=== PATIENT | female | born 1940 | race African-American/Black ===

== ENCOUNTER 2019-06-16 19:39 | Emergency (ER) | payer MEDICARE ==
[~2019-06-16] VITALS: Ht 157.5 cm; Wt 54.5 kg
--- NOTE | 2019-06-16 21:21 | PHYS DOC ---
Past Medical History Past Medical History: High Cholesterol, Hypertension Additional Past Medical Histor: poor historian Past Surgical History: Other Additional Past Surgical Histo: poor historian Smoking Status: Never Smoker Alcohol Use: None Adult General Chief Complaint Chief Complaint: NAUSEA/VOMITING/DIARRHA HPI HPI Patient is a 78 year old female who presents with complaint of nausea and vomiting that started this morning. Patient indicates that she has not been able to keep anything down. She denies any diarrhea. She denies any abdominal pain. She also denies any fever, cough or shortness of breath.[] Review of Systems Review of Systems Constitutional: Denies fever or chills [] Respiratory: Denies cough or shortness of breath [] Cardiovascular: No additional information not addressed in HPI [] GI: Denies abdominal pain. Complains of nausea and vomiting without diarrhea [] : Denies dysuria or hematuria [] Neurologic: Denies headache, focal weakness or sensory changes [] All other systems were reviewed and found to be within normal limits, except as documented in this note. Current Medications Current Medications Current Medications Medications (Trade) Dose Ordered Sig/Susan Start Time Stop Time Status Last Admin Dose Admin Ondansetron HCl (Zofran) 4 mg 1X ONCE 06/16/19 21:30 06/16/19 21:31 DC 06/16/19 21:35 4 MG Sodium Chloride 1,000 ml @ 1,000 mls/hr Q1H 06/16/19 21:30 06/16/19 22:29 DC 06/16/19 21:35 1,000 MLS/HR Allergies Allergies Allergies Coded Allergies Type Severity Reaction Last Updated Verified No Known Drug Allergies 06/16/19 No Physical Exam Physical Exam Constitutional: Well developed, well nourished, no acute distress, non-toxic appearance. [] HENT: Normocephalic, atraumatic, bilateral external ears normal, oropharynx moist, no oral exudates, nose normal. [] Eyes: PERRLA, EOMI, conjunctiva normal, no discharge. [] Neck: Normal range of motion, no tenderness, supple, no stridor. [] Cardiovascular:Heart rate regular rhythm, no murmur [] Lungs & Thorax: Bilateral breath sounds clear to auscultation [] Abdomen: Bowel sounds normal, soft, no tenderness. [] Skin: Warm, dry, no erythema, no rash. [] Extremities: No tenderness, no cyanosis, no clubbing, ROM intact, no edema. [] Neurologic: Alert and oriented X 3, no focal deficits noted. [] Current Patient Data Vital Signs Vital Signs Date Time Temp Pulse Resp B/P (MAP) Pulse Ox O2 Delivery O2 Flow Rate FiO2 06/16/19 20:40 97.9 78 18 154/117 (129) 96 Room Air 97.9 Lab Values Laboratory Tests Test 06/16/19 21:17 White Blood Count 6.7 x10^3/uL (4.0-11.0) Red Blood Count 5.08 x10^6/uL (3.50-5.40) Hemoglobin 15.6 g/dL (12.0-15.5) H Hematocrit 46.0 % (36.0-47.0) Mean Corpuscular Volume 91 fL (79-100) Mean Corpuscular Hemoglobin 31 pg (25-35) Mean Corpuscular Hemoglobin Concent 34 g/dL (31-37) Red Cell Distribution Width 12.9 % (11.5-14.5) Platelet Count 227 x10^3/uL (140-400) Neutrophils (%) (Auto) 80 % (31-73) H Lymphocytes (%) (Auto) 15 % (24-48) L Monocytes (%) (Auto) 4 % (0-9) Eosinophils (%) (Auto) 0 % (0-3) Basophils (%) (Auto) 1 % (0-3) Neutrophils # (Auto) 5.4 x10^3/uL (1.8-7.7) Lymphocytes # (Auto) 1.0 x10^3/uL (1.0-4.8) Monocytes # (Auto) 0.3 x10^3/uL (0.0-1.1) Eosinophils # (Auto) 0.0 x10^3/uL (0.0-0.7) Basophils # (Auto) 0.1 x10^3/uL (0.0-0.2) Sodium Level 143 mmol/L (136-145) Potassium Level 4.5 mmol/L (3.5-5.1) Chloride Level 102 mmol/L (98-107) Carbon Dioxide Level 31 mmol/L (21-32) Anion Gap 10 (6-14) Blood Urea Nitrogen 11 mg/dL (7-20) Creatinine 0.9 mg/dL (0.6-1.0) Estimated GFR (Cockcroft-Gault) 73.7 BUN/Creatinine Ratio 12 (6-20) Glucose Level 119 mg/dL (70-99) H Calcium Level 9.7 mg/dL (8.5-10.1) Total Bilirubin 0.5 mg/dL (0.2-1.0) Aspartate Amino Transferase (AST) 18 U/L (15-37) Alanine Aminotransferase (ALT) 15 U/L (14-59) Alkaline Phosphatase 81 U/L (46-116) Total Protein 8.2 g/dL (6.4-8.2) Albumin 3.5 g/dL (3.4-5.0) Albumin/Globulin Ratio 0.7 (1.0-1.7) L Lipase 92 U/L (73-393) Laboratory Tests 06/16/19 21:17 Laboratory Tests 06/16/19 21:17 EKG EKG [] Radiology/Procedures Radiology/Procedures [] Course & Med Decision Making Course & Med Decision Making Pertinent Labs and Imaging studies reviewed. (See chart for details) [] Dragon Disclaimer Dragon Disclaimer This electronic medical record was generated, in whole or in part, using a voice recognition dictation system. Departure Departure Impression: Primary Impression: Nausea & vomiting Disposition: 01 HOME, SELF-CARE Condition: STABLE Referrals: KIRK ROBERT MD (PCP) Patient Instructions: Nausea and Vomiting Scripts Ondansetron (ONDANSETRON ODT) 4 Mg Tab.rapdis 1 TAB PO PRN Q6-8HRS PRN for NAUSEA, #15 TAB Prov: JODY COBURN Jr. DO 06/16/19 Problem Qualifiers Primary Impression: Nausea & vomiting Vomiting type: unspecified Vomiting Intractability: non-intractable Qualified Codes: R11.2 - Nausea with vomiting, unspecified JODY COBURN Jr. DO Jun 16, 2019 21:20
[2019-06-16 21:27] LABS: BASO # 0.1 x10^3/uL (0.0-0.2); BASO % 1 % (0-3); EOS % 0 % (0-3); HEMOGLOBIN 15.6 g/dL (12.0-15.5); LYMPH % 15 % (24-48); MEAN CORPUSCULAR HEMOGLOBIN 31 pg (25-35); MEAN CORPUSCULAR HGB CONC 34 g/dL (31-37); MEAN CORPUSCULAR VOLUME 91 fL (79-100); MONO # 0.3 x10^3/uL (0.0-1.1); MONO % 4 % (0-9); NEUT # 5.4 x10^3/uL (1.8-7.7); NEUT % 80 % (31-73); PLATELET COUNT 227 x10^3/uL (140-400); RED BLOOD COUNT 5.08 x10^6/uL (3.50-5.40); RED CELL DISTRIBUTION WIDTH 12.9 % (11.5-14.5); WHITE BLOOD COUNT 6.7 x10^3/uL (4.0-11.0)
[2019-06-16] MEDS ORDERED: ONDANSETRON PF 4 MG/2 ML VIAL. IVP ONE (21:30)
[2019-06-16] MEDS ORDERED: IV NORMAL SALINE 1000ML BAG 1,000 ML IV SCH (21:30)
[2019-06-16 21:33] LABS: CALCIUM 9.7 mg/dL (8.5-10.1); CREATININE 0.9 mg/dL (0.6-1.0); GFR 73.7; POTASSIUM 4.5 mmol/L (3.5-5.1)
[2019-06-16 21:40] LABS: ALBUMIN 3.5 g/dL (3.4-5.0); ALBUMIN/GLOBULIN RATIO 0.7 (1.0-1.7); TOTAL BILIRUBIN 0.5 mg/dL (0.2-1.0); TOTAL PROTEIN 8.2 g/dL (6.4-8.2)
[2019-06-16] MEDS ORDERED: ONDA4TAB12 PO (22:37)
[2019-06-16 22:46] VITALS: BP 177/85
== END 2019-06-16 23:20 | disposition home or self-care (01) ==
LOC: ER 19:39
DX: R11.2 Nausea with vomiting, unspecified (principal); E78.00 Pure hypercholesterolemia, unspecified; I10 Essential (primary) hypertension
CPT/HCPCS: 36415; 80053; 83690; 85025; 96361; 96374; 99284; J2405; J7030

== ENCOUNTER 2019-06-17 11:46 | Emergency (ER) | payer MEDICARE ==
[~2019-06-17] VITALS: Ht 157.5 cm; Wt 54.5 kg
[~2019-06-17 11:46] MED LIST: ONDA4TAB12 PO
[2019-06-17 12:11] VITALS: BP 168/79
--- NOTE | 2019-06-17 12:24 | PHYS DOC ---
Past Medical History Past Medical History: High Cholesterol, Hypertension Additional Past Medical Histor: poor historian Past Surgical History: Other Additional Past Surgical Histo: poor historian Smoking Status: Never Smoker Alcohol Use: None Adult General Chief Complaint Chief Complaint: NAUSEA/VOMITING/DIARRHA HPI HPI 78-year-old female presented emerged from today after being discharged last night. She overnight was seen for nausea with a few episodes of vomiting. She was given Zofran at home but did not fill her prescription. She has not had a temperature. She otherwise denies any abdominal pain or any other complaints. She just is trying to figure how she can fill her Zofran prescription. She denies any blood in her stools. Review of systems negative for abdominal pain blood in stools fevers chest pain shortness of breath. All other ROS is negative unless otherwise noted. ED course: 78-year-old female presenting after not being able to fill her for Zofran prescription. Patient has not had any vomiting throughout the night. H er vital signs are unremarkable. Blood work was unremarkable last night. Abdomen is soft and nontender. We were able to refill the patient's medication by getting it paid for so that she can use it at home. She is to return for worsening vomiting after using the medication. Follow-up with PCP in 1 to 2 days Review of Systems Review of Systems All other review of systems is negative unless otherwise noted in history of present illness. Allergies Allergies Allergies Coded Allergies Type Severity Reaction Last Updated Verified No Known Drug Allergies 06/16/19 No Physical Exam Physical Exam SEE ABOVE. Constitutional: Well developed, well nourished, no acute distress, non-toxic appearance. [] HENT: Normocephalic, atraumatic, bilateral external ears normal, oropharynx moist, no oral exudates, nose normal. [] Eyes: PERRLA, EOMI, conjunctiva normal, no discharge. [] Neck: Normal range of motion, no tenderness, supple, no stridor. [] Cardiovascular:Heart rate regular rhythm, no murmur [] Lungs & Thorax: Bilateral breath sounds clear to auscultation [] Abdomen: Bowel sounds normal, soft, no tenderness, no masses, no pulsatile masses. Nondistended. Skin: Warm, dry, no erythema, no rash. [] Back: No tenderness, no CVA tenderness. [] Extremities: No tenderness, no cyanosis, no clubbing, ROM intact, no edema. [] Neurologic: Alert and oriented X 3, normal motor function, normal sensory function, no focal deficits noted. [] Psychologic: Affect normal, judgement normal, mood normal. [] Current Patient Data Vital Signs Vital Signs Date Time Temp Pulse Resp B/P (MAP) Pulse Ox O2 Delivery O2 Flow Rate FiO2 06/17/19 12:11 72 168/79 (108) Room Air 06/17/19 12:05 98.2 17 98 98.2 EKG EKG [] Radiology/Procedures Radiology/Procedures [] Course & Med Decision Making Course & Med Decision Making Pertinent Labs and Imaging studies reviewed. (See chart for details) [] Dragon Disclaimer Dragon Disclaimer This electronic medical record was generated, in whole or in part, using a voice recognition dictation system. Departure Departure Impression: Primary Impression: Nausea & vomiting Disposition: 01 HOME, SELF-CARE Condition: STABLE Referrals: KIRK ROBERT MD (PCP) Patient Instructions: Nausea and Vomiting DINESH GUZMAN MD Jun 17, 2019 12:24
== END 2019-06-17 12:45 | disposition home or self-care (01) ==
LOC: ER 11:46
DX: R11.2 Nausea with vomiting, unspecified (principal); E78.00 Pure hypercholesterolemia, unspecified; I10 Essential (primary) hypertension
CPT/HCPCS: 99281

== ENCOUNTER 2020-03-25 18:12 | Inpatient (IN) | payer MEDICARE, OTHER ==
[~2020-03-25] VITALS: Ht 157.5 cm; Wt 47.8 kg
[2020-03-25] MEDS ORDERED: IV NORMAL SALINE 1000ML BAG 1,000 ML IV ONE ×2 (18:15→20:30)
[2020-03-25 18:30] LABS: BASO # 0.1 x10^3/uL (0.0-0.2); BASO % 1 % (0-3); EOS % 0 % (0-3); HEMATOCRIT 44.3 % (36.0-47.0); HEMOGLOBIN 14.6 g/dL (12.0-15.5); LYMPH # 2.5 x10^3/uL (1.0-4.8); LYMPH % 22 % (24-48); MEAN CORPUSCULAR HEMOGLOBIN 30 pg (25-35); MEAN CORPUSCULAR HGB CONC 33 g/dL (31-37); MEAN CORPUSCULAR VOLUME 91 fL (79-100); MONO # 0.7 x10^3/uL (0.0-1.1); MONO % 6 % (0-9); NEUT # 8.4 x10^3/uL (1.8-7.7); NEUT % 72 % (31-73); PLATELET COUNT 177 x10^3/uL (140-400); RED BLOOD COUNT 4.87 x10^6/uL (3.50-5.40); RED CELL DISTRIBUTION WIDTH 13.3 % (11.5-14.5); WHITE BLOOD COUNT 11.7 x10^3/uL (4.0-11.0)
[2020-03-25 18:48] LABS: CALCIUM 9.3 mg/dL (8.5-10.1); CREATININE 1.3 mg/dL (0.6-1.0); GFR 48.1; POTASSIUM 3.6 mmol/L (3.5-5.1)
[2020-03-25 18:51] LABS: PROTHROMBIN TIME PATIENT 13.9 SEC (11.7-14.0)
[2020-03-25 18:54] LABS: ALBUMIN 3.1 g/dL (3.4-5.0); ALBUMIN/GLOBULIN RATIO 0.8 (1.0-1.7); MAGNESIUM 2.5 mg/dL (1.8-2.4); TOTAL BILIRUBIN 0.5 mg/dL (0.2-1.0)
[2020-03-25 19:02] LABS: CREATINE KINASE 36 U/L (26-192)
--- NOTE | 2020-03-25 19:14 | RAD ---
Exam: CT head INDICATION: Altered mental status TECHNIQUE: Sequential axial images through the head were obtained without the administration of IV co ntrast. Comparisons: MRI brain 02/17/2013 FINDINGS: No focal parenchymal lesion or hemorrhage is identified. There is no midline shift or sulcal effaceme nt. Patchy evidence in the periventricular white matter. Chronic infarct at the left cerebellum No acute vascular territory infarction is identified. Suarez-white distinction is preserved. The ventricular system is within normal limits without compression hydrocephalus. The basal cisterns are well maintained. The visualized portions of the paranasal sinuses and mastoid air cells are well-pneumatized. No acute fractures. IMPRESSION: Moderate small vessel ischemic change, technically age indeterminate without recent prior imaging. If there are persistent concerns for acute ischemia MRI would better evaluate. Exposure: One or more of the following in the visualized dose reduction techniques were utilized for this examination: 1. Automated exposure control 2. Adjustment of the MA and/or KV according to patient size Use of iterative of reconstructive technique FOR INTERNAL CODING PURPOSES Critical result: Findings discussed with Torito Jones at 03/25/2020 7:08 PM. RESULT CODE: (C) Electronically signed by: Aaron Gaviria MD (03/25/2020 7:12 PM) [facility]
--- NOTE | 2020-03-25 19:15 | RAD ---
Exam: Chest one view INDICATION: Altered mental status TECHNIQUE: Frontal view of the chest Comparisons: None FINDINGS: The cardiomediastinal silhouette and pulmonary vessels are within normal limits. The lung and pleural spaces are clear. IMPRESSION: No acute cardiopulmonary process. Electronically signed by: Aaron Gaviria MD (03/25/2020 7:13 PM) [facility]
--- NOTE | 2020-03-25 19:18 | PHYS DOC ---
Past Medical History Past Medical History: CVA, High Cholesterol, Hypertension Additional Past Medical Histor: blind Past Medical History Limited secondary to altered mental status Past Surgical History: Other Past Surgical History Limited secondary to altered mental status Smoking Status: Never Smoker Alcohol Use: None Drug Use: None Social History Limited secondary to altered mental status General Adult EDM: Chief Complaint: ALTERED MENTAL STATUS HPI: HPI: Patient is a 79 year old female presents via EMS with report of syncopal episode while she was eating dinner with her family. EMS reports patient became suddenly unresponsive. EMS reports patient's GCS initially 5 then improved to 10 during transport. Patient did vomit x1. Upon arrival patient with interval improvement. Denies fever or chills. 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 History of present illness limited secondary to altered mental status Review of Systems: Review of Systems: Review of systems limited secondary to altered mental status Current Medications: Current Medications Medications (Trade) Dose Ordered Sig/Susan Start Time Stop Time Status Last Admin Dose Admin Sodium Chloride 1,000 ml @ 1,000 mls/hr 1X ONCE 03/25/20 18:15 03/25/20 19:14 DC Allergies: Allergies: Allergies Coded Allergies Type Severity Reaction Last Updated Verified No Known Drug Allergies 06/16/19 No Physical Exam: PE: Constitutional: Well developed, well nourished, no acute distress, non-toxic appearance HENT: Normocephalic, atraumatic, mucous membranes dry Eyes: Conjunctiva normal, no discharge, chronic blindness Neck: Normal range of motion, no tenderness, supple Lungs & Thorax: No respiratory distress, equal chest rise and fall Abdomen: Soft, no tenderness Skin: Warm, dry, no erythema, no rash Extremities: No tenderness, ROM intact, no edema Neurologic: Alert and oriented X 3, normal sensory function, left lower extremity with limited range of motion Psychologic: Affect normal, judgment normal Current Patient Data: Labs: Laboratory Tests Test 03/25/20 18:15 White Blood Count 11.7 x10^3/uL (4.0-11.0) H Red Blood Count 4.87 x10^6/uL (3.50-5.40) Hemoglobin 14.6 g/dL (12.0-15.5) Hematocrit 44.3 % (36.0-47.0) Mean Corpuscular Volume 91 fL (79-100) Mean Corpuscular Hemoglobin 30 pg (25-35) Mean Corpuscular Hemoglobin Concent 33 g/dL (31-37) Red Cell Distribution Width 13.3 % (11.5-14.5) Platelet Count 177 x10^3/uL (140-400) Neutrophils (%) (Auto) 72 % (31-73) Lymphocytes (%) (Auto) 22 % (24-48) L Monocytes (%) (Auto) 6 % (0-9) Eosinophils (%) (Auto) 0 % (0-3) Basophils (%) (Auto) 1 % (0-3) Neutrophils # (Auto) 8.4 x10^3/uL (1.8-7.7) H Lymphocytes # (Auto) 2.5 x10^3/uL (1.0-4.8) Monocytes # (Auto) 0.7 x10^3/uL (0.0-1.1) Eosinophils # (Auto) 0.0 x10^3/uL (0.0-0.7) Basophils # (Auto) 0.1 x10^3/uL (0.0-0.2) Prothrombin Time 13.9 SEC (11.7-14.0) Prothrombin Time INR 1.1 (0.8-1.1) Activated Partial Thromboplast Time 22 SEC (24-38) L Sodium Level 141 mmol/L (136-145) Potassium Level 3.6 mmol/L (3.5-5.1) Chloride Level 105 mmol/L (98-107) Carbon Dioxide Level 26 mmol/L (21-32) Anion Gap 10 (6-14) Blood Urea Nitrogen 28 mg/dL (7-20) H Creatinine 1.3 mg/dL (0.6-1.0) H Estimated GFR (Cockcroft-Gault) 48.1 BUN/Creatinine Ratio 22 (6-20) H Glucose Level 165 mg/dL (70-99) H Lactic Acid Level 2.8 mmol/L (0.4-2.0) H Calcium Level 9.3 mg/dL (8.5-10.1) Magnesium Level 2.5 mg/dL (1.8-2.4) H Total Bilirubin 0.5 mg/dL (0.2-1.0) Aspartate Amino Transferase (AST) 15 U/L (15-37) Alanine Aminotransferase (ALT) 16 U/L (14-59) Alkaline Phosphatase 62 U/L (46-116) Ammonia 12 mcmol/L (11-34) Creatine Kinase 36 U/L (26-192) Creatine Kinase MB (Mass) 0.6 ng/mL (0.0-3.6) Creatine Kinase MB Relative Index % (0-4) Troponin I Quantitative < 0.017 ng/mL (0.000-0.055) LD-Xvf-N-Type Natriuretic Peptide 392 pg/mL (0-449) Total Protein 7.0 g/dL (6.4-8.2) Albumin 3.1 g/dL (3.4-5.0) L Albumin/Globulin Ratio 0.8 (1.0-1.7) L Laboratory Tests 03/25/20 18:15 Laboratory Tests 03/25/20 18:15 Vital Signs: Vital Signs Date Time Temp Pulse Resp B/P (MAP) Pulse Ox O2 Delivery O2 Flow Rate FiO2 03/25/20 18:12 97.7 83 14 120/59 (79) 97 Room Air 97.7 EKG: EKG: @1843 Aflutter vs baseline artifact at 76bpm, J point elevated to V3, nonspecific t wave inversion V1-V2, QRS 122ms, QT/QTc 424/482ms Radiology/Procedures: Radiology/Procedures: PROCEDURE: CT CODE STROKE HEAD WO Exam: CT head INDICATION: Altered mental status TECHNIQUE: Sequential axial images through the head were obtained without the administration of IV contrast. Comparisons: MRI brain 02/17/2013 FINDINGS: No focal parenchymal lesion or hemorrhage is identified. There is no midline shift or sulcal effacement. Patchy evidence in the periventricular white matter. Chronic infarct at the left cerebellum No acute vascular territory infarction is identified. Suarez-white distinction is preserved. The ventricular system is within normal limits without compression hydrocephalus. The basal cisterns are well maintained. The visualized portions of the paranasal sinuses and mastoid air cells are well-pneumatized. No acute fractures. IMPRESSION: Moderate small vessel ischemic change, technically age indeterminate without recent prior imaging. If there are persistent concerns for acute ischemia MRI would better evaluate. Exposure: One or more of the following in the visualized dose reduction technPerception Software ues were utilized for this examination: 1. Automated exposure control 2. Adjustment of the MA and/or KV according to patient size Use of iterative of reconstructive technique FOR INTERNAL CODING PURPOSES Critical result: Findings discussed with Torito Pang at 03/25/2020 7:08 PM. RESULT CODE: (C) Electronically signed by: Aaron Gaviria MD (03/25/2020 7:12 PM) [facility] PROCEDURE: PORTABLE CHEST 1V Exam: Chest one view INDICATION: Altered mental status TECHNIQUE: Frontal view of the chest Comparisons: None FINDINGS: The cardiomediastinal silhouette and pulmonary vessels are within normal limits. The lung and pleural spaces are clear. IMPRESSION: No acute cardiopulmonary process. Electronically signed by: Aaron Gaviria MD (03/25/2020 7:13 PM) [facility] Course & Med Decision Making: Course & Med Decision Making Pertinent Labs and Imaging studies reviewed. (See chart for details) Patient presents as code stroke from EMS after reported syncopal episode while with family members. Last known well at 1725. CT head without acute process. Findings of known prior chronic infarct. EKG stable. Labs obtained and posted to chart. Lactic acid elevated. Chest x-ray without acute finding. Given rapid improvement in patient's mentation, elected to hold TPA at this time. Cannot fully exclude seizure with postictal state. Patient requiring admission for further evaluation and treatment. Discussed with Dr. Desouza (hospitalist) who is in agreement with admission. Neurology consult placed. Discussed findings and plan with patient, who acknowledges understanding and agreement. Fletcher Disclaimer: Fletcher Disclaimer: This electronic medical record was generated, in whole or in part, using a voice recognition dictation system. Departure Departure Impression: Primary Impression: Altered mental status Qualified Codes: R41.82 - Altered mental status, unspecified Additional Impressions: Syncope Qualified Codes: R55 - Syncope and collapse Lactic acidosis Disposition: 09 ADMITTED INPT THIS HOSP Admitting Physician: KENDALL (Deo) Condition: IMPROVED Referrals: KIRK ROBERT MD (PCP) NIHSS Stroke Scale NIH Stroke Scale: NIH Stroke Scale Response (Comments) Value Level of Consciousness: 0 Alert/Responsive 0 LOC Questions: 0 Answers both correctly 0 LOC Commands: 0 Performs both tasks 0 Facial Palsy: 0 Normal, symmetrical 0 Motor - Left Arm 1 Drifts, but can hold 1 Motor - Right Arm 1 Drifts but can hold 1 Motor - Left Leg 2 Some effort 2 Motor: Right Leg 0 No drift 0 Sensory: 0 No loss 0 Best Language: 0 Normal 0 Dysathria: 0 Normal 0 Extinction and Inattention: 0 Normal 0 Total 4 PANG,TORITO Pandey DO Mar 25, 2020 19:18
[2020-03-25] MEDS ORDERED: ASPIRIN RECTAL 300 MG SUPP. PR ONE (19:30)
[2020-03-25 20:11] LABS: BILIRUBIN,URINE SMALL (NEG); CLARITY,URINE CLEAR; COLOR,URINE AMBER; NITRITE,URINE NEGATIVE (NEG); PH,URINE 5.5 (<5.0-8.0); PROTEIN,URINE 30 mg/dL (NEG-TRACE)
[2020-03-25 20:16] LABS: BACTERIA,URINE 0 /HPF (0-FEW); RBC,URINE 0 /HPF (0-2); WBC,URINE OCC /HPF (0-4)
[2020-03-25 20:17] LABS: HYALINE CASTS, URINE FEW /HPF
[2020-03-25] MEDS ORDERED: ONDANSETRON PF 4 MG/2 ML VIAL. IV PRN (20:30)
[2020-03-25] MEDS: IV NORMAL SALINE 1000ML BAG 1,000 ML IV SCH (21:00)
[2020-03-25] MEDS ORDERED: DEXTROSE 50% 25 GM / 50ML DISP.SYRIN. IV PRN (21:00)
[2020-03-25] MEDS ORDERED: ONDANSETRON PF 4 MG/2 ML VIAL. IVP PRN (21:00)
[2020-03-25] MEDS: ATORVASTATIN CALCIUM 40 MG TABLET. PO SCH (21:00)
[2020-03-25] MEDS ORDERED: DOCUSATE SODIUM 100 MG CAPSULE. PO PRN (21:00)
[2020-03-26 06:13] LABS: BASO # 0.1 x10^3/uL (0.0-0.2); BASO % 1 % (0-3); EOS # 0.1 x10^3/uL (0.0-0.7); EOS % 1 % (0-3); HEMATOCRIT 41.9 % (36.0-47.0); HEMOGLOBIN 14.1 g/dL (12.0-15.5); LYMPH # 1.6 x10^3/uL (1.0-4.8); LYMPH % 22 % (24-48); MEAN CORPUSCULAR HEMOGLOBIN 30 pg (25-35); MEAN CORPUSCULAR HGB CONC 34 g/dL (31-37); MEAN CORPUSCULAR VOLUME 91 fL (79-100); MONO # 0.5 x10^3/uL (0.0-1.1); MONO % 8 % (0-9); NEUT # 5.1 x10^3/uL (1.8-7.7); NEUT % 69 % (31-73); PLATELET COUNT 141 x10^3/uL (140-400); RED BLOOD COUNT 4.63 x10^6/uL (3.50-5.40); RED CELL DISTRIBUTION WIDTH 13.2 % (11.5-14.5); WHITE BLOOD COUNT 7.4 x10^3/uL (4.0-11.0)
[2020-03-26 06:31] LABS: CALCIUM 8.4 mg/dL (8.5-10.1); CREATININE 0.7 mg/dL (0.6-1.0); GFR 98.2; MAGNESIUM 2.1 mg/dL (1.8-2.4); PHOSPHORUS 2.3 mg/dL (2.6-4.7); POTASSIUM 3.9 mmol/L (3.5-5.1)
--- NOTE | 2020-03-26 07:34 | PDOC1 ---
History and Physical Date of Service: DOS: DATE: 03/26/20 TIME: 07:32 Chief Complaint: Chief Complain: syncope History of Present Illness: HPI: History obtained from chart review and discussion with the patient. Patient is alert awake oriented x3. 79 year old female presents via EMS with report of syncopal episode while she was eating dinner with her family. EMS reports patient became suddenly u nresponsive. EMS reports patient's GCS initially 5 then improved to 10 during transport. Patient did vomit x1. Upon arrival patient with interval improvement. Denies fever or chills. 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 History of present illness limited secondary to altered mental status Past Medical/Surgical History: PMH/PSH: Past Medical History: CVA, High Cholesterol, Hypertension,legally blind Limited secondary to altered mental status Past Surgical History Limited secondary to altered mental status Allergies: Allergies: Coded Allergies: No Known Drug Allergies (Unverified , 06/16/19) Family History: Family History: Limited to altered mental status Social History: Social History: Smoking Status: Never Smoker Alcohol Use: None Drug Use: None Social History Limited secondary to altered mental status Current Medications: Current Medications Current Medications Sodium Chloride 1,000 ml @ 1,000 mls/hr 1X ONCE IV Last administered on 03/25/20at 19:48; Start 03/25/20 at 18:15; Stop 03/25/20 at 19:14; Status DC Aspirin (Aspirin Rectal Supp) 300 mg 1X ONCE TX Last administered on 03/25/20at 19:48; Start 03/25/20 at 19:30; Stop 03/25/20 at 19:33; Status DC Ondansetron HCl (Zofran) 4 mg PRN Q8HRS PRN IV NAUSEA/VOMITING; Start 03/25/20 at 20:30; Stop 03/26/20 at 20:29 Sodium Chloride 1,000 ml @ 75 mls/hr 1X ONCE IV Last administered on 03/25/20at 20:30; Start 03/25/20 at 20:30; Stop 03/26/20 at 00:18; Status DC Atorvastatin Calcium (Lipitor) 40 mg QHS PO ; Start 03/25/20 at 21:00 Sennosides (Senna) 17.2 mg PRN BID PRN PO CONSTIPATION 1ST CHOICE; Start 03/25/20 at 21:00 Docusate Sodium (Colace) 100 mg PRN DAILY PRN PO HARD STOOLS; Start 03/25/20 at 21:00 Ondansetron HCl (Zofran) 4 mg PRN Q6HRS PRN IVP NAUSEA/VOMITING 1ST CHOICE; Start 03/25/20 at 21:00 Aspirin (Ecotrin) 81 mg DAILYWBKFT PO ; Start 03/26/20 at 08:00 Dextrose (Dextrose 50%-Water Syringe) 12.5 gm PRN Q15MIN PRN IV SEE COMMENTS; Start 03/25/20 at 21:00 Sodium Chloride 1,000 ml @ 100 mls/hr Q10H IV ; Start 03/25/20 at 21:00 Active Scripts Active Ondansetron Odt (Ondansetron) 4 Mg Tab.rapdis 1 Tab PO PRN Q6-8HRS PRN ROS: Review of Systems Review of System REVIEW OF SYSTEMS: GENERAL: Denies weakness SKIN: No bruising, hair changes or rashes. EYES: No blurred, double or loss of vision. NOSE AND THROAT: No history of nosebleeds, hoarseness or sore throat. HEART: No history of palpitations, chest pain or shortness of breath on exertion. LUNGS: Denies cough, hemoptysis, wheezing or shortness of breath. GASTROINTESTINAL: Denies changes in appetite, nausea, vomiting, diarrhea or constipation. GENITOURINARY: No history of frequency, urgency, hesitancy or nocturia. NEUROLOGIC: Denies history of numbness, tingling, or tremor. PSYCHIATRIC: No history of panic, anxiety or depression. ENDOCRINE: No history of heat or cold intolerance, polyuria or polydipsia. EXTREMITIES: Denies joint pain, pain on walking or stiffness. Physical Exam: Vital Signs: Vital Signs Date Time Temp Pulse Resp B/P (MAP) Pulse Ox O2 Delivery O2 Flow Rate FiO2 03/26/20 05:56 78 18 197/99 (131) 96 Room Air 03/25/20 18:12 97.7 97.7 Physcial Exam: GEN: No apparent distress. Alert and oriented HEENT: Normal cephalic, atraumatic, external auditory canals are patent EYES: Extraocular muscles are intact, pupil are equally round and reactive to light and accommodation MUSCULOSKELETAL: Well developed , well nourished, good range of motion ENDOCRINE: No thyromegaly was palpated LYMPHATICS: No cervical chain or axillary nodes were noted HEMATOPOIETIC: No bruising NECK: Supple, no JVD, no thyromegaly was noted LUNGS: Clear to auscultation in all lung jo without rhonchi or wheezing HEART: RRR, S!, S2 present. Peripheral pulses intact, no obvious murmurs noted ABDOMEN: Soft, nontender. Positive bowel sounds, no organomegaly, normal bowel sounds EXTREMITIES: Without clubbing, cyanosis, or edema. Pedal pulses intact. Negative Homans sign NEUROLOGIC: Normal speech and tone. A&O x 3, moves all extremities, no obvious focal deficits PSYCHIATRIC: Normal affect, normal mood. Stable SKIN: No ulcerations or rashes, good skin turgor, no jaundice VASCULAR: Good capillary refill, neurovascular bundle appears to be intact Labs: Labs: Laboratory Tests Test 03/25/20 18:15 03/25/20 19:55 03/25/20 21:50 03/26/20 00:30 White Blood Count 11.7 x10^3/uL (4.0-11.0) Red Blood Count 4.87 x10^6/uL (3.50-5.40) Hemoglobin 14.6 g/dL (12.0-15.5) Hematocrit 44.3 % (36.0-47.0) Mean Corpuscular Volume 91 fL (79-100) Mean Corpuscular Hemoglobin 30 pg (25-35) Mean Corpuscular Hemoglobin Concent 33 g/dL (31-37) Red Cell Distribution Width 13.3 % (11.5-14.5) Platelet Count 177 x10^3/uL (140-400) Neutrophils (%) (Auto) 72 % (31-73) Lymphocytes (%) (Auto) 22 % (24-48) Monocytes (%) (Auto) 6 % (0-9) Eosinophils (%) (Auto) 0 % (0-3) Basophils (%) (Auto) 1 % (0-3) Neutrophils # (Auto) 8.4 x10^3/uL (1.8-7.7) Lymphocytes # (Auto) 2.5 x10^3/uL (1.0-4.8) Monocytes # (Auto) 0.7 x10^3/uL (0.0-1.1) Eosinophils # (Auto) 0.0 x10^3/uL (0.0-0.7) Basophils # (Auto) 0.1 x10^3/uL (0.0-0.2) Prothrombin Time 13.9 SEC (11.7-14.0) Prothromb Time International Ratio 1.1 (0.8-1.1) Activated Partial Thromboplast Time 22 SEC (24-38) Sodium Level 141 mmol/L (136-145) Potassium Level 3.6 mmol/L (3.5-5.1) Chloride Level 105 mmol/L (98-107) Carbon Dioxide Level 26 mmol/L (21-32) Anion Gap 10 (6-14) Blood Urea Nitrogen 28 mg/dL (7-20) Creatinine 1.3 mg/dL (0.6-1.0) Estimated GFR (Cockcroft-Gault) 48.1 BUN/Creatinine Ratio 22 (6-20) Glucose Level 165 mg/dL (70-99) Lactic Acid Level 2.8 mmol/L (0.4-2.0) 0.9 mmol/L (0.4-2.0) Calcium Level 9.3 mg/dL (8.5-10.1) Magnesium Level 2.5 mg/dL (1.8-2.4) Total Bilirubin 0.5 mg/dL (0.2-1.0) Aspartate Amino Transf (AST/SGOT) 15 U/L (15-37) Alanine Aminotransferase (ALT/SGPT) 16 U/L (14-59) Alkaline Phosphatase 62 U/L (46-116) Ammonia 12 mcmol/L (11-34) Creatine Kinase 36 U/L (26-192) Creatine Kinase MB (Mass) 0.6 ng/mL (0.0-3.6) Creatine Kinase MB Relative Index % (0-4) Troponin I Quantitative < 0.017 ng/mL (0.000-0.055) 0.019 ng/mL (0.000-0.055) TM-Xtm-M-Type Natriuretic Peptide 392 pg/mL (0-449) Total Protein 7.0 g/dL (6.4-8.2) Albumin 3.1 g/dL (3.4-5.0) Albumin/Globulin Ratio 0.8 (1.0-1.7) Urine Collection Type Unknown Urine Color Emeli Urine Clarity Clear Urine pH 5.5 (<5.0-8.0) Urine Specific [place] 1.025 (1.000-1.030) Urine Protein 30 mg/dL (NEG-TRACE) Urine Glucose (UA) Negative mg/dL (NEG) Urine Ketones (Stick) Negative mg/dL (NEG) Urine Blood Negative (NEG) Urine Nitrite Negative (NEG) Urine Bilirubin Small (NEG) Urine Urobilinogen Dipstick 1.0 mg/dL (0.2 mg/dL) Urine Leukocyte Esterase Negative (NEG) Urine RBC 0 /HPF (0-2) Urine WBC Occ /HPF (0-4) Urine Bacteria 0 /HPF (0-FEW) Urine Hyaline Casts Few /HPF Urine Mucus Mod /LPF Test 03/26/20 06:00 White Blood Count 7.4 x10^3/uL (4.0-11.0) Red Blood Count 4.63 x10^6/uL (3.50-5.40) Hemoglobin 14.1 g/dL (12.0-15.5) Hematocrit 41.9 % (36.0-47.0) Mean Corpuscular Volume 91 fL (79-100) Mean Corpuscular Hemoglobin 30 pg (25-35) Mean Corpuscular Hemoglobin Concent 34 g/dL (31-37) Red Cell Distribution Width 13.2 % (11.5-14.5) Platelet Count 141 x10^3/uL (140-400) Neutrophils (%) (Auto) 69 % (31-73) Lymphocytes (%) (Auto) 22 % (24-48) Monocytes (%) (Auto) 8 % (0-9) Eosinophils (%) (Auto) 1 % (0-3) Basophils (%) (Auto) 1 % (0-3) Neutrophils # (Auto) 5.1 x10^3/uL (1.8-7.7) Lymphocytes # (Auto) 1.6 x10^3/uL (1.0-4.8) Monocytes # (Auto) 0.5 x10^3/uL (0.0-1.1) Eosinophils # (Auto) 0.1 x10^3/uL (0.0-0.7) Basophils # (Auto) 0.1 x10^3/uL (0.0-0.2) Sodium Level 144 mmol/L (136-145) Potassium Level 3.9 mmol/L (3.5-5.1) Chloride Level 110 mmol/L (98-107) Carbon Dioxide Level 24 mmol/L (21-32) Anion Gap 10 (6-14) Blood Urea Nitrogen 18 mg/dL (7-20) Creatinine 0.7 mg/dL (0.6-1.0) Estimated GFR (Cockcroft-Gault) 98.2 Glucose Level 94 mg/dL (70-99) Calcium Level 8.4 mg/dL (8.5-10.1) Phosphorus Level 2.3 mg/dL (2.6-4.7) Magnesium Level 2.1 mg/dL (1.8-2.4) Troponin I Quantitative < 0.017 ng/mL (0.000-0.055) Laboratory Tests Test 03/25/20 18:15 03/25/20 19:55 03/25/20 21:50 03/26/20 00:30 White Blood Count 11.7 x10^3/uL (4.0-11.0) Red Blood Count 4.87 x10^6/uL (3.50-5.40) Hemoglobin 14.6 g/dL (12.0-15.5) Hematocrit 44.3 % (36.0-47.0) Mean Corpuscular Volume 91 fL (79-100) Mean Corpuscular Hemoglobin 30 pg (25-35) Mean Corpuscular Hemoglobin Concent 33 g/dL (31-37) Red Cell Distribution Width 13.3 % (11.5-14.5) Platelet Count 177 x10^3/uL (140-400) Neutrophils (%) (Auto) 72 % (31-73) Lymphocytes (%) (Auto) 22 % (24-48) Monocytes (%) (Auto) 6 % (0-9) Eosinophils (%) (Auto) 0 % (0-3) Basophils (%) (Auto) 1 % (0-3) Neutrophils # (Auto) 8.4 x10^3/uL (1.8-7.7) Lymphocytes # (Auto) 2.5 x10^3/uL (1.0-4.8) Monocytes # (Auto) 0.7 x10^3/uL (0.0-1.1) Eosinophils # (Auto) 0.0 x10^3/uL (0.0-0.7) Basophils # (Auto) 0.1 x10^3/uL (0.0-0.2) Prothrombin Time 13.9 SEC (11.7-14.0) Prothromb Time International Ratio 1.1 (0.8-1.1) Activated Partial Thromboplast Time 22 SEC (24-38) Sodium Level 141 mmol/L (136-145) Potassium Level 3.6 mmol/L (3.5-5.1) Chloride Level 105 mmol/L (98-107) Carbon Dioxide Level 26 mmol/L (21-32) Anion Gap 10 (6-14) Blood Urea Nitrogen 28 mg/dL (7-20) Creatinine 1.3 mg/dL (0.6-1.0) Estimated GFR (Cockcroft-Gault) 48.1 BUN/Creatinine Ratio 22 (6-20) Glucose Level 165 mg/dL (70-99) Lactic Acid Level 2.8 mmol/L (0.4-2.0) 0.9 mmol/L (0.4-2.0) Calcium Level 9.3 mg/dL (8.5-10.1) Magnesium Level 2.5 mg/dL (1.8-2.4) Total Bilirubin 0.5 mg/dL (0.2-1.0) Aspartate Amino Transf (AST/SGOT) 15 U/L (15-37) Alanine Aminotransferase (ALT/SGPT) 16 U/L (14-59) Alkaline Phosphatase 62 U/L (46-116) Ammonia 12 mcmol/L (11-34) Creatine Kinase 36 U/L (26-192) Creatine Kinase MB (Mass) 0.6 ng/mL (0.0-3.6) Creatine Kinase MB Relative Index % (0-4) Troponin I Quantitative < 0.017 ng/mL (0.000-0.055) 0.019 ng/mL (0.000-0.055) [place]-L-Type Natriuretic Peptide 392 pg/mL (0-449) Total Protein 7.0 g/dL (6.4-8.2) Albumin 3.1 g/dL (3.4-5.0) Albumin/Globulin Ratio 0.8 (1.0-1.7) Urine Collection Type Unknown Urine Color Emeli Urine Clarity Clear Urine pH 5.5 (<5.0-8.0) Urine Specific [place] 1.025 (1.000-1.030) Urine Protein 30 mg/dL (NEG-TRACE) Urine Glucose (UA) Negative mg/dL (NEG) Urine Ketones (Stick) Negative mg/dL (NEG) Urine Blood Negative (NEG) Urine Nitrite Negative (NEG) Urine Bilirubin Small (NEG) Urine Urobilinogen Dipstick 1.0 mg/dL (0.2 mg/dL) Urine Leukocyte Esterase Negative (NEG) Urine RBC 0 /HPF (0-2) Urine WBC Occ /HPF (0-4) Urine Bacteria 0 /HPF (0-FEW) Urine Hyaline Casts Few /HPF Urine Mucus Mod /LPF Test 03/26/20 06:00 White Blood Count 7.4 x10^3/uL (4.0-11.0) Red Blood Count 4.63 x10^6/uL (3.50-5.40) Hemoglobin 14.1 g/dL (12.0-15.5) Hematocrit 41.9 % (36.0-47.0) Mean Corpuscular Volume 91 fL (79-100) Mean Corpuscular Hemoglobin 30 pg (25-35) Mean Corpuscular Hemoglobin Concent 34 g/dL (31-37) Red Cell Distribution Width 13.2 % (11.5-14.5) Platelet Count 141 x10^3/uL (140-400) Neutrophils (%) (Auto) 69 % (31-73) Lymphocytes (%) (Auto) 22 % (24-48) Monocytes (%) (Auto) 8 % (0-9) Eosinophils (%) (Auto) 1 % (0-3) Basophils (%) (Auto) 1 % (0-3) Neutrophils # (Auto) 5.1 x10^3/uL (1.8-7.7) Lymphocytes # (Auto) 1.6 x10^3/uL (1.0-4.8) Monocytes # (Auto) 0.5 x10^3/uL (0.0-1.1) Eosinophils # (Auto) 0.1 x10^3/uL (0.0-0.7) Basophils # (Auto) 0.1 x10^3/uL (0.0-0.2) Sodium Level 144 mmol/L (136-145) Potassium Level 3.9 mmol/L (3.5-5.1) Chloride Level 110 mmol/L (98-107) Carbon Dioxide Level 24 mmol/L (21-32) Anion Gap 10 (6-14) Blood Urea Nitrogen 18 mg/dL (7-20) Creatinine 0.7 mg/dL (0.6-1.0) Estimated GFR (Cockcroft-Gault) 98.2 Glucose Level 94 mg/dL (70-99) Calcium Level 8.4 mg/dL (8.5-10.1) Phosphorus Level 2.3 mg/dL (2.6-4.7) Magnesium Level 2.1 mg/dL (1.8-2.4) Troponin I Quantitative < 0.017 ng/mL (0.000-0.055) Images: Images HEAD CT IMPRESSION: Moderate small vessel ischemic change, technically age indeterminate without recent prior imaging. If there are persistent concerns for acute ischemia MRI would better evaluate. Assessment/Plan Assessment/Plan Syncope likely due to vasovagal etiology versus orthostatic hypotension Concern for TIA Acute electrolyte derangement hypocalcemia, hypophosphatemia Admit to medicine for further work-up Neurology consult Continue his aspirin and atorvastatin Bedside swallow study Continue telemetry monitoring Fall precautions Orthostatic vital signs Hold all centrally acting medications Pending medication reconciliation SCD and Lovenox within 24 hours of presentation for DVT prophylaxis PT OT and speech modalities Pepcid GI prophylaxis ADA diet Full code Discussed with RN and SW Disposition pending neuro evaluation Surrogate decision maker is Alejandro Brunner Justifications for Admission Syncope Indications Altered Mental Status?: Yes Justification for admission: Patient's severe/persistent Altered Mental Status as indicated by lethargy/confusional state that has persisted after initial hours of intervention is concerning, needs inpatient level of care for further evaluation and management. Is patient dehydrated?: Yes Justification for admission: There is concern that patient may be severely dehydrated accounting for the syncope. Patient needs inpatient level of care for further evaluation and management. Other Justification MANSI GUTIERREZ MD Mar 26, 2020 07:34
[2020-03-26] MEDS: ASPIRIN ENTERIC COATED 81 MG TABLET.DR. PO SCH (09:01)
[2020-03-26] MEDS: IV NORMAL SALINE 1000ML BAG 1,000 ML IV SCH ×2 (09:02→18:01)
[2020-03-26] MEDS: LABETALOL 20 MG/4 ML DISP.SYRIN. IVP PRN (09:11)
[2020-03-26] MEDS ORDERED: ATOR10TA60 PO (10:21)
[2020-03-26] MEDS ORDERED: VALS80TA28 PO (10:21)
[2020-03-26 11:00] VITALS: BP 156/79
[2020-03-26] MEDS ORDERED: PRED20TA PO (13:55)
[2020-03-26] MEDS ORDERED: FOLI0.8C PO (13:55)
[2020-03-26] MEDS ORDERED: HYDR-3164 PO (13:55)
[2020-03-26] MEDS ORDERED: CELE200C PO (13:55)
[2020-03-26] MEDS ORDERED: METH2.5T PO (13:55)
[2020-03-26] MEDS ORDERED: FAMO20TA5 PO (13:55)
[2020-03-26] MEDS ORDERED: OXYB5TAB10 PO (13:56)
--- NOTE | 2020-03-26 14:30 | PDOC2 ---
NEUROLOGY CONSULT Date of Service DOS: DATE: 03/26/20 TIME: 14:22 Reason for Consult Reason for Consult: Syncope Referring Physician Referring Physician: Dr. Desouza Source Source: Caregiver (Daughter and grandson), Chart review, Patient History of Present Illness History of Present Illness The patient is a 79-year-old right-handed female who was sitting at home, got up and fainted, fell over, eyes rolled back, there was no convulsive activity. She did not wake up until ambulance arrived. 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 She has never had a seizure, head injury, or syncope. Past Medical History Cardiovascular: HTN, Hyperlipidemia CENTRAL NERVOUS SYSTEM: CVA GI: Hemorrhoids, Peptic Ulcer disease Musculoskeletal: Osteoarthritis Rheumatologic: Other (Lupus) ENT: Other (Blind, glaucoma) Past Surgical History Past Surgical History: Other (Left eye) Family History Family History: Cancer Social History Social History , grandson stays with her, rare alcohol, ex-smoker Current Medications Current Medications Current Medications Sodium Chloride 1,000 ml @ 1,000 mls/hr 1X ONCE IV Last administered on 03/25/20at 19:48; Start 03/25/20 at 18:15; Stop 03/25/20 at 19:14; Status DC Aspirin (Aspirin Rectal Supp) 300 mg 1X ONCE GA Last administered on 03/25/20at 19:48; Start 03/25/20 at 19:30; Stop 03/25/20 at 19:33; Status DC Ondansetron HCl (Zofran) 4 mg PRN Q8HRS PRN IV NAUSEA/VOMITING; Start 03/25/20 at 20:30; Stop 03/26/20 at 20:29 Sodium Chloride 1,000 ml @ 75 mls/hr 1X ONCE IV Last administered on 03/25/20at 20:30; Start 03/25/20 at 20:30; Stop 03/26/20 at 00:18; Status DC Atorvastatin Calcium (Lipitor) 40 mg QHS PO ; Start 03/25/20 at 21:00 Sennosides (Senna) 17.2 mg PRN BID PRN PO CONSTIPATION 1ST CHOICE; Start 03/25/20 at 21:00 Docusate Sodium (Colace) 100 mg PRN DAILY PRN PO HARD STOOLS; Start 03/25/20 at 21:00 Ondansetron HCl (Zofran) 4 mg PRN Q6HRS PRN IVP NAUSEA/VOMITING 1ST CHOICE; Start 03/25/20 at 21:00 Aspirin (Ecotrin) 81 mg DAILYWBKFT PO Last administered on 03/26/20at 09:01; Start 03/26/20 at 08:00 Dextrose (Dextrose 50%-Water Syringe) 12.5 gm PRN Q15MIN PRN IV SEE COMMENTS; Start 03/25/20 at 21:00 Sodium Chloride 1,000 ml @ 100 mls/hr Q10H IV Last administered on 03/26/20at 09:02; Start 03/25/20 at 21:00 Labetalol HCl (Normodyne Iv Push) 10 mg PRN Q2HRS PRN IVP HYPERTENSION Last administered on 03/26/20at 09:11; Start 03/26/20 at 09:00 Famotidine (Pepcid) 20 mg DAILY PO ; Start 03/26/20 at 15:00 Acetaminophen/ Hydrocodone Bitart (Lortab 5/325) 1 tab BID PO ; Start 03/26/20 at 15:00 Methotrexate (Rheumatrex) 17.5 mg WEEKLY PO ; Start 03/26/20 at 15:00 Oxybutynin Chloride (Ditropan) 5 mg BID PO ; Start 03/26/20 at 15:00 Prednisone (Prednisone) 10 mg DAILY PO ; Start 03/26/20 at 15:00 Celecoxib (CeleBREX) 200 mg DAILY PO ; Start 03/26/20 at 15:00 Folic Acid (Folic Acid) 1 mg DAILY PO ; Start 03/26/20 at 15:00 Losartan Potassium (Cozaar) 50 mg DAILY PO ; Start 03/26/20 at 15:00 Active Scripts Active Reported Oxybutynin Chloride 5 Mg Tablet 1 Tab PO BID Methotrexate (Methotrexate Sodium) 2.5 Mg Tablet 7 Tab PO WEEKLY [place] 5-325 Tablet (Acetaminophen/Hydrocodone Bitart) 1 Each Tablet 1 Tab PO BID Folic Acid 0.8 Mg Capsule 1 Mg PO DAILY Famotidine 20 Mg Tablet 20 Mg PO BID Prednisone 20 Mg Tablet 10 Mg PO DAILY Celebrex (Celecoxib) 200 Mg Capsule 1 Cap PO DAILY Atorvastatin Calcium 10 Mg Tablet 10 Mg PO HS Valsartan 80 Mg Tablet 80 Mg PO DAILY Allergies Allergies: Coded Allergies: No Known Drug Allergies (Unverified , 06/16/19) ROS Review of System Negative for fever, chills, weight loss, shortness of breath, chest pain, indigestion, hematochezia, melena, and dysuria. Full 14-point review of systems is negative. Physical Exam Physical Examination General: Well-developed, well-nourished black female in no acute distress HEENT: Normocephalic andatraumatic. Temporal arteriespulsatile and nontender. Neck: Supple without bruit, no meningismus Musculoskeletal: Stability:see neurologic. Gait exam:see neurologic. Tone:see neurologic .Strength:see neurologic. Neurological: Mental Status:orientation, memory, attention span/concentration, language, fund of knowledge normal, knows date and location. Cranial Nerves:Blind in both eyes. Facial sensation is normal. There is no facial asymmetry. Vestibulo-ocular reflex is intact. Palate elevates and tongue protrudes in midline. All other cranial related problems are negative except as mentioned before.Reflexes:2+ and symmetric with flexor plantar responses. Motor:5/5 strength with normal tone and bulk. Coordination:Poorly performed due to blindness. Gait:Not tested. Sensory:Normal pinprick, vibration, light touch, proprioception. Vitals VITALS Vital Signs Date Time Temp Pulse Resp B/P (MAP) Pulse Ox O2 Delivery O2 Flow Rate FiO2 03/26/20 11:00 98.5 80 18 156/79 (104) 94 Room Air 98.5 Labs Labs Laboratory Tests Test 03/25/20 18:15 03/25/20 19:55 03/25/20 21:50 03/26/20 00:30 White Blood Count 11.7 x10^3/uL (4.0-11.0) Red Blood Count 4.87 x10^6/uL (3.50-5.40) Hemoglobin 14.6 g/dL (12.0-15.5) Hematocrit 44.3 % (36.0-47.0) Mean Corpuscular Volume 91 fL (79-100) Mean Corpuscular Hemoglobin 30 pg (25-35) Mean Corpuscular Hemoglobin Concent 33 g/dL (31-37) Red Cell Distribution Width 13.3 % (11.5-14.5) Platelet Count 177 x10^3/uL (140-400) Neutrophils (%) (Auto) 72 % (31-73) Lymphocytes (%) (Auto) 22 % (24-48) Monocytes (%) (Auto) 6 % (0-9) Eosinophils (%) (Auto) 0 % (0-3) Basophils (%) (Auto) 1 % (0-3) Neutrophils # (Auto) 8.4 x10^3/uL (1.8-7.7) Lymphocytes # (Auto) 2.5 x10^3/uL (1.0-4.8) Monocytes # (Auto) 0.7 x10^3/uL (0.0-1.1) Eosinophils # (Auto) 0.0 x10^3/uL (0.0-0.7) Basophils # (Auto) 0.1 x10^3/uL (0.0-0.2) Prothrombin Time 13.9 SEC (11.7-14.0) Prothromb Time International Ratio 1.1 (0.8-1.1) Activated Partial Thromboplast Time 22 SEC (24-38) Sodium Level 141 mmol/L (136-145) Potassium Level 3.6 mmol/L (3.5-5.1) Chloride Level 105 mmol/L (98-107) Carbon Dioxide Level 26 mmol/L (21-32) Anion Gap 10 (6-14) Blood Urea Nitrogen 28 mg/dL (7-20) Creatinine 1.3 mg/dL (0.6-1.0) Estimated GFR (Cockcroft-Gault) 48.1 BUN/Creatinine Ratio 22 (6-20) Glucose Level 165 mg/dL (70-99) Lactic Acid Level 2.8 mmol/L (0.4-2.0) 0.9 mmol/L (0.4-2.0) Calcium Level 9.3 mg/dL (8.5-10.1) Magnesium Level 2.5 mg/dL (1.8-2.4) Total Bilirubin 0.5 mg/dL (0.2-1.0) Aspartate Amino Transf (AST/SGOT) 15 U/L (15-37) Alanine Aminotransferase (ALT/SGPT) 16 U/L (14-59) Alkaline Phosphatase 62 U/L (46-116) Ammonia 12 mcmol/L (11-34) Creatine Kinase 36 U/L (26-192) Creatine Kinase MB (Mass) 0.6 ng/mL (0.0-3.6) Creatine Kinase MB Relative Index % (0-4) Troponin I Quantitative < 0.017 ng/mL (0.000-0.055) 0.019 ng/mL (0.000-0.055) IG-Ftb-W-Type Natriuretic Peptide 392 pg/mL (0-449) Total Protein 7.0 g/dL (6.4-8.2) Albumin 3.1 g/dL (3.4-5.0) Albumin/Globulin Ratio 0.8 (1.0-1.7) Urine Collection Type Unknown Urine Color Emeli Urine Clarity Clear Urine pH 5.5 (<5.0-8.0) Urine Specific [place] 1.025 (1.000-1.030) Urine Protein 30 mg/dL (NEG-TRACE) Urine Glucose (UA) Negative mg/dL (NEG) Urine Ketones (Stick) Negative mg/dL (NEG) Urine Blood Negative (NEG) Urine Nitrite Negative (NEG) Urine Bilirubin Small (NEG) Urine Urobilinogen Dipstick 1.0 mg/dL (0.2 mg/dL) Urine Leukocyte Esterase Negative (NEG) Urine RBC 0 /HPF (0-2) Urine WBC Occ /HPF (0-4) Urine Bacteria 0 /HPF (0-FEW) Urine Hyaline Casts Few /HPF Urine Mucus Mod /LPF Test 03/26/20 06:00 White Blood Count 7.4 x10^3/uL (4.0-11.0) Red Blood Count 4.63 x10^6/uL (3.50-5.40) Hemoglobin 14.1 g/dL (12.0-15.5) Hematocrit 41.9 % (36.0-47.0) Mean Corpuscular Volume 91 fL (79-100) Mean Corpuscular Hemoglobin 30 pg (25-35) Mean Corpuscular Hemoglobin Concent 34 g/dL (31-37) Red Cell Distribution Width 13.2 % (11.5-14.5) Platelet Count 141 x10^3/uL (140-400) Neutrophils (%) (Auto) 69 % (31-73) Lymphocytes (%) (Auto) 22 % (24-48) Monocytes (%) (Auto) 8 % (0-9) Eosinophils (%) (Auto) 1 % (0-3) Basophils (%) (Auto) 1 % (0-3) Neutrophils # (Auto) 5.1 x10^3/uL (1.8-7.7) Lymphocytes # (Auto) 1.6 x10^3/uL (1.0-4.8) Monocytes # (Auto) 0.5 x10^3/uL (0.0-1.1) Eosinophils # (Auto) 0.1 x10^3/uL (0.0-0.7) Basophils # (Auto) 0.1 x10^3/uL (0.0-0.2) Sodium Level 144 mmol/L (136-145) Potassium Level 3.9 mmol/L (3.5-5.1) Chloride Level 110 mmol/L (98-107) Carbon Dioxide Level 24 mmol/L (21-32) Anion Gap 10 (6-14) Blood Urea Nitrogen 18 mg/dL (7-20) Creatinine 0.7 mg/dL (0.6-1.0) Estimated GFR (Cockcroft-Gault) 98.2 Glucose Level 94 mg/dL (70-99) Calcium Level 8.4 mg/dL (8.5-10.1) Phosphorus Level 2.3 mg/dL (2.6-4.7) Magnesium Level 2.1 mg/dL (1.8-2.4) Troponin I Quantitative < 0.017 ng/mL (0.000-0.055) Laboratory Tests Test 03/25/20 18:15 03/25/20 19:55 03/25/20 21:50 03/26/20 00:30 White Blood Count 11.7 x10^3/uL (4.0-11.0) Red Blood Count 4.87 x10^6/uL (3.50-5.40) Hemoglobin 14.6 g/dL (12.0-15.5) Hematocrit 44.3 % (36.0-47.0) Mean Corpuscular Volume 91 fL (79-100) Mean Corpuscular Hemoglobin 30 pg (25-35) Mean Corpuscular Hemoglobin Concent 33 g/dL (31-37) Red Cell Distribution Width 13.3 % (11.5-14.5) Platelet Count 177 x10^3/uL (140-400) Neutrophils (%) (Auto) 72 % (31-73) Lymphocytes (%) (Auto) 22 % (24-48) Monocytes (%) (Auto) 6 % (0-9) Eosinophils (%) (Auto) 0 % (0-3) Basophils (%) (Auto) 1 % (0-3) Neutrophils # (Auto) 8.4 x10^3/uL (1.8-7.7) Lymphocytes # (Auto) 2.5 x10^3/uL (1.0-4.8) Monocytes # (Auto) 0.7 x10^3/uL (0.0-1.1) Eosinophils # (Auto) 0.0 x10^3/uL (0.0-0.7) Basophils # (Auto) 0.1 x10^3/uL (0.0-0.2) Prothrombin Time 13.9 SEC (11.7-14.0) Prothromb Time International Ratio 1.1 (0.8-1.1) Activated Partial Thromboplast Time 22 SEC (24-38) Sodium Level 141 mmol/L (136-145) Potassium Level 3.6 mmol/L (3.5-5.1) Chloride Level 105 mmol/L (98-107) Carbon Dioxide Level 26 mmol/L (21-32) Anion Gap 10 (6-14) Blood Urea Nitrogen 28 mg/dL (7-20) Creatinine 1.3 mg/dL (0.6-1.0) Estimated GFR (Cockcroft-Gault) 48.1 BUN/Creatinine Ratio 22 (6-20) Glucose Level 165 mg/dL (70-99) Lactic Acid Level 2.8 mmol/L (0.4-2.0) 0.9 mmol/L (0.4-2.0) Calcium Level 9.3 mg/dL (8.5-10.1) Magnesium Level 2.5 mg/dL (1.8-2.4) Total Bilirubin 0.5 mg/dL (0.2-1.0) Aspartate Amino Transf (AST/SGOT) 15 U/L (15-37) Alanine Aminotransferase (ALT/SGPT) 16 U/L (14-59) Alkaline Phosphatase 62 U/L (46-116) Ammonia 12 mcmol/L (11-34) Creatine Kinase 36 U/L (26-192) Creatine Kinase MB (Mass) 0.6 ng/mL (0.0-3.6) Creatine Kinase MB Relative Index % (0-4) Troponin I Quantitative < 0.017 ng/mL (0.000-0.055) 0.019 ng/mL (0.000-0.055) OG-Lss-O-Type Natriuretic Peptide 392 pg/mL (0-449) Total Protein 7.0 g/dL (6.4-8.2) Albumin 3.1 g/dL (3.4-5.0) Albumin/Globulin Ratio 0.8 (1.0-1.7) Urine Collection Type Unknown Urine Color Emeli Urine Clarity Clear Urine pH 5.5 (<5.0-8.0) Urine Specific [place] 1.025 (1.000-1.030) Urine Protein 30 mg/dL (NEG-TRACE) Urine Glucose (UA) Negative mg/dL (NEG) Urine Ketones (Stick) Negative mg/dL (NEG) Urine Blood Negative (NEG) Urine Nitrite Negative (NEG) Urine Bilirubin Small (NEG) Urine Urobilinogen Dipstick 1.0 mg/dL (0.2 mg/dL) Urine Leukocyte Esterase Negative (NEG) Urine RBC 0 /HPF (0-2) Urine WBC Occ /HPF (0-4) Urine Bacteria 0 /HPF (0-FEW) Urine Hyaline Casts Few /HPF Urine Mucus Mod /LPF Test 03/26/20 06:00 White Blood Count 7.4 x10^3/uL (4.0-11.0) Red Blood Count 4.63 x10^6/uL (3.50-5.40) Hemoglobin 14.1 g/dL (12.0-15.5) Hematocrit 41.9 % (36.0-47.0) Mean Corpuscular Volume 91 fL (79-100) Mean Corpuscular Hemoglobin 30 pg (25-35) Mean Corpuscular Hemoglobin Concent 34 g/dL (31-37) Red Cell Distribution Width 13.2 % (11.5-14.5) Platelet Count 141 x10^3/uL (140-400) Neutrophils (%) (Auto) 69 % (31-73) Lymphocytes (%) (Auto) 22 % (24-48) Monocytes (%) (Auto) 8 % (0-9) Eosinophils (%) (Auto) 1 % (0-3) Basophils (%) (Auto) 1 % (0-3) Neutrophils # (Auto) 5.1 x10^3/uL (1.8-7.7) Lymphocytes # (Auto) 1.6 x10^3/uL (1.0-4.8) Monocytes # (Auto) 0.5 x10^3/uL (0.0-1.1) Eosinophils # (Auto) 0.1 x10^3/uL (0.0-0.7) Basophils # (Auto) 0.1 x10^3/uL (0.0-0.2) Sodium Level 144 mmol/L (136-145) Potassium Level 3.9 mmol/L (3.5-5.1) Chloride Level 110 mmol/L (98-107) Carbon Dioxide Level 24 mmol/L (21-32) Anion Gap 10 (6-14) Blood Urea Nitrogen 18 mg/dL (7-20) Creatinine 0.7 mg/dL (0.6-1.0) Estimated GFR (Cockcroft-Gault) 98.2 Glucose Level 94 mg/dL (70-99) Calcium Level 8.4 mg/dL (8.5-10.1) Phosphorus Level 2.3 mg/dL (2.6-4.7) Magnesium Level 2.1 mg/dL (1.8-2.4) Troponin I Quantitative < 0.017 ng/mL (0.000-0.055) Images Images CT head INDICATION: Altered mental status TECHNIQUE: Sequential axial images through the head were obtained without the administration of IV contrast. Comparisons: MRI brain 02/17/2013 FINDINGS: No focal parenchymal lesion or hemorrhage is identified. There is no midline shift or sulcal effacement. Patchy evidence in the periventricular white matter. Chronic infarct at the left cerebellum No acute vascular territory infarction is identified. Suarez-white distinction is preserved. The ventricular system is within normal limits without compression hydrocephalus. The basal cisterns are well maintained. The visualized portions of the paranasal sinuses and mastoid air cells are well- pneumatized. No acute fractures. IMPRESSION: Moderate small vessel ischemic change, technically age indeterminate without recent prior imaging. If there are persistent concerns for acute ischemia MRI would better evaluate. Assessment/Plan Assessment/Plan Impression: Syncope, likely vasovagal, I find no evidence of new stroke, seizure, central nervous system infection, or encephalopathy. 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 Note here in the hospital she has had hypertension, hypocalcemia, hypophosphatemia, hypochlorhydria Recommendations: Monitor overnight No need for additional neurological studies such as MRI or EEG Discussed with family. Thank you for letting me help with the patient's care. CORNELIUS MARSH MD Mar 26, 2020 14:30
[2020-03-26 15:00] VITALS: BP 115/53
[2020-03-26] MEDS ORDERED: HYDROcodone/APAP 5/325MG 1 TAB TABLET PO SCH (15:00)
[2020-03-26] MEDS: CELECOXIB 100 MG CAPSULE. PO SCH (15:00)
[2020-03-26] MEDS: FAMOTIDINE 20 MG TABLET. PO SCH (15:12)
[2020-03-26] MEDS: OXYBUTYNIN CHLORIDE 5 MG TABLET PO SCH ×2 (15:12→20:29)
[2020-03-26] MEDS: FOLIC ACID 1 MG TABLET. PO SCH (15:12)
[2020-03-26] MEDS: predniSONE 20 MG TABLET PO SCH (15:12)
[2020-03-26] MEDS: LOSARTAN POTASSIUM 50 MG TABLET. PO SCH (15:13)
[2020-03-26] MEDS ORDERED: HYDROcodone/APAP 5/325MG 1 TAB TABLET PO PRN (15:15)
[2020-03-26] MEDS: METHOTREXATE SODIUM 2.5 MG TABLET PO SCH (15:19)
[2020-03-26 19:20] VITALS: BP 128/57
[2020-03-26] MEDS: ATORVASTATIN CALCIUM 40 MG TABLET. PO SCH (20:29)
[2020-03-26 23:36] VITALS: BP 141/72
[2020-03-27] VITALS (32 sets, daily range): BP systolic 144–226; BP diastolic 64–142
[2020-03-27] MEDS: IV NORMAL SALINE 1000ML BAG 1,000 ML IV SCH ×2 (03:44→15:33)
[2020-03-27] MEDS: predniSONE 20 MG TABLET PO SCH (09:56)
[2020-03-27] MEDS: FOLIC ACID 1 MG TABLET. PO SCH (09:56)
[2020-03-27] MEDS: ASPIRIN ENTERIC COATED 81 MG TABLET.DR. PO SCH (09:56)
[2020-03-27] MEDS: CELECOXIB 100 MG CAPSULE. PO SCH (09:56)
[2020-03-27] MEDS: FAMOTIDINE 20 MG TABLET. PO SCH (09:57)
[2020-03-27] MEDS: OXYBUTYNIN CHLORIDE 5 MG TABLET PO SCH ×2 (09:57→21:00)
[2020-03-27] MEDS: LOSARTAN POTASSIUM 50 MG TABLET. PO SCH (09:57)
--- NOTE | 2020-03-27 12:05 | PDOC ---
PROGRESS NOTES Date of Service: DATE: 03/27/20 TIME: 12:05 Chief Complaint Chief Complaint Images: Images HEAD CT IMPRESSION: Moderate small vessel ischemic change, technically age indeterminate without recent prior imaging. If there are persistent concerns for acute ischemia MRI wo uld better evaluate. 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 plan code stroke called Admit to medicine cvc bed Neurology consult Continue aspirin and atorvastatin Bedside swallow study cvc bed Fall precautions Orthostatic vital signs Hold all centrally acting medications SCD and Lovenox PT OT and speech modalities Pepcid GI prophylaxis ADA diet Full code Discussed with RN and SW preceding with alteplase 03-27 neurology here Surrogate decision maker is Alejandro SHETTY STROKE CALLED THIS AM, TRANSFER TO ICU 37 MIN CC TIME Justifications for Admission Justifications for Admission Syncope Indications Altered Mental Status?: Yes Justification for admission: Patient's severe/persistent Altered Mental Status as indicated by lethargy/confusional state that has persisted after initial hours of intervention is concerning, needs inpatient level of care for further evaluation and management. Is patient dehydrated?: Yes Justification for admission: There is concern that patient may be severely dehydrated accounting for the syncope. Patient needs inpatient level of care for further evaluation and management. Other Justification History of Present Illness History of Present Illness Chief Complaint: Chief Complain: syncope History of Present Illness: HPI: History obtained from chart review and discussion with the patient. Patient is alert awake oriented x3. 79 year old female presents via EMS with report of syncopal episode while she was eating dinner with her family. EMS reports patient became suddenly unresp onsive. EMS reports patient's GCS initially 5 then improved to 10 during transport. Patient did vomit x1. Upon arrival patient with interval improvement. Denies fever or chills. 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 History of present illness limited secondary to altered mental status Past Medical/Surgical History: PMH/PSH: Past Medical History: CVA, High Cholesterol, Hypertension,legally blind Limited secondary to altered mental status Past Surgical History Limited secondary to altered mental status Allergies: Allergies: Coded Allergies: No Known Drug Allergies (Unverified , 06/16/19) Family History: Family History: Limited to altered mental status Social History: Social History: Smoking Status: Never Smoker Alcohol Use: None Drug Use: None Social History Limited secondary to altered mental status Vitals Vitals Vital Signs Date Time Temp Pulse Resp B/P (MAP) Pulse Ox O2 Delivery O2 Flow Rate FiO2 03/27/20 09:57 93 179/90 03/27/20 05:54 97.6 18 100 Room Air 97.6 Physical Exam Physical Exam Physcial Exam: LEFT WEAKNESS NEW 03-27 HEENT: Normal cephalic, atraumatic, external auditory canals are patent EYES: Extraocular muscles are intact, pupil are equally round and reactive to light and accommodation MUSCULOSKELETAL: Well developed , ENDOCRINE: No thyromegaly was palpated LYMPHATICS: No cervical chain or axillary nodes were noted HEMATOPOIETIC: No bruising NECK: Supple, no JVD, no thyromegaly was noted LUNGS: Clear to auscultation in all lung jo without rhonchi or wheezing HEART: RRR, S!, S2 present. Peripheral pulses intact, no obvious murmurs noted ABDOMEN: Soft, nontender. Positive bowel sounds, no organomegaly, normal bowel sounds EXTREMITIES: Without clubbing, cyanosis, or edema. Pedal pulses intact. Negative Homans sign PSYCHIATRIC: Normal affect, normal mood. Stable SKIN: No ulcerations or rashes, good skin turgor, no jaundice VASCULAR: Good capillary refill, neurovascular bundle appears to be intact CN: left central facial weakness. NEW 03-27 Muscle tone: normal. Muscle strength: 3/5 left hemiparesis, Slurred speech General: Cooperative Labs LABS EXAM: Head CT without contrast. HISTORY: Code stroke. TECHNIQUE: Computed tomographic images of the head were obtained without contrast. *One or more of the following individualized dose reduction techniques were utilized for this examination: 1. Automated exposure control. 2. Adjustment of the mA and/or kV according to patient size. 3. Use of iterative reconstruction technique. COMPARISON: 03/25/2020. FINDINGS: There is no acute or subacute extra-axial or intraparenchymal hemorrhage. There is no mass effect or midline shift. There is no hydrocephalus. There are extensive scattered areas of hypodensity within the cerebral white matter, most commonly due to chronic small vessel disease. There are chronic appearing infarcts within the bilateral basal ganglia and bilateral thalami. There is encephalomalacia due to chronic infarction involving the left cerebellum. There is cerebral volume loss. There is evidence of left lens surgery. The paranasal sinuses and mastoid air cells are clear. There is no suspicious calvarial lesion. IMPRESSION: 1. No acute intracranial finding. Note is made that MRI is more sensitive for acute infarction. 2. Extensive bilateral cerebral white matter changes, most commonly due to chronic small vessel disease in patients of this age. 3. Chronic appearing infarct within the bilateral basal ganglia and thalami and encephalization due to chronic infarction within the left cerebellum. Findings were discussed with Debi, the nurse caring for the patient, at 1530 hours on 2020. FOR INTERNAL CODING PURPOSES RESULT CODE: (C) Electronically signed by: Ava Carrillo MD (03/27/2020 3:39 PM) [facility] Assessment and Plan Assessmemt and Plan Problems Medical Problems: (1) Altered mental status Status: Acute (2) Lactic acidosis Status: Acute (3) Syncope Status: Acute Comment Review of Relevant I have reviewed the following items alicia (where applicable) has been applied. Labs Laboratory Tests Test 03/25/20 18:15 03/25/20 19:55 03/25/20 21:50 03/26/20 00:30 White Blood Count 11.7 x10^3/uL (4.0-11.0) Red Blood Count 4.87 x10^6/uL (3.50-5.40) Hemoglobin 14.6 g/dL (12.0-15.5) Hematocrit 44.3 % (36.0-47.0) Mean Corpuscular Volume 91 fL (79-100) Mean Corpuscular Hemoglobin 30 pg (25-35) Mean Corpuscular Hemoglobin Concent 33 g/dL (31-37) Red Cell Distribution Width 13.3 % (11.5-14.5) Platelet Count 177 x10^3/uL (140-400) Neutrophils (%) (Auto) 72 % (31-73) Lymphocytes (%) (Auto) 22 % (24-48) Monocytes (%) (Auto) 6 % (0-9) Eosinophils (%) (Auto) 0 % (0-3) Basophils (%) (Auto) 1 % (0-3) Neutrophils # (Auto) 8.4 x10^3/uL (1.8-7.7) Lymphocytes # (Auto) 2.5 x10^3/uL (1.0-4.8) Monocytes # (Auto) 0.7 x10^3/uL (0.0-1.1) Eosinophils # (Auto) 0.0 x10^3/uL (0.0-0.7) Basophils # (Auto) 0.1 x10^3/uL (0.0-0.2) Prothrombin Time 13.9 SEC (11.7-14.0) Prothromb Time International Ratio 1.1 (0.8-1.1) Activated Partial Thromboplast Time 22 SEC (24-38) Sodium Level 141 mmol/L (136-145) Potassium Level 3.6 mmol/L (3.5-5.1) Chloride Level 105 mmol/L (98-107) Carbon Dioxide Level 26 mmol/L (21-32) Anion Gap 10 (6-14) Blood Urea Nitrogen 28 mg/dL (7-20) Creatinine 1.3 mg/dL (0.6-1.0) Estimated GFR (Cockcroft-Gault) 48.1 BUN/Creatinine Ratio 22 (6-20) Glucose Level 165 mg/dL (70-99) Lactic Acid Level 2.8 mmol/L (0.4-2.0) 0.9 mmol/L (0.4-2.0) Calcium Level 9.3 mg/dL (8.5-10.1) Magnesium Level 2.5 mg/dL (1.8-2.4) Total Bilirubin 0.5 mg/dL (0.2-1.0) Aspartate Amino Transf (AST/SGOT) 15 U/L (15-37) Alanine Aminotransferase (ALT/SGPT) 16 U/L (14-59) Alkaline Phosphatase 62 U/L (46-116) Ammonia 12 mcmol/L (11-34) Creatine Kinase 36 U/L (26-192) Creatine Kinase MB (Mass) 0.6 ng/mL (0.0-3.6) Creatine Kinase MB Relative Index % (0-4) Troponin I Quantitative < 0.017 ng/mL (0.000-0.055) 0.019 ng/mL (0.000-0.055) SE-Oof-M-Type Natriuretic Peptide 392 pg/mL (0-449) Total Protein 7.0 g/dL (6.4-8.2) Albumin 3.1 g/dL (3.4-5.0) Albumin/Globulin Ratio 0.8 (1.0-1.7) Urine Collection Type Unknown Urine Color Emeli Urine Clarity Clear Urine pH 5.5 (<5.0-8.0) Urine Specific [employer] [place] 1.025 (1.000-1.030) Urine Protein 30 mg/dL (NEG-TRACE) Urine Glucose (UA) Negative mg/dL (NEG) Urine Ketones (Stick) Negative mg/dL (NEG) Urine Blood Negative (NEG) Urine Nitrite Negative (NEG) Urine Bilirubin Small (NEG) Urine Urobilinogen Dipstick 1.0 mg/dL (0.2 mg/dL) Urine Leukocyte Esterase Negative (NEG) Urine RBC 0 /HPF (0-2) Urine WBC Occ /HPF (0-4) Urine Bacteria 0 /HPF (0-FEW) Urine Hyaline Casts Few /HPF Urine Mucus Mod /LPF Test 03/26/20 06:00 White Blood Count 7.4 x10^3/uL (4.0-11.0) Red Blood Count 4.63 x10^6/uL (3.50-5.40) Hemoglobin 14.1 g/dL (12.0-15.5) Hematocrit 41.9 % (36.0-47.0) Mean Corpuscular Volume 91 fL (79-100) Mean Corpuscular Hemoglobin 30 pg (25-35) Mean Corpuscular Hemoglobin Concent 34 g/dL (31-37) Red Cell Distribution Width 13.2 % (11.5-14.5) Platelet Count 141 x10^3/uL (140-400) Neutrophils (%) (Auto) 69 % (31-73) Lymphocytes (%) (Auto) 22 % (24-48) Monocytes (%) (Auto) 8 % (0-9) Eosinophils (%) (Auto) 1 % (0-3) Basophils (%) (Auto) 1 % (0-3) Neutrophils # (Auto) 5.1 x10^3/uL (1.8-7.7) Lymphocytes # (Auto) 1.6 x10^3/uL (1.0-4.8) Monocytes # (Auto) 0.5 x10^3/uL (0.0-1.1) Eosinophils # (Auto) 0.1 x10^3/uL (0.0-0.7) Basophils # (Auto) 0.1 x10^3/uL (0.0-0.2) Sodium Level 144 mmol/L (136-145) Potassium Level 3.9 mmol/L (3.5-5.1) Chloride Level 110 mmol/L (98-107) Carbon Dioxide Level 24 mmol/L (21-32) Anion Gap 10 (6-14) Blood Urea Nitrogen 18 mg/dL (7-20) Creatinine 0.7 mg/dL (0.6-1.0) Estimated GFR (Cockcroft-Gault) 98.2 Glucose Level 94 mg/dL (70-99) Calcium Level 8.4 mg/dL (8.5-10.1) Phosphorus Level 2.3 mg/dL (2.6-4.7) Magnesium Level 2.1 mg/dL (1.8-2.4) Troponin I Quantitative < 0.017 ng/mL (0.000-0.055) Microbiology 03/25/20 Blood Culture - Preliminary, Resulted NO GROWTH AFTER 1 DAY Medications Current Medications Sodium Chloride 1,000 ml @ 1,000 mls/hr 1X ONCE IV Last administered on 03/25/20at 19:48; Start 03/25/20 at 18:15; Stop 03/25/20 at 19:14; Status DC Aspirin (Aspirin Rectal Supp) 300 mg 1X ONCE [place] Last administered on 03/25/20at 19:48; Start 03/25/20 at 19:30; Stop 03/25/20 at 19:33; Status DC Ondansetron HCl (Zofran) 4 mg PRN Q8HRS PRN IV NAUSEA/VOMITING; Start 03/25/20 at 20:30; Stop 03/26/20 at 20:29; Status DC Sodium Chloride 1,000 ml @ 75 mls/hr 1X ONCE IV Last administered on 03/25/20at 20:30; Start 03/25/20 at 20:30; Stop 03/26/20 at 00:18; Status DC Atorvastatin Calcium (Lipitor) 40 mg QHS PO Last administered on 03/26/20at 20:29; Start 03/25/20 at 21:00 Sennosides (Senna) 17.2 mg PRN BID PRN PO CONSTIPATION 1ST CHOICE; Start 03/25/20 at 21:00 Docusate Sodium (Colace) 100 mg PRN DAILY PRN PO HARD STOOLS; Start 03/25/20 at 21:00 Ondansetron HCl (Zofran) 4 mg PRN Q6HRS PRN IVP NAUSEA/VOMITING 1ST CHOICE; Start 03/25/20 at 21:00 Aspirin (Ecotrin) 81 mg DAILYWBKFT PO Last administered on 03/27/20at 09:56; Start 03/26/20 at 08:00 Dextrose (Dextrose 50%-Water Syringe) 12.5 gm PRN Q15MIN PRN IV SEE COMMENTS; Start 03/25/20 at 21:00 Sodium Chloride 1,000 ml @ 100 mls/hr Q10H IV Last administered on 03/27/20at 03:44; Start 03/25/20 at 21:00 Labetalol HCl (Normodyne Iv Push) 10 mg PRN Q2HRS PRN IVP HYPERTENSION Last administered on 03/26/20at 09:11; Start 03/26/20 at 09:00 Famotidine (Pepcid) 20 mg DAILY PO Last administered on 03/27/20at 09:57; Start 03/26/20 at 15:00 Acetaminophen/ Hydrocodone Bitart (Lortab 5/325) 1 tab BID PO ; Start 03/26/20 at 15:00; Stop 03/26/20 at 15:04; Status DC Methotrexate (Rheumatrex) 17.5 mg WEEKLY PO Last administered on 03/26/20at 15:19; Start 03/26/20 at 15:00 Oxybutynin Chloride (Ditropan) 5 mg BID PO Last administered on 03/27/20at 09:57; Start 03/26/20 at 15:00 Prednisone (Prednisone) 10 mg DAILY PO Last administered on 03/27/20 09:56; Start 03/26/20 at 15:00 Celecoxib (CeleBREX) 200 mg DAILY PO Last administered on 1/3/21at 09:56; Start 03/26/20 at 15:00 Folic Acid (Folic Acid) 1 mg DAILY PO Last administered on 03/27/20at 09:56; Start 03/26/20 at 15:00 Losartan Potassium (Cozaar) 50 mg DAILY PO Last administered on 03/27/20at 09:57; Start 03/26/20 at 15:00 Acetaminophen/ Hydrocodone Bitart (Lortab 5/325) 1 tab PRN BID PRN PO PAIN; Start 03/26/20 at 15:15 Active Scripts Active Reported Oxybutynin Chloride 5 Mg Tablet 1 Tab PO BID Methotrexate (Methotrexate Sodium) 2.5 Mg Tablet 7 Tab PO WEEKLY [place] 5-325 Tablet (Acetaminophen/Hydrocodone Bitart) 1 Each Tablet 1 Tab PO BID Folic Acid 0.8 Mg Capsule 1 Mg PO DAILY Famotidine 20 Mg Tablet 20 Mg PO BID Prednisone 20 Mg Tablet 10 Mg PO DAILY Celebrex (Celecoxib) 200 Mg Capsule 1 Cap PO DAILY Atorvastatin Calcium 10 Mg Tablet 10 Mg PO HS Valsartan 80 Mg Tablet 80 Mg PO DAILY Vitals/I & O Vital Sign - Last 24 Hours 03/26/20 03/26/20 03/26/20 03/26/20 15:00 15:13 19:20 20:00 Temp 98.8 98.3 98.8 98.3 Pulse 88 82 77 Resp 18 16 B/P (MAP) 115/53 (73) 115/53 128/57 (80) Pulse Ox 98 99 O2 Delivery Room Air Room Air Room Air 03/26/20 03/27/20 03/27/20 03/27/20 23:36 03:12 05:54 09:57 Temp 98.4 97.3 97.6 98.4 97.3 97.6 Pulse 71 61 68 93 Resp 16 16 18 B/P (MAP) 141/72 (95) 159/71 (100) 179/90 (119) 179/90 Pulse Ox 99 100 100 O2 Delivery Room Air Room Air Room Air Intake and Output 03/26/20 03/26/20 03/27/20 15:00 23:00 07:00 Intake Total 180 ml 180 ml 50 ml Balance 180 ml 180 ml 50 ml Justicifation of Admission Dx: Justifications for Admission: Justification of Admission Dx: Yes Stroke - Ischemic: Stroke-Ischemic PAWAN BALLESTEROS MD Mar 27, 2020 12:05
--- NOTE | 2020-03-27 14:09 | PDOC ---
PROGRESS NOTES Date of Service DATE: 03/27/20 TIME: 14:06 Assessment Problems Medical Problems: (1) Altered mental status Status: Acute (2) Lactic acidosis Status: Acute (3) Syncope Status: Acute Syncope, likely vasovagal, I find no evidence of new stroke, seizure, central nervous system infection, or encephalopathy. 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 Oriented to time, place and person. Blind in both eyes CN: no focal findings. Muscle tone: normal. Muscle strength: 5/5 DTR: 2+ Plantar reflex: Flexor Gait: not examined in bed. Sensory exam: no abnormal findings. No cerebellar signs elicited, hard to test with blindness. Review of Relevant I have reviewed the following items alicia (where applicable) has been applied. Labs Laboratory Tests Test 03/25/20 18:15 03/25/20 19:55 03/25/20 21:50 03/26/20 00:30 White Blood Count 11.7 x10^3/uL (4.0-11.0) Red Blood Count 4.87 x10^6/uL (3.50-5.40) Hemoglobin 14.6 g/dL (12.0-15.5) Hematocrit 44.3 % (36.0-47.0) Mean Corpuscular Volume 91 fL (79-100) Mean Corpuscular Hemoglobin 30 pg (25-35) Mean Corpuscular Hemoglobin Concent 33 g/dL (31-37) Red Cell Distribution Width 13.3 % (11.5-14.5) Platelet Count 177 x10^3/uL (140-400) Neutrophils (%) (Auto) 72 % (31-73) Lymphocytes (%) (Auto) 22 % (24-48) Monocytes (%) (Auto) 6 % (0-9) Eosinophils (%) (Auto) 0 % (0-3) Basophils (%) (Auto) 1 % (0-3) Neutrophils # (Auto) 8.4 x10^3/uL (1.8-7.7) Lymphocytes # (Auto) 2.5 x10^3/uL (1.0-4.8) Monocytes # (Auto) 0.7 x10^3/uL (0.0-1.1) Eosinophils # (Auto) 0.0 x10^3/uL (0.0-0.7) Basophils # (Auto) 0.1 x10^3/uL (0.0-0.2) Prothrombin Time 13.9 SEC (11.7-14.0) Prothromb Time International Ratio 1.1 (0.8-1.1) Activated Partial Thromboplast Time 22 SEC (24-38) Sodium Level 141 mmol/L (136-145) Potassium Level 3.6 mmol/L (3.5-5.1) Chloride Level 105 mmol/L (98-107) Carbon Dioxide Level 26 mmol/L (21-32) Anion Gap 10 (6-14) Blood Urea Nitrogen 28 mg/dL (7-20) Creatinine 1.3 mg/dL (0.6-1.0) Estimated GFR (Cockcroft-Gault) 48.1 BUN/Creatinine Ratio 22 (6-20) Glucose Level 165 mg/dL (70-99) Lactic Acid Level 2.8 mmol/L (0.4-2.0) 0.9 mmol/L (0.4-2.0) Calcium Level 9.3 mg/dL (8.5-10.1) Magnesium Level 2.5 mg/dL (1.8-2.4) Total Bilirubin 0.5 mg/dL (0.2-1.0) Aspartate Amino Transf (AST/SGOT) 15 U/L (15-37) Alanine Aminotransferase (ALT/SGPT) 16 U/L (14-59) Alkaline Phosphatase 62 U/L (46-116) Ammonia 12 mcmol/L (11-34) Creatine Kinase 36 U/L (26-192) Creatine Kinase MB (Mass) 0.6 ng/mL (0.0-3.6) Creatine Kinase MB Relative Index % (0-4) Troponin I Quantitative < 0.017 ng/mL (0.000-0.055) 0.019 ng/mL (0.000-0.055) NE-Bpa-M-Type Natriuretic Peptide 392 pg/mL (0-449) Total Protein 7.0 g/dL (6.4-8.2) Albumin 3.1 g/dL (3.4-5.0) Albumin/Globulin Ratio 0.8 (1.0-1.7) Urine Collection Type Unknown Urine Color Emeli Urine Clarity Clear Urine pH 5.5 (<5.0-8.0) Urine Specific [place] 1.025 (1.000-1.030) Urine Protein 30 mg/dL (NEG-TRACE) Urine Glucose (UA) Negative mg/dL (NEG) Urine Ketones (Stick) Negative mg/dL (NEG) Urine Blood Negative (NEG) Urine Nitrite Negative (NEG) Urine Bilirubin Small (NEG) Urine Urobilinogen Dipstick 1.0 mg/dL (0.2 mg/dL) Urine Leukocyte Esterase Negative (NEG) Urine RBC 0 /HPF (0-2) Urine WBC Occ /HPF (0-4) Urine Bacteria 0 /HPF (0-FEW) Urine Hyaline Casts Few /HPF Urine Mucus Mod /LPF Test 03/26/20 06:00 White Blood Count 7.4 x10^3/uL (4.0-11.0) Red Blood Count 4.63 x10^6/uL (3.50-5.40) Hemoglobin 14.1 g/dL (12.0-15.5) Hematocrit 41.9 % (36.0-47.0) Mean Corpuscular Volume 91 fL (79-100) Mean Corpuscular Hemoglobin 30 pg (25-35) Mean Corpuscular Hemoglobin Concent 34 g/dL (31-37) Red Cell Distribution Width 13.2 % (11.5-14.5) Platelet Count 141 x10^3/uL (140-400) Neutrophils (%) (Auto) 69 % (31-73) Lymphocytes (%) (Auto) 22 % (24-48) Monocytes (%) (Auto) 8 % (0-9) Eosinophils (%) (Auto) 1 % (0-3) Basophils (%) (Auto) 1 % (0-3) Neutrophils # (Auto) 5.1 x10^3/uL (1.8-7.7) Lymphocytes # (Auto) 1.6 x10^3/uL (1.0-4.8) Monocytes # (Auto) 0.5 x10^3/uL (0.0-1.1) Eosinophils # (Auto) 0.1 x10^3/uL (0.0-0.7) Basophils # (Auto) 0.1 x10^3/uL (0.0-0.2) Sodium Level 144 mmol/L (136-145) Potassium Level 3.9 mmol/L (3.5-5.1) Chloride Level 110 mmol/L (98-107) Carbon Dioxide Level 24 mmol/L (21-32) Anion Gap 10 (6-14) Blood Urea Nitrogen 18 mg/dL (7-20) Creatinine 0.7 mg/dL (0.6-1.0) Estimated GFR (Cockcroft-Gault) 98.2 Glucose Level 94 mg/dL (70-99) Calcium Level 8.4 mg/dL (8.5-10.1) Phosphorus Level 2.3 mg/dL (2.6-4.7) Magnesium Level 2.1 mg/dL (1.8-2.4) Troponin I Quantitative < 0.017 ng/mL (0.000-0.055) Microbiology 03/25/20 Blood Culture - Preliminary, Resulted NO GROWTH AFTER 1 DAY Medications Current Medications Sodium Chloride 1,000 ml @ 1,000 mls/hr 1X ONCE IV Last administered on 03/25/20at 19:48; Start 03/25/20 at 18:15; Stop 03/25/20 at 19:14; Status DC Aspirin (Aspirin Rectal Supp) 300 mg 1X ONCE [place] Last administered on 03/25/20at 19:48; Start 03/25/20 at 19:30; Stop 03/25/20 at 19:33; Status DC Ondansetron HCl (Zofran) 4 mg PRN Q8HRS PRN IV NAUSEA/VOMITING; Start 03/25/20 at 20:30; Stop 03/26/20 at 20:29; Status DC Sodium Chloride 1,000 ml @ 75 mls/hr 1X ONCE IV Last administered on 03/25/20at 20:30; Start 03/25/20 at 20:30; Stop 03/26/20 at 00:18; Status DC Atorvastatin Calcium (Lipitor) 40 mg QHS PO Last administered on 03/26/20at 20:29; Start 03/25/20 at 21:00 Sennosides (Senna) 17.2 mg PRN BID PRN PO CONSTIPATION 1ST CHOICE; Start 03/25/20 at 21:00 Docusate Sodium (Colace) 100 mg PRN DAILY PRN PO HARD STOOLS; Start 03/25/20 at 21:00 Ondansetron HCl (Zofran) 4 mg PRN Q6HRS PRN IVP NAUSEA/VOMITING 1ST CHOICE; Start 03/25/20 at 21:00 Aspirin (Ecotrin) 81 mg DAILYWBKFT PO Last administered on 03/27/20at 09:56; Start 03/26/20 at 08:00 Dextrose (Dextrose 50%-Water Syringe) 12.5 gm PRN Q15MIN PRN IV SEE COMMENTS; Start 03/25/20 at 21:00 Sodium Chloride 1,000 ml @ 100 mls/hr Q10H IV Last administered on 03/27/20at 03:44; Start 03/25/20 at 21:00 Labetalol HCl (Normodyne Iv Push) 10 mg PRN Q2HRS PRN IVP HYPERTENSION Last administered on 03/26/20at 09:11; Start 03/26/20 at 09:00 Famotidine (Pepcid) 20 mg DAILY PO Last administered on 03/27/20at 09:57; Start 03/26/20 at 15:00 Acetaminophen/ Hydrocodone Bitart (Lortab 5/325) 1 tab BID PO ; Start 03/26/20 at 15:00; Stop 03/26/20 at 15:04; Status DC Methotrexate (Rheumatrex) 17.5 mg WEEKLY PO Last administered on 03/26/20at 15:19; Start 03/26/20 at 15:00 Oxybutynin Chloride (Ditropan) 5 mg BID PO Last administered on 03/27/20at 09:57; Start 03/26/20 at 15:00 Prednisone (Prednisone) 10 mg DAILY PO Last administered on 03/27/20at 09:56; Start 03/26/20 at 15:00 Celecoxib (CeleBREX) 200 mg DAILY PO Last administered on 03/27/20at 09:56; Start 03/26/20 at 15:00 Folic Acid (Folic Acid) 1 mg DAILY PO Last administered on 03/27/20at 09:56; Start 03/26/20 at 15:00 Losartan Potassium (Cozaar) 50 mg DAILY PO Last administered on 03/27/20at 09:57; Start 03/26/20 at 15:00 Acetaminophen/ Hydrocodone Bitart (Lortab 5/325) 1 tab PRN BID PRN PO PAIN; Start 03/26/20 at 15:15 Active Scripts Active Reported Oxybutynin Chloride 5 Mg Tablet 1 Tab PO BID Methotrexate (Methotrexate Sodium) 2.5 Mg Tablet 7 Tab PO WEEKLY [place] 5-325 Tablet (Acetaminophen/Hydrocodone Bitart) 1 Each Tablet 1 Tab PO BID Folic Acid 0.8 Mg Capsule 1 Mg PO DAILY Famotidine 20 Mg Tablet 20 Mg PO BID Prednisone 20 Mg Tablet 10 Mg PO DAILY Celebrex (Celecoxib) 200 Mg Capsule 1 Cap PO DAILY Atorvastatin Calcium 10 Mg Tablet 10 Mg PO HS Valsartan 80 Mg Tablet 80 Mg PO DAILY Vitals/I & O Vital Sign - Last 24 Hours 03/26/20 03/26/20 03/26/20 03/26/20 15:00 15:13 19:20 20:00 Temp 98.8 98.3 98.8 98.3 Pulse 88 82 77 Resp 18 16 B/P (MAP) 115/53 (73) 115/53 128/57 (80) Pulse Ox 98 99 O2 Delivery Room Air Room Air Room Air 03/26/20 03/27/20 03/27/20 03/27/20 23:36 03:12 05:54 09:57 Temp 98.4 97.3 97.6 98.4 97.3 97.6 Pulse 71 61 68 93 Resp 16 16 18 B/P (MAP) 141/72 (95) 159/71 (100) 179/90 (119) 179/90 Pulse Ox 99 100 100 O2 Delivery Room Air Room Air Room Air Intake and Output 03/26/20 03/26/20 03/27/20 15:00 23:00 07:00 Intake Total 180 ml 180 ml 50 ml Balance 180 ml 180 ml 50 ml Justicifation of Admission Dx: Justifications for Admission: Justification of Admission Dx: N/A CORNELIUS MARSH MD Mar 27, 2020 14:09
--- NOTE | 2020-03-27 14:45 | NUR ---
Note by Gwen Bundy, RN was written under incorrect patient so this is copied from there for this patient: "Approximately 1415 patient was yelling nurses name from inside of room. This RN entered room and found patient sitting on the side of the bed still yelling out nurses name. I asked what I could assist with and patient requested to go to the bathroom. Supplied walker to patient and when she stood from bed, patients left side seemed weak to this rN. Assisted patient to the bathroom and noticed left foot was dragging behind her. 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 After assisting patient back to bed, spoke with RN assigned to her care for the day to advise of findings. RN stated that those are new symptoms."
[2020-03-27] MEDS: LABETALOL 20 MG/4 ML DISP.SYRIN. IVP PRN ×3 (15:32→17:49)
--- NOTE | 2020-03-27 15:42 | RAD ---
ADDENDUM #1 Addendum: There is a typographical error within the impression section of the report. The third impre ssion should state that there are "chronic appearing infarcts within the bilateral basal ganglia and thalami and there is ENCEPHALOMALACIA due to chronic infarction within the left cerebellum". Electronically signed by: Ava Carrillo MD (03/28/2020 12:54 PM) [id number] ORIGINAL REPORT EXAM: Head CT without contrast. HISTORY: Code stroke. TECHNIQUE: Computed tomographic images of the head were obtained without contrast. *One or more of the following individualized dose reduction techniques were utilized for this examina tion: 1. Automated exposure control. 2. Adjustment of the mA and/or kV according to patient size. 3. Use of iterative reconstruction technique. COMPARISON: 03/25/2020. FINDINGS: There is no acute or subacute extra-axial or intraparenchymal hemorrhage. There is no mass effect or midline shift. There is no hydrocephalus. There are extensive scattered areas of hypodensity within the cerebral white matter, most commonly du e to chronic small vessel disease. There are chronic appearing infarcts within the bilateral basal ga nglia and bilateral thalami. There is encephalomalacia due to chronic infarction involving the left c erebellum. There is cerebral volume loss. There is evidence of left lens surgery. The paranasal sinuses and mastoid air cells are clear. There is no suspicious calvarial lesion. IMPRESSION: 1. No acute intracranial finding. Note is made that MRI is more sensitive for acute infarction. 2. Extensive bilateral cerebral white matter changes, most commonly due to chronic small vessel disea se in patients of this age. 3. Chronic appearing infarct within the bilateral basal ganglia and thalami and encephalization due t o chronic infarction within the left cerebellum. Findings were discussed with Debi, the nurse caring for the patient, at 1530 hours on 2020. FOR INTERNAL CODING PURPOSES RESULT CODE: (C) Electronically signed by: Ava Carrillo MD (03/27/2020 3:39 PM) [id number]
[2020-03-27] MEDS ORDERED: DOPamine 400MG/250ML PREMIX 400 MG/250 ML BAG IV ONE (17:00)
[2020-03-27] MEDS ORDERED: ALTEPLASE IV SCH (17:15)
[2020-03-27] MEDS ORDERED: ALTEPLASE IV ONE (17:15)
[2020-03-27] MEDS ORDERED: IV NORMAL SALINE 50ML 50 ML IV ONE ×2 (17:15)
[2020-03-27] MEDS ORDERED: LABETALOL 20 MG/4 ML DISP.SYRIN. IVP PRN ×2 (17:15→17:30)
[2020-03-27] MEDS ORDERED: ALTEPLASE 0 MG IV SCH (17:15)
[2020-03-27] MEDS ORDERED: ALTEPLASE 0 MG IV ONE (17:15)
--- NOTE | 2020-03-27 17:19 | PDOC ---
Provider Note Date of Service: DATE: 03/27/20 TIME: 17:16 Provider Note Called back to see patient, developed left paresis at about 2:30 PM while getting up to bathroom Blood pressure markedly elevated, responded to labetolol, neurologic deficits persists Alert. Oriented to time, place and person. Blind in both eyes CN: left central facial weakness. Muscle tone: normal. Muscle strength: 3/5 left hemiparesis DTR: 2+ Plantar reflex: Flexor Gait: not examined in bed. Sensory exam: no abnormal findings. No cerebellar signs elicited, hard to test with blindness. CT CODE STROKE HEAD WO EXAM: Head CT without contrast. HISTORY: Code stroke. TECHNIQUE: Computed tomographic images of the head were obtained without contrast. *One or more of the following individualized dose reduction techniques were utilized for this examination: 1. Automated exposure control. 2. Adjustment of the mA and/or kV according to patient size. 3. Use of iterative reconstruction technique. COMPARISON: 03/25/2020. FINDINGS: There is no acute or subacute extra-axial or intraparenchymal hemorrhage. There is no mass effect or midline shift. There is no hydrocephalus. There are extensive scattered areas of hypodensity within the cerebral white matter, most commonly due to chronic small vessel disease. There are chronic appearing infarcts within the bilateral basal ganglia and bilateral thalami. There is encephalomalacia due to chronic infarction involving the left cerebellum. There is cerebral volume loss. There is evidence of left lens surgery. The paranasal sinuses and mastoid air cells are clear. There is no suspicious calvarial lesion. IMPRESSION: 1. No acute intracranial finding. Note is made that MRI is more sensitive for acute infarction. 2. Extensive bilateral cerebral white matter changes, most commonly due to chronic small vessel disease in patients of this age. 3. Chronic appearing infarct within the bilateral basal ganglia and thalami and encephalization due to chronic infarction within the left cerebellum. Discussed risks/benefits/alternatives/side effects including with , patient is having a stroke, preceding with alteplase See stroke orders 1 hour of critical care time Justifications for Admission Syncope Indications Altered Mental Status?: Yes Justification for admission: Patient's severe/persistent Altered Mental Status as indicated by lethargy/confusional state that has persisted after initial hours of intervention is concerning, needs inpatient level of care for further evaluation and management. Is patient dehydrated?: Yes Justification for admission: There is concern that patient may be severely dehydrated accounting for the syncope. Patient needs inpatient level of care for further evaluation and management. Other Justification CORNELIUS MARSH MD Mar 27, 2020 17:19
[2020-03-27] MEDS ORDERED: ACETAMINOPHEN 650 MG SUPP.RECT. PR PRN (17:30)
[2020-03-27] MEDS ORDERED: ONDANSETRON PF 4 MG/2 ML VIAL. IVP PRN (17:30)
[2020-03-27] MEDS ORDERED: ACETAMINOPHEN 325 MG TABLET. PO PRN (17:30)
--- NOTE | 2020-03-27 18:00 | NUR ---
SONJA Hidalgo helped patient to restroom around 1445. Came & told this RN that patient was having left sided weakness & dragging her left leg when she walked, also noted left sided facial drooping & slurred speech. This RN went into patient's room & observed the left sided facial drooping, slurred speech, & left sided weakness. Patient had a change since around 1400. Dr. Finnegan had just saw patient then & said she could go home & therapy had seen patient shortly before that stating she did well with her walker. Code stroke was then called & Dr. Finnegan paged by SONJA Carrera. Patient's NIH score of 4. BP elevated. Patient A&O this whole time. Spoke with Dr. Finnegan at 1510 & CT head ordered & taken. CT called & stated it was negative at 1539, however patient is showing signs of stroke. Spoke with Dr. Finnegan multiple times & patient's family. Dr. Finnegan came back in to see patient & ordered TPA. ICU bed not available. TPA administered by SONJA Carrera & SONJA Hobbs accompanied by Dr. Finnegan in room. Dr. Finnegan ok with patient getting TPA on the floor with him in room. Nursing clothing supervisor Malorie & Maryam Mcduffie aware of all of this situation & helping. Patient finally able to transfer to ICU at 1820.
--- NOTE | 2020-03-27 18:47 | NUR ---
Dr. Solano into see pt; awaiting ICU bed, orders for TPA and TPA infusion started by Debi RN @ [address] Solano remaining at bedside. BP 181/90 with RH 70 prior to TPA initiation. [facility] 9. I was notified to come stay with pt unable able to transfer to ICU. BP at 1745 was 220/121 with HR 70. Labetalol 10 mg IVP given at 1749 1800 BP 172/80, HR 66. 1814 BP 181-94, HR 70. 1820-pt transferred to ICU 115. [facility] 9. Addendum: 03/27/20 at 1854 by JESUS FARMER RN Amended: Links added.
--- NOTE | 2020-03-27 20:30 | NUR ---
1829 79 y/o female received to ICU 115 with completion of alteplase on entrance to rom. See ordered VS on flow sheet. Incontinent large amount urine. External catheter placed. Pt forgetful w periods restlessness..Reported to be blind. Cardene started then held to comply ordered parameters. Continue w POC
[2020-03-27] MEDS: ATORVASTATIN CALCIUM 40 MG TABLET. PO SCH (21:00)
[2020-03-28] VITALS (36 sets, daily range): BP systolic 137–246; BP diastolic 33–117
[2020-03-28 05:17] LABS: BASO # 0.1 x10^3/uL (0.0-0.2); BASO % 1 % (0-3); EOS # 0.1 x10^3/uL (0.0-0.7); EOS % 1 % (0-3); HEMOGLOBIN 12.5 g/dL (12.0-15.5); LYMPH % 25 % (24-48); MEAN CORPUSCULAR HEMOGLOBIN 30 pg (25-35); MEAN CORPUSCULAR HGB CONC 34 g/dL (31-37); MEAN CORPUSCULAR VOLUME 90 fL (79-100); MONO # 0.5 x10^3/uL (0.0-1.1); MONO % 7 % (0-9); NEUT # 5.2 x10^3/uL (1.8-7.7); NEUT % 66 % (31-73); PLATELET COUNT 141 x10^3/uL (140-400); RED CELL DISTRIBUTION WIDTH 13.3 % (11.5-14.5); WHITE BLOOD COUNT 7.8 x10^3/uL (4.0-11.0)
[2020-03-28 05:40] LABS: CREATININE 0.7 mg/dL (0.6-1.0); GFR 98.2; POTASSIUM 3.5 mmol/L (3.5-5.1)
[2020-03-28 06:00] LABS: CHOLESTEROL/HDL RATIO 2.8
[2020-03-28] MEDS ORDERED: IOHEXOL 300 MG/ML 100ML VIAL. IV ONE (07:00)
[2020-03-28] MEDS ORDERED: CONTRAST GIVEN. MC PRN (07:15)
--- NOTE | 2020-03-28 07:52 | NUR ---
On 03/28/20 at approximately 0300, this RN noticed the patient's blood pressure to be very high (195/87) despite cardene drip. This RN along with Meenakshi CASILLAS went to go check on the patient. At this time, I completed a basic neuro check on the patient while Meenakshi CASILLAS adjusted her blood pressure cuff. The patient's level of consciousness had decreased since my last neuro check at 0230. She was no longer alert to time or place and thought that she was at home, however, she was still oriented to her self. The patient also complained of feeling hot and nauseous. At 0330, blood pressure was taken again- 221/103. At this time, Meenakshi CASILLAS noticed that the cardene gtt was unhooked from the patient. I immediately paged Dr. Correa. When he returned my call, he said that these symptoms could be related to sundowners and to monitor closely and continue the cardene gtt. At 0330, patients blood pressure was 171/68 with 15 mg/hr cardene gtt. No further concerns at this time.
[2020-03-28] MEDS: ASPIRIN ENTERIC COATED 81 MG TABLET.DR. PO SCH (08:00)
[2020-03-28] MEDS: OXYBUTYNIN CHLORIDE 5 MG TABLET PO SCH ×2 (09:00→21:00)
[2020-03-28] MEDS: IV NORMAL SALINE 1000ML BAG 1,000 ML IV SCH ×3 (09:00→21:19)
[2020-03-28] MEDS: FAMOTIDINE 20 MG TABLET. PO SCH (09:00)
[2020-03-28] MEDS: predniSONE 20 MG TABLET PO SCH (09:00)
[2020-03-28] MEDS: FOLIC ACID 1 MG TABLET. PO SCH (09:00)
[2020-03-28] MEDS: LOSARTAN POTASSIUM 50 MG TABLET. PO SCH (09:00)
[2020-03-28] MEDS: CELECOXIB 100 MG CAPSULE. PO SCH (09:00)
--- NOTE | 2020-03-28 09:37 | CONS ---
DATE OF CONSULTATION: 03/28/2020 REQUESTING PHYSICIAN: Dr. Desouza. REASON FOR CONSULTATION: Fungemia. HISTORY OF PRESENT ILLNESS: This is a 79-year-old -[place] female who was actually eating dinner with the family and she passed out, the patient had syncopal episode. The patient became unresponsive until the EMS arrived, she woke up. The patient did vomit once and the patient was brought in. The patient may have had some questionable seizure type activity, a little jerky movement, but never had seizure in the past. The patient had a temperature elevation up to 99.3. Blood culture was done, which is showing yeast in the blood, hence the consultation. Initial WBC was 11.7, which has improved. Her BUN and creatinine has been okay. Her lactic acid on admission was 2.8, which improved. The patient is arousable. The patient in fact had what appears to have had a stroke and she has gotten TPA. The patient is arousable, mumbles few words, unable to understand much, not in any distress. No nausea, vomiting, diarrhea noted by RN. 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 SOCIAL HISTORY: Positive for smoking. No alcohol use or drug use. ALLERGIES: No known drug allergies. CURRENT MEDICATIONS: Reviewed. The patient is not on any antibiotics. The patient is on methotrexate. REVIEW OF SYSTEMS: As per HPI, all other systems reviewed are negative. PHYSICAL EXAMINATION: GENERAL: Awake female, not in distress. VITAL SIGNS: Stable with T-max 99.3, pulse 75, respirations 24, blood pressure 150/67. HEENT: Both pupils are round and reacting. No conjunctival lesion, no lesion in the mouth. NECK: Supple, no JVP, no lymphadenopathy. LUNGS: Clear. HEART: S1, S2 regular. ABDOMEN: Soft, nontender, no organomegaly. EXTREMITIES: No edema, cyanosis. SKIN: Unremarkable. NEUROLOGIC: The patient is awake, mumbles few words, unable to understand right now. Does move all the extremities. LABORATORY DATA: White count is 7.8, hemoglobin 12.5, platelets are normal. BUN and creatinine is 6 and 0.7. Urinalysis unremarkable. Blood cultures showed 1/[address] of the head was chronic appearing infarcts seen and encephalomalacia seen. Chest x-ray was unremarkable. IMPRESSION: 1. 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 It could be contaminant, but it cannot be treated as contaminant, there is no other risk factor for fungemia. 2. Cerebrovascular accident/code stroke. 3. Syncopal episode. 4. History of cerebrovascular accident. 5. Hypertension. 6. Tobaccoism. 7. Glaucoma. RECOMMENDATIONS: We will repeat blood culture. Start micafungin. Supportive care. We will wait for the species identification of the fungus and we will have further testing done as needed. Thank you very much, Dr. Desouza, for giving me the opportunity to participate in this patient's care. IRON HARLEY MD DR: DUANE/nts JOB#: [id number] / [id number]
[2020-03-28] MEDS: MICAFUNGIN 100 MG in IV DEXTROSE 5% 100ML 100 ML IV SCH (09:45)
--- NOTE | 2020-03-28 10:02 | PDOC ---
PROGRESS NOTES Date of Service DATE: 03/28/20 TIME: 09:59 Assessment Problems Medical Problems: (1) Altered mental status Status: Acute (2) Lactic acidosis Status: Acute (3) Syncope Status: Acute Stroke symptoms the afternoon of 03/27, status-post alteplase, with near resolution of symptoms. Patient was markedly hypertensive, I had to wait till that was controlled before giving the alteplase, I also wanted to see how much would resolve with treatment of hypertension. Syncope, likely vasovagal, I find no evidence of new stroke, seizure, central nervous system infection, or encephalopathy. 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 Note here in the hospital she has had hypertension, hypocalcemia, hypophosphatemia, hypochloremia Plan MRI of the brain CT angiogram Echocardiogram Resume aspirin and statin once speech clears Also see stroke orders If MRI brain negative for bleed, transfer back to telemetry I discussed with the patient's boyfriend/ yesterday Subjective Denies pain Objective Vital Signs Date Time Temp Pulse Resp B/P (MAP) Pulse Ox O2 Delivery O2 Flow Rate FiO2 03/28/20 09:00 76 23 152/67 (95) 99 Room Air 03/28/20 08:00 98.8 98.8 Intake and Output 03/28/20 07:00 Intake Total 1066.9 ml Output Total 2125 ml Balance -1058.1 ml IV Total 1066.9 ml Output Urine Total 2125 ml # Voids 3 PHYSICAL EXAM Alert. Oriented to person. Blind in both eyes CN: no focal findings, minimal left facial weakness. Muscle tone: normal. Muscle strength: 4/5 DTR: 2+ Plantar reflex: Flexor Gait: not examined in bed. Sensory exam: no abnormal findings. No cerebellar signs elicited, hard to test with blindness. Review of Relevant I have reviewed the following items alicia (where applicable) has been applied. Labs Laboratory Tests Test 03/27/20 15:04 03/28/20 02:00 Glucose (Fingerstick) 125 mg/dL (70-99) White Blood Count 7.8 x10^3/uL (4.0-11.0) Red Blood Count 4.10 x10^6/uL (3.50-5.40) Hemoglobin 12.5 g/dL (12.0-15.5) Hematocrit 37.0 % (36.0-47.0) Mean Corpuscular Volume 90 fL (79-100) Mean Corpuscular Hemoglobin 30 pg (25-35) Mean Corpuscular Hemoglobin Concent 34 g/dL (31-37) Red Cell Distribution Width 13.3 % (11.5-14.5) Platelet Count 141 x10^3/uL (140-400) Neutrophils (%) (Auto) 66 % (31-73) Lymphocytes (%) (Auto) 25 % (24-48) Monocytes (%) (Auto) 7 % (0-9) Eosinophils (%) (Auto) 1 % (0-3) Basophils (%) (Auto) 1 % (0-3) Neutrophils # (Auto) 5.2 x10^3/uL (1.8-7.7) Lymphocytes # (Auto) 2.0 x10^3/uL (1.0-4.8) Monocytes # (Auto) 0.5 x10^3/uL (0.0-1.1) Eosinophils # (Auto) 0.1 x10^3/uL (0.0-0.7) Basophils # (Auto) 0.1 x10^3/uL (0.0-0.2) Sodium Level 144 mmol/L (136-145) Potassium Level 3.5 mmol/L (3.5-5.1) Chloride Level 109 mmol/L (98-107) Carbon Dioxide Level 24 mmol/L (21-32) Anion Gap 11 (6-14) Blood Urea Nitrogen 6 mg/dL (7-20) Creatinine 0.7 mg/dL (0.6-1.0) Estimated GFR (Cockcroft-Gault) 98.2 Glucose Level 92 mg/dL (70-99) Calcium Level 8.0 mg/dL (8.5-10.1) Triglycerides Level 66 mg/dL (0-150) Cholesterol Level 166 mg/dL (0-200) LDL Cholesterol, Calculated 94 mg/dL (0-100) VLDL Cholesterol, Calculated 13 mg/dL (0-40) Non-HDL Cholesterol Calculated 107 mg/dL (0-129) HDL Cholesterol 59 mg/dL (40-60) Cholesterol/HDL Ratio 2.8 Laboratory Tests Test 03/27/20 15:04 03/28/20 02:00 Glucose (Fingerstick) 125 mg/dL (70-99) White Blood Count 7.8 x10^3/uL (4.0-11.0) Red Blood Count 4.10 x10^6/uL (3.50-5.40) Hemoglobin 12.5 g/dL (12.0-15.5) Hematocrit 37.0 % (36.0-47.0) Mean Corpuscular Volume 90 fL (79-100) Mean Corpuscular Hemoglobin 30 pg (25-35) Mean Corpuscular Hemoglobin Concent 34 g/dL (31-37) Red Cell Distribution Width 13.3 % (11.5-14.5) Platelet Count 141 x10^3/uL (140-400) Neutrophils (%) (Auto) 66 % (31-73) Lymphocytes (%) (Auto) 25 % (24-48) Monocytes (%) (Auto) 7 % (0-9) Eosinophils (%) (Auto) 1 % (0-3) Basophils (%) (Auto) 1 % (0-3) Neutrophils # (Auto) 5.2 x10^3/uL (1.8-7.7) Lymphocytes # (Auto) 2.0 x10^3/uL (1.0-4.8) Monocytes # (Auto) 0.5 x10^3/uL (0.0-1.1) Eosinophils # (Auto) 0.1 x10^3/uL (0.0-0.7) Basophils # (Auto) 0.1 x10^3/uL (0.0-0.2) Sodium Level 144 mmol/L (136-145) Potassium Level 3.5 mmol/L (3.5-5.1) Chloride Level 109 mmol/L (98-107) Carbon Dioxide Level 24 mmol/L (21-32) Anion Gap 11 (6-14) Blood Urea Nitrogen 6 mg/dL (7-20) Creatinine 0.7 mg/dL (0.6-1.0) Estimated GFR (Cockcroft-Gault) 98.2 Glucose Level 92 mg/dL (70-99) Calcium Level 8.0 mg/dL (8.5-10.1) Triglycerides Level 66 mg/dL (0-150) Cholesterol Level 166 mg/dL (0-200) LDL Cholesterol, Calculated 94 mg/dL (0-100) VLDL Cholesterol, Calculated 13 mg/dL (0-40) Non-HDL Cholesterol Calculated 107 mg/dL (0-129) HDL Cholesterol 59 mg/dL (40-60) Cholesterol/HDL Ratio 2.8 Microbiology 03/25/20 Blood Culture - Preliminary, Resulted NO GROWTH AFTER 1 DAY Medications Current Medications Sodium Chloride 1,000 ml @ 1,000 mls/hr 1X ONCE IV Last administered on 03/25/20at 19:48; Start 03/25/20 at 18:15; Stop 03/25/20 at 19:14; Status DC Aspirin (Aspirin Rectal Supp) 300 mg 1X ONCE [facility] Last administered on 03/25/20at 19:48; Start 03/25/20 at 19:30; Stop 03/25/20 at 19:33; Status DC Ondansetron HCl (Zofran) 4 mg PRN Q8HRS PRN IV NAUSEA/VOMITING; Start 03/25/20 at 20:30; Stop 03/26/20 at 20:29; Status DC Sodium Chloride 1,000 ml @ 75 mls/hr 1X ONCE IV Last administered on 03/25/20at 20:30; Start 03/25/20 at 20:30; Stop 03/26/20 at 00:18; Status DC Atorvastatin Calcium (Lipitor) 40 mg QHS PO Last administered on 03/26/20at 20:29; Start 03/25/20 at 21:00 Sennosides (Senna) 17.2 mg PRN BID PRN PO CONSTIPATION 1ST CHOICE; Start 03/25/20 at 21:00 Docusate Sodium (Colace) 100 mg PRN DAILY PRN PO HARD STOOLS; Start 03/25/20 at 21:00 Ondansetron HCl (Zofran) 4 mg PRN Q6HRS PRN IVP NAUSEA/VOMITING 1ST CHOICE Last administered on 03/28/20at 03:35; Start 03/25/20 at 21:00 Aspirin (Ecotrin) 81 mg DAILYWBKFT PO Last administered on 03/27/20at 09:56; Start 03/26/20 at 08:00 Dextrose (Dextrose 50%-Water Syringe) 12.5 gm PRN Q15MIN PRN IV SEE COMMENTS; Start 03/25/20 at 21:00 Sodium Chloride 1,000 ml @ 100 mls/hr Q10H IV Last administered on 03/27/20at 15:33; Start 03/25/20 at 21:00 Labetalol HCl (Normodyne Iv Push) 10 mg PRN Q2HRS PRN IVP HYPERTENSION Last administered on 03/27/20at 17:49; Start 03/26/20 at 09:00 Famotidine (Pepcid) 20 mg DAILY PO Last administered on 03/27/20at 09:57; Start 03/26/20 at 15:00 Acetaminophen/ Hydrocodone Bitart (Lortab 5/325) 1 tab BID PO ; Start 03/26/20 at 15:00; Stop 03/26/20 at 15:04; Status DC Methotrexate (Rheumatrex) 17.5 mg WEEKLY PO Last administered on 03/26/20at 15:19; Start 03/26/20 at 15:00 Oxybutynin Chloride (Ditropan) 5 mg BID PO Last administered on 03/27/20at 09:57; Start 03/26/20 at 15:00 Prednisone (Prednisone) 10 mg DAILY PO Last administered on 03/27/20at 09:56; Start 03/26/20 at 15:00 Celecoxib (CeleBREX) 200 mg DAILY PO Last administered on 03/27/20at 09:56; Start 03/26/20 at 15:00 Folic Acid (Folic Acid) 1 mg DAILY PO Last administered on 03/27/20at 09:56; Start 03/26/20 at 15:00 Losartan Potassium (Cozaar) 50 mg DAILY PO Last administered on 03/27/20at 09:57; Start 03/26/20 at 15:00 Acetaminophen/ Hydrocodone Bitart (Lortab 5/325) 1 tab PRN BID PRN PO PAIN; Start 03/26/20 at 15:15 Dopamine HCl/ Dextrose 0 ml @ As Directed STK-MED ONCE IV ; Start 03/27/20 at 16:26; Stop 03/27/20 at 16:26; Status DC Alteplase, Recombinant 4.3 ml @ 258 mls/hr 1X ONCE IV Last administered on 03/27/20at 17:36; Start 03/27/20 at 17:15; Stop 03/27/20 at 17:17; Status DC Alteplase, Recombinant 38.6 ml @ 38.6 mls/hr Q1H IV Last administered on 03/27/20at 17:34; Start 03/27/20 at 17:15; Stop 03/27/20 at 18:14; Status DC Sodium Chloride 50 ml @ 200 mls/hr 1X ONCE IV Last administered on 03/27/20at 18:05; Start 03/27/20 at 17:15; Stop 03/27/20 at 17:29; Status DC Alteplase, Recombinant 0 ml @ 0 mls/hr Q1M ONCE IV ; Start 03/27/20 at 17:15; Stop 03/27/20 at 17:16; Status UNV Alteplase, Recombinant 0 ml @ 0 mls/hr Q1H IV ; Start 03/27/20 at 17:15; Status UNV Sodium Chloride 50 ml @ 50 mls/hr Q1H ONCE IV ; Start 03/27/20 at 17:15; Stop 03/27/20 at 18:14; Status UNV Labetalol HCl (Normodyne Iv Push) 10 mg PRN Q10MIN PRN IVP HYPERTENSION; Start 03/27/20 at 17:15 Nicardipine HCl 50 mg/Sodium Chloride 250 ml @ 25 mls/hr CONT PRN PRN IV HYPERTENSION; Start 03/27/20 at 17:15 Labetalol HCl (Normodyne Iv Push) 10 mg PRN Q10MIN PRN IVP HYPERTENSION; Start 03/27/20 at 17:30; Stop 03/27/20 at 17:34; Status DC Nicardipine HCl 50 mg/Sodium Chloride 250 ml @ 25 mls/hr CONT PRN PRN IV HYPERTENSION; Start 03/27/20 at 17:30; Status UNV Acetaminophen (Tylenol) 650 mg PRN Q6HRS PRN PO MILD PAIN / TEMP > 100.3'F; Start 03/27/20 at 17:30 Acetaminophen (Tylenol Supp) 650 mg PRN Q6HRS PRN [place] MILD PAIN / TEMP > 100.3'F; Start 03/27/20 at 17:30 Ondansetron HCl (Zofran) 4 mg PRN Q6HRS PRN IVP NAUSEA/VOMITING; Start 03/27/20 at 17:30 Iohexol (Omnipaque 300 Mg/ml) 75 ml 1X ONCE IV ; Start 03/28/20 at 07:00; Stop 03/28/20 at 07:05; Status DC Info (CONTRAST GIVEN -- Rx MONITORING) 1 each PRN DAILY PRN MC SEE COMMENTS; Start 03/28/20 at 07:15; Stop 03/30/20 at 07:14 Dopamine HCl/ Dextrose (DOPamine 400MG/ 250ML PREMIX) 400 mg STK-MED ONCE IV ; Start 03/27/20 at 17:00; Stop 03/28/20 at 08:41; Status DC Micafungin Sodium 100 mg/Dextrose 100 ml @ 100 mls/hr DAILY IV Last admi nistered on 03/28/20at 09:45; Start 03/28/20 at 09:15 Active Scripts Active Reported Oxybutynin Chloride 5 Mg Tablet 1 Tab PO BID Methotrexate (Methotrexate Sodium) 2.5 Mg Tablet 7 Tab PO WEEKLY Doyle 5-325 Tablet (Acetaminophen/Hydrocodone Bitart) 1 Each Tablet 1 Tab PO BID Folic Acid 0.8 Mg Capsule 1 Mg PO DAILY Famotidine 20 Mg Tablet 20 Mg PO BID Prednisone 20 Mg Tablet 10 Mg PO DAILY Celebrex (Celecoxib) 200 Mg Capsule 1 Cap PO DAILY Atorvastatin Calcium 10 Mg Tablet 10 Mg PO HS Valsartan 80 Mg Tablet 80 Mg PO DAILY Vitals/I & O Vital Sign - Last 24 Hours 03/27/20 03/27/20 03/27/20 03/27/20 11:00 14:50 15:00 15:00 Temp 99.1 98.3 98.0 99.1 98.3 98.0 Pulse 77 80 80 Resp 24 22 22 B/P (MAP) 149/75 (99) 169/102 (124) 169/102 (124) Pulse Ox 98 100 O2 Delivery Room Air Room Air Room Air 03/27/20 03/27/20 03/27/20 03/27/20 15:23 15:32 15:41 15:53 Pulse 82 77 78 78 B/P (MAP) 226/122 (156) 226/122 193/96 (128) 208/138 (161) Pulse Ox 98 98 98 O2 Delivery Room Air Room Air 03/27/20 03/27/20 03/27/20 03/27/20 15:55 16:08 16:21 16:23 Pulse 74 72 77 76 B/P (MAP) 197/142 (160) 183/93 (123) 183/91 179/92 (121) Pulse Ox 100 99 98 O2 Delivery Room Air Room Air Room Air 03/27/20 03/27/20 03/27/20 03/27/20 16:53 17:30 17:45 17:49 Pulse 72 70 70 80 Resp 18 B/P (MAP) 173/81 (111) 181/90 (120) 220/121 (154) 220/121 Pulse Ox 99 98 98 O2 Delivery Room Air 03/27/20 03/27/20 03/27/20 03/27/20 18:00 18:15 18:30 18:45 Pulse 66 70 70 66 B/P (MAP) 172/80 (110) 181/94 (123) 177/91 (119) 181/107 (131) Pulse Ox 98 98 98 97 03/27/20 03/27/20 03/27/20 03/27/20 19:00 19:15 19:30 19:45 Temp 98.0 98.0 Pulse 76 76 84 80 Resp 27 27 23 28 B/P (MAP) 177/74 (108) 152/70 (97) 154/66 (95) 158/80 (106) Pulse Ox 97 97 96 97 O2 Delivery Room Air Room Air Room Air Room Air 03/27/20 03/27/20 03/27/20 03/27/20 20:00 20:00 20:15 20:30 Pulse 82 74 74 Resp 24 23 23 B/P (MAP) 173/80 (111) 177/90 (119) 183/83 (116) Pulse Ox 97 99 98 O2 Delivery Room Air Room Air Room Air Room Air 03/27/20 03/27/20 03/27/20 03/27/20 20:45 21:00 21:30 22:00 Temp 98.0 98.0 Pulse 70 68 74 60 Resp 25 26 20 16 B/P (MAP) 151/69 (96) 159/80 (106) 149/79 (102) 165/78 (107) Pulse Ox 97 97 98 98 O2 Delivery Room Air Room Air Room Air Room Air 03/27/20 03/27/20 03/27/20 03/28/20 22:30 23:00 23:30 00:00 Pulse 66 54 58 Resp 29 15 32 B/P (MAP) 173/77 (109) 144/74 (97) 154/64 (94) Pulse Ox 97 100 100 O2 Delivery Room Air Room Air Room Air Room Air 03/28/20 03/28/20 03/28/20 03/28/20 00:00 00:30 01:00 01:30 Temp 98.9 98.9 Pulse 54 54 72 54 Resp 16 15 14 14 B/P (MAP) 165/77 (106) 161/81 (107) 172/95 (120) 183/83 (116) Pulse Ox 100 100 100 100 O2 Delivery Room Air Room Air Room Air Room Air 03/28/20 03/28/20 03/28/20 03/28/20 02:00 02:30 03:00 03:15 Pulse 80 54 65 70 Resp 29 14 20 22 B/P (MAP) 169/96 (120) 174/82 (112) 195/87 (123) 221/103 (142) Pulse Ox 100 100 100 100 O2 Delivery Room Air Room Air Room Air Room Air 03/28/20 03/28/20 03/28/20 03/28/20 03:30 03:45 04:00 04:00 Temp 99.3 99.3 Pulse 80 70 72 Resp 25 21 27 B/P (MAP) 171/68 (102) 140/61 (87) 139/57 (84) Pulse Ox 100 99 100 O2 Delivery Room Air Room Air Room Air Room Air 03/28/20 03/28/20 03/28/20 03/28/20 04:30 05:00 05:30 06:00 Pulse 70 70 70 66 Resp 18 36 30 22 B/P (MAP) 137/57 (83) 143/63 (89) 160/66 (97) 154/33 (73) Pulse Ox 100 96 94 95 O2 Delivery Room Air Room Air Room Air Room Air 03/28/20 03/28/20 03/28/20 03/28/20 06:30 07:00 08:00 08:00 Temp 98.8 98.8 Pulse 66 66 75 Resp 22 17 24 B/P (MAP) 150/65 (93) 154/69 (97) 150/67 (94) Pulse Ox 95 96 99 O2 Delivery Room Air Room Air Room Air Room Air 03/28/20 03/28/20 09:00 09:00 Pulse 70 76 Resp 23 B/P (MAP) 141/76 152/67 (95) Pulse Ox 99 O2 Delivery Room Air Intake and Output 03/27/20 03/27/20 03/28/20 15:00 23:00 07:00 Intake Total 1042.9 ml 24 ml Output Total 725 ml 1400 ml Balance 317.9 ml -1376 ml Justicifation of Admission Dx: Justifications for Admission: Justification of Admission Dx: Yes Stroke - Ischemic: Stroke-Ischemic CORNELIUS MARSH MD Mar 28, 2020 10:02
--- NOTE | 2020-03-28 12:52 | PDOC ---
[facility] PROGRESS NOTE Date of Service DOS: DATE: 03/28/20 TIME: 12:50 Chief Complaint Chief Complaint Images: Images HEAD CT IMPRESSION: Moderate small vessel ischemic change, technically age indeterminate without recent prior imaging. If there are persistent concerns for acute ischemia MRI would better evaluate. 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 Moderate malnutrition plan code stroke called Admit to medicine cvc bed Neurology consult Continue aspirin and atorvastatin Bedside swallow study cvc bed Fall precautions Orthostatic vital signs Hold all centrally acting medications SCD and Lovenox PT OT and speech modalities Pepcid GI prophylaxis ADA diet Full code Discussed with RN and SW preceding with alteplase 03-27 neurology here Surrogate decision maker is Alejandro SHETTY STROKE CALLED THIS AM, TRANSFER TO ICU 37 MIN CC TIME Justifications for Admission Justifications for Admission Syncope Indications Altered Mental Status?: Yes Justification for admission: Patient's severe/persistent Altered Mental Status as indicated by lethargy/confusional state that has persisted after initial hours of intervention is concerning, needs inpatient level of care for further evaluation and management. Is patient dehydrated?: Yes Justification for admission: There is concern that patient may be severely dehydrated accounting for the syncope. Patient needs inpatient level of care for further evaluation and management. Other Justification History of Present Illness History of Present Illness History obtained from chart review and discussion with the patient. Patient is alert awake oriented x3. 79 year old female presents via EMS with report of syncopal episode while she was eating dinner with her family. EMS reports patient became suddenly unresponsive. EMS reports patient's GCS initially 5 then improved to 10 during transport. Patient did vomit x1. Upon arrival patient with interval improvement. Denies fever or chills. 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 History of present illness limited secondary to altered mental status 03/28: Patient seen in ICU, s/p TPA. She has no complaints or concerns, pleasantly demented. Afebrile. MRI pending. PT recommending SNU. Discussed with RN and social media specialist. Vitals/I&O Vitals/I&O: Vital Signs Date Time Temp Pulse Resp B/P (MAP) Pulse Ox O2 Delivery O2 Flow Rate FiO2 03/28/20 12:00 98.6 73 17 159/67 (97) 99 Room Air 98.6 I & O 03/27/20 03/27/20 03/28/20 15:00 23:00 07:00 Intake Total 1042.9 ml 24 ml Output Total 725 ml 1400 ml Balance 317.9 ml -1376 ml Physical Exam Physical Exam: Physcial Exam: LEFT WEAKNESS NEW 03-27 HEENT: Normal cephalic, atraumatic, external auditory canals are patent EYES: Extraocular muscles are intact, pupil are equally round and reactive to light and accommodation MUSCULOSKELETAL: Well developed , ENDOCRINE: No thyromegaly was palpated LYMPHATICS: No cervical chain or axillary nodes were noted HEMATOPOIETIC: No bruising NECK: Supple, no JVD, no thyromegaly was noted LUNGS: Clear to auscultation in all lung jo without rhonchi or wheezing HEART: RRR, S!, S2 present. Peripheral pulses intact, no obvious murmurs noted ABDOMEN: Soft, nontender. Positive bowel sounds, no organomegaly, normal bowel sounds EXTREMITIES: Without clubbing, cyanosis, or edema. Pedal pulses intact. Negative Homans sign PSYCHIATRIC: Normal affect, normal mood. Stable SKIN: No ulcerations or rashes, good skin turgor, no jaundice VASCULAR: Good capillary refill, neurovascular bundle appears to be intact CN: left central facial weakness. NEW 03-27 Muscle tone: normal. Muscle strength: 3/5 left hemiparesis, Slurred speech General: Cooperative Labs Labs: Laboratory Tests Test 03/27/20 15:04 03/28/20 02:00 Glucose (Fingerstick) 125 mg/dL (70-99) White Blood Count 7.8 x10^3/uL (4.0-11.0) Red Blood Count 4.10 x10^6/uL (3.50-5.40) Hemoglobin 12.5 g/dL (12.0-15.5) Hematocrit 37.0 % (36.0-47.0) Mean Corpuscular Volume 90 fL (79-100) Mean Corpuscular Hemoglobin 30 pg (25-35) Mean Corpuscular Hemoglobin Concent 34 g/dL (31-37) Red Cell Distribution Width 13.3 % (11.5-14.5) Platelet Count 141 x10^3/uL (140-400) Neutrophils (%) (Auto) 66 % (31-73) Lymphocytes (%) (Auto) 25 % (24-48) Monocytes (%) (Auto) 7 % (0-9) Eosinophils (%) (Auto) 1 % (0-3) Basophils (%) (Auto) 1 % (0-3) Neutrophils # (Auto) 5.2 x10^3/uL (1.8-7.7) Lymphocytes # (Auto) 2.0 x10^3/uL (1.0-4.8) Monocytes # (Auto) 0.5 x10^3/uL (0.0-1.1) Eosinophils # (Auto) 0.1 x10^3/uL (0.0-0.7) Basophils # (Auto) 0.1 x10^3/uL (0.0-0.2) Sodium Level 144 mmol/L (136-145) Potassium Level 3.5 mmol/L (3.5-5.1) Chloride Level 109 mmol/L (98-107) Carbon Dioxide Level 24 mmol/L (21-32) Anion Gap 11 (6-14) Blood Urea Nitrogen 6 mg/dL (7-20) Creatinine 0.7 mg/dL (0.6-1.0) Estimated GFR (Cockcroft-Gault) 98.2 Glucose Level 92 mg/dL (70-99) Calcium Level 8.0 mg/dL (8.5-10.1) Triglycerides Level 66 mg/dL (0-150) Cholesterol Level 166 mg/dL (0-200) LDL Cholesterol, Calculated 94 mg/dL (0-100) VLDL Cholesterol, Calculated 13 mg/dL (0-40) Non-HDL Cholesterol Calculated 107 mg/dL (0-129) HDL Cholesterol 59 mg/dL (40-60) Cholesterol/HDL Ratio 2.8 Assessment and Plan Assessmemt and Plan Problems Medical Problems: (1) Altered mental status Status: Acute (2) Lactic acidosis Status: Acute (3) Syncope Status: Acute Comment Review of Relevant I have reviewed the following items alicia (where applicable) has been applied. Medications: Current Medications Medications (Trade) Dose Ordered Sig/Susan Route PRN Reason Start Time Stop Time Status Last Admin Dose Admin Alteplase, Recombinant 4.3 ml @ 258 mls/hr 1X ONCE IV 03/27/20 17:15 03/27/20 17:17 DC 03/27/20 17:36 Alteplase, Recombinant 38.6 ml @ 38.6 mls/hr Q1H IV 03/27/20 17:15 03/27/20 18:14 DC 03/27/20 17:34 Sodium Chloride 50 ml @ 200 mls/hr 1X ONCE IV 03/27/20 17:15 03/27/20 17:29 DC 03/27/20 18:05 Iohexol (Omnipaque 300 Mg/ml) 75 ml 1X ONCE IV 03/28/20 07:00 03/28/20 07:05 DC 03/28/20 07:00 Micafungin Sodium 100 mg/Dextrose 100 ml @ 100 mls/hr DAILY IV 03/28/20 09:15 03/28/20 09:45 Justifications for Admission Syncope Indications Altered Mental Status?: Yes Justification for admission: Patient's severe/persistent Altered Mental Status as indicated by lethargy/confusional state that has persisted after initial hours of intervention is concerning, needs inpatient level of care for further evaluation and management. Is patient dehydrated?: Yes Justification for admission: There is concern that patient may be severely dehydrated accounting for the syncope. Patient needs inpatient level of care for further evaluation and management. Other Justification DIONNE SAM MD Mar 28, 2020 12:52
--- NOTE | 2020-03-28 12:55 | RAD ---
EXAM: CT angiogram of the head and neck with intravenous contrast. HISTORY: Cerebral infarction. TECHNIQUE: Computed tomographic images of the head and neck were obtained following the administratio n of intravenous contrast. Three-dimensional maximum intensity projection images were obtained. *One or more of the following individualized dose reduction techniques were utilized for this examina tion: 1. Automated exposure control. 2. Adjustment of the mA and/or kV according to patient size. 3. Use of iterative reconstruction technique. COMPARISON: CT dated 03/27/2020. FINDINGS: There is a standard aortic arch branching pattern. No aneurysm is seen within the visualize d portions of the aortic arch. There is partially calcified atherosclerotic plaque at the origins of the arch great vessels. This results in less than 25 percent stenosis primarily at the origin of the left subclavian artery. There is calcified atherosclerotic plaque at the origin of the left vertebral artery, with near complete occlusion. There is reconstitution of flow within the remainder of the le ft vertebral artery. There is mild partially calcified atherosclerotic plaque within the left vertebr al artery at the skull base with less than 50 percent stenosis. The right vertebral artery is widely patent and mildly dominant. There is mild partially calcified atherosclerotic plaque involving the carotid bulbs and proximal int ernal carotid arteries. Evaluation for stenosis is limited due to significant motion during image acq uisition. However, this appears to result in less than 50 percent stenosis bilaterally. There is curry tional calcified atherosclerotic plaque involving the petrous and cavernous internal carotid arteries . This results in near complete occlusion of the distal cavernous left internal carotid artery and gr eater than 70 percent stenosis involving the cavernous right internal carotid artery. There is lumina l irregularly within the right cavernous segment likely due to areas of ulcerated plaque rather than tiny aneurysms. There is reconstitution of flow within the supraclinoid internal carotid arteries. Th ere is no convincing stenosis involving the intracranial arteries. There is no mass effect or midline shift. There is no hydrocephalus. There are bilateral cerebral whi te matter changes, likely due to chronic small vessel disease. There is cerebral volume loss. There i s encephalomalacia likely due to chronic infarction involving the left cerebellum. There is evidence of left lens surgery. There are degenerative changes throughout the spine. There are bilateral thyroi d nodules. There is pulmonary emphysema with biapical pleural parenchymal scarring. IMPRESSION: 1. Significantly limited evaluation for arterial stenosis at the level of the carotid bifurcations du e to motion artifact. There is atherosclerotic plaque involving the bifurcations with suspected less than 50 percent stenosis involving the proximal internal carotid arteries. 2. Severe partially calcified atherosclerotic plaque involving the petrous and cavernous internal car otid arteries, resulting in near complete occlusion of the distal left cavernous ICA and greater than 70 percent stenosis involving the cavernous right ICA. There is reconstitution of both vessels withi n their supraclinoid segments. There is luminal irregularly involving the cavernous right ICA likely due to tiny areas of ulcerated plaque rather than tiny aneurysm formation, spasm or fibromuscular dys plasia. 3. No evidence of hemodynamically significant intracranial artery stenosis. 4. Chronic infarct within the left cerebellum and suspected chronic lacunar infarcts involving the bi lateral basal ganglia and thalami. 5. Bilateral cerebral white matter changes likely due to chronic small vessel disease. Note is made t hat MRI is more sensitive for acute infarction. 6. Pulmonary emphysema. 7. Bilateral thyroid nodules. This can be better assessed with a thyroid sonogram. PQRS Compliance Statement - Stenosis calculations for CT, MR and conventional angiography are based u jonel measurement of the distal ICA diameter in accordance with the NASCET methodology. Stenosis calcu lations for carotid ultrasound studies are derived from validated velocity criteria which are known t o correlate with the NASCET methodology. Electronically signed by: Ava Carrillo MD (03/28/2020 12:53 PM) [id number]
--- NOTE | 2020-03-28 16:19 | NUR ---
SS following for discharge planning. SS reviewed pt chart and discussed with pt RN. Pt is from home with family and is currently on room air. NPO. Pt failed swallow study. MRI at 1600. Pt on IV Micafungin. PT/OT recommended correction unit. Pt declining correction unit at this time. SS will continue to follow for discharge planning.
--- NOTE | 2020-03-28 17:33 | RAD ---
EXAM: Brain MRI without contrast. HISTORY: Stroke. TECHNIQUE: Multiplanar, multisequence magnetic resonance imaging of the brain was performed without c ontrast. COMPARISON: CT obtained on the same date. FINDINGS: There is restricted diffusion within the superior lateral right frontal lobe cortex and adj acent subcortical white matter, consistent with acute infarction. There is also acute infarction with in the right centrum semiovale. There is less intense increased signal on diffusion-weighted imaging within the left centrum semiovale likely due to a late subacute infarct. There is susceptibility effe ct within the region of right frontal lobe infarction likely due to microhemorrhage. There are additional extensive scattered focal areas of susceptibility effect within the cerebral hem ispheres and cerebellar hemispheres likely due to chronic microhemorrhage or amyloid angiopathy. Ther e is a peripherally hypointense lesion on susceptibility weighted images within the left cerebellum w ith surrounding T2/FLAIR hyperintensity which may be due to gliosis. There is no T1 hyperintensity in this location to suggest acute hemorrhage with surrounding parenchymal edema. There are chronic lacunar infarcts within the bilateral thalami and right basal ganglia. There are ex tensive scattered areas of signal change throughout the cerebral white matter and ariadna, likely due to chronic small vessel disease. There is cerebral volume loss. There is evidence of left lens surgery. The visualized paranasal sinuses mastoid air cells are clear. There are normal flow voids within the cerebral vessels. There is no calvarial lesion. IMPRESSION: 1. Acute infarct within the right superolateral frontal lobe cortex and adjacent white matter and rig ht centrum semiovale. There is susceptibility effect within the region of infarction suggesting super imposed microhemorrhage. There is no correlate for this finding on the recent CT. However, short-term follow-up with a noncontrast head CT is recommended to exclude evolving hemorrhagic transformation. 2. Suspected late subacute infarct within the left centrum semiovale. 3. Chronic infarcts within the left cerebellum and involving the bilateral thalami and right basal ga nglia. 4. Extensive scattered areas of susceptibility effect within the cerebral and cerebellar hemispheres, the majority of which is likely due to chronic microhemorrhage or amyloid angiopathy. The largest le mitchell is seen within the left cerebellum with surrounding signal change likely due to gliosis. There i s no T1 signal abnormality to suggest acute hemorrhage with surrounding edema. There is no evidence o f a cavernoma within this location on the comparison MRI. Attention the time of CT follow-up is recom mended. 5. Cerebral volume loss. Findings discussed with Iman, the nurse caring for the patient, at 1730 hours on 03/28/2020. FOR INTERNAL CODING PURPOSES RESULT CODE: (C) Electronically signed by: Ava Carrillo MD (03/28/2020 5:31 PM) [id number]
[2020-03-28] MEDS: ATORVASTATIN CALCIUM 40 MG TABLET. PO SCH (21:00)
[2020-03-29] VITALS (14 sets, daily range): BP systolic 128–183; BP diastolic 64–98
[2020-03-29 01:17] LABS: HEMOGLOBIN A1C 5.5 % (4.8-5.6)
--- NOTE | 2020-03-29 06:58 | PDOC ---
[facility] PROGRESS NOTE Date of Service DOS: DATE: 03/29/20 TIME: 06:56 Chief Complaint Chief Complaint Images: Images HEAD CT IMPRESSION: Moderate small vessel ischemic change, technically age indeterminate without recent prior imaging. If there are persistent concerns for acute ischemia MRI would better evaluate. 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 Moderate malnutrition plan code stroke called Admit to medicine cvc bed Neurology consult Continue aspirin and atorvastatin Bedside swallow study cvc bed Fall precautions Orthostatic vital signs Hold all centrally acting medications SCD and Lovenox PT OT and speech modalities Pepcid GI prophylaxis ADA diet Full code Discussed with RN and SW preceding with alteplase 03-27 neurology here Surrogate decision maker is Alejandro SHETTY STROKE CALLED THIS AM, TRANSFER TO ICU 37 MIN CC TIME Justifications for Admission Justifications for Admission Syncope Indications Altered Mental Status?: Yes Justification for admission: Patient's severe/persistent Altered Mental Status as indicated by lethargy/confusional state that has persisted after initial hours of intervention is concerning, needs inpatient level of care for further evaluation and management. Is patient dehydrated?: Yes Justification for admission: There is concern that patient may be severely dehydrated accounting for the syncope. Patient needs inpatient level of care for further evaluation and management. Other Justification History of Present Illness History of Present Illness History obtained from chart review and discussion with the patient. Patient is alert awake oriented x3. 79 year old female presents via EMS with report of syncopal episode while she was eating dinner with her family. EMS reports patient became suddenly unresponsive. EMS reports patient's GCS initially 5 then improved to 10 during transport. Patient did vomit x1. Upon arrival patient with interval improvement. Denies fever or chills. 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 History of present illness limited secondary to altered mental status 03/29: Patient seen in ICU. No acute events overnight. Patient with no complaints. She had MRI yesterday that showed acute infarct within the right superolateral frontal lobe cortex, concern for superimposed microhemorrhage. Short-term follow-up with a noncontrast head CT is recommended to exclude evolving hemorrhagic transformation. Discussed with RN. 03/28: Patient seen in ICU, s/p TPA. She has no complaints or concerns, pleasantly demented. Afebrile. MRI pending. PT recommending SNU. Discussed with RN and clinical social work therapist. Vitals/I&O Vitals/I&O: Vital Signs Date Time Temp Pulse Resp B/P (MAP) Pulse Ox O2 Delivery O2 Flow Rate FiO2 03/29/20 06:00 88 26 154/64 (94) 100 Room Air 03/29/20 04:00 99.3 99.3 I & O 03/28/20 03/28/20 03/29/20 15:00 23:00 07:00 Intake Total 100 ml 1648 ml 1325 ml Output Total 1425 ml 925 ml 950 ml Balance -1325 ml 723 ml 375 ml Physical Exam Physical Exam: Physcial Exam: LEFT WEAKNESS NEW 03-27 HEENT: Normal cephalic, atraumatic, external auditory canals are patent EYES: Extraocular muscles are intact, pupil are equally round and reactive to light and accommodation MUSCULOSKELETAL: Well developed , ENDOCRINE: No thyromegaly was palpated LYMPHATICS: No cervical chain or axillary nodes were noted HEMATOPOIETIC: No bruising NECK: Supple, no JVD, no thyromegaly was noted LUNGS: Clear to auscultation in all lung jo without rhonchi or wheezing HEART: RRR, S!, S2 present. Peripheral pulses intact, no obvious murmurs noted ABDOMEN: Soft, nontender. Positive bowel sounds, no organomegaly, normal bowel sounds EXTREMITIES: Without clubbing, cyanosis, or edema. Pedal pulses intact. Negative Homans sign PSYCHIATRIC: Normal affect, normal mood. Stable SKIN: No ulcerations or rashes, good skin turgor, no jaundice VASCULAR: Good capillary refill, neurovascular bundle appears to be intact CN: left central facial weakness. NEW 03-27 Muscle tone: normal. Muscle strength: 3/5 left hemiparesis, Slurred speech General: Cooperative Assessment and Plan Assessmemt and Plan Problems Medical Problems: (1) Altered mental status Status: Acute (2) Lactic acidosis Status: Acute (3) Syncope Status: Acute Comment Review of Relevant I have reviewed the following items alicia (where applicable) has been applied. Medications: Current Medications Medications (Trade) Dose Ordered Sig/Susan Route PRN Reason Start Time Stop Time Status Last Admin Dose Admin Iohexol (Omnipaque 300 Mg/ml) 75 ml 1X ONCE IV 03/28/20 07:00 03/28/20 07:05 DC 03/28/20 07:00 Micafungin Sodium 100 mg/Dextrose 100 ml @ 100 mls/hr DAILY IV 03/28/20 09:15 03/28/20 09:45 Justifications for Admission Syncope Indications Altered Mental Status?: Yes Justification for admission: Patient's severe/persistent Altered Mental Status as indicated by lethargy/confusional state that has persisted after initial hours of intervention is concerning, needs inpatient level of care for further evaluation and management. Is patient dehydrated?: Yes Justification for admission: There is concern that patient may be severely dehydrated accounting for the syncope. Patient needs inpatient level of care for further evaluation and management. Other Justification DIONNE SAM MD Mar 29, 2020 06:58
--- NOTE | 2020-03-29 08:17 | PDOC ---
Infectious Disease Note Subjective Subjective Patient is awake mumbles few words difficult to understand ROS ROS No nausea vomiting diarrhea or fever Vital Sign Vital Signs Vital Signs Date Time Temp Pulse Resp B/P (MAP) Pulse Ox O2 Delivery O2 Flow Rate FiO2 03/29/20 07:57 Room Air 03/29/20 06:00 88 26 154/64 (94) 100 03/29/20 04:00 99.3 99.3 Physical Exam PHYSICAL EXAM GENERAL: Awake female, not in distress. VITAL SIGNS: Stable HEENT: Both pupils are round and reacting. No conjunctival lesion, no lesion in the mouth. NECK: Supple, no JVP, no lymphadenopathy. LUNGS: Clear. HEART: S1, S2 regular. ABDOMEN: Soft, nontender, no organomegaly. EXTREMITIES: No edema, cyanosis. SKIN: Unremarkable. NEUROLOGIC: The patient is awake, mumbles few words, unable to understand right now. Does move all the extremities. Labs Micro BLOOD CULTURE Final YEAST IN 1 OF 4 BOTTLES, TWO SETS DRAWN. CALLED TO JORGE LUIS KIDD RN IN ICU AT 8:25 ON 03/28/20 DW MT SENT TO [facility] FOR FURTHER WORKUP. Objective Assessment IMPRESSION: 1. 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 It could be contaminant, but it cannot be treated as contaminant, there is no other risk factor for fungemia. 2. Cerebrovascular accident/code stroke. 3. Syncopal episode. 4. History of cerebrovascular accident. 5. Hypertension. 6. Tobaccoism. 7. Glaucoma. Plan Plan of Care Continue micafungin ID of the fungus is pending Supportive care IRON HARLEY MD Mar 29, 2020 08:17
[2020-03-29] MEDS: MICAFUNGIN 100 MG in IV DEXTROSE 5% 100ML 100 ML IV SCH (08:30)
[2020-03-29] MEDS: IV NORMAL SALINE 1000ML BAG 1,000 ML IV SCH ×2 (08:30→17:58)
--- NOTE | 2020-03-29 09:43 | PDOC2 ---
NICKI PITTS SHAMPOO ASSISTANT 03/29/20 0943: CARDIAC CONSULT DATE OF CONSULT Date of Consult DATE: 03/29/20 TIME: 09:42 REASON FOR CONSULT Reason for Consult: Multiple strokes, embolic workup REFERRING PHYSICIAN Referring Physician: Kain SOURCE Source: Chart review, Patient HISTORY OF PRESENT ILLNESS HISTORY OF PRESENT ILLNESS This is a 79 yo female admitted for syncope while eating dinner with family. Pt was noted to have become unresponsive per EMS. She is blind. She was then noted with left facial droop and significant left sided weakness. She did have multiple strokes in the past. She was then treated with tPA and MRI has confirmed her acute CVA. She is not having any chest pain and no SOA. So does have intermittent cough but so far no known hx of AFIB or atrial flutter. She is a poor historian. PAST MEDICAL HISTORY Cardiovascular: HTN, Hyperlipidemia CENTRAL NERVOUS SYSTEM: CVA GI: Hemorrhoids Musculoskeletal: Osteoarthritis Rheumatologic: Rheumatoid arthritis ENT: Other (blind OU; glaucoma) Renal/: Urinary Incontinence Endocrine: Osteoporosis PAST SURGICAL HISTORY Past Surgical History: No pertinent history FAMILY HISTORY Family History: Family History Unknown SOCIAL HISTORY Smoke: <1 pack per day ALCOHOL: none Drugs: None Lives: with Family ALLERGIES ALLERGIES: Coded Allergies: No Known Drug Allergies (Unverified , 06/16/19) ROS Review of System 14 point ROS evaluated with pertinent positives noted per HPI PHYSICAL EXAM General: Alert, Oriented X3, Cooperative, No acute distress HEENT: Atraumatic, Mucous membr. moist/pink, Other (blind OU) Lungs: Other (basilar crackles) Heart: Regular rate (SR no ectopies), Other (2/6 systolic murmur to LLS border) Abdomen: Soft, No tenderness Extremities: No cyanosis, No edema Skin: No breakdown, No significant lesion Neuro: Normal speech, Sensation intact Psych/Mental Status: Mental status NL, Mood NL MUSCULOSKELETAL: Osteoarthritic changes both hands VITALS/I&O VITALS/I&O: Vital Signs Date Time Temp Pulse Resp B/P (MAP) Pulse Ox O2 Delivery O2 Flow Rate FiO2 03/29/20 08:00 98.9 97 19 174/75 (108) 100 Room Air 98.9 I & O 03/28/20 03/28/20 03/29/20 15:00 23:00 07:00 Intake Total 100 ml 1648 ml 1325 ml Output Total 1425 ml 925 ml 950 ml Balance -1325 ml 723 ml 375 ml ASSESSMENT/PLAN ASSESSMENT/PLAN 1. Acute CVA with prior hx: no hx of AFIB/flutter. Post tPA 2 days ago 2. Blind 3. Asymptomatic SB when asleep lowest in the 40s. 4. HTN urgency 5. Tobaccoism 6. RA: on methotrexate 7. Syncope 8. Suspect aspiration pneumonia/fever 9. Reactive sinus tachycardia Recommendations 1. Await TTE, will consider for ILR 2. DC cardene once able to take PO and restart home BP meds namely norvasc, losartan. No BB for now. Antiplatelet per neurology 3. Monitor rhythm while inpt. Start on statin 4. Follow up in office. 5. Smoking cessation KYLE DSOUZA MD 03/30/20 1324: CARDIAC CONSULT ASSESSMENT/PLAN ASSESSMENT/PLAN Late entry for 03/29/2019 pt. seen and examined. Agree with above INVESTMENT SPECIALIST note. plan for loop recorder and supportive care for now. Thanks NICKI PITTS SHAMPOO ASSISTANT Mar 29, 2020 09:43 KYLE DSOUZA MD Mar 30, 2020 13:24
--- NOTE | 2020-03-29 09:51 | PDOC ---
PROGRESS NOTES Date of Service DATE: 03/29/20 TIME: 09:44 Assessment Problems Medical Problems: (1) Altered mental status Status: Acute (2) Lactic acidosis Status: Acute (3) Syncope Status: Acute Acute infarct within the right superolateral frontal lobe cortex and adjacent white matter and right centrum semiovale. Status-post alteplase on 03/27 Superimposed microhemorrhage. Suspected late subacute infarct within the left centrum semiovale. 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 Extensive scattered microhemorrhages, consider amyloid angiopathy. Possible old left cerebellar microhemorrhage Extensive intracranial vascular disease on CT [id number] Admitted with syncope, likely vasovagal, I find no evidence of new stroke, seizure, central nervous system infection, or encephalopathy. 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 Hypertension, hypocalcemia, hypophosphatemia, hypochloremia, lactic acidosis Failed swallow evaluation Fungemia, possible artifact Plan CT head followup tomorrow Cardiology consult for embolic work-up Echocardiogram pending (was in MRI yesterday when they came) Resume aspirin and statin once speech clears Transfer back to telemetry N.p.o., also with microhemorrhage, will hold off on resuming aspirin, also holding on resuming statin of course I discussed with the patient's grandson Subjective Denies pain Objective Vital Signs Date Time Temp Pulse Resp B/P (MAP) Pulse Ox O2 Delivery O2 Flow Rate FiO2 03/29/20 08:00 98.9 97 19 174/75 (108) 100 Room Air 98.9 Intake and Output 03/29/20 07:00 Intake Total 3073 ml Output Total 3300 ml Balance -227 ml IV Total 3073 ml Output Urine Total 3300 ml PHYSICAL EXAM Alert. Oriented to person. Blind in both eyes CN: no focal findings, minimal left facial weakness. Muscle tone: normal. Muscle strength: 4/5 DTR: 2+ Plantar reflex: Flexor Gait: not examined in bed. Sensory exam: no abnormal findings. No cerebellar signs elicited, hard to test with blindness. Review of Relevant I have reviewed the following items alicia (where applicable) has been applied. Labs Laboratory Tests Test 03/27/20 15:04 03/28/20 02:00 Glucose (Fingerstick) 125 mg/dL (70-99) White Blood Count 7.8 x10^3/uL (4.0-11.0) Red Blood Count 4.10 x10^6/uL (3.50-5.40) Hemoglobin 12.5 g/dL (12.0-15.5) Hematocrit 37.0 % (36.0-47.0) Mean Corpuscular Volume 90 fL (79-100) Mean Corpuscular Hemoglobin 30 pg (25-35) Mean Corpuscular Hemoglobin Concent 34 g/dL (31-37) Red Cell Distribution Width 13.3 % (11.5-14.5) Platelet Count 141 x10^3/uL (140-400) Neutrophils (%) (Auto) 66 % (31-73) Lymphocytes (%) (Auto) 25 % (24-48) Monocytes (%) (Auto) 7 % (0-9) Eosinophils (%) (Auto) 1 % (0-3) Basophils (%) (Auto) 1 % (0-3) Neutrophils # (Auto) 5.2 x10^3/uL (1.8-7.7) Lymphocytes # (Auto) 2.0 x10^3/uL (1.0-4.8) Monocytes # (Auto) 0.5 x10^3/uL (0.0-1.1) Eosinophils # (Auto) 0.1 x10^3/uL (0.0-0.7) Basophils # (Auto) 0.1 x10^3/uL (0.0-0.2) Sodium Level 144 mmol/L (136-145) Potassium Level 3.5 mmol/L (3.5-5.1) Chloride Level 109 mmol/L (98-107) Carbon Dioxide Level 24 mmol/L (21-32) Anion Gap 11 (6-14) Blood Urea Nitrogen 6 mg/dL (7-20) Creatinine 0.7 mg/dL (0.6-1.0) Estimated GFR (Cockcroft-Gault) 98.2 Glucose Level 92 mg/dL (70-99) Hemoglobin A1c 5.5 % (4.8-5.6) Calcium Level 8.0 mg/dL (8.5-10.1) Triglycerides Level 66 mg/dL (0-150) Cholesterol Level 166 mg/dL (0-200) LDL Cholesterol, Calculated 94 mg/dL (0-100) VLDL Cholesterol, Calculated 13 mg/dL (0-40) Non-HDL Cholesterol Calculated 107 mg/dL (0-129) HDL Cholesterol 59 mg/dL (40-60) Cholesterol/HDL Ratio 2.8 Microbiology 03/25/20 Blood Culture - Preliminary, Resulted NO GROWTH AFTER 2 DAYS Medications Current Medications Sodium Chloride 1,000 ml @ 1,000 mls/hr 1X ONCE IV Last administered on 03/25/20at 19:48; Start 03/25/20 at 18:15; Stop 03/25/20 at 19:14; Status DC Aspirin (Aspirin Rectal Supp) 300 mg 1X ONCE MO Last administered on 03/25/20at 19:48; Start 03/25/20 at 19:30; Stop 03/25/20 at 19:33; Status DC Ondansetron HCl (Zofran) 4 mg PRN Q8HRS PRN IV NAUSEA/VOMITING; Start 03/25/20 at 20:30; Stop 03/26/20 at 20:29; Status DC Sodium Chloride 1,000 ml @ 75 mls/hr 1X ONCE IV Last administered on 03/25/20at 20:30; Start 03/25/20 at 20:30; Stop 03/26/20 at 00:18; Status DC Atorvastatin Calcium (Lipitor) 40 mg QHS PO Last administered on 03/26/20at 20:29; Start 03/25/20 at 21:00 Sennosides (Senna) 17.2 mg PRN BID PRN PO CONSTIPATION 1ST CHOICE; Start 03/25/20 at 21:00 Docusate Sodium (Colace) 100 mg PRN DAILY PRN PO HARD STOOLS; Start 03/25/20 at 21:00 Ondansetron HCl (Zofran) 4 mg PRN Q6HRS PRN IVP NAUSEA/VOMITING 1ST CHOICE Last administered on 03/28/20at 03:35; Start 03/25/20 at 21:00 Aspirin (Ecotrin) 81 mg DAILYWBKFT PO Last administered on 03/27/20at 09:56; Start 03/26/20 at 08:00 Dextrose (Dextrose 50%-Water Syringe) 12.5 gm PRN Q15MIN PRN IV SEE COMMENTS; Start 03/25/20 at 21:00 Sodium Chloride 1,000 ml @ 100 mls/hr Q10H IV Last administered on 03/29/20at 08:30; Start 03/25/20 at 21:00 Labetalol HCl (Normodyne Iv Push) 10 mg PRN Q2HRS PRN IVP HYPERTENSION Last administered on 03/27/20at 17:49; Start 03/26/20 at 09:00 Famotidine (Pepcid) 20 mg DAILY PO Last administered on 03/27/20at 09:57; Start 03/26/20 at 15:00 Acetaminophen/ Hydrocodone Bitart (Lortab 5/325) 1 tab BID PO ; Start 03/26/20 at 15:00; Stop 03/26/20 at 15:04; Status DC Methotrexate (Rheumatrex) 17.5 mg WEEKLY PO Last administered on 03/26/20at 15:19; Start 03/26/20 at 15:00 Oxybutynin Chloride (Ditropan) 5 mg BID PO Last administered on 03/27/20at 09:57; Start 03/26/20 at 15:00 Prednisone (Prednisone) 10 mg DAILY PO Last administered on 03/27/20at 09:56; Start 03/26/20 at 15:00 Celecoxib (CeleBREX) 200 mg DAILY PO Last administered on 03/27/20at 09:56; Start 03/26/20 at 15:00 Folic Acid (Folic Acid) 1 mg DAILY PO Last administered on 03/27/20at 09:56; Start 03/26/20 at 15:00 Losartan Potassium (Cozaar) 50 mg DAILY PO Last administered on 03/27/20at 09:57; Start 03/26/20 at 15:00 Acetaminophen/ Hydrocodone Bitart (Lortab 5/325) 1 tab PRN BID PRN PO PAIN; Start 03/26/20 at 15:15 Dopamine HCl/ Dextrose 0 ml @ As Directed STK-MED ONCE IV ; Start 03/27/20 at 16:26; Stop 03/27/20 at 16:26; Status DC Alteplase, Recombinant 4.3 ml @ 258 mls/hr 1X ONCE IV Last administered on 03/27/20at 17:36; Start 03/27/20 at 17:15; Stop 03/27/20 at 17:17; Status DC Alteplase, Recombinant 38.6 ml @ 38.6 mls/hr Q1H IV Last administered on 1at 17:34; Start 03/27/20 at 17:15; Stop 03/27/20 at 18:14; Status DC Sodium Chloride 50 ml @ 200 mls/hr 1X ONCE IV Last administered on 03/27/20at 18:05; Start 03/27/20 at 17:15; Stop 03/27/20 at 17:29; Status DC Alteplase, Recombinant 0 ml @ 0 mls/hr Q1M ONCE IV ; Start 03/27/20 at 17:15; Stop 03/27/20 at 17:16; Status UNV Alteplase, Recombinant 0 ml @ 0 mls/hr Q1H IV ; Start 03/27/20 at 17:15; Status UNV Sodium Chloride 50 ml @ 50 mls/hr Q1H ONCE IV ; Start 03/27/20 at 17:15; Stop 03/27/20 at 18:14; Status UNV Labetalol HCl (Normodyne Iv Push) 10 mg PRN Q10MIN PRN IVP HYPERTENSION; Start 03/27/20 at 17:15 Nicardipine HCl 50 mg/Sodium Chloride 250 ml @ 25 mls/hr CONT PRN PRN IV HYPERTENSION Last administered on 03/28/20at 14:49; Start 03/27/20 at 17:15 Labetalol HCl (Normodyne Iv Push) 10 mg PRN Q10MIN PRN IVP HYPERTENSION; Start 03/27/20 at 17:30; Stop 03/27/20 at 17:34; Status DC Nicardipine HCl 50 mg/Sodium Chloride 250 ml @ 25 mls/hr CONT PRN PRN IV HYPERTENSION; Start 03/27/20 at 17:30; Status UNV Acetaminophen (Tylenol) 650 mg PRN Q6HRS PRN PO MILD PAIN / TEMP > 100.3'F; Start 03/27/20 at 17:30 Acetaminophen (Tylenol Supp) 650 mg PRN Q6HRS PRN MO MILD PAIN / TEMP > 100.3'F; Start 03/27/20 at 17:30 Ondansetron HCl (Zofran) 4 mg PRN Q6HRS PRN IVP NAUSEA/VOMITING; Start 03/27/20 at 17:30 Iohexol (Omnipaque 300 Mg/ml) 75 ml 1X ONCE IV Last administered on 03/28/20at 07:00; Start 03/28/20 at 07:00; Stop 03/28/20 at 07:05; Status DC Info (CONTRAST GIVEN -- Rx MONITORING) 1 each PRN DAILY PRN MC SEE COMMENTS; S tart 03/28/20 at 07:15; Stop 03/30/20 at 07:14 Dopamine HCl/ Dextrose (DOPamine 400MG/ 250ML PREMIX) 400 mg STK-MED ONCE IV ; Start 03/27/20 at 17:00; Stop 03/28/20 at 08:41; Status DC Micafungin Sodium 100 mg/Dextrose 100 ml @ 100 mls/hr DAILY IV Last admin istered on 03/29/20at 08:30; Start 03/28/20 at 09:15 Active Scripts Active Reported Oxybutynin Chloride 5 Mg Tablet 1 Tab PO BID Methotrexate (Methotrexate Sodium) 2.5 Mg Tablet 7 Tab PO WEEKLY [place] 5-325 Tablet (Acetaminophen/Hydrocodone Bitart) 1 Each Tablet 1 Tab PO BID Folic Acid 0.8 Mg Capsule 1 Mg PO DAILY Famotidine 20 Mg Tablet 20 Mg PO BID Prednisone 20 Mg Tablet 10 Mg PO DAILY Celebrex (Celecoxib) 200 Mg Capsule 1 Cap PO DAILY Atorvastatin Calcium 10 Mg Tablet 10 Mg PO HS Valsartan 80 Mg Tablet 80 Mg PO DAILY Vitals/I & O Vital Sign - Last 24 Hours 03/28/20 03/28/20 03/28/20 03/28/20 10:00 11:00 12:00 12:00 Temp 98.6 98.6 Pulse 72 81 73 Resp 18 18 17 B/P (MAP) 153/69 (97) 167/73 (104) 159/67 (97) Pulse Ox 100 99 99 O2 Delivery Room Air Room Air Room Air Room Air 03/28/20 03/28/20 03/28/20 03/28/20 13:00 14:00 15:00 16:00 Temp 99.0 99.0 Pulse 81 74 78 94 Resp 19 26 19 20 B/P (MAP) 147/68 (94) 185/101 (129) 158/70 (99) 145/71 (95) Pulse Ox 99 98 100 100 O2 Delivery Room Air Room Air Room Air Room Air 03/28/20 03/28/20 03/28/204/21 16:00 17:00 18:00 19:00 Pulse 89 94 84 Resp 20 25 19 B/P (MAP) 163/73 (103) 172/72 (105) 151/68 (95) Pulse Ox 100 100 100 O2 Delivery Room Air Room Air Room Air Room Air 03/28/20 03/28/20 03/28/20 03/28/20 19:30 19:45 20:00 20:00 Temp 99.4 99.4 Pulse 82 82 99 Resp 18 18 19 B/P (MAP) 142/73 (96) 157/72 (100) 166/92 (116) Pulse Ox 100 100 100 O2 Delivery Room Air Room Air Room Air Room Air 03/28/20 03/28/20 03/28/20 03/28/20 21:00 22:00 22:30 23:00 Pulse 92 100 98 100 Resp 19 21 22 20 B/P (MAP) 167/72 (103) 146/82 (103) 169/77 (107) 168/78 (108) Pulse Ox 100 100 100 100 O2 Delivery Room Air Room Air Room Air Room Air 03/29/20 03/29/20 03/29/20 03/29/20 00:00 00:00 01:00 01:30 Temp 99.5 99.5 Pulse 100 90 90 Resp 17 18 16 B/P (MAP) 170/90 (116) 182/86 (118) 155/79 (104) Pulse Ox 100 100 100 O2 Delivery Room Air Room Air Room Air Room Air 03/29/20 03/29/20 03/29/20 03/29/20 02:00 02:45 03:00 04:00 Pulse 87 102 87 Resp 22 38 17 B/P (MAP) 167/82 (110) 183/86 (118) 165/76 (105) Pulse Ox 100 100 100 O2 Delivery Room Air Room Air Room Air Room Air 03/29/20 03/29/20 03/29/20 03/29/20 04:00 05:00 06:00 07:57 Temp 99.3 99.3 Pulse 86 86 88 Resp 17 18 26 B/P (MAP) 158/71 (100) 177/70 (105) 154/64 (94) Pulse Ox 100 100 100 O2 Delivery Room Air Room Air Room Air Room Air 03/29/20 08:00 Temp 98.9 98.9 Pulse 97 Resp 19 B/P (MAP) 174/75 (108) Pulse Ox 100 O2 Delivery Room Air Intake and Output 03/28/20 03/28/20 03/29/20 15:00 23:00 07:00 Intake Total 100 ml 1648 ml 1325 ml Output Total 1425 ml 925 ml 950 ml Balance -1325 ml 723 ml 375 ml Images Brain MRI without contrast. HISTORY: Stroke. TECHNIQUE: Multiplanar, multisequence magnetic resonance imaging of the brain was performed without contrast. COMPARISON: CT obtained on the same date. FINDINGS: There is restricted diffusion within the superior lateral right frontal lobe cortex and adjacent subcortical white matter, consistent with acute infarction. There is also acute infarction within the right centrum semiovale. There is less intense increased signal on diffusion-weighted imaging within the left centrum semiovale likely due to a late subacute infarct. There is susceptibility effect within the region of right frontal lobe infarction likely due to microhemorrhage. There are additional extensive scattered focal areas of susceptibility effect within the cerebral hemispheres and cerebellar hemispheres likely due to chronic microhemorrhage or amyloid angiopathy. There is a peripherally hypointense lesion on susceptibility weighted images within the left cerebellum with surrounding T2/FLAIR hyperintensity which may be due to gliosis. There is no T1 hyperintensity in this location to suggest acute hemorrhage with surrounding parenchymal edema. There are chronic lacunar infarcts within the bilateral thalami and right basal ganglia. There are extensive scattered areas of signal change throughout the cerebral white matter and ariadna, likely due to chronic small vessel disease. There is cerebral volume loss. There is evidence of left lens surgery. The visualized paranasal sinuses mastoid air cells are clear. There are normal flow voids within the cerebral vessels. There is no calvarial lesion. IMPRESSION: 1. Acute infarct within the right superolateral frontal lobe cortex and adjacent white matter and right centrum semiovale. There is susceptibility effect within the region of infarction suggesting superimposed microhemorrhage. There is no co rrelate for this finding on the recent CT. However, short-term follow-up with a noncontrast head CT is recommended to exclude evolving hemorrhagic transformation. 2. Suspected late subacute infarct within the left centrum semiovale. 3. 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 4. Extensive scattered areas of susceptibility effect within the cerebral and cerebellar hemispheres, the majority of which is likely due to chronic microhemorrhage or amyloid angiopathy. The largest lesion is seen within the left cerebellum with surrounding signal change likely due to gliosis. There is no T1 signal abnormality to suggest acute hemorrhage with surrounding edema. There is no evidence of a cavernoma within this location on the comparison MRI. Attention the time of CT follow-up is recommended. 5. Cerebral volume loss. CT angiogram of the head and neck with intravenous contrast. HISTORY: Cerebral infarction. TECHNIQUE: Computed tomographic images of the head and neck were obtained following the administration of intravenous contrast. Three-dimensional maximum intensity projection images were obtained. *One or more of the following individualized dose reduction techniques were utilized for this examination: 1. Automated exposure control. 2. Adjustment of the mA and/or kV according to patient size. 3. Use of iterative reconstruction technique. COMPARISON: CT dated 03/27/2020. FINDINGS: There is a standard aortic arch branching pattern. No aneurysm is seen within the visualized portions of the aortic arch. There is partially calcified atherosclerotic plaque at the origins of the arch great vessels. This results in less than 25 percent stenosis primarily at the origin of the left subclavian artery. There is calcified atherosclerotic plaque at the origin of the left vertebral artery, with near complete occlusion. There is reconstitution of flow within the remainder of the left vertebral artery. There is mild partially calcified atherosclerotic plaque within the left vertebral artery at the skull base with less than 50 percent stenosis. The right vertebral artery is widely patent and mildly dominant. There is mild partially calcified atherosclerotic plaque involving the carotid bulbs and proximal internal carotid arteries. Evaluation for stenosis is limited due to significant motion during image acquisition. However, this appears to result in less than 50 percent stenosis bilaterally. There is additional calcified atherosclerotic plaque involving the petrous and cavernous internal carotid arteries. This results in near complete occlusion of the distal cavernous left internal carotid artery and greater than 70 percent stenosis involving the cavernous right internal carotid artery. There is luminal irregularly within the right cavernous segment likely due to areas of ulcerated plaque rather than tiny aneurysms. There is reconstitution of flow within the supraclinoid internal carotid arteries. There is no convincing stenosis involving the intracranial arteries. There is no mass effect or midline shift. There is no hydrocephalus. There are bilateral cerebral white matter changes, likely due to chronic small vessel disease. There is cerebral volume loss. There is encephalomalacia likely due to chronic infarction involving the left cerebellum. There is evidence of left lens surgery. There are degenerative changes throughout the spine. There are b ilateral thyroid nodules. There is pulmonary emphysema with biapical pleural parenchymal scarring. IMPRESSION: 1. Significantly limited evaluation for arterial stenosis at the level of the carotid bifurcations due to motion artifact. There is atherosclerotic plaque involving the bifurcations with suspected less than 50 percent stenosis involving the proximal internal carotid arteries. 2. Severe partially calcified atherosclerotic plaque involving the petrous and cavernous internal carotid arteries, resulting in near complete occlusion of the distal left cavernous ICA and greater than 70 percent stenosis involving the cavernous right ICA. There is reconstitution of both vessels within their supraclinoid segments. There is luminal irregularly involving the cavernous right ICA likely due to tiny areas of ulcerated plaque rather than tiny aneurysm formation, spasm or fibromuscular dysplasia. 3. No evidence of hemodynamically significant intracranial artery stenosis. 4. Chronic infarct within the left cerebellum and suspected chronic lacunar infarcts involving the bilateral basal ganglia and thalami. 5. Bilateral cerebral white matter changes likely due to chronic small vessel disease. Note is made that MRI is more sensitive for acute infarction. 6. Pulmonary emphysema. 7. Bilateral thyroid nodules. This can be better assessed with a thyroid sonogram. Justicifation of Admission Dx: Justifications for Admission: Justification of Admission Dx: Yes Stroke - Ischemic: Stroke-Ischemic CORNELIUS MARSH MD Mar 29, 2020 09:51
[2020-03-29] MEDS: hydrALAZINE 20 MG/ML VIAL. IVP SCH ×3 (11:07→23:22)
[2020-03-29] MEDS: OXYBUTYNIN CHLORIDE 5 MG TABLET PO SCH ×2 (12:18→23:18)
[2020-03-29] MEDS: predniSONE 20 MG TABLET PO SCH (12:18)
[2020-03-29] MEDS: FOLIC ACID 1 MG TABLET. PO SCH (12:18)
[2020-03-29] MEDS: CELECOXIB 100 MG CAPSULE. PO SCH (12:19)
[2020-03-29] MEDS: LOSARTAN POTASSIUM 50 MG TABLET. PO SCH (12:19)
[2020-03-29] MEDS: ASPIRIN ENTERIC COATED 81 MG TABLET.DR. PO SCH (12:19)
[2020-03-29] MEDS: FAMOTIDINE 20 MG TABLET. PO SCH (12:19)
--- NOTE | 2020-03-29 14:50 | NUR ---
Pt transferred to RM 210 via bed. All belongings with pt. Pt on tele and call light within reach. Zaynab CASILLAS given report.
--- NOTE | 2020-03-29 16:42 | NUR ---
SS following up with discharge planning. SS reviewed pt chart and discussed with pt RN. Pt is currently on room air. PT/OT recommending [facility]ci unit. Pt reporting that she wants to return to home. Pt on IV Micafungin. Pt transferred to room 210. SS will continue to follow for discharge planning.
[2020-03-29] MEDS ORDERED: ATORVASTATIN CALCIUM 20 MG TABLET PO SCH (21:00)
[2020-03-29] MEDS: ATORVASTATIN CALCIUM 40 MG TABLET. PO SCH (23:18)
[2020-03-30] VITALS (9 sets, daily range): BP systolic 98–178; BP diastolic 48–81
[2020-03-30] MEDS: IV NORMAL SALINE 1000ML BAG 1,000 ML IV SCH ×3 (04:49→21:00)
[2020-03-30] MEDS: hydrALAZINE 20 MG/ML VIAL. IVP SCH (06:23)
[2020-03-30] MEDS: FAMOTIDINE 20 MG TABLET. PO SCH (08:19)
[2020-03-30] MEDS: ASPIRIN ENTERIC COATED 81 MG TABLET.DR. PO SCH (08:19)
[2020-03-30] MEDS: FOLIC ACID 1 MG TABLET. PO SCH (08:19)
[2020-03-30] MEDS: CELECOXIB 100 MG CAPSULE. PO SCH (08:19)
[2020-03-30] MEDS: LOSARTAN POTASSIUM 50 MG TABLET. PO SCH (08:20)
[2020-03-30] MEDS: predniSONE 20 MG TABLET PO SCH (08:20)
[2020-03-30] MEDS: OXYBUTYNIN CHLORIDE 5 MG TABLET PO SCH ×2 (08:20→21:10)
--- NOTE | 2020-03-30 09:32 | RAD ---
EXAM: Head CT without contrast. HISTORY: Hemorrhage follow-up. TECHNIQUE: Computed tomographic images of the head were obtained without contrast. *One or more of the following individualized dose reduction techniques were utilized for this examina tion: 1. Automated exposure control. 2. Adjustment of the mA and/or kV according to patient size. 3. Use of iterative reconstruction technique. COMPARISON: MRI dated 03/28/2020. FINDINGS: There is a 1.3 cm acute intraparenchymal hemorrhage within the medial left cerebellar hemis phere. There is a 1.5 cm acute intracranial hemorrhage within the posterior lateral right frontal lob e, corresponding with the the central aspect of the region of recently demonstrated acute to subacute infarction. There is no mass effect or midline shift. There is no hydrocephalus. There are scattered areas of hyp odensity throughout the cerebral white matter, likely due to chronic small vessel disease. There are chronic infarcts within the left cerebellum, bilateral basal ganglia and bilateral thalami. There is evidence of left lens surgery. The visualized paranasal sinuses mastoid air cells are clear. There is no calvarial lesion. IMPRESSION: 1. Acute intraparenchymal hemorrhage measuring approximately 1.5 cm within the central aspect of the region of acute or subacute infarction within the posterior lateral right frontal lobe. 2. Acute intraparenchymal hemorrhage measuring approximately 1.3 cm within the medial left cerebellum . 3. Chronic infarcts within the left cerebellum, bilateral basal ganglia and bilateral thalami. 4. Extensive white matter changes likely due to chronic small vessel disease in a patient of this age . 5. Note is made that there is no correlate for additional extensive scattered foci of susceptibility effect likely due to chronic microhemorrhage or amyloid angiopathy within the bilateral cerebral mary spheres. Findings were discussed with Chapin, the nurse caring for the patient, at 0930 hours on 03/30/2020. FOR INTERNAL CODING PURPOSES RESULT CODE: (C) Electronically signed by: Ava Carrillo MD (03/30/2020 9:30 AM) [id number]
--- NOTE | 2020-03-30 09:51 | PDOC ---
Infectious Disease Note Subjective Subjective Patient is awake feeling better ROS ROS no n/v/d/sob Vital Sign Vital Signs Vital Signs Date Time Temp Pulse Resp B/P (MAP) Pulse Ox O2 Delivery O2 Flow Rate FiO2 03/30/20 08:21 117 148/70 03/30/20 07:44 100.7 20 100 Room Air 100.7 Physical Exam PHYSICAL EXAM GENERAL: Awake female, not in distress. VITAL SIGNS: Stable HEENT: Both pupils are round and reacting. No conjunctival lesion, no lesion in the mouth. NECK: Supple, no JVP, no lymphadenopathy. LUNGS: Clear. HEART: S1, S2 regular. ABDOMEN: Soft, nontender, no organomegaly. EXTREMITIES: No edema, cyanosis. SKIN: Unremarkable. NEUROLOGIC: The patient is awake, mumbles few words, unable to understand right now. Does move all the extremities. Labs Micro BLOOD CULTURE Final YEAST IN 1 OF 4 BOTTLES, TWO SETS DRAWN. CALLED TO JORGE LUIS KIDD RN IN ICU AT 8:25 ON 03/28/20 DW MT SENT TO [facility] FOR FURTHER WORKUP. Objective Assessment IMPRESSION: 1. 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 It could be contaminant, but it cannot be treated as contaminant, there is no other risk factor for fungemia. 2. Cerebrovascular accident/code stroke. 3. Syncopal episode. 4. History of cerebrovascular accident. 5. Hypertension. 6. Tobaccoism. 7. Glaucoma. Plan Plan of Care Continue micafungin ID of the fungus is pending Supportive care IRON HARLEY MD Mar 30, 2020 09:51
--- NOTE | 2020-03-30 10:25 | CARD ---
MR#: [id number] Date of Study: 03/29/2020 Ordering Physician: CORNELIUS MARSH, Referring Physician: CORNELIUS MARSH, Tech: Abril Hernandez [facility] APPROVED REPORT EXAM: Two-dimensional and M-mode echocardiogram with Doppler and color Doppler. Other Information Quality : Good INDICATION CVA/TIA Echo Enhancing Agent Agent/Amount Used: Agitated Saline 8mL 2D DIMENSIONS Left Atrium(2D)2.0 (1.6-4.0cm)IVSd0.6 (0.7-1.1cm) Aortic Root(2D)2.4 (2.0-3.7cm)LVDd3.4 (3.9-5.9cm) LVOT Diameter1.9 (1.8-2.4cm)PWd0.5 (0.7-1.1cm) LVDs1.7 (2.5-4.0cm)FS (%) 34.0 % SV38.7 ml Aortic Valve AoV Peak Cezar.185.9cm/sAoV VTI19.1cm AO Peak GR.13.8mmHgLVOT VTI 17.75cm AO Mean GR.9mmHgAVA (VTI)2.60cm2 Mitral Valve MV E Pfrzzfjd13.2cm/sMV DECEL VGUT98co MV A Yqdtnaut648.8cm/sE/A Ratio0.4 TDI Lateral E' P. V6.95cm/sMedial E' P. V5.60cm/s E/Lateral E'5.9E/Medial E'7.4 Tricuspid Valve TR P. Gcgvgxmr192qj/sRAP LSOZDJKT68nrZv TR Peak Gr.72afUuZDUN59feSs LEFT VENTRICLE The left ventricle is normal size. There is mild concentric left ventricular hypertrophy. The left ve ntricle is hyperdynamic. The Ejection Fraction is 65-70%. There is normal LV segmental wall motion. T ransmitral Doppler flow pattern is Grade I-abnormal relaxation pattern. RIGHT VENTRICLE The right ventricle is normal size. The right ventricular systolic function is normal. ATRIA The left atrium size is normal. The right atrium size is normal. The interatrial septum is intact wit h no evidence for an atrial septal defect or patent foramen ovale as noted on 2-D or Doppler imaging. Injection of bubbles documented no interatrial shunt. AORTIC VALVE The aortic valve is not well visualized but appears to be functioning normally by Doppler interrogati on. Doppler and Color Flow revealed no significant aortic regurgitation. There is no significant aort ic valvular stenosis. MITRAL VALVE The mitral valve is calcified but opens well. There is no evidence of mitral valve prolapse. There is no mitral valve stenosis. Doppler and Color Flow revealed trace mitral valve regurgitation. TRICUSPID VALVE The tricuspid valve is normal in structure and function. Doppler and Color Flow revealed trace to mil d tricuspid regurgitation. The PA pressure was estimated at 46 mmHg. There is no tricuspid valve sten osis. PULMONIC VALVE The pulmonic valve is not well visualized. Doppler and Color Flow revealed no pulmonic valvular regur gitation. There is no pulmonic valvular stenosis. GREAT VESSELS The aortic root is normal in size. The ascending aorta is not well seen. The IVC is dilated and colla pses <50% with inspiration. PERICARDIAL EFFUSION There is no evidence of significant pericardial effusion. Critical Notification Critical Value: No <Conclusion> The left ventricle is normal size. The left ventricle is hyperdynamic. The Ejection Fraction is 65-70%. There is mild concentric left ventricular hypertrophy. The interatrial septum is intact with no evidence for an atrial septal defect or patent foramen ovale as noted on 2-D or Doppler imaging. Injection of bubbles documented no interatrial shunt. Doppler and Color Flow revealed no significant aortic regurgitation. There is no significant aortic valvular stenosis. Doppler and Color Flow revealed trace mitral valve regurgitation. Doppler and Color Flow revealed trace to mild tricuspid regurgitation. The PA pressure was estimated at 46 mmHg. Signed by : Barrett Walsh MD Electronically Approved : 03/30/2020 10:25:27
--- NOTE | 2020-03-30 10:31 | PDOC ---
PROGRESS NOTES Date of Service DATE: 03/30/20 TIME: 10:25 Assessment Problems Medical Problems: (1) Altered mental status Status: Acute (2) Lactic acidosis Status: Acute (3) Syncope Status: Acute Acute intraparenchymal hemorrhages posterior lateral right frontal lobe and medial left cerebellum. Acute infarct within the right superolateral frontal lobe cortex and adjacent white matter and right centrum semiovale. Status-post alteplase on 03/27 Superimposed microhemorrhage. Suspected late subacute infarct within the left centrum semiovale. 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 Extensive scattered microhemorrhages, consider amyloid angiopathy. 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 Hypertension, hypocalcemia, hypophosphatemia, hypochloremia, lactic acidosis Passed repeat swallow evaluation Fungemia, possible artifact Plan Tighten up blood pressure control CT head followup 04/01 Cardiology consulted for embolic work-up, report of echocardiogram pending Hold aspirin Continue statin Telemetry I discussed with the patient's grandson Subjective No complaints, denies headache Objective Vital Signs Date Time Temp Pulse Resp B/P (MAP) Pulse Ox O2 Delivery O2 Flow Rate FiO2 03/30/20 08:21 117 148/70 03/30/20 07:44 100.7 20 100 Room Air 100.7 Intake and Output 03/30/20 07:00 Intake Total 1935 ml Output Total 670 ml Balance 1265 ml Intake Oral 40 ml IV Total 1895 ml Output Urine Total 670 ml PHYSICAL EXAM Alert. Oriented to person. Blind in both eyes CN: no focal findings, minimal left facial weakness. Muscle tone: normal. Muscle strength: 4/5 DTR: 2+ Plantar reflex: Flexor Gait: not examined in bed. Sensory exam: no abnormal findings. No cerebellar signs elicited, hard to test with blindness. Review of Relevant I have reviewed the following items alicia (where applicable) has been applied. Labs Microbiology 03/28/20 Blood Culture - Preliminary, Resulted NO GROWTH AFTER 1 DAY Medications Current Medications Sodium Chloride 1,000 ml @ 1,000 mls/hr 1X ONCE IV Last administered on 03/25/20at 19:48; Start 03/25/20 at 18:15; Stop 03/25/20 at 19:14; Status DC Aspirin (Aspirin Rectal Supp) 300 mg 1X ONCE [place] Last administered on 03/25/20at 19:48; Start 03/25/20 at 19:30; Stop 03/25/20 at 19:33; Status DC Ondansetron HCl (Zofran) 4 mg PRN Q8HRS PRN IV NAUSEA/VOMITING; Start 03/25/20 at 20:30; Stop 03/26/20 at 20:29; Status DC Sodium Chloride 1,000 ml @ 75 mls/hr 1X ONCE IV Last administered on 03/25/20at 20:30; Start 03/25/20 at 20:30; Stop 03/26/20 at 00:18; Status DC Atorvastatin Calcium (Lipitor) 40 mg QHS PO Last administered on 03/29/20at 23:18; Start 03/25/20 at 21:00 Sennosides (Senna) 17.2 mg PRN BID PRN PO CONSTIPATION 1ST CHOICE; Start 03/25/20 at 21:00 Docusate Sodium (Colace) 100 mg PRN DAILY PRN PO HARD STOOLS; Start 03/25/20 at 21:00 Ondansetron HCl (Zofran) 4 mg PRN Q6HRS PRN IVP NAUSEA/VOMITING 1ST CHOICE Last administered on 03/28/20at 03:35; Start 03/25/20 at 21:00 Aspirin (Ecotrin) 81 mg DAILYWBKFT PO Last administered on 03/30/20at 08:19; Start 03/26/20 at 08:00 Dextrose (Dextrose 50%-Water Syringe) 12.5 gm PRN Q15MIN PRN IV SEE COMMENTS; Start 03/25/20 at 21:00 Sodium Chloride 1,000 ml @ 100 mls/hr Q10H IV Last administered on 03/30/20at 04:49; Start 03/25/20 at 21:00 Labetalol HCl (Normodyne Iv Push) 10 mg PRN Q2HRS PRN IVP HYPERTENSION Last administered on 03/27/20at 17:49; Start 03/26/20 at 09:00 Famotidine (Pepcid) 20 mg DAILY PO Last administered on 03/30/20at 08:19; Start 03/26/20 at 15:00 Acetaminophen/ Hydrocodone Bitart (Lortab 5/325) 1 tab BID PO ; Start 03/26/20 at 15:00; Stop 03/26/20 at 15:04; Status DC Methotrexate (Rheumatrex) 17.5 mg WEEKLY PO Last administered on 03/26/20at 15:19; Start 03/26/20 at 15:00 Oxybutynin Chloride (Ditropan) 5 mg BID PO Last administered on 03/30/20at 08:20; Start 03/26/20 at 15:00 Prednisone (Prednisone) 10 mg DAILY PO Last administered on 03/30/20at 08:20; Start 03/26/20 at 15:00 Celecoxib (CeleBREX) 200 mg DAILY PO Last administered on 03/30/20at 08:19; Start 03/26/20 at 15:00 Folic Acid (Folic Acid) 1 mg DAILY PO Last administered on 03/30/20at 08:19; Start 03/26/20 at 15:00 Losartan Potassium (Cozaar) 50 mg DAILY PO Last administered on 03/30/20at 08:20; Start 03/26/20 at 15:00 Acetaminophen/ Hydrocodone Bitart (Lortab 5/325) 1 tab PRN BID PRN PO PAIN; Start 03/26/20 at 15:15 Dopamine HCl/ Dextrose 0 ml @ As Directed STK-MED ONCE IV ; Start 03/27/20 at 16:26; Stop 03/27/20 at 16:26; Status DC Alteplase, Recombinant 4.3 ml @ 258 mls/hr 1X ONCE IV Last administered on 03/27/20at 17:36; Start 03/27/20 at 17:15; Stop 03/27/20 at 17:17; Status DC Alteplase, Recombinant 38.6 ml @ 38.6 mls/hr Q1H IV Last administered on 03/27/20at 17:34; Start 03/27/20 at 17:15; Stop 03/27/20 at 18:14; Status DC Sodium Chloride 50 ml @ 200 mls/hr 1X ONCE IV Last administered on 03/27/20at 18:05; Start 03/27/20 at 17:15; Stop 03/27/20 at 17:29; Status DC Alteplase, Recombinant 0 ml @ 0 mls/hr Q1M ONCE IV ; Start 03/27/20 at 17:15; Stop 03/27/20 at 17:16; Status UNV Alteplase, Recombinant 0 ml @ 0 mls/hr Q1H IV ; Start 03/27/20 at 17:15; Status UNV Sodium Chloride 50 ml @ 50 mls/hr Q1H ONCE IV ; Start 03/27/20 at 17:15; Stop 03/27/20 at 18:14; Status UNV Labetalol HCl (Normodyne Iv Push) 10 mg PRN Q10MIN PRN IVP HYPERTENSION; Start 03/27/20 at 17:15 Nicardipine HCl 50 mg/Sodium Chloride 250 ml @ 25 mls/hr CONT PRN PRN IV HYPERTENSION Last administered on 03/28/20at 14:49; Start 03/27/20 at 17:15 Labetalol HCl (Normodyne Iv Push) 10 mg PRN Q10MIN PRN IVP HYPERTENSION; Start 03/27/20 at 17:30; Stop 03/27/20 at 17:34; Status DC Nicardipine HCl 50 mg/Sodium Chloride 250 ml @ 25 mls/hr CONT PRN PRN IV HYPERTENSION; Start 03/27/20 at 17:30; Status UNV Acetaminophen (Tylenol) 650 mg PRN Q6HRS PRN PO MILD PAIN / TEMP > 100.3'F; Start 03/27/20 at 17:30 Acetaminophen (Tylenol Supp) 650 mg PRN Q6HRS PRN [place] MILD PAIN / TEMP > 100.3'F; Start 03/27/20 at 17:30 Ondansetron HCl (Zofran) 4 mg PRN Q6HRS PRN IVP NAUSEA/VOMITING; Start 03/27/20 at 17:30; Stop 03/29/20 at 10:36; Status DC Iohexol (Omnipaque 300 Mg/ml) 75 ml 1X ONCE IV Last administered on 03/28/20at 07:00; Start 03/28/20 at 07:00; Stop 03/28/20 at 07:05; Status DC Info (CONTRAST GIVEN -- Rx MONITORING) 1 each PRN DAILY PRN MC SEE COMMENTS; Start 03/28/20 at 07:15; Stop 03/30/20 at 07:14; Status DC Dopamine HCl/ Dextrose (DOPamine 400MG/ 250ML PREMIX) 400 mg STK-MED ONCE IV ; Start 03/27/20 at 17:00; Stop 03/28/20 at 08:41; Status DC Micafungin Sodium 100 mg/Dextrose 100 ml @ 100 mls/hr DAILY IV Last administered on 03/29/20at 08:30; Start 03/28/20 at 09:15 Hydralazine HCl (Apresoline Inj) 10 mg Q6HRS IVP Last administered on 03/30/20at 06:23; Start 03/29/20 at 11:00 Amlodipine Besylate (Norvasc) 5 mg DAILY PO Last administered on 03/30/20at 08:21; Start 03/30/20 at 09:00 Atorvastatin Calcium (Lipitor) 20 mg QHS PO ; Start 03/29/20 at 21:00; Stop 03/29/20 at 16:25; Status DC Active Scripts Active Reported Oxybutynin Chloride 5 Mg Tablet 1 Tab PO BID Methotrexate (Methotrexate Sodium) 2.5 Mg Tablet 7 Tab PO WEEKLY [place] 5-325 Tablet (Acetaminophen/Hydrocodone Bitart) 1 Each Tablet 1 Tab PO BID Folic Acid 0.8 Mg Capsule 1 Mg PO DAILY Famotidine 20 Mg Tablet 20 Mg PO BID Prednisone 20 Mg Tablet 10 Mg PO DAILY Celebrex (Celecoxib) 200 Mg Capsule 1 Cap PO DAILY Atorvastatin Calcium 10 Mg Tablet 10 Mg PO HS Valsartan 80 Mg Tablet 80 Mg PO DAILY Vitals/I & O Vital Sign - Last 24 Hours 03/29/20 03/29/20 03/29/20 03/29/20 11:07 12:00 12:19 15:18 Temp 100.3 99.0 100.3 99.0 Pulse 98 107 100 92 Resp B/P (MAP) 154/72 147/82 (103) 147/68 137/83 (101) Pulse Ox 100 94 O2 Delivery Room Air Room Air 03/29/20 03/29/20 03/29/20 03/29/20 17:57 19:26 20:00 22:48 Temp 98.9 99.6 98.9 99.6 Pulse 92 84 Resp B/P (MAP) 137/83 128/98 (108) 145/88 (107) Pulse Ox 96 96 O2 Delivery Room Air Room Air Room Air 03/29/20 03/30/20 03/30/20 03/30/20 23:22 02:42 06:23 07:44 Temp 99.2 100.7 99.2 100.7 Pulse 84 75 75 117 Resp 16 20 B/P (MAP) 145/88 152/77 (102) 152/77 148/70 (96) Pulse Ox 98 100 O2 Delivery Room Air Room Air 03/30/20 03/30/20 08:20 08:21 Pulse 117 117 B/P (MAP) 148/70 148/70 Intake and Output 03/29/20 03/29/20 03/30/20 15:00 23:00 07:00 Intake Total 965 ml 0 ml 970 ml Output Total 320 ml 350 ml Balance 645 ml 0 ml 620 ml Images EXAM: Head CT without contrast. HISTORY: Hemorrhage follow-up. TECHNIQUE: Computed tomographic images of the head were obtained without contrast. *One or more of the following individualized dose reduction techniques were utilized for this examination: 1. Automated exposure control. 2. Adjustment of the mA and/or kV according to patient size. 3. Use of iterative reconstruction technique. COMPARISON: MRI dated 03/28/2020. FINDINGS: There is a 1.3 cm acute intraparenchymal hemorrhage within the medial left cerebellar hemisphere. There is a 1.5 cm acute intracranial hemorrhage within the posterior lateral right frontal lobe, corresponding with the the central aspect of the region of recently demonstrated acute to subacute infarcti on. There is no mass effect or midline shift. There is no hydrocephalus. There are scattered areas of hypodensity throughout the cerebral white matter, likely due to chronic small vessel disease. There are chronic infarcts within the left cerebellum, bilateral basal ganglia and bilateral thalami. There is evidence of left lens surgery. The visualized paranasal sinuses mastoid air cells are clear. There is no calvarial lesion. IMPRESSION: 1. Acute intraparenchymal hemorrhage measuring approximately 1.5 cm within the central aspect of the region of acute or subacute infarction within the posterior lateral right frontal lobe. 2. Acute intraparenchymal hemorrhage measuring approximately 1.3 cm within the medial left cerebellum. 3. Chronic infarcts within the left cerebellum, bilateral basal ganglia and bilateral thalami. 4. Extensive white matter changes likely due to chronic small vessel disease in a patient of this age. 5. Note is made that there is no correlate for additional extensive scattered foci of susceptibility effect likely due to chronic microhemorrhage or amyloid angiopathy within the bilateral cerebral hemispheres. Justicifation of Admission Dx: Justifications for Admission: Justification of Admission Dx: Yes Stroke - Ischemic: Stroke-Ischemic CORNELIUS MARSH MD Mar 30, 2020 10:31
[2020-03-30] MEDS: MICAFUNGIN 100 MG in IV DEXTROSE 5% 100ML 100 ML IV SCH (11:00)
--- NOTE | 2020-03-30 11:05 | PDOC ---
NICKI PITTS PLASTICS FABRICATOR OR WELDER 03/30/20 1105: CARDIO Progress Notes Date and Time Date of Service 03/30/2020 Time of Evaluation 1100 Subjective Subjective: No Chest Pain, No shortness of breath, No Palpitations, Other (denies TIAN) Vitals Vitals Vital Signs Date Time Temp Pulse Resp B/P (MAP) Pulse Ox O2 Delivery O2 Flow Rate FiO2 03/30/20 08:21 117 148/70 03/30/20 07:44 100.7 20 100 Room Air 100.7 Weight Weight [ ] Input and Output Intake and Output Intake and Output 03/30/20 07:00 Intake Total 1935 ml Output Total 670 ml Balance 1265 ml Intake Oral 40 ml IV Total 1895 ml Output Urine Total 670 ml Microbiology Micro Microbiology 03/28/20 Blood Culture - Preliminary, Resulted NO GROWTH AFTER 1 DAY Physical Exam HEENT: Neck Supple W Full Motion Chest: Symmetric LUNGS: Other (coarse) Heart: RRR (sinus tach 90-110) Abdomen: Soft N/T Extremities: No Calf Tenderness Neurology: alert, oriented, follow commands Assessment Assessment 1. Acute CVA with prior hx: no hx of AFIB/flutter. Post tPA 2 days ago. EF and WM nml no PFO 2. Acute intraparenchymal hemorrhage measuring approximately 1.5 cm within the central aspect of the region of acute or subacute infarction within the posterior lateral right frontal lobe. Post tPA Acute intraparenchymal hemorrhage measuring approximately 1.3 cm within the medial left cerebellum. 3. Blind 4. Asymptomatic SB when asleep lowest in the 40s. possibly vagal episodes. None further overnight 5. HTN urgency: better 6. Tobaccoism 7. RA: on methotrexate 8. Syncope: due to stroke , no arrhythmia so far 9. Suspect aspiration pneumonia/fever 10. Reactive sinus tachycardia: remains with intermittent fever Recommendations 1. Will consider for ILR 2. NPO per staff otherwise may have crushed meds per speech therapy. Continue PO BP regimen per BP trend but will DC hydralazine. Antiplatelet to start when clear with neurology 3. Monitor rhythm while inpt. Statin, Consider stopping celebrex with head CT changes. 4. Follow up in office. 5. Smoking cessation Justicifation of Admission Dx: Justifications for Admission: Justification of Admission Dx: Yes Stroke - Ischemic: Stroke-Ischemic KYLE DSOUZA MD 03/31/20 1113: CARDIO Progress Notes Plan Plan Late entry for 03/30/2020 patient seen and examined. Agree with above nurse practitioner note. Patient has severe intracranial vascular disease and at this time no further indication for implantable loop recorder. She has not had any evidence of atrial fibrillation at this time. Due to her intracranial hemorrhages she is a poor candidate for anticoagulation. Could consider outpatient event recorder. NICKI PITTS APRN Mar 30, 2020 11:05 KYLE DSOUZA MD Mar 31, 2020 11:13
--- NOTE | 2020-03-30 12:04 | NUR ---
SS following up with discharge planning. SS reviewed pt chart and discussed with pt RN. Pt is currently on room air. COVID19 negative. Pt on IV Micafungin. Pt was placed on diet but has now been placed back on NPO. Per RN, pt having another head CT on due to new hemorrhage of right cerebellum and new left frontal lobe infarct. PT/OT recommending alf unit. SS met with pt and pt requesting that SS speak with family. SS contacted pt's family and family is agreeable to alf unit with no preference of facility. SS phoned and faxed referral to [facility], ; fax [phone], to check benefits. Pt's family stated that if pt's insurance does not have skilled benefits they would be agreeable to [facility], ; fax [phone]. SS will continue to follow for discharge planning.
--- NOTE | 2020-03-30 12:18 | NUR ---
pt had repeat head CT which showed a new right cerebellum hemorrhage and left frontal lobe infarct. speech re-evaluated pt and stated they sounded moist after fluid being swallowed compared to yesterday. pt was then placed on NPO status. Lung sounds are coarse and will be getting chest x-ray for potential aspiration.
--- NOTE | 2020-03-30 13:24 | PDOC ---
[facility] PROGRESS NOTE Date of Service DOS: DATE: 03/30/20 TIME: 13:13 Chief Complaint Chief Complaint Images: Images HEAD CT IMPRESSION: Moderate small vessel ischemic change, technically age indeterminate without recent prior imaging. If there are persistent concerns for acute ischemia MRI would better evaluate. 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 Moderate malnutrition plan code stroke called Admit to medicine cvc bed Neurology consult Continue aspirin and atorvastatin Bedside swallow study cvc bed Fall precautions Orthostatic vital signs Hold all centrally acting medications SCD and Lovenox PT OT and speech modalities Pepcid GI prophylaxis ADA diet Full code Discussed with RN and SW preceding with alteplase 03-27 neurology here Surrogate decision maker is Alejandro SHETTY STROKE CALLED THIS AM, TRANSFER TO ICU 37 MIN CC TIME Justifications for Admission Justifications for Admission Syncope Indications Altered Mental Status?: Yes Justification for admission: Patient's severe/persistent Altered Mental Status as indicated by lethargy/confusional state that has persisted after initial hours of intervention is concerning, needs inpatient level of care for further evaluation and management. Is patient dehydrated?: Yes Justification for admission: There is concern that patient may be severely dehydrated accounting for the syncope. Patient needs inpatient level of care for further evaluation and management. Other Justification History of Present Illness History of Present Illness History obtained from chart review and discussion with the patient. Patient is alert awake oriented x3. 79 year old female presents via EMS with report of syncopal episode while she was eating dinner with her family. EMS reports patient became suddenly unresponsive. EMS reports patient's GCS initially 5 then improved to 10 during transport. Patient did vomit x1. Upon arrival patient with interval improvement. Denies fever or chills. 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 History of present illness limited secondary to altered mental status 03/30: Patient seen and evaluated. She is febrile today. Some concern for aspiration. Make patient n.p.o., and obtain chest x-ray. Repeat CT head showed acute intraparenchymal hemorrhage measuring approximately 1.5 cm within the central aspect of the region of acute or subacute infarction within the posterior lateral right frontal lobe, and acute intraparenchymal hemorrhage measuring approximately 1.3 cm within the medial left cerebellum. Will place patient on nicardipine drip to keep systolic blood pressure <140 mmHg. Discussed with RN. 03/29: Patient seen in ICU. No acute events overnight. Patient with no complaints. She had MRI yesterday that showed acute infarct within the right superolateral frontal lobe cortex, concern for superimposed microhemorrhage. Short-term follow-up with a noncontrast head CT is recommended to exclude evolving hemorrhagic transformation. Discussed with RN. 03/28: Patient seen in ICU, s/p TPA. She has no complaints or concerns, pleasantly demented. Afebrile. MRI pending. PT recommending SNU. Discussed with RN and social media specialist. Vitals/I&O Vitals/I&O: Vital Signs Date Time Temp Pulse Resp B/P (MAP) Pulse Ox O2 Delivery O2 Flow Rate FiO2 03/30/20 11:03 98.8 107 18 99/48 (65) 96 Room Air 98.8 I & O 03/29/20 03/29/20 03/30/20 15:00 23:00 07:00 Intake Total 965 ml 0 ml 970 ml Output Total 320 ml 350 ml Balance 645 ml 0 ml 620 ml Physical Exam Physical Exam: GENERAL: Awake female, not in distress. VITAL SIGNS: Stable HEENT: Both pupils are round and reacting. No conjunctival lesion, no lesion in the mouth. NECK: Supple, no JVP, no lymphadenopathy. LUNGS: Clear. HEART: S1, S2 regular. ABDOMEN: Soft, nontender, no organomegaly. EXTREMITIES: No edema, cyanosis. SKIN: Unremarkable. NEUROLOGIC: The patient is awake, mumbles few words, unable to understand right now. Does move all the extremities. General: Alert, Oriented X3, Cooperative, No acute distress Heart: Regular rate (SR no ectopies), Other (2/6 systolic murmur to LLS border) Abdomen: Soft, No tenderness Extremities: No cyanosis, No edema Skin: No breakdown, No significant lesion Assessment and Plan Assessmemt and Plan Problems Medical Problems: (1) Altered mental status Status: Acute (2) Lactic acidosis Status: Acute (3) Syncope Status: Acute Comment Review of Relevant I have reviewed the following items alicia (where applicable) has been applied. Medications: Current Medications Medications (Trade) Dose Ordered Sig/Susan Route PRN Reason Start Time Stop Time Status Last Admin Dose Admin Amlodipine Besylate (Norvasc) 5 mg DAILY PO 03/30/20 09:00 03/30/20 08:21 Justifications for Admission Syncope Indications Altered Mental Status?: Yes Justification for admission: Patient's severe/persistent Altered Mental Status as indicated by lethargy/confusional state that has persisted after initial hours of intervention is concerning, needs inpatient level of care for further evaluation and management. Is patient dehydrated?: Yes Justification for admission: There is concern that patient may be severely dehydrated accounting for the syncope. Patient needs inpatient level of care for further evaluation and management. Other Justification DIONNE SAM MD Mar 30, 2020 13:24
--- NOTE | 2020-03-30 13:53 | RAD ---
EXAM: Chest, single view. HISTORY: Aspiration. COMPARISON: 03/25/2020 FINDINGS: A frontal view of the chest is obtained. There is no infiltrate, protrusion or pneumothorax . There is stable enlargement of the cardiac silhouette. There is mild biapical emphysema. IMPRESSION: No acute pulmonary finding. Electronically signed by: Ava Carrillo MD (03/30/2020 1:50 PM) [id number]
[2020-03-30] MEDS: ATORVASTATIN CALCIUM 40 MG TABLET. PO SCH (21:09)
[2020-03-30] MEDS: LABETALOL 20 MG/4 ML DISP.SYRIN. IVP PRN (21:14)
[2020-03-31] VITALS (32 sets, daily range): BP systolic 114–193; BP diastolic 51–102
[2020-03-31] MEDS: AMINO AC 3%/ELECTROLYTE/GLYCER 1,000 ML IV SCH (04:35)
[2020-03-31] MEDS: LABETALOL 20 MG/4 ML DISP.SYRIN. IVP PRN ×2 (04:53→06:30)
[2020-03-31] MEDS: LOSARTAN POTASSIUM 50 MG TABLET. PO SCH (08:03)
--- NOTE | 2020-03-31 08:05 | PDOC ---
Infectious Disease Note Subjective Subjective Patient is awake says feeling ok ROS ROS no n/v/d/sob Vital Sign Vital Signs Vital Signs Date Time Temp Pulse Resp B/P (MAP) Pulse Ox O2 Delivery O2 Flow Rate FiO2 03/31/20 08:03 67 155/90 03/31/20 03:50 97.9 18 97 Room Air 97.9 Physical Exam PHYSICAL EXAM GENERAL: Awake female, not in distress. VITAL SIGNS: Stable HEENT: Both pupils are round and reacting. No conjunctival lesion, no lesion in the mouth. NECK: Supple, no JVP, no lymphadenopathy. LUNGS: Clear. HEART: S1, S2 regular. ABDOMEN: Soft, nontender, no organomegaly. EXTREMITIES: No edema, cyanosis. SKIN: Unremarkable. NEUROLOGIC: The patient is awake, speaks some Labs Micro ----- BLOOD CULTURE LC Final Final YEAST FINAL ID= [MELISSA GLABRATA] MELISSA GLABRATA Unless otherwise specified, Testing Performed by: [address] [address] For Inquires, the Physician may contact the Microbiology department at [phone] Objective Assessment IMPRESSION: 1. 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 Cerebrovascular accident/code stroke. 3. Syncopal episode. 4. History of cerebrovascular accident. Intracranial hemorrhage 5. Hypertension. 6. Tobaccoism. 7. Glaucoma. Plan Plan of Care Continue micafungin repeat neg from 03/28 Supportive care IRON HARLEY MD Mar 31, 2020 08:05
[2020-03-31] MEDS ORDERED: BARIUM SULFATE 40% (APPLE) 148 GM PWD. PO ONE (10:15)
[2020-03-31] MEDS: predniSONE 20 MG TABLET PO SCH (11:22)
[2020-03-31] MEDS: FOLIC ACID 1 MG TABLET. PO SCH (11:22)
[2020-03-31] MEDS: MICAFUNGIN 100 MG in IV DEXTROSE 5% 100ML 100 ML IV SCH (11:23)
[2020-03-31] MEDS: FAMOTIDINE 20 MG TABLET. PO SCH (11:23)
[2020-03-31] MEDS: OXYBUTYNIN CHLORIDE 5 MG TABLET PO SCH ×2 (11:23→20:49)
--- NOTE | 2020-03-31 11:48 | PDOC ---
PROGRESS NOTES Date of Service DATE: 03/31/20 TIME: 11:46 Assessment Problems Medical Problems: (1) Altered mental status Status: Acute (2) Lactic acidosis Status: Acute (3) Syncope Status: Acute Acute intraparenchymal hemorrhages posterior lateral right frontal lobe and medial left cerebellum. Acute infarct within the right superolateral frontal lobe cortex and adjacent white matter and right centrum semiovale. Status-post alteplase on 03/27 Superimposed microhemorrhage. Consider amyloid angiopathy Suspected late subacute infarct within the left centrum semiovale. 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 Extensive scattered microhemorrhages, consider amyloid angiopathy. 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 Hypertension, hypocalcemia, hypophosphatemia, hypochloremia, lactic acidosis Passed repeat swallow evaluation Fungemia, possible artifact Plan Blood pressure parameters lowered yesterday CT head followup 04/01 Cardiology consulted for embolic work-up, report of echocardiogram noted Hold aspirin Continue statin Telemetry Objective Vital Signs Date Time Temp Pulse Resp B/P (MAP) Pulse Ox O2 Delivery O2 Flow Rate FiO2 03/31/20 11:00 97.8 59 19 145/70 (95) 94 Room Air 97.8 Intake and Output 03/31/20 07:00 Intake Total 1120 ml Output Total 1000 ml Balance 120 ml Intake Oral 120 ml IV Total 1000 ml Output Urine Total 1000 ml PHYSICAL EXAM Alert. Oriented to person. Blind in both eyes CN: no focal findings, minimal left facial weakness. Muscle tone: normal. Muscle strength: 4/5 DTR: 2+ Plantar reflex: Flexor Gait: not examined in bed. Sensory exam: no abnormal findings. No cerebellar signs elicited, hard to test with blindness. Review of Relevant I have reviewed the following items alicia (where applicable) has been applied. Labs Microbiology 03/28/20 Blood Culture - Preliminary, Resulted NO GROWTH AFTER 2 DAYS Medications Current Medications Sodium Chloride 1,000 ml @ 1,000 mls/hr 1X ONCE IV Last administered on 03/25/20at 19:48; Start 03/25/20 at 18:15; Stop 03/25/20 at 19:14; Status DC Aspirin (Aspirin Rectal Supp) 300 mg 1X ONCE PA Last administered on 03/25/20at 19:48; Start 03/25/20 at 19:30; Stop 03/25/20 at 19:33; Status DC Ondansetron HCl (Zofran) 4 mg PRN Q8HRS PRN IV NAUSEA/VOMITING; Start 03/25/20 at 20:30; Stop 03/26/20 at 20:29; Status DC Sodium Chloride 1,000 ml @ 75 mls/hr 1X ONCE IV Last administered on 03/25/20at 20:30; Start 03/25/20 at 20:30; Stop 03/26/20 at 00:18; Status DC Atorvastatin Calcium (Lipitor) 40 mg QHS PO Last administered on 03/30/20at 21:09; Start 03/25/20 at 21:00 Sennosides (Senna) 17.2 mg PRN BID PRN PO CONSTIPATION 1ST CHOICE; Start 03/25/20 at 21:00 Docusate Sodium (Colace) 100 mg PRN DAILY PRN PO HARD STOOLS; Start 03/25/20 at 21:00 Ondansetron HCl (Zofran) 4 mg PRN Q6HRS PRN IVP NAUSEA/VOMITING 1ST CHOICE Last administered on 03/28/20at 03:35; Start 03/25/20 at 21:00 Aspirin (Ecotrin) 81 mg DAILYWBKFT PO Last administered on 03/30/20at 08:19; Start 03/26/20 at 08:00; Stop 03/30/20 at 10:30; Status DC Dextrose (Dextrose 50%-Water Syringe) 12.5 gm PRN Q15MIN PRN IV SEE COMMENTS; Start 03/25/20 at 21:00 Sodium Chloride 1,000 ml @ 100 mls/hr Q10H IV Last administered on 03/30/20at 17:03; Start 03/25/20 at 21:00; Stop 03/31/20 at 07:45; Status DC Labetalol HCl (Normodyne Iv Push) 10 mg PRN Q2HRS PRN IVP HYPERTENSION Last administered on 03/31/20at 06:30; Start 03/26/20 at 09:00 Famotidine (Pepcid) 20 mg DAILY PO Last administered on 03/31/20at 11:23; Start 03/26/20 at 15:00 Acetaminophen/ Hydrocodone Bitart (Lortab 5/325) 1 tab BID PO ; Start 03/26/20 at 15:00; Stop 03/26/20 at 15:04; Status DC Methotrexate (Rheumatrex) 17.5 mg WEEKLY PO Last administered on 03/26/20at 15:19; Start 03/26/20 at 15:00 Oxybutynin Chloride (Ditropan) 5 mg BID PO Last administered on 03/31/20at 11:23; Start 03/26/20 at 15:00 Prednisone (Prednisone) 10 mg DAILY PO Last administered on 03/31/20at 11:22; Start 03/26/20 at 15:00 Celecoxib (CeleBREX) 200 mg DAILY PO Last administered on 03/30/20at 08:19; Start 03/26/20 at 15:00; Stop 03/30/20 at 14:46; Status DC Folic Acid (Folic Acid) 1 mg DAILY PO Last administered on 03/31/20at 11:22; Start 03/26/20 at 15:00 Losartan Potassium (Cozaar) 50 mg DAILY PO Last administered on 03/31/20at 08:03; Start 03/26/20 at 15:00 Acetaminophen/ Hydrocodone Bitart (Lortab 5/325) 1 tab PRN BID PRN PO PAIN; Start 03/26/20 at 15:15 Dopamine HCl/ Dextrose 0 ml @ As Directed STK-MED ONCE IV ; Start 03/27/20 at 16:26; Stop 03/27/20 at 16:26; Status DC Alteplase, Recombinant 4.3 ml @ 258 mls/hr 1X ONCE IV Last administered on 03/27/20at 17:36; Start 03/27/20 at 17:15; Stop 03/27/20 at 17:17; Status DC Alteplase, Recombinant 38.6 ml @ 38.6 mls/hr Q1H IV Last administered on 03/27/20at 17:34; Start 03/27/20 at 17:15; Stop 03/27/20 at 18:14; Status DC Sodium Chloride 50 ml @ 200 mls/hr 1X ONCE IV Last administered on 03/27/20at 18:05; Start 03/27/20 at 17:15; Stop 03/27/20 at 17:29; Status DC Alteplase, Recombinant 0 ml @ 0 mls/hr Q1M ONCE IV ; Start 03/27/20 at 17:15; Stop 03/27/20 at 17:16; Status UNV Alteplase, Recombinant 0 ml @ 0 mls/hr Q1H IV ; Start 03/27/20 at 17:15; Status UNV Sodium Chloride 50 ml @ 50 mls/hr Q1H ONCE IV ; Start 03/27/20 at 17:15; Stop 03/27/20 at 18:14; Status UNV Labetalol HCl (Normodyne Iv Push) 10 mg PRN Q10MIN PRN IVP HYPERTENSION; Start 03/27/20 at 17:15 Nicardipine HCl 50 mg/Sodium Chloride 250 ml @ 25 mls/hr CONT PRN PRN IV HYPERTENSION Last administered on 03/31/20at 08:20; Start 03/27/20 at 17:15 Labetalol HCl (Normodyne Iv Push) 10 mg PRN Q10MIN PRN IVP HYPERTENSION; Start 03/27/20 at 17:30; Stop 03/27/20 at 17:34; Status DC Nicardipine HCl 50 mg/Sodium Chloride 250 ml @ 25 mls/hr CONT PRN PRN IV HYPERTENSION; Start 03/27/20 at 17:30; Status UNV Acetaminophen (Tylenol) 650 mg PRN Q6HRS PRN PO MILD PAIN / TEMP > 100.3'F; Start 03/27/20 at 17:30 Acetaminophen (Tylenol Supp) 650 mg PRN Q6HRS PRN PA MILD PAIN / TEMP > 100.3'F; Start 03/27/20 at 17:30 Ondansetron HCl (Zofran) 4 mg PRN Q6HRS PRN IVP NAUSEA/VOMITING; Start 03/27/20 at 17:30; Stop 03/29/20 at 10:36; Status DC Iohexol (Omnipaque 300 Mg/ml) 75 ml 1X ONCE IV Last administered on 03/28/20at 07:00; Start 03/28/20 at 07:00; Stop 03/28/20 at 07:05; Status DC Info (CONTRAST GIVEN -- Rx MONITORING) 1 each PRN DAILY PRN MC SEE COMMENTS; Start 03/28/20 at 07:15; Stop 03/30/20 at 07:14; Status DC Dopamine HCl/ Dextrose (DOPamine 400MG/ 250ML PREMIX) 400 mg STK-MED ONCE IV ; Start 03/27/20 at 17:00; Stop 03/28/20 at 08:41; Status DC Micafungin Sodium 100 mg/Dextrose 100 ml @ 100 mls/hr DAILY IV Last administered on 03/31/20at 11:23; Start 03/28/20 at 09:15 Hydralazine HCl (Apresoline Inj) 10 mg Q6HRS IVP Last administered on 03/30/20at 06:23; Start 03/29/20 at 11:00; Stop 03/30/20 at 11:05; Status DC Amlodipine Besylate (Norvasc) 5 mg DAILY PO Last administered on 03/31/20at 08:03; Start 03/30/20 at 09:00 Atorvastatin Calcium (Lipitor) 20 mg QHS PO ; Start 03/29/20 at 21:00; Stop 03/29/20 at 16:25; Status DC Amino Acids/ Glycerin/ Electrolytes 1,000 ml @ 80 mls/hr [id number] IV Last administered on 03/31/20at 04:35; Start 03/31/20 at 04:15 Barium Sulfate (Varibar Thin Liquid Apple) 148 gm 1X ONCE PO Last administered on 03/31/20at 10:15; Start 03/31/20 at 10:15; Stop 03/31/20 at 10:17; Status DC Active Scripts Active Reported Oxybutynin Chloride 5 Mg Tablet 1 Tab PO BID Methotrexate (Methotrexate Sodium) 2.5 Mg Tablet 7 Tab PO WEEKLY Bishop 5-325 Tablet (Acetaminophen/Hydrocodone Bitart) 1 Each Tablet 1 Tab PO BID Folic Acid 0.8 Mg Capsule 1 Mg PO DAILY Famotidine 20 Mg Tablet 20 Mg PO BID Prednisone 20 Mg Tablet 10 Mg PO DAILY Celebrex (Celecoxib) 200 Mg Capsule 1 Cap PO DAILY Atorvastatin Calcium 10 Mg Tablet 10 Mg PO HS Valsartan 80 Mg Tablet 80 Mg PO DAILY Vitals/I & O Vital Sign - Last 24 Hours 03/30/20 03/30/20 03/30/20 03/30/20 15:00 19:20 20:00 21:14 Temp 99.4 97.8 99.4 97.8 Pulse 97 82 82 Resp 18 20 B/P (MAP) 98/61 (73) 178/77 (110) 178/77 Pulse Ox 95 96 O2 Delivery Room Air Room Air Room Air 03/30/20 03/30/20 03/30/20 03/30/20 21:39 22:30 23:25 23:35 Temp 97.8 97.8 Pulse 72 80 70 67 Resp 18 B/P (MAP) 149/72 (97) 167/81 (109) 144/78 (100) 129/65 (86) Pulse Ox 98 O2 Delivery Room Air 03/31/20 03/31/20 03/31/20 03/31/20 03:50 04:53 04:55 05:27 Temp 97.9 97.9 Pulse 79 67 70 67 Resp 18 B/P (MAP) 181/86 (117) 188/100 151/83 (105) 149/72 (97) Pulse Ox 97 O2 Delivery Room Air 03/31/20 03/31/20 03/31/20 03/31/20 06:30 07:00 08:03 08:03 Temp 97.9 97.9 Pulse 67 81 67 67 Resp 20 B/P (MAP) 155/90 193/102 (132) 155/90 155/90 Pulse Ox 95 O2 Delivery Room Air 03/31/20 03/31/20 03/31/20 03/31/20 09:00 09:05 09:10 09:15 Pulse 77 75 75 73 B/P (MAP) 131/58 (82) 127/63 (84) 125/56 (79) 122/51 (74) 03/31/20 03/31/20 03/31/20 03/31/20 09:20 09:25 09:30 09:35 Pulse 75 73 74 70 B/P (MAP) 121/55 (77) 120/53 (75) 124/55 (78) 125/55 (78) 03/31/20 03/31/20 03/31/20 03/31/20 09:40 09:45 09:50 09:55 Pulse 78 69 75 77 B/P (MAP) 134/55 (81) 116/53 (74) 125/58 (80) 129/59 (82) 03/31/20 03/31/20 10:00 11:00 Temp 97.8 97.8 Pulse 76 59 Resp 19 B/P (MAP) 135/58 (83) 145/70 (95) Pulse Ox 94 O2 Delivery Room Air Intake and Output 03/30/20 03/30/20 03/31/20 15:00 23:00 07:00 Intake Total 120 ml 1000 ml Output Total 200 ml 800 ml Balance 120 ml -200 ml 200 ml Images Echocardiogram: LEFT VENTRICLE The left ventricle is normal size. There is mild concentric left ventricular hypertrophy. The left ventricle is hyperdynamic. The Ejection Fraction is 65- 70%. There is normal LV segmental wall motion. Transmitral Doppler flow pattern is Grade I-abnormal relaxation pattern. RIGHT VENTRICLE The right ventricle is normal size. The right ventricular systolic function is normal. ATRIA The left atrium size is normal. The right atrium size is normal. The interatrial septum is intact with no evidence for an atrial septal defect or patent foramen ovale as noted on 2-D or Doppler imaging. Injection of bubbles documented no interatrial shunt. AORTIC VALVE The aortic valve is not well visualized but appears to be functioning normally by Doppler interrogation. Doppler and Color Flow revealed no significant aortic regurgitation. There is no significant aortic valvular stenosis. MITRAL VALVE The mitral valve is calcified but opens well. There is no evidence of mitral brian ve prolapse. There is no mitral valve stenosis. Doppler and Color Flow revealed trace mitral valve regurgitation. TRICUSPID VALVE The tricuspid valve is normal in structure and function. Doppler and Color Flow revealed trace to mild tricuspid regurgitation. The PA pressure was estimated at 46 mmHg. There is no tricuspid valve stenosis. PULMONIC VALVE The pulmonic valve is not well visualized. Doppler and Color Flow revealed no pulmonic valvular regurgitation. There is no pulmonic valvular stenosis. GREAT VESSELS The aortic root is normal in size. The ascending aorta is not well seen. The IVC is dilated and collapses <50% with inspiration. PERICARDIAL EFFUSION There is no evidence of significant pericardial effusion. Critical Notification Critical Value: No <Conclusion> The left ventricle is normal size. The left ventricle is hyperdynamic. The Ejection Fraction is 65-70%. There is mild concentric left ventricular hypertrophy. The interatrial septum is intact with no evidence for an atrial septal defect or patent foramen ovale as noted on 2-D or Doppler imaging. Injection of bubbles documented no interatrial shunt. Doppler and Color Flow revealed no significant aortic regurgitation. There is no significant aortic valvular stenosis. Doppler and Color Flow revealed trace mitral valve regurgitation. Doppler and Color Flow revealed trace to mild tricuspid regurgitation. The PA pressure was estimated at 46 mmHg. Justicifation of Admission Dx: Justifications for Admission: Justification of Admission Dx: Yes Stroke - Ischemic: Stroke-Ischemic CORNELIUS MARSH MD Mar 31, 2020 11:48
--- NOTE | 2020-03-31 13:26 | NUR ---
SS following up with discharge planning. SS reviewed pt chart and discussed with pt RN. Pt is currently on room air. COVID19 negative. Pt on IV Micafungin and PPN. Pt on Cardene drip and having medications adjusted. Pt having CT of head tomorrow, 04/01/2020. PT/OT recommended fdc unit. Pt accepted at [facility], ; fax [phone]. SS notified that pt does have skilled benefits for snu. SS will continue to follow for discharge planning.
--- NOTE | 2020-03-31 14:28 | PDOC ---
NICKI PITTS FRONT OFFICE DEVELOPER 03/31/20 1428: CARDIO Progress Notes Date and Time Date of Service 03/31/2020 Time of Evaluation 1200 Subjective Subjective: No Chest Pain, No shortness of breath, No Palpitations Vitals Vitals Vital Signs Date Time Temp Pulse Resp B/P (MAP) Pulse Ox O2 Delivery O2 Flow Rate FiO2 03/31/20 11:00 97.8 59 19 145/70 (95) 94 Room Air 97.8 Weight Weight [ ] Input and Output Intake and Output Intake and Output 03/31/20 07:00 Intake Total 1120 ml Output Total 1000 ml Balance 120 ml Intake Oral 120 ml IV Total 1000 ml Output Urine Total 1000 ml Microbiology Micro Microbiology 03/28/20 Blood Culture - Preliminary, Resulted NO GROWTH AFTER 3 DAYS Physical Exam HEENT: Neck Supple W Full Motion, Other (blind OU) Chest: Symmetric LUNGS: Other (coarse) Heart: RRR (SR) Abdomen: Soft N/T Extremities: No Calf Tenderness Neurology: alert, oriented, follow commands Assessment Assessment 1. Acute CVA with prior hx: no hx of AFIB/flutter. Post tPA. EF and WM nml no PFO 2. Acute intraparenchymal hemorrhage measuring approximately 1.5 cm within the central aspect of the region of acute or subacute infarction within the poste rior lateral right frontal lobe. Post tPA Acute intraparenchymal hemorrhage measuring approximately 1.3 cm within the medial left cerebellum. 3. Blind 4. Asymptomatic SB when asleep lowest in the 40s. possibly vagal episodes. None further 5. HTN urgency: labile, SBP in the 200s despite PO meds 6. Tobaccoism 7. RA: on methotrexate 8. Syncope: due to stroke 9. Fever: none further CXR is clear. 10. PSVT: appears to be PAFIB Recommendations 1. ASA when clear with neurology then could transition to NOAC at a later time but high risk for bleed and injury. Could consider [facility] as an outpt. No need for ILR. 2. Cardene is restarted. Videoswallow pending and if pt can safely swallow then will optimized PO BP meds and will place on additional coreg. 3. Discussed with granddaughter. Pt lives with daughter and at this point daughter is unable to take care of pt and needing assistance for nsg home placement. Consult SS. 4. Follow up in office. 5. Smoking cessation Justicifation of Admission Dx: Justifications for Admission: Justification of Admission Dx: Yes Stroke - Ischemic: Stroke-Ischemic KYLE DSOUZA MD 04/01/20 0652: CARDIO Progress Notes Plan Plan Late entry for 03/31/20 Pt. seen and examined. Agree with above MICROWAVE ENGINEER note. supportive care. Thanks NICKI PITTS APRN Mar 31, 2020 14:28 KYLE DSOUZA MD Apr 01, 2020 06:52
--- NOTE | 2020-03-31 15:14 | NUR ---
pt and pt family do not want the nephew "Ton West" to visit. Nursing renovation plant supervisor and security have been notified.
--- NOTE | 2020-03-31 15:53 | PDOC ---
[employer] PROGRESS NOTE Date of Service DOS: DATE: 03/31/20 TIME: 15:45 Chief Complaint Chief Complaint Images: Images HEAD CT IMPRESSION: Moderate small vessel ischemic change, technically age indeterminate without recent prior imaging. If there are persistent concerns for acute ischemia MRI would better evaluate. 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 Moderate malnutrition plan code stroke called Admit to medicine cvc bed Neurology consult Continue aspirin and atorvastatin Bedside swallow study cvc bed Fall precautions Orthostatic vital signs Hold all centrally acting medications SCD and Lovenox PT OT and speech modalities Pepcid GI prophylaxis ADA diet Full code Discussed with RN and SW preceding with alteplase 03-27 neurology here Surrogate decision maker is Alejandro SHETTY STROKE CALLED THIS AM, TRANSFER TO ICU 37 MIN CC TIME Justifications for Admission Justifications for Admission Syncope Indications Altered Mental Status?: Yes Justification for admission: Patient's severe/persistent Altered Mental Status as indicated by lethargy/confusional state that has persisted after initial hours of intervention is concerning, needs inpatient level of care for further evaluation and management. Is patient dehydrated?: Yes Justification for admission: There is concern that patient may be severely dehydrated accounting for the syncope. Patient needs inpatient level of care for further evaluation and management. Other Justification History of Present Illness History of Present Illness History obtained from chart review and discussion with the patient. Patient is alert awake oriented x3. 79 year old female presents via EMS with report of syncopal episode while she was eating dinner with her family. EMS reports patient became suddenly unresponsive. EMS reports patient's GCS initially 5 then improved to 10 during transport. Patient did vomit x1. Upon arrival patient with interval improvement. Denies fever or chills. 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 History of present illness limited secondary to altered mental status 03/31: Patient seen and evaluated with granddaughter at bedside. Chest x-ray yesterday showed no acute pulmonary finding. She remains on nicardipine drip to control blood pressure. She is to have repeat CT head tomorrow. Discussed with granddaughter, who was primary care provider for patient, who agrees she would benefit from full-time nursing care. She may also be agreeable to hospice facilities given patient's poor prognosis. Repeat CT head tomorrow may provide further information for patient's family and making this decision. 03/30: Patient seen and evaluated. She is febrile today. Some concern for aspiration. Make patient n.p.o., and obtain chest x-ray. Repeat CT head showed acute intraparenchymal hemorrhage measuring approximately 1.5 cm within the central aspect of the region of acute or subacute infarction within the posterior lateral right frontal lobe, and acute intraparenchymal hemorrhage measuring approximately 1.3 cm within the medial left cerebellum. Will place patient on nicardipine drip to keep systolic blood pressure <140 mmHg. Discussed with RN. 03/29: Patient seen in ICU. No acute events overnight. Patient with no complaints. She had MRI yesterday that showed acute infarct within the right superolateral frontal lobe cortex, concern for superimposed microhemorrhage. Short-term follow-up with a noncontrast head CT is recommended to exclude evolving hemorrhagic transformation. Discussed with RN. 03/28: Patient seen in ICU, s/p TPA. She has no complaints or concerns, pleasantly demented. Afebrile. MRI pending. PT recommending SNU. Discussed with RN and social services. Vitals/I&O Vitals/I&O: Vital Signs Date Time Temp Pulse Resp B/P (MAP) Pulse Ox O2 Delivery O2 Flow Rate FiO2 03/31/20 15:00 97.5 70 18 117/55 (75) 95 Room Air 97.5 I & O 03/30/20 03/30/20 03/31/20 15:00 23:00 07:00 Intake Total 120 ml 1000 ml Output Total 200 ml 800 ml Balance 120 ml -200 ml 200 ml Physical Exam Physical Exam: GENERAL: Awake female, not in distress. VITAL SIGNS: Stable HEENT: Both pupils are round and reacting. No conjunctival lesion, no lesion in the mouth. NECK: Supple, no JVP, no lymphadenopathy. LUNGS: Clear. HEART: S1, S2 regular. ABDOMEN: Soft, nontender, no organomegaly. EXTREMITIES: No edema, cyanosis. SKIN: Unremarkable. NEUROLOGIC: The patient is awake, speaks some General: Alert, Oriented X3, Cooperative, No acute distress Heart: Regular rate (SR no ectopies), Other (2/6 systolic murmur to LLS border) Abdomen: Soft, No tenderness Extremities: No cyanosis, No edema Skin: No breakdown, No significant lesion Assessment and Plan Assessmemt and Plan Problems Medical Problems: (1) Altered mental status Status: Acute (2) Lactic acidosis Status: Acute (3) Syncope Status: Acute Comment Review of Relevant I have reviewed the following items alicia (where applicable) has been applied. Medications: Current Medications Medications (Trade) Dose Ordered Sig/Susan Route PRN Reason Start Time Stop Time Status Last Admin Dose Admin Amino Acids/ Glycerin/ Electrolytes 1,000 ml @ 80 mls/hr [id number] IV 03/31/20 04:15 03/31/20 04:35 Barium Sulfate (Varibar Thin Liquid Apple) 148 gm 1X ONCE PO 03/31/20 10:15 03/31/20 10:17 DC 03/31/20 10:15 Justifications for Admission Syncope Indications Altered Mental Status?: Yes Justification for admission: Patient's severe/persistent Altered Mental Status as indicated by lethargy/confusional state that has persisted after initial hours of intervention is concerning, needs inpatient level of care for further evaluation and management. Is patient dehydrated?: Yes Justification for admission: There is concern that patient may be severely dehydrated accounting for the syncope. Patient needs inpatient level of care for further evaluation and management. Other Justification DIONNE SAM MD Mar 31, 2020 15:53
--- NOTE | 2020-03-31 19:30 | NUR ---
Assessment completed vss poc explained pt reoriented to surroundings call light placed in reach will resume care and continue to monitor pt.
[2020-03-31] MEDS: ATORVASTATIN CALCIUM 40 MG TABLET. PO SCH (20:49)
[2020-04-01] VITALS (19 sets, daily range): BP systolic 110–158; BP diastolic 60–96
[2020-04-01] MEDS: AMINO AC 3%/ELECTROLYTE/GLYCER 1,000 ML IV SCH (05:09)
[2020-04-01] MEDS: FAMOTIDINE 20 MG TABLET. PO SCH (08:33)
[2020-04-01] MEDS: LOSARTAN POTASSIUM 50 MG TABLET. PO SCH (08:33)
[2020-04-01] MEDS: OXYBUTYNIN CHLORIDE 5 MG TABLET PO SCH ×2 (08:33→21:13)
[2020-04-01] MEDS: predniSONE 20 MG TABLET PO SCH (08:33)
[2020-04-01] MEDS: FOLIC ACID 1 MG TABLET. PO SCH (08:33)
--- NOTE | 2020-04-01 08:47 | PDOC ---
Infectious Disease Note Subjective Subjective Patient is awake says feeling ok ROS ROS No nausea vomiting diarrhea chest pain shortness of breath Vital Sign Vital Signs Vital Signs Date Time Temp Pulse Resp B/P (MAP) Pulse Ox O2 Delivery O2 Flow Rate FiO2 04/01/20 08:34 76 137/67 04/01/20 07:00 98.8 18 94 Room Air 98.8 Physical Exam PHYSICAL EXAM GENERAL: Awake female, not in distress. VITAL SIGNS: Stable HEENT: Both pupils are round and reacting. No conjunctival lesion, no lesion in the mouth. NECK: Supple, no JVP, no lymphadenopathy. LUNGS: Clear. HEART: S1, S2 regular. ABDOMEN: Soft, nontender, no organomegaly. EXTREMITIES: No edema, cyanosis. SKIN: Unremarkable. NEUROLOGIC: The patient is awake, speaks some Labs Micro BLOOD CULTURE LC Final Final YEAST FINAL ID= [MELISSA GLABRATA] MELISSA GLABRATA Unless otherwise specified, Testing Performed by: [address] [address] For Inquires, the Physician may contact the Microbiology department at [phone] Objective Assessment IMPRESSION: 1. 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 Cerebrovascular accident/code stroke. 3. Syncopal episode. 4. History of cerebrovascular accident. Intracranial hemorrhage 5. Hypertension. 6. Tobaccoism. 7. Glaucoma. Plan Plan of Care Continue micafungin repeat neg from 03/28 Supportive care Ophthalmology consultation IRON HARLEY MD Apr 01, 2020 08:47
--- NOTE | 2020-04-01 09:00 | PDOC ---
PROGRESS NOTES Date of Service DATE: 04/01/20 TIME: 08:58 Assessment Problems Medical Problems: (1) Altered mental status Status: Acute (2) Lactic acidosis Status: Acute (3) Syncope Status: Acute Acute intraparenchymal hemorrhages posterior lateral right frontal lobe and medial left cerebellum. Acute infarct within the right superolateral frontal lobe cortex and adjacent white matter and right centrum semiovale. Status-post alteplase on 03/27 Superimposed microhemorrhage. Consider amyloid angiopathy Suspected late subacute infarct within the left centrum semiovale. 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 Extensive scattered microhemorrhages, consider amyloid angiopathy. 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 Hypertension, hypocalcemia, hypophosphatemia, hypochloremia, lactic acidosis Passed repeat swallow evaluation Fungemia, possible artifact Plan Blood pressure less than 160/90 CT head followup today Cardiology consulted for embolic work-up, report of echocardiogram noted Hold aspirin Continue statin Telemetry Aim for discharge to rehab/SNU early next week Subjective No complaints, denies headache or other pain Objective Vital Signs Date Time Temp Pulse Resp B/P (MAP) Pulse Ox O2 Delivery O2 Flow Rate FiO2 04/01/20 08:34 76 137/67 04/01/20 07:00 98.8 18 94 Room Air 98.8 Intake and Output 04/01/20 07:00 Intake Total 357 ml Output Total 1900 ml Balance -1543 ml Intake Oral 357 ml Output Urine Total 1900 ml PHYSICAL EXAM Alert. Oriented to person. Blind in both eyes CN: no focal findings, minimal left facial weakness. Muscle tone: normal. Muscle strength: 4/5 DTR: 2+ Plantar reflex: Flexor Gait: not examined in bed. Sensory exam: no abnormal findings. No cerebellar signs elicited, hard to test with blindness. Review of Relevant I have reviewed the following items alicia (where applicable) has been applied. Labs Laboratory Tests Test 03/30/20 14:05 Coronavirus (PCR) Not detected (Not Detected) Microbiology 03/28/20 Blood Culture - Preliminary, Resulted NO GROWTH AFTER 3 DAYS Medications Current Medications Sodium Chloride 1,000 ml @ 1,000 mls/hr 1X ONCE IV Last administered on 03/25/20at 19:48; Start 03/25/20 at 18:15; Stop 03/25/20 at 19:14; Status DC Aspirin (Aspirin Rectal Supp) 300 mg 1X ONCE [place] Last administered on 03/25/20at 19:48; Start 03/25/20 at 19:30; Stop 03/25/20 at 19:33; Status DC Ondansetron HCl (Zofran) 4 mg PRN Q8HRS PRN IV NAUSEA/VOMITING; Start 03/25/20 at 20:30; Stop 03/26/20 at 20:29; Status DC Sodium Chloride 1,000 ml @ 75 mls/hr 1X ONCE IV Last administered on 03/25/20at 20:30; Start 03/25/20 at 20:30; Stop 03/26/20 at 00:18; Status DC Atorvastatin Calcium (Lipitor) 40 mg QHS PO Last administered on 03/31/20at 20:49; Start 03/25/20 at 21:00 Sennosides (Senna) 17.2 mg PRN BID PRN PO CONSTIPATION 1ST CHOICE; Start 03/25/20 at 21:00 Docusate Sodium (Colace) 100 mg PRN DAILY PRN PO HARD STOOLS; Start 03/25/20 at 21:00 Ondansetron HCl (Zofran) 4 mg PRN Q6HRS PRN IVP NAUSEA/VOMITING 1ST CHOICE Last administered on 03/28/20at 03:35; Start 03/25/20 at 21:00 Aspirin (Ecotrin) 81 mg DAILYWBKFT PO Last administered on 03/30/20at 08:19; Start 03/26/20 at 08:00; Stop 03/30/20 at 10:30; Status DC Dextrose (Dextrose 50%-Water Syringe) 12.5 gm PRN Q15MIN PRN IV SEE COMMENTS; Start 03/25/20 at 21:00 Sodium Chloride 1,000 ml @ 100 mls/hr Q10H IV Last administered on 03/30/20at 17:03; Start 03/25/20 at 21:00; Stop 03/31/20 at 07:45; Status DC Labetalol HCl (Normodyne Iv Push) 10 mg PRN Q2HRS PRN IVP HYPERTENSION Last administered on 03/31/20at 06:30; Start 03/26/20 at 09:00 Famotidine (Pepcid) 20 mg DAILY PO Last administered on 04/01/20at 08:33; Start 03/26/20 at 15:00 Acetaminophen/ Hydrocodone Bitart (Lortab 5/325) 1 tab BID PO ; Start 03/26/20 at 15:00; Stop 03/26/20 at 15:04; Status DC Methotrexate (Rheumatrex) 17.5 mg WEEKLY PO Last administered on 03/26/20at 15:19; Start 03/26/20 at 15:00 Oxybutynin Chloride (Ditropan) 5 mg BID PO Last administered on 04/01/20at 08:33; Start 03/26/20 at 15:00 Prednisone (Prednisone) 10 mg DAILY PO Last administered on 04/01/20at 08:33; Start 03/26/20 at 15:00 Celecoxib (CeleBREX) 200 mg DAILY PO Last administered on 03/30/20at 08:19; Start 03/26/20 at 15:00; Stop 03/30/20 at 14:46; Status DC Folic Acid (Folic Acid) 1 mg DAILY PO Last administered on 04/01/20at 08:33; Start 03/26/20 at 15:00 Losartan Potassium (Cozaar) 50 mg DAILY PO Last administered on 04/01/20at 08:33; Start 03/26/20 at 15:00 Acetaminophen/ Hydrocodone Bitart (Lortab 5/325) 1 tab PRN BID PRN PO PAIN; Start 03/26/20 at 15:15 Dopamine HCl/ Dextrose 0 ml @ As Directed STK-MED ONCE IV ; Start 03/27/20 at 16:26; Stop 03/27/20 at 16:26; Status DC Alteplase, Recombinant 4.3 ml @ 258 mls/hr 1X ONCE IV Last administered on 03/27/20at 17:36; Start 03/27/20 at 17:15; Stop 03/27/20 at 17:17; Status DC Alteplase, Recombinant 38.6 ml @ 38.6 mls/hr Q1H IV Last administered on 03/27/20at 17:34; Start 03/27/20 at 17:15; Stop 03/27/20 at 18:14; Status DC Sodium Chloride 50 ml @ 200 mls/hr 1X ONCE IV Last administered on 03/27/20at 18:05; Start 03/27/20 at 17:15; Stop 03/27/20 at 17:29; Status DC Alteplase, Recombinant 0 ml @ 0 mls/hr Q1M ONCE IV ; Start 03/27/20 at 17:15; Stop 03/27/20 at 17:16; Status UNV Alteplase, Recombinant 0 ml @ 0 mls/hr Q1H IV ; Start 03/27/20 at 17:15; Status UNV Sodium Chloride 50 ml @ 50 mls/hr Q1H ONCE IV ; Start 03/27/20 at 17:15; Stop 03/27/20 at 18:14; Status UNV Labetalol HCl (Normodyne Iv Push) 10 mg PRN Q10MIN PRN IVP HYPERTENSION; Start 03/27/20 at 17:15 Nicardipine HCl 50 mg/Sodium Chloride 250 ml @ 25 mls/hr CONT PRN PRN IV HYPERTENSION Last administered on 04/01/20at 05:09; Start 03/27/20 at 17:15 Labetalol HCl (Normodyne Iv Push) 10 mg PRN Q10MIN PRN IVP HYPERTENSION; Start 03/27/20 at 17:30; Stop 03/27/20 at 17:34; Status DC Nicardipine HCl 50 mg/Sodium Chloride 250 ml @ 25 mls/hr CONT PRN PRN IV HYPERTENSION; Start 03/27/20 at 17:30; Status UNV Acetaminophen (Tylenol) 650 mg PRN Q6HRS PRN PO MILD PAIN / TEMP > 100.3'F; Start 03/27/20 at 17:30 Acetaminophen (Tylenol Supp) 650 mg PRN Q6HRS PRN [place] MILD PAIN / TEMP > 100.3'F; Start 03/27/20 at 17:30 Ondansetron HCl (Zofran) 4 mg PRN Q6HRS PRN IVP NAUSEA/VOMITING; Start 03/27/20 at 17:30; Stop 03/29/20 at 10:36; Status DC Iohexol (Omnipaque 300 Mg/ml) 75 ml 1X ONCE IV Last administered on 03/28/20at 07:00; Start 03/28/20 at 07:00; Stop 03/28/20 at 07:05; Status DC Info (CONTRAST GIVEN -- Rx MONITORING) 1 each PRN DAILY PRN MC SEE COMMENTS; Start 03/28/20 at 07:15; Stop 03/30/20 at 07:14; Status DC Dopamine HCl/ Dextrose (DOPamine 400MG/ 250ML PREMIX) 400 mg STK-MED ONCE IV ; Start 03/27/20 at 17:00; Stop 03/28/20 at 08:41; Status DC Micafungin Sodium 100 mg/Dextrose 100 ml @ 100 mls/hr DAILY IV Last administered on 03/31/20at 11:23; Start 03/28/20 at 09:15 Hydralazine HCl (Apresoline Inj) 10 mg Q6HRS IVP Last administered on 03/30/20at 06:23; Start 03/29/20 at 11:00; Stop 03/30/20 at 11:05; Status DC Amlodipine Besylate (Norvasc) 5 mg DAILY PO Last administered on 04/01/20at 08:34; Start 03/30/20 at 09:00 Atorvastatin Calcium (Lipitor) 20 mg QHS PO ; Start 03/29/20 at 21:00; Stop 03/29/20 at 16:25; Status DC Amino Acids/ Glycerin/ Electrolytes 1,000 ml @ 80 mls/hr [id number] IV Last adm inistered on 04/01/20at 05:09; Start 03/31/20 at 04:15 Barium Sulfate (Varibar Thin Liquid Apple) 148 gm 1X ONCE PO Last administered on 03/31/20at 10:15; Start 03/31/20 at 10:15; Stop 03/31/20 at 10:17; Status DC Active Scripts Active Reported Oxybutynin Chloride 5 Mg Tablet 1 Tab PO BID Methotrexate (Methotrexate Sodium) 2.5 Mg Tablet 7 Tab PO WEEKLY [place] 5-325 Tablet (Acetaminophen/Hydrocodone Bitart) 1 Each Tablet 1 Tab PO BID Folic Acid 0.8 Mg Capsule 1 Mg PO DAILY Famotidine 20 Mg Tablet 20 Mg PO BID Prednisone 20 Mg Tablet 10 Mg PO DAILY Celebrex (Celecoxib) 200 Mg Capsule 1 Cap PO DAILY Atorvastatin Calcium 10 Mg Tablet 10 Mg PO HS Valsartan 80 Mg Tablet 80 Mg PO DAILY Vitals/I & O Vital Sign - Last 24 Hours 03/31/20 03/31/20 03/31/20 03/31/20 09:00 09:05 09:10 09:15 Pulse 77 75 75 73 B/P (MAP) 131/58 (82) 127/63 (84) 125/56 (79) 122/51 (74) 03/31/20 03/31/20 03/31/20 03/31/20 09:20 09:25 09:30 09:35 Pulse 75 73 74 70 B/P (MAP) 121/55 (77) 120/53 (75) 124/55 (78) 125/55 (78) 03/31/20 03/31/20 03/31/20 03/31/20 09:40 09:45 09:50 09:55 Pulse 78 69 75 77 B/P (MAP) 134/55 (81) 116/53 (74) 125/58 (80) 129/59 (82) 03/31/20 03/31/20 03/31/20 03/31/20 10:00 11:00 11:15 11:30 Temp 97.8 97.8 Pulse 76 59 78 70 Resp 19 B/P (MAP) 135/58 (83) 145/70 (95) 145/70 (95) 138/64 (88) Pulse Ox 94 O2 Delivery Room Air 03/31/20 03/31/20 03/31/20 03/31/20 11:45 12:15 12:45 13:15 Pulse 71 74 80 72 B/P (MAP) 137/68 (91) 131/66 (87) 145/75 (98) 120/61 (80) 03/31/20 03/31/20 03/31/20 03/31/20 13:45 15:00 19:27 19:30 Temp 97.5 99.3 97.5 99.3 Pulse 81 70 71 Resp 18 17 B/P (MAP) 142/59 (86) 117/55 (75) 114/53 (73) Pulse Ox 95 96 O2 Delivery Room Air Room Air Room Air 03/31/20 03/31/20 03/31/20 03/31/20 19:44 20:55 21:44 22:34 Temp 98.3 98.3 Pulse 75 77 69 63 Resp 18 B/P (MAP) 119/77 (91) 126/68 (87) 119/60 (79) 134/68 (90) Pulse Ox 97 O2 Delivery Room Air 03/31/20 04/01/20 04/01/20 04/01/20 23:44 00:44 01:44 02:41 Temp 98.1 98.1 Pulse 68 77 68 73 Resp 18 B/P (MAP) 133/62 (85) 119/66 (83) 131/63 (85) 134/68 (90) Pulse Ox 96 O2 Delivery Room Air 04/01/20 04/01/20 04/01/20 04/01/20 03:44 04:44 07:00 08:33 Temp 98.8 98.8 Pulse 67 64 76 76 Resp 18 B/P (MAP) 129/64 (85) 127/64 (85) 137/67 (90) 137/67 Pulse Ox 94 O2 Delivery Room Air 04/01/20 08:34 Pulse 76 B/P (MAP) 137/67 Intake and Output 03/31/20 03/31/20 04/01/20 15:00 23:00 07:00 Intake Total 60 ml 297 ml 0 ml Output Total 1250 ml 650 ml Balance 60 ml -953 ml -650 ml Justicifation of Admission Dx: Justifications for Admission: Justification of Admission Dx: Yes Stroke - Ischemic: Stroke-Ischemic CORNELIUS MARSH MD Apr 01, 2020 09:00
--- NOTE | 2020-04-01 09:10 | RAD ---
EXAM: Video swallow evaluation. HISTORY: Silent aspiration. TECHNIQUE: Fluoroscopic imaging was performed with a speech pathologist during the oral administratio n of barium contrast of varying consistencies. A single fluoroscopic spot image was obtained. The tot al fluoroscopy time was 3.5 minutes. COMPARISON: None. FINDINGS: There is no evidence of aspiration or penetration. There is delayed and poor oral bolus for mation. IMPRESSION: No evidence of aspiration or penetration. Please refer the separate report by the speech pathologist for clinical recommendations. Electronically signed by: Ava Carrillo MD (04/01/2020 9:02 AM) [id number]
--- NOTE | 2020-04-01 09:45 | RAD ---
EXAM: Head CT without contrast. HISTORY: Hemorrhage follow-up. TECHNIQUE: Computed tomographic images of the head were obtained without contrast. *One or more of the following individualized dose reduction techniques were utilized for this examina tion: 1. Automated exposure control. 2. Adjustment of the mA and/or kV according to patient size. 3. Use of iterative reconstruction technique. COMPARISON: 03/30/2020. FINDINGS: There has been no change in the size or attenuation of an acute intraparenchymal hemorrhage within the medial left cerebellum with slight surrounding edema. There is also been no signal change in an approximately 1.8 cm acute intraparenchymal hemorrhage within the lateral right frontal lobe w ith surrounding hypodensity due to recently demonstrated acute to subacute infarction. There is no ma ss effect or midline shift. There is no hydrocephalus. There is encephalomalacia due to chronic infarction within the left cerebellum. There are chronic inf arcts within the bilateral basal ganglia and thalami. There are extensive white matter changes due to chronic small vessel disease. There is evidence of left lens surgery. The paranasal sinuses and mast oid air cells are unremarkable. There is no suspicious calvarial lesion. IMPRESSION: 1. No significant change in acute intraparenchymal hemorrhage within the medial left cerebellar hemis phere and within the lateral right frontal lobe, the latter of which corresponds with hemorrhagic tra nsformation of an acute to subacute infarct in the middle cerebral artery distribution. No new hemorr jayde is seen. 2. Chronic infarcts within the left cerebellum, bilateral basal ganglia and thalami and extensive caleb ateral white matter changes likely due to chronic small vessel disease. Electronically signed by: Ava Carrillo MD (04/01/2020 9:39 AM) [id number]
--- NOTE | 2020-04-01 10:28 | PDOC ---
NICKI PITTS [employer] OPERATOR 04/01/20 1028: CARDIO Progress Notes Date and Time Date of Service 04/01/2020 Time of Evaluation 1000 Subjective Subjective: No Chest Pain, No shortness of breath, No Palpitations Vitals Vitals Vital Signs Date Time Temp Pulse Resp B/P (MAP) Pulse Ox O2 Delivery O2 Flow Rate FiO2 04/01/20 08:34 76 137/67 04/01/20 08:00 Room Air 04/01/20 07:00 98.8 18 94 98.8 Weight Weight [ ] Input and Output Intake and Output Intake and Output 04/01/20 07:00 Intake Total 357 ml Output Total 1900 ml Balance -1543 ml Intake Oral 357 ml Output Urine Total 1900 ml Microbiology Micro Microbiology 03/28/20 Blood Culture - Preliminary, Resulted NO GROWTH AFTER 3 DAYS Physical Exam HEENT: Neck Supple W Full Motion, Other (blind OU) Chest: Symmetric LUNGS: Other (coarse) Heart: RRR (SR) Abdomen: Soft N/T Extremities: No Calf Tenderness Neurology: alert, oriented, follow commands Assessment Assessment 1. Acute CVA with prior hx: no hx of AFIB/flutter. Post tPA. EF and WM nml no PFO 2. Acute intraparenchymal hemorrhage measuring approximately 1.5 cm within the central aspect of the region of acute or subacute infarction within the posterior lateral right frontal lobe. Post tPA Acute intraparenchymal hemorrhage measuring approximately 1.3 cm within the medial left cerebellum. 3. Blind 4. Asymptomatic SB when asleep lowest in the 40s. possibly vagal episodes. None further 5. HTN urgency: BP better with cardene 6. Tobaccoism 7. RA: on methotrexate 8. Syncope: due to stroke 9. Fever: none further CXR is clear. 10. PSVT: appears to be PAFIB with abberancy. none further overnight. Recommendations 1. ASA when clear with neurology then could transition to NOAC at a later time but high risk for bleed and injury. Could consider [facility] as an outpt. No need for ILR. 2. Able to take PO meds. Wean off cardene. Increase norvasc, start coreg and may increase losartan as well pending BP trend. 3. Discussed with granddaughter. Pt lives with daughter and at this point daughter is unable to take care of pt and needing assistance for nsg home placement. Consult SS. 4. Follow up in office. 5. Smoking cessation Justicifation of Admission Dx: Justifications for Admission: Justification of Admission Dx: Yes Stroke - Ischemic: Stroke-Ischemic KYLE DSOUZA MD 04/01/20 1745: CARDIO Progress Notes Plan Plan Patient seen and examined. Agree with above nurse practitioner note. Supportive care. NICKI PITTS APRN Apr 01, 2020 10:28 KYLE DSOUZA MD Apr 01, 2020 17:45
[2020-04-01] MEDS: CARVEDILOL 3.125 MG TABLET. PO SCH ×2 (12:34→17:37)
[2020-04-01] MEDS: MICAFUNGIN 100 MG in IV DEXTROSE 5% 100ML 100 ML IV SCH (12:36)
[2020-04-01] MEDS ORDERED: LOSARTAN POTASSIUM 50 MG TABLET. PO ONE (14:00)
--- NOTE | 2020-04-01 14:08 | PDOC ---
[facility] PROGRESS NOTE Date of Service DOS: DATE: 04/01/20 TIME: 14:05 Chief Complaint Chief Complaint Images: Images HEAD CT IMPRESSION: Moderate small vessel ischemic change, technically age indeterminate without recent prior imaging. If there are persistent concerns for acute ischemia MRI would better evaluate. 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 Moderate malnutrition plan code stroke called Admit to medicine cvc bed Neurology consult Continue aspirin and atorvastatin Bedside swallow study cvc bed Fall precautions Orthostatic vital signs Hold all centrally acting medications SCD and Lovenox PT OT and speech modalities Pepcid GI prophylaxis ADA diet Full code Discussed with RN and SW preceding with alteplase 03-27 neurology here Surrogate decision maker is Alejandro SHETTY STROKE CALLED THIS AM, TRANSFER TO ICU 37 MIN CC TIME Justifications for Admission Justifications for Admission Syncope Indications Altered Mental Status?: Yes Justification for admission: Patient's severe/persistent Altered Mental Status as indicated by lethargy/confusional state that has persisted after initial hours of intervention is concerning, needs inpatient level of care for further evaluation and management. Is patient dehydrated?: Yes Justification for admission: There is concern that patient may be severely dehydrated accounting for the syncope. Patient needs inpatient level of care for further evaluation and management. Other Justification History of Present Illness History of Present Illness History obtained from chart review and discussion with the patient. Patient is alert awake oriented x3. 79 year old female presents via EMS with report of syncopal episode while she was eating dinner with her family. EMS reports patient became suddenly unresponsive. EMS reports patient's GCS initially 5 then improved to 10 during transport. Patient did vomit x1. Upon arrival patient with interval improvement. Denies fever or chills. 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 History of present illness limited secondary to altered mental status 04/01: Patient seen and evaluated with family at bedside. Repeat CT head shows no significant change in acute intraparenchymal hemorrhage. She is off nicardipine drip, and on oral blood pressure medications. Afebrile, without complaints today. Family is wanting acute rehab instead of hospice. 03/31: Patient seen and evaluated with granddaughter at bedside. Chest x-ray yesterday showed no acute pulmonary finding. She remains on nicardipine drip to control blood pressure. She is to have repeat CT head tomorrow. Discussed with granddaughter, who was primary care provider for patient, who agrees she would benefit from full-time nursing care. She may also be agreeable to hospice facilities given patient's poor prognosis. Repeat CT head tomorrow may provide further information for patient's family and making this decision. 03/30: Patient seen and evaluated. She is febrile today. Some concern for aspiration. Make patient n.p.o., and obtain chest x-ray. Repeat CT head showed acute intraparenchymal hemorrhage measuring approximately 1.5 cm within the central aspect of the region of acute or subacute infarction within the posteri or lateral right frontal lobe, and acute intraparenchymal hemorrhage measuring approximately 1.3 cm within the medial left cerebellum. Will place patient on nicardipine drip to keep systolic blood pressure <140 mmHg. Discussed with RN. 03/29: Patient seen in ICU. No acute events overnight. Patient with no complaints. She had MRI yesterday that showed acute infarct within the right superolateral frontal lobe cortex, concern for superimposed microhemorrhage. Short-term follow-up with a noncontrast head CT is recommended to exclude evolving hemorrhagic transformation. Discussed with RN. 03/28: Patient seen in ICU, s/p TPA. She has no complaints or concerns, pleasantly demented. Afebrile. MRI pending. PT recommending SNU. Discussed with RN and social sciences chair. Vitals/I&O Vitals/I&O: Vital Signs Date Time Temp Pulse Resp B/P (MAP) Pulse Ox O2 Delivery O2 Flow Rate FiO2 04/01/20 12:44 91 158/96 (116) 04/01/20 10:28 98.3 18 95 Room Air 98.3 I & O 03/31/20 03/31/20 04/01/20 15:00 23:00 07:00 Intake Total 60 ml 297 ml 0 ml Output Total 1250 ml 650 ml Balance 60 ml -953 ml -650 ml Physical Exam Physical Exam: GENERAL: Awake female, not in distress. VITAL SIGNS: Stable HEENT: Both pupils are round and reacting. No conjunctival lesion, no lesion in the mouth. NECK: Supple, no JVP, no lymphadenopathy. LUNGS: Clear. HEART: S1, S2 regular. ABDOMEN: Soft, nontender, no organomegaly. EXTREMITIES: No edema, cyanosis. SKIN: Unremarkable. NEUROLOGIC: The patient is awake, speaks some General: Alert, Oriented X3, Cooperative, No acute distress Heart: Regular rate (SR no ectopies), Other (2/6 systolic murmur to LLS border) Abdomen: Soft, No tenderness Extremities: No cyanosis, No edema Skin: No breakdown, No significant lesion Assessment and Plan Assessmemt and Plan Problems Medical Problems: (1) Altered mental status Status: Acute (2) Lactic acidosis Status: Acute (3) Syncope Status: Acute Comment Review of Relevant I have reviewed the following items alicia (where applicable) has been applied. Medications: Current Medications Medications (Trade) Dose Ordered Sig/Susan Route PRN Reason Start Time Stop Time Status Last Admin Dose Admin Carvedilol (Coreg) 3.125 mg BIDWMEALS PO 04/01/20 12:00 04/01/20 12:34 Justifications for Admission Syncope Indications Altered Mental Status?: Yes Justification for admission: Patient's severe/persistent Altered Mental Status as indicated by lethargy/confusional state that has persisted after initial hours of intervention is concerning, needs inpatient level of care for further evaluation and management. Is patient dehydrated?: Yes Justification for admission: There is concern that patient may be severely dehydrated accounting for the syncope. Patient needs inpatient level of care for further evaluation and management. Other Justification DIONNE SAM MD Apr 01, 2020 14:08
--- NOTE | 2020-04-01 15:25 | NUR ---
SS following up with discharge planning. SS reviewed pt chart and discussed with pt RN. Pt is currently on room air. COVID19 negative. Pt on IV Micafungin. Repeat CT today. Pt accepted at [facility] pending insurance authorization. Information on Power of Hand Riveter paperwork provided to pt's family. SS will continue to follow for discharge planning.
[2020-04-01] MEDS: ATORVASTATIN CALCIUM 40 MG TABLET. PO SCH (21:13)
[2020-04-02 03:26] VITALS: BP 159/85
[2020-04-02 07:00] VITALS: BP 163/65
--- NOTE | 2020-04-02 07:19 | PDOC ---
Infectious Disease Note Subjective Subjective Patient is awake says feeling ok No F/C/S/N/V/D/SOA/rash ROS ROS o/w neg Vital Sign Vital Signs Vital Signs Date Time Temp Pulse Resp B/P (MAP) Pulse Ox O2 Delivery O2 Flow Rate FiO2 04/02/20 03:26 98.9 61 16 159/85 (109) 94 Room Air 98.9 Physical Exam PHYSICAL EXAM GENERAL: Awake female, not in distress. VITAL SIGNS: Stable HEENT: Both pupils are round and reacting. No conjunctival lesion, no lesion in the mouth. edentulous -dry NECK: Supple, no JVP, no lymphadenopathy. LUNGS: Clear. HEART: S1, S2 regular. ABDOMEN: Soft, nontender, no organomegaly. EXTREMITIES: No edema, cyanosis. SKIN: Unremarkable. NEUROLOGIC: The patient is awake, speaks some Labs Micro 03/25 BLOOD CULTURE LC Final Final YEAST FINAL ID= [MELISSA GLABRATA] MELISSA GLABRATA Unless otherwise specified, Testing Performed by: [address] [address] For Inquires, the Physician may contact the Microbiology department at [phone] Microbiology 03/28/20 Blood Culture - Preliminary, Resulted NO GROWTH AFTER 4 DAYS Objective Assessment IMPRESSION: 1. 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 Cerebrovascular accident/code stroke. 3. Syncopal episode. 4. History of cerebrovascular accident. Intracranial hemorrhage 5. Hypertension. 6. Tobaccoism. 7. Glaucoma. On prednisone Plan Plan of Care Continue micafungin repeat neg from 03/28 Supportive care Ophthalmology consultation JUAN SANFORD MD Apr 02, 2020 07:19
[2020-04-02] MEDS: OXYBUTYNIN CHLORIDE 5 MG TABLET PO SCH ×2 (09:47→20:31)
[2020-04-02] MEDS: FOLIC ACID 1 MG TABLET. PO SCH (09:47)
[2020-04-02] MEDS: CARVEDILOL 3.125 MG TABLET. PO SCH ×2 (09:48→18:30)
[2020-04-02] MEDS: LOSARTAN POTASSIUM 50 MG TABLET. PO SCH (09:48)
[2020-04-02] MEDS: predniSONE 20 MG TABLET PO SCH (09:48)
[2020-04-02] MEDS: FAMOTIDINE 20 MG TABLET. PO SCH (09:49)
[2020-04-02] MEDS: MICAFUNGIN 100 MG in IV DEXTROSE 5% 100ML 100 ML IV SCH (09:49)
[2020-04-02] MEDS: METHOTREXATE SODIUM 2.5 MG TABLET PO SCH (10:07)
[2020-04-02 11:11] VITALS: BP 159/95
--- NOTE | 2020-04-02 11:57 | PDOC ---
[facility] [facility] PROGRESS NOTE Date of Service DOS: DATE: 04/02/20 TIME: 11:55 Chief Complaint Chief Complaint Images: Images HEAD CT IMPRESSION: Moderate small vessel ischemic change, technically age indeterminate without recent prior imaging. If there are persistent concerns for acute ischemia MRI would better evaluate. 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 Moderate malnutrition plan code stroke called Admit to medicine cvc bed Neurology consult Continue aspirin and atorvastatin Bedside swallow study cvc bed Fall precautions Orthostatic vital signs Hold all centrally acting medications SCD and Lovenox PT OT and speech modalities Pepcid GI prophylaxis ADA diet Full code Discussed with RN and SW preceding with alteplase 03-27 neurology here Surrogate decision maker is Alejandro SHETTY STROKE CALLED THIS AM, TRANSFER TO ICU 37 MIN CC TIME Justifications for Admission Justifications for Admission Syncope Indications Altered Mental Status?: Yes Justification for admission: Patient's severe/persistent Altered Mental Status as indicated by lethargy/confusional state that has persisted after initial hours of intervention is concerning, needs inpatient level of care for further evaluation and management. Is patient dehydrated?: Yes Justification for admission: There is concern that patient may be severely dehydrated accounting for the syncope. Patient needs inpatient level of care for further evaluation and management. Other Justification History of Present Illness History of Present Illness History obtained from chart review and discussion with the patient. Patient is alert awake oriented x3. 79 year old female presents via EMS with report of syncopal episode while she was eating dinner with her family. EMS reports patient became suddenly unresponsive. EMS reports patient's GCS initially 5 then improved to 10 during transport. Patient did vomit x1. Upon arrival patient with interval improvement. Denies fever or chills. 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 History of present illness limited secondary to altered mental status 04/02: Patient evaluated bedside. She is on micafungin for Olga fungemia. He has been accepted to a [facility], pending insurance auth. 04/01: Patient seen and evaluated with family at bedside. Repeat CT head shows no significant change in acute intraparenchymal hemorrhage. She is off nicardipine drip, and on oral blood pressure medications. Afebrile, without complaints today. Family is wanting acute rehab instead of hospice. 03/31: Patient seen and evaluated with granddaughter at bedside. Chest x-ray yesterday showed no acute pulmonary finding. She remains on nicardipine drip to control blood pressure. She is to have repeat CT head tomorrow. Discussed with granddaughter, who was primary care provider for patient, who agrees she would benefit from full-time nursing care. She may also be agreeable to hospice facilities given patient's poor prognosis. Repeat CT head tomorrow may provide further information for patient's family and making this decision. 03/30: Patient seen and evaluated. She is febrile today. Some concern for aspiration. Make patient n.p.o., and obtain chest x-ray. Repeat CT head showed acute intraparenchymal hemorrhage measuring approximately 1.5 cm within the central aspect of the region of acute or subacute infarction within the posterior lateral right frontal lobe, and acute intraparenchymal hemorrhage measuring approximately 1.3 cm within the medial left cerebellum. Will place patient on nicardipine drip to keep systolic blood pressure <140 mmHg. Discussed with RN. 03/29: Patient seen in ICU. No acute events overnight. Patient with no complaints. She had MRI yesterday that showed acute infarct within the right superolateral frontal lobe cortex, concern for superimposed microhemorrhage. Short-term follow-up with a noncontrast head CT is recommended to exclude evolving hemorrhagic transformation. Discussed with RN. 03/28: Patient seen in ICU, s/p TPA. She has no complaints or concerns, pleasantly demented. Afebrile. MRI pending. PT recommending SNU. Discussed w [facility] RN and social worker health services. Vitals/I&O Vitals/I&O: Vital Signs Date Time Temp Pulse Resp B/P (MAP) Pulse Ox O2 Delivery O2 Flow Rate FiO2 04/02/20 11:11 99.3 75 20 159/95 (116) 96 Room Air 99.3 I & O 04/01/20 04/01/20 04/02/20 15:00 23:00 07:00 Intake Total 340 ml 0 ml Output Total 1450 ml 225 ml Balance -1110 ml -225 ml Physical Exam Physical Exam: GENERAL: Awake female, not in distress. VITAL SIGNS: Stable HEENT: Both pupils are round and reacting. No conjunctival lesion, no lesion in the mouth. edentulous -dry NECK: Supple, no JVP, no lymphadenopathy. LUNGS: Clear. HEART: S1, S2 regular. ABDOMEN: Soft, nontender, no organomegaly. EXTREMITIES: No edema, cyanosis. SKIN: Unremarkable. NEUROLOGIC: The patient is awake, speaks some General: Alert, Oriented X3, Cooperative, No acute distress Heart: Regular rate (SR no ectopies), Other (2/6 systolic murmur to LLS border) Abdomen: Soft, No tenderness Extremities: No cyanosis, No edema Skin: No breakdown, No significant lesion Assessment and Plan Assessmemt and Plan Problems Medical Problems: (1) Altered mental status Status: Acute (2) Lactic acidosis Status: Acute (3) Syncope Status: Acute Comment Review of Relevant I have reviewed the following items alicia (where applicable) has been applied. Medications: Current Medications Medications (Trade) Dose Ordered Sig/Susan Route PRN Reason Start Time Stop Time Status Last Admin Dose Admin Carvedilol (Coreg) 3.125 mg BIDWMEALS PO 04/01/20 12:00 04/02/20 09:48 Amlodipine Besylate (Norvasc) 10 mg DAILY PO 04/02/20 09:00 04/02/20 09:47 Losartan Potassium (Cozaar) 100 mg DAILY PO 04/02/20 09:00 04/02/20 09:48 Losartan Potassium (Cozaar) 50 mg 1X ONCE PO 04/01/20 14:00 04/01/20 14:01 DC 04/01/20 14:50 Amlodipine Besylate (Norvasc) 5 mg 1X ONCE PO 04/01/20 14:00 04/01/20 14:01 DC 04/01/20 14:51 Justifications for Admission Syncope Indications Altered Mental Status?: Yes Justification for admission: Patient's severe/persistent Altered Mental Status as indicated by lethargy/confusional state that has persisted after initial hours of intervention is concerning, needs inpatient level of care for further evaluation and management. Is patient dehydrated?: Yes Justification for admission: There is concern that patient may be severely dehydrated accounting for the syncope. Patient needs inpatient level of care for further evaluation and management. Other Justification DIONNE SAM MD Apr 02, 2020 11:57
[2020-04-02 15:00] VITALS: BP 155/70
[2020-04-02 19:30] VITALS: BP 122/73
[2020-04-02] MEDS: ATORVASTATIN CALCIUM 40 MG TABLET. PO SCH (20:31)
[2020-04-02 22:34] VITALS: BP 136/100
[2020-04-03 02:44] VITALS: BP 189/87
--- NOTE | 2020-04-03 06:53 | PDOC ---
Infectious Disease Note Subjective Subjective Patient is awake says feeling well Hungry No F/C/S/N/V/D/SOA/rash ROS ROS o/w neg Vital Sign Vital Signs Vital Signs Date Time Temp Pulse Resp B/P (MAP) Pulse Ox O2 Delivery O2 Flow Rate FiO2 04/03/20 02:53 76 189/87 04/03/20 02:44 98.6 18 95 Room Air 98.6 Physical Exam PHYSICAL EXAM GENERAL: Awake female, not in distress.- pleasant HEENT: Both pupils are round and reacting. No conjunctival lesion, no lesion in the mouth. edentulous -dry NECK: Supple, no JVP, no lymphadenopathy. LUNGS: Clear. HEART: S1, S2 regular. ABDOMEN: Soft, nontender, no organomegaly. Herrera EXTREMITIES: No edema, cyanosis. SKIN: Unremarkable. NEUROLOGIC:moves ext Labs Micro 03/25 BLOOD CULTURE LC Final Final YEAST FINAL ID= [MELISSA GLABRATA] MELISSA GLABRATA Unless otherwise specified, Testing Performed by: [address] [address] For Inquires, the Physician may contact the Microbiology department at [phone] Microbiology 03/28/20 Blood Culture - Preliminary, Resulted NO GROWTH AFTER 4 DAYS Objective Assessment Low grade temp - ? covers/atelectasis. Clinically looks well - lungs clean 1. 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 Cerebrovascular accident/code stroke. 3. Syncopal episode. 4. History of cerebrovascular accident. Intracranial hemorrhage 5. Hypertension. 6. Tobaccoism. 7. Glaucoma. On prednisone Plan Plan of Care Check CXR Labs (although on steroids) If worsens will need cults and abx expansion Continue micafungin repeat neg from 03/28 Supportive care Ophthalmology consultation D/w nursing JUAN SANFORD MD Apr 03, 2020 06:53
[2020-04-03 07:00] VITALS: BP 173/87
--- NOTE | 2020-04-03 07:45 | RAD ---
AP chest. HISTORY: Low-grade temperature AP view was taken of the chest. Heart is normal in size. There is arthritis in both shoulders. There are no acute infiltrates. Been no change from a recent study. There is atherosclerotic change in the aorta. IMPRESSION: 1. No acute infiltrates. Electronically signed by: Oni Pacheco MD (04/03/2020 7:38 AM) [facility]
[2020-04-03] MEDS: FOLIC ACID 1 MG TABLET. PO SCH (08:14)
[2020-04-03] MEDS: OXYBUTYNIN CHLORIDE 5 MG TABLET PO SCH ×2 (08:14→21:14)
[2020-04-03] MEDS: FAMOTIDINE 20 MG TABLET. PO SCH (08:14)
[2020-04-03] MEDS: LOSARTAN POTASSIUM 50 MG TABLET. PO SCH (08:14)
[2020-04-03] MEDS: MICAFUNGIN 100 MG in IV DEXTROSE 5% 100ML 100 ML IV SCH (08:14)
[2020-04-03] MEDS: predniSONE 10 MG TABLET PO SCH (08:14)
[2020-04-03] MEDS: CARVEDILOL 3.125 MG TABLET. PO SCH ×2 (08:15→18:22)
[2020-04-03 08:29] LABS: BASO % 1 % (0-3); EOS # 0.1 x10^3/uL (0.0-0.7); EOS % 2 % (0-3); HEMATOCRIT 38.9 % (36.0-47.0); HEMOGLOBIN 13.2 g/dL (12.0-15.5); LYMPH # 1.2 x10^3/uL (1.0-4.8); LYMPH % 18 % (24-48); MEAN CORPUSCULAR HEMOGLOBIN 31 pg (25-35); MEAN CORPUSCULAR HGB CONC 34 g/dL (31-37); MEAN CORPUSCULAR VOLUME 90 fL (79-100); MONO # 0.5 x10^3/uL (0.0-1.1); MONO % 8 % (0-9); NEUT # 4.5 x10^3/uL (1.8-7.7); NEUT % 71 % (31-73); PLATELET COUNT 239 x10^3/uL (140-400); RED BLOOD COUNT 4.33 x10^6/uL (3.50-5.40); RED CELL DISTRIBUTION WIDTH 13.3 % (11.5-14.5); WHITE BLOOD COUNT 6.4 x10^3/uL (4.0-11.0)
[2020-04-03 08:45] LABS: CALCIUM 8.6 mg/dL (8.5-10.1); CREATININE 0.8 mg/dL (0.6-1.0); GFR 84.2
[2020-04-03 11:00] VITALS: BP 138/60
--- NOTE | 2020-04-03 11:42 | PDOC ---
[employer] PROGRESS NOTE Date of Service DOS: DATE: 04/03/20 TIME: 11:37 Chief Complaint Chief Complaint Images: Images HEAD CT IMPRESSION: Moderate small vessel ischemic change, technically age indeterminate without recent prior imaging. If there are persistent concerns for acute ischemia MRI would better evaluate. 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 Moderate malnutrition plan code stroke called Admit to medicine cvc bed Neurology consult Continue aspirin and atorvastatin Bedside swallow study cvc bed Fall precautions Orthostatic vital signs Hold all centrally acting medications SCD and Lovenox PT OT and speech modalities Pepcid GI prophylaxis ADA diet Full code Discussed with RN and SW preceding with alteplase 03-27 neurology here Surrogate decision maker is Alejandro SHETTY STROKE CALLED THIS AM, TRANSFER TO ICU 37 MIN CC TIME Justifications for Admission Justifications for Admission Syncope Indications Altered Mental Status?: Yes Justification for admission: Patient's severe/persistent Altered Mental Status as indicated by lethargy/confusional state that has persisted after initial hours of intervention is concerning, needs inpatient level of care for further evaluation and management. Is patient dehydrated?: Yes Justification for admission: There is concern that patient may be severely dehydrated accounting for the syncope. Patient needs inpatient level of care for further evaluation and management. Other Justification History of Present Illness History of Present Illness History obtained from chart review and discussion with the patient. Patient is alert awake oriented x3. 79 year old female presents via EMS with report of syncopal episode while she was eating dinner with her family. EMS reports patient became suddenly unresponsive. EMS reports patient's GCS initially 5 then improved to 10 during transport. Patient did vomit x1. Upon arrival patient with interval improvement. Denies fever or chills. 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 History of present illness limited secondary to altered mental status 04/03: Patient seen and evaluated bedside. No complaints today, states she wants to go home. Discussed with RN, no acute vents overnight. 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 Repeat blood cultures showed no growth after 5 days. [facility], pending insurance authorization. 04/02: Patient evaluated bedside. She is on micafungin for Olga fungemia. He has been accepted to a [facility], pending insurance auth. 04/01: Patient seen and evaluated with family at bedside. Repeat CT head shows no significant change in acute intraparenchymal hemorrhage. She is off nicardipine drip, and on oral blood pressure medications. Afebrile, without complaints today. Family is wanting acute rehab instead of hospice. 03/31: Patient seen and evaluated with granddaughter at bedside. Chest x-ray yesterday showed no acute pulmonary finding. She remains on nicardipine drip to control blood pressure. She is to have repeat CT head tomorrow. Discussed with granddaughter, who was primary care provider for patient, who agrees she would benefit from full-time nursing care. She may also be agreeable to hospice facilities given patient's poor prognosis. Repeat CT head tomorrow may provide further information for patient's family and making this decision. 03/30: Patient seen and evaluated. She is febrile today. Some concern for aspiration. Make patient n.p.o., and obtain chest x-ray. Repeat CT head showed acute intraparenchymal hemorrhage measuring approximately 1.5 cm within the central aspect of the region of acute or subacute infarction within the posterior lateral right frontal lobe, and acute intraparenchymal hemorrhage measuring approximately 1.3 cm within the medial left cerebellum. Will place patient on nicardipine drip to keep systolic blood pressure <140 mmHg. Discussed with RN. 03/29: Patient seen in ICU. No acute events overnight. Patient with no complaints. She had MRI yesterday that showed acute infarct within the right superolateral frontal lobe cortex, concern for superimposed microhemorrhage. Short-term follow-up with a noncontrast head CT is recommended to exclude evolving hemorrhagic transformation. Discussed with RN. 03/28: Patient seen in ICU, s/p TPA. She has no complaints or concerns, pleasantly demented. Afebrile. MRI pending. PT recommending SNU. Discussed with RN and social services coordinator. Vitals/I&O Vitals/I&O: Vital Signs Date Time Temp Pulse Resp B/P (MAP) Pulse Ox O2 Delivery O2 Flow Rate FiO2 1/10/21 08:15 74 173/87 04/03/20 08:00 Room Air 04/03/20 07:00 98.1 18 92 98.1 I & O 04/02/20 04/02/20 04/03/20 15:00 23:00 07:00 Intake Total 400 ml 200 ml 0 ml Output Total 700 ml 350 ml Balance -300 ml 200 ml -350 ml Physical Exam Physical Exam: GENERAL: Awake female, not in distress.- pleasant HEENT: Both pupils are round and reacting. No conjunctival lesion, no lesion in the mouth. edentulous -dry NECK: Supple, no JVP, no lymphadenopathy. LUNGS: Clear. HEART: S1, S2 regular. ABDOMEN: Soft, nontender, no organomegaly. Herrera EXTREMITIES: No edema, cyanosis. SKIN: Unremarkable. NEUROLOGIC:moves ext General: Alert, Cooperative, No acute distress Heart: Regular rate (SR no ectopies), Other (2/6 systolic murmur to LLS border) Abdomen: Soft, No tenderness Extremities: No cyanosis, No edema Skin: No breakdown, No significant lesion Labs Labs: Laboratory Tests Test 04/03/20 07:27 White Blood Count 6.4 x10^3/uL (4.0-11.0) Red Blood Count 4.33 x10^6/uL (3.50-5.40) Hemoglobin 13.2 g/dL (12.0-15.5) Hematocrit 38.9 % (36.0-47.0) Mean Corpuscular Volume 90 fL (79-100) Mean Corpuscular Hemoglobin 31 pg (25-35) Mean Corpuscular Hemoglobin Concent 34 g/dL (31-37) Red Cell Distribution Width 13.3 % (11.5-14.5) Platelet Count 239 x10^3/uL (140-400) Neutrophils (%) (Auto) 71 % (31-73) Lymphocytes (%) (Auto) 18 % (24-48) Monocytes (%) (Auto) 8 % (0-9) Eosinophils (%) (Auto) 2 % (0-3) Basophils (%) (Auto) 1 % (0-3) Neutrophils # (Auto) 4.5 x10^3/uL (1.8-7.7) Lymphocytes # (Auto) 1.2 x10^3/uL (1.0-4.8) Monocytes # (Auto) 0.5 x10^3/uL (0.0-1.1) Eosinophils # (Auto) 0.1 x10^3/uL (0.0-0.7) Basophils # (Auto) 0.0 x10^3/uL (0.0-0.2) Sodium Level 142 mmol/L (136-145) Potassium Level 3.0 mmol/L (3.5-5.1) Chloride Level 105 mmol/L (98-107) Carbon Dioxide Level 29 mmol/L (21-32) Anion Gap 8 (6-14) Blood Urea Nitrogen 17 mg/dL (7-20) Creatinine 0.8 mg/dL (0.6-1.0) Estimated GFR (Cockcroft-Gault) 84.2 Glucose Level 82 mg/dL (70-99) Calcium Level 8.6 mg/dL (8.5-10.1) Assessment and Plan Assessmemt and Plan Problems Medical Problems: (1) Altered mental status Status: Acute (2) Lactic acidosis Status: Acute (3) Syncope Status: Acute Comment Review of Relevant I have reviewed the following items alicia (where applicable) has been applied. Medications: Current Medications Medications (Trade) Dose Ordered Sig/Susan Route PRN Reason Start Time Stop Time Status Last Admin Dose Admin Prednisone (Prednisone) 10 mg DAILY PO 04/03/20 09:00 04/03/20 08:14 Justifications for Admission Syncope Indications Altered Mental Status?: Yes Justification for admission: Patient's severe/persistent Altered Mental Status as indicated by lethargy/confusional state that has persisted after initial hours of intervention is concerning, needs inpatient level of care for further evaluation and management. Is patient dehydrated?: Yes Justification for admission: There is concern that patient may be severely dehydrated accounting for the syncope. Patient needs inpatient level of care for further evaluation and management. Other Justification DIONNE SAM MD Apr 03, 2020 11:42
--- NOTE | 2020-04-03 12:07 | PDOC ---
PROGRESS NOTES DOS: DATE: 04/03/20 TIME: 12:07 Assessment Problems Medical Problems: (1) Altered mental status Status: Acute (2) Lactic acidosis Status: Acute (3) Syncope Status: Acute Plan Acute intraparenchymal hemorrhage, right frontal lobe, medial left cerebellar acute infarct status post TPA, myeloid angiopathy, chronic infarcts noted, admitted with syncope, hypertension, keep blood pressure less than 160 systolic, follow-up CT stable, hyperlipidemia on statin, rehab modalities continue medical management Subjective Patient is resting in bed. She is feeling better. She denies any complaint of headache chest pain shortness of breath dizziness. Objective Vital Signs Date Time Temp Pulse Resp B/P (MAP) Pulse Ox O2 Delivery O2 Flow Rate FiO2 04/03/20 08:15 74 173/87 04/03/20 08:00 Room Air 04/03/20 07:00 98.1 18 92 98.1 Intake and Output 04/03/20 06:59 Intake Total 600 ml Output Total 1050 ml Balance -450 ml Intake Oral 600 ml Output Urine Total 1050 ml PHYSICAL EXAM General no acute distress. HEENT: Normocephalic and atraumatic. NECK: Supple without bruit Respiratory: Clear to auscultation bilaterally Heart: Regular rate and rhythm, S1S2 normal NEUROLOGIC: Mental status Alert able to tell her nameWord finding difficulty Cranial nerve equally reactive pupils, and intact extraocular movements. Left facial asymmetry. blindness Difficulty hearing Palate elevates and tongue protrudes in midline. Reflexes are 1-2 with flexor plantar responses. Strength able to move all exts Sensory exam is intact for light touch and pinprick. Gait in bed. Review of Relevant I have reviewed the following items alicia (where applicable) has been applied. Labs Laboratory Tests Test 04/03/20 07:27 White Blood Count 6.4 x10^3/uL (4.0-11.0) Red Blood Count 4.33 x10^6/uL (3.50-5.40) Hemoglobin 13.2 g/dL (12.0-15.5) Hematocrit 38.9 % (36.0-47.0) Mean Corpuscular Volume 90 fL (79-100) Mean Corpuscular Hemoglobin 31 pg (25-35) Mean Corpuscular Hemoglobin Concent 34 g/dL (31-37) Red Cell Distribution Width 13.3 % (11.5-14.5) Platelet Count 239 x10^3/uL (140-400) Neutrophils (%) (Auto) 71 % (31-73) Lymphocytes (%) (Auto) 18 % (24-48) Monocytes (%) (Auto) 8 % (0-9) Eosinophils (%) (Auto) 2 % (0-3) Basophils (%) (Auto) 1 % (0-3) Neutrophils # (Auto) 4.5 x10^3/uL (1.8-7.7) Lymphocytes # (Auto) 1.2 x10^3/uL (1.0-4.8) Monocytes # (Auto) 0.5 x10^3/uL (0.0-1.1) Eosinophils # (Auto) 0.1 x10^3/uL (0.0-0.7) Basophils # (Auto) 0.0 x10^3/uL (0.0-0.2) Sodium Level 142 mmol/L (136-145) Potassium Level 3.0 mmol/L (3.5-5.1) Chloride Level 105 mmol/L (98-107) Carbon Dioxide Level 29 mmol/L (21-32) Anion Gap 8 (6-14) Blood Urea Nitrogen 17 mg/dL (7-20) Creatinine 0.8 mg/dL (0.6-1.0) Estimated GFR (Cockcroft-Gault) 84.2 Glucose Level 82 mg/dL (70-99) Calcium Level 8.6 mg/dL (8.5-10.1) Laboratory Tests Test 04/03/20 07:27 White Blood Count 6.4 x10^3/uL (4.0-11.0) Red Blood Count 4.33 x10^6/uL (3.50-5.40) Hemoglobin 13.2 g/dL (12.0-15.5) Hematocrit 38.9 % (36.0-47.0) Mean Corpuscular Volume 90 fL (79-100) Mean Corpuscular Hemoglobin 31 pg (25-35) Mean Corpuscular Hemoglobin Concent 34 g/dL (31-37) Red Cell Distribution Width 13.3 % (11.5-14.5) Platelet Count 239 x10^3/uL (140-400) Neutrophils (%) (Auto) 71 % (31-73) Lymphocytes (%) (Auto) 18 % (24-48) Monocytes (%) (Auto) 8 % (0-9) Eosinophils (%) (Auto) 2 % (0-3) Basophils (%) (Auto) 1 % (0-3) Neutrophils # (Auto) 4.5 x10^3/uL (1.8-7.7) Lymphocytes # (Auto) 1.2 x10^3/uL (1.0-4.8) Monocytes # (Auto) 0.5 x10^3/uL (0.0-1.1) Eosinophils # (Auto) 0.1 x10^3/uL (0.0-0.7) Basophils # (Auto) 0.0 x10^3/uL (0.0-0.2) Sodium Level 142 mmol/L (136-145) Potassium Level 3.0 mmol/L (3.5-5.1) Chloride Level 105 mmol/L (98-107) Carbon Dioxide Level 29 mmol/L (21-32) Anion Gap 8 (6-14) Blood Urea Nitrogen 17 mg/dL (7-20) Creatinine 0.8 mg/dL (0.6-1.0) Estimated GFR (Cockcroft-Gault) 84.2 Glucose Level 82 mg/dL (70-99) Calcium Level 8.6 mg/dL (8.5-10.1) Microbiology 03/28/20 Blood Culture - Final, Complete NO GROWTH AFTER 5 DAYS Medications Current Medications Sodium Chloride 1,000 ml @ 1,000 mls/hr 1X ONCE IV Last administered on 03/25/20at 19:48; Start 03/25/20 at 18:15; Stop 03/25/20 at 19:14; Status DC Aspirin (Aspirin Rectal Supp) 300 mg 1X ONCE TX Last administered on 03/25/20at 19:48; Start 03/25/20 at 19:30; Stop 03/25/20 at 19:33; Status DC Ondansetron HCl (Zofran) 4 mg PRN Q8HRS PRN IV NAUSEA/VOMITING; Start 03/25/20 at 20:30; Stop 03/26/20 at 20:29; Status DC Sodium Chloride 1,000 ml @ 75 mls/hr 1X ONCE IV Last administered on 03/25/20at 20:30; Start 03/25/20 at 20:30; Stop 03/26/20 at 00:18; Status DC Atorvastatin Calcium (Lipitor) 40 mg QHS PO Last administered on 04/02/20at 20:31; Start 03/25/20 at 21:00 Sennosides (Senna) 17.2 mg PRN BID PRN PO CONSTIPATION 1ST CHOICE; Start 03/25/20 at 21:00 Docusate Sodium (Colace) 100 mg PRN DAILY PRN PO HARD STOOLS; Start 03/25/20 at 21:00 Ondansetron HCl (Zofran) 4 mg PRN Q6HRS PRN IVP NAUSEA/VOMITING 1ST CHOICE Last administered on 03/28/20at 03:35; Start 03/25/20 at 21:00 Aspirin (Ecotrin) 81 mg [id number] PO Last administered on 03/30/20at 08:19; St art 03/26/20 at 08:00; Stop 03/30/20 at 10:30; Status DC Dextrose (Dextrose 50%-Water Syringe) 12.5 gm PRN Q15MIN PRN IV SEE COMMENTS; Start 03/25/20 at 21:00 Sodium Chloride 1,000 ml @ 100 mls/hr Q10H IV Last administered on 03/30/20at 17:03; Start 03/25/20 at 21:00; Stop 03/31/20 at 07:45; Status DC Labetalol HCl (Normodyne Iv Push) 10 mg PRN Q2HRS PRN IVP HYPERTENSION Last administered on 03/31/20at 06:30; Start 03/26/20 at 09:00; Stop 04/02/20 at 15:00; Status DC Famotidine (Pepcid) 20 mg DAILY PO Last administered on 04/03/20at 08:14; Start 03/26/20 at 15:00 Acetaminophen/ Hydrocodone Bitart (Lortab 5/325) 1 tab BID PO ; Start 03/26/20 at 15:00; Stop 03/26/20 at 15:04; Status DC Methotrexate (Rheumatrex) 17.5 mg WEEKLY PO Last administered on 04/02/20at 10:07; Start 03/26/20 at 15:00 Oxybutynin Chloride (Ditropan) 5 mg BID PO Last administered on 04/03/20at 08:14; Start 03/26/20 at 15:00 Prednisone (Prednisone) 10 mg DAILY PO Last administered on 04/02/20at 09:48; Start 03/26/20 at 15:00; Stop 04/02/20 at 15:01; Status DC Celecoxib (CeleBREX) 200 mg DAILY PO Last administered on 03/30/20at 08:19; Start 03/26/20 at 15:00; Stop 03/30/20 at 14:46; Status DC Folic Acid (Folic Acid) 1 mg DAILY PO Last administered on 04/03/20at 08:14; Start 03/26/20 at 15:00 Losartan Potassium (Cozaar) 50 mg DAILY PO Last administered on 04/01/20at 08:33; Start 03/26/20 at 15:00; Stop 04/01/20 at 13:47; Status DC Acetaminophen/ Hydrocodone Bitart (Lortab 5/325) 1 tab PRN BID PRN PO MODERATE PAIN, SEVERE PAIN; Start 03/26/20 at 15:15 Dopamine HCl/ Dextrose 0 ml @ As Directed STK-MED ONCE IV ; Start 03/27/20 at 16:26; Stop 03/27/20 at 16:26; Status DC Alteplase, Recombinant 4.3 ml @ 258 mls/hr 1X ONCE IV Last administered on 03/27/20at 17:36; Start 03/27/20 at 17:15; Stop 03/27/20 at 17:17; Status DC Alteplase, Recombinant 38.6 ml @ 38.6 mls/hr Q1H IV Last administered on 03/27/20at 17:34; Start 03/27/20 at 17:15; Stop 03/27/20 at 18:14; Status DC Sodium Chloride 50 ml @ 200 mls/hr 1X ONCE IV Last administered on 03/27/20at 18:05; Start 03/27/20 at 17:15; Stop 03/27/20 at 17:29; Status DC Alteplase, Recombinant 0 ml @ 0 mls/hr Q1M ONCE IV ; Start 03/27/20 at 17:15; Stop 03/27/20 at 17:16; Status UNV Alteplase, Recombinant 0 ml @ 0 mls/hr Q1H IV ; Start 03/27/20 at 17:15; Status UNV Sodium Chloride 50 ml @ 50 mls/hr Q1H ONCE IV ; Start 03/27/20 at 17:15; Stop 03/27/20 at 18:14; Status UNV Labetalol HCl (Normodyne Iv Push) 10 mg PRN Q10MIN PRN IVP HYPERTENSION Last administered on 04/03/20at 02:53; Start 03/27/20 at 17:15 Nicardipine HCl 50 mg/Sodium Chloride 250 ml @ 25 mls/hr CONT PRN PRN IV HYPERTENSION Last administered on 04/01/20at 05:09; Start 03/27/20 at 17:15 Labetalol HCl (Normodyne Iv Push) 10 mg PRN Q10MIN PRN IVP HYPERTENSION; Start 03/27/20 at 17:30; Stop 03/27/20 at 17:34; Status DC Nicardipine HCl 50 mg/Sodium Chloride 250 ml @ 25 mls/hr CONT PRN PRN IV HYPERTENSION; Start 03/27/20 at 17:30; Status UNV Acetaminophen (Tylenol) 650 mg PRN Q6HRS PRN PO MILD PAIN / TEMP > 100.3'F; Start 03/27/20 at 17:30 Acetaminophen (Tylenol Supp) 650 mg PRN Q6HRS PRN TX MILD PAIN / TEMP > 100.3'F; Start 03/27/20 at 17:30 Ondansetron HCl (Zofran) 4 mg PRN Q6HRS PRN IVP NAUSEA/VOMITING; Start 03/27/20 at 17:30; Stop 03/29/20 at 10:36; Status DC Iohexol (Omnipaque 300 Mg/ml) 75 ml 1X ONCE IV Last administered on 03/28/20at 07:00; Start 03/28/20 at 07:00; Stop 03/28/20 at 07:05; Status DC Info (CONTRAST GIVEN -- Rx MONITORING) 1 each PRN DAILY PRN MC SEE COMMENTS; Start 03/28/20 at 07:15; Stop 03/30/20 at 07:14; Status DC Dopamine HCl/ Dextrose (DOPamine 400MG/ 250ML PREMIX) 400 mg STK-MED ONCE IV ; Start 03/27/20 at 17:00; Stop 03/28/20 at 08:41; Status DC Micafungin Sodium 100 mg/Dextrose 100 ml @ 100 mls/hr DAILY IV Last administered on 04/03/20at 08:14; Start 03/28/20 at 09:15 Hydralazine HCl (Apresoline Inj) 10 mg Q6HRS IVP Last administered on 03/30/20at 06:23; Start 03/29/20 at 11:00; Stop 03/30/20 at 11:05; Status DC Amlodipine Besylate (Norvasc) 5 mg DAILY PO Last administered on 04/01/20at 08:34; Start 03/30/20 at 09:00; Stop 04/01/20 at 13:47; Status DC Atorvastatin Calcium (Lipitor) 20 mg QHS PO ; Start 03/29/20 at 21:00; Stop 03/29/20 at 16:25; Status DC Amino Acids/ Glycerin/ Electrolytes 1,000 ml @ 80 mls/hr [id number] IV Last administered on 04/01/20at 05:09; Start 03/31/20 at 04:15; Stop 04/01/20 at 14:03; Status DC Barium Sulfate (Varibar Thin Liquid Apple) 148 gm 1X ONCE PO Last administered on 03/31/20at 10:15; Start 03/31/20 at 10:15; Stop 03/31/20 at 10:17; Status DC Carvedilol (Coreg) 3.125 mg BIDWMEALS PO Last administered on 04/03/20at 08:15; Start 04/01/20 at 12:00 Amlodipine Besylate (Norvasc) 10 mg DAILY PO Last administered on 04/03/20at 08:15; Start 04/02/20 at 09:00 Losartan Potassium (Cozaar) 100 mg DAILY PO Last administered on 04/03/20at 08:14; Start 04/02/20 at 09:00 Losartan Potassium (Cozaar) 50 mg 1X ONCE PO Last administered on 04/01/20at 14:50; Start 04/01/20 at 14:00; Stop 04/01/20 at 14:01; Status DC Amlodipine Besylate (Norvasc) 5 mg 1X ONCE PO Last administered on 04/01/20at 14:51; Start 04/01/20 at 14:00; Stop 04/01/20 at 14:01; Status DC Prednisone (Prednisone) 10 mg DAILY PO Last administered on 04/03/20at 08:14; Start 04/03/20 at 09:00 Active Scripts Active Reported Oxybutynin Chloride 5 Mg Tablet 1 Tab PO BID Methotrexate (Methotrexate Sodium) 2.5 Mg Tablet 7 Tab PO WEEKLY [place] 5-325 Tablet (Acetaminophen/Hydrocodone Bitart) 1 Each Tablet 1 Tab PO BID Folic Acid 0.8 Mg Capsule 1 Mg PO DAILY Famotidine 20 Mg Tablet 20 Mg PO BID Prednisone 20 Mg Tablet 10 Mg PO DAILY Celebrex (Celecoxib) 200 Mg Capsule 1 Cap PO DAILY Atorvastatin Calcium 10 Mg Tablet 10 Mg PO HS Valsartan 80 Mg Tablet 80 Mg PO DAILY Vitals/I & O Vital Sign - Last 24 Hours 04/02/20 04/02/20 04/02/20 04/02/20 15:00 18:30 19:30 19:50 Temp 99.7 100.2 99.7 100.2 Pulse 67 67 79 Resp 16 16 B/P (MAP) 155/70 (98) 155/70 122/73 (89) Pulse Ox 96 94 O2 Delivery Room Air Room Air Room Air 04/02/20 04/03/20 04/03/20 04/03/20 22:34 02:44 02:53 07:00 Temp 99.8 98.6 98.1 99.8 98.6 98.1 Pulse 74 76 76 71 Resp 18 18 18 B/P (MAP) 136/100 (112) 189/87 (121) 189/87 173/87 (115) Pulse Ox 95 95 92 O2 Delivery Room Air Room Air Room Air 04/03/20 04/03/20 04/03/20 04/03/20 08:00 08:14 08:15 08:15 Pulse 74 74 74 B/P (MAP) 173/87 173/87 173/87 O2 Delivery Room Air Intake and Output 04/02/20 04/02/20 04/03/20 14:59 22:59 06:59 Intake Total 400 ml 200 ml 0 ml Output Total 700 ml 350 ml Balance 400 ml -500 ml -350 ml Justicifation of Admission Dx: Justifications for Admission: Justification of Admission Dx: Yes Stroke - Ischemic: Stroke-Ischemic BONY PACE MD Apr 03, 2020 12:07
[2020-04-03 15:00] VITALS: BP 130/56
[2020-04-03] MEDS ORDERED: hydrALAZINE 20 MG/ML VIAL. IVP PRN (16:15)
[2020-04-03 19:25] VITALS: BP 129/93
[2020-04-03] MEDS: ATORVASTATIN CALCIUM 40 MG TABLET. PO SCH (21:14)
[2020-04-03 22:35] VITALS: BP 136/83
[2020-04-04 03:56] VITALS: BP 143/77
[2020-04-04 07:00] VITALS: BP 145/73
--- NOTE | 2020-04-04 07:51 | PDOC ---
Infectious Disease Note Subjective: Subjective Patient says feeling well No F/C/S/N/V/D/SOA/rash Vital Signs: Vital Signs Vital Signs Date Time Temp Pulse Resp B/P (MAP) Pulse Ox O2 Delivery O2 Flow Rate FiO2 04/04/20 03:56 99.1 70 16 143/77 (99) 96 Room Air 99.1 Physical Exam: PHYSICAL EXAM GENERAL: Awake female, not in distress.- pleasant HEENT: Both pupils are round and reacting. No conjunctival lesion, no lesion in the mouth. edentulous -dry NECK: Supple, no JVP, no lymphadenopathy. LUNGS: Clear. HEART: S1, S2 regular. ABDOMEN: Soft, nontender, no organomegaly. [place] EXTREMITIES: No edema, cyanosis. SKIN: Unremarkable. NEUROLOGIC:moves ext Medications: Inpatient Meds: Current Medications Medications (Trade) Dose Ordered Sig/Susan Start Time Stop Time Status Last Admin Dose Admin Acetaminophen (Tylenol Supp) 650 mg PRN Q6HRS PRN 03/27/20 17:30 Acetaminophen (Tylenol) 650 mg PRN Q6HRS PRN 03/27/20 17:30 Acetaminophen/ Hydrocodone Bitart (Lortab 5/325) 1 tab PRN BID PRN 03/26/20 15:15 Alteplase, Recombinant 0 ml @ 0 mls/hr Q1H 03/27/20 17:15 UNV Amino Acids/ Glycerin/ Electrolytes 1,000 ml @ 80 mls/hr [id number] 03/31/20 04:15 04/01/20 14:03 DC 04/01/20 05:09 80 MLS/HR Amlodipine Besylate (Norvasc) 5 mg 1X ONCE 04/01/20 14:00 04/01/20 14:01 DC 04/01/20 14:51 5 MG Aspirin (Aspirin Rectal Supp) 300 mg 1X ONCE 03/25/20 19:30 03/25/20 19:33 DC 03/25/20 19:48 300 MG Aspirin (Ecotrin) 81 mg [id number] 03/26/20 08:00 03/30/20 10:30 DC 03/30/20 08:19 81 MG Atorvastatin Calcium (Lipitor) 20 mg QHS 03/29/20 21:00 03/29/20 16:25 DC Barium Sulfate (Varibar Thin Liquid Apple) 148 gm 1X ONCE 03/31/20 10:15 03/31/20 10:17 DC 03/31/20 10:15 148 GM Carvedilol (Coreg) 3.125 mg BIDWMEALS 04/01/20 12:00 04/03/20 18:22 3.125 MG Celecoxib (CeleBREX) 200 mg DAILY 03/26/20 15:00 03/30/20 14:46 DC 03/30/20 08:19 200 MG Dextrose (Dextrose 50%-Water Syringe) 12.5 gm PRN Q15MIN PRN 03/25/20 21:00 Docusate Sodium (Colace) 100 mg PRN DAILY PRN 03/25/20 21:00 Dopamine HCl/ Dextrose (DOPamine 400MG/ 250ML PREMIX) 400 mg STK-MED ONCE 03/27/20 17:00 03/28/20 08:41 DC Famotidine (Pepcid) 20 mg DAILY 03/26/20 15:00 04/03/20 08:14 20 MG Folic Acid (Folic Acid) 1 mg DAILY 03/26/20 15:00 04/03/20 08:14 1 MG Hydralazine HCl (Apresoline Inj) 10 mg PRN Q4HRS PRN 04/03/20 16:15 Info (CONTRAST GIVEN -- Rx MONITORING) 1 each PRN DAILY PRN 03/28/20 07:15 03/30/20 07:14 DC Iohexol (Omnipaque 300 Mg/ml) 75 ml 1X ONCE 03/28/20 07:00 03/28/20 07:05 DC 03/28/20 07:00 75 ML Labetalol HCl (Normodyne Iv Push) 10 mg PRN Q10MIN PRN 03/27/20 17:30 03/27/20 17:34 DC Losartan Potassium (Cozaar) 50 mg 1X ONCE 04/01/20 14:00 04/01/20 14:01 DC 04/01/20 14:50 50 MG Methotrexate (Rheumatrex) 17.5 mg WEEKLY 03/26/20 15:00 04/02/20 10:07 17.5 MG Micafungin Sodium 100 mg/Dextrose 100 ml @ 100 mls/hr DAILY 03/28/20 09:15 04/03/20 08:14 100 MLS/HR Nicardipine HCl 50 mg/Sodium Chloride 250 ml @ 25 mls/hr CONT PRN PRN 03/27/20 17:30 UNV Ondansetron HCl (Zofran) 4 mg PRN Q6HRS PRN 03/27/20 17:30 03/29/20 10:36 DC Oxybutynin Chloride (Ditropan) 5 mg BID 03/26/20 15:00 04/03/20 21:14 5 MG Potassium Chloride (Klor-Con) 40 meq 1X ONCE 04/04/20 12:00 04/04/20 12:01 Prednisone (Prednisone) 10 mg DAILY 04/03/20 09:00 04/03/20 08:14 10 MG Sennosides (Senna) 17.2 mg PRN BID PRN 03/25/20 21:00 Sodium Chloride 50 ml @ 50 mls/hr Q1H ONCE 03/27/20 17:15 03/27/20 18:14 UNV Labs: Micro RUN DATE: 03/30/20 [facility] LAB *LIVE* PAGE 1 RUN TIME: 1140 Specimen Inquiry PATIENT: SONY CULP ACCT: [id number] LOC: [address] [place] [address] U: [id number] AGE/SX: 79/F ROOM: 210 RE03/25/[address]: MANSI GUTIERREZ MD : 1940 BED: 1 DIS: STATUS: ADM IN TLOC: SPEC #: [id number] JAYDE: 03/25/20 STATUS: RITA REQ #: [id number] RECD: 03/25/[address]: LORELEI PANG DO SOURCE: BLOOD ENTR: 03/28/20 [facility] DR: KIRK ROBERT MD [facility]: ORDERED: NABEEL MUNIZ - LC Procedure Result BLOOD CULTURE LC Final Final YEAST FINAL ID= [OLGA GLABRATA] OLGA GLABRATA Unless otherwise specified, Testing Performed by: [address] [address] For Inquires, the Physician may contact the Microbiology department at [phone] Objective: Assessment: 1. 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 Cerebrovascular accident/code stroke. 3. Syncopal episode. 4. History of cerebrovascular accident. Intracranial hemorrhage 5. Hypertension. 6. Tobaccoism. 7. Glaucoma. On prednisone Plan: Plan of Care CXR neg for infiltrate Continue micafungin repeat neg from 03/28 Supportive care Ophthalmology consultation D/w nursing JASPREET HARLEY MD Apr 04, 2020 07:50
[2020-04-04] MEDS ORDERED: POTASSIUM CHLORIDE 20 MEQ TABLET.ER. PO ONE ×2 (08:00→12:00)
[2020-04-04] MEDS: predniSONE 10 MG TABLET PO SCH (08:44)
[2020-04-04] MEDS: FAMOTIDINE 20 MG TABLET. PO SCH (08:44)
[2020-04-04] MEDS: LOSARTAN POTASSIUM 50 MG TABLET. PO SCH (08:44)
[2020-04-04] MEDS: FOLIC ACID 1 MG TABLET. PO SCH (08:44)
[2020-04-04] MEDS: OXYBUTYNIN CHLORIDE 5 MG TABLET PO SCH ×2 (08:44→20:26)
[2020-04-04] MEDS: MICAFUNGIN 100 MG in IV DEXTROSE 5% 100ML 100 ML IV SCH (08:45)
[2020-04-04] MEDS: CARVEDILOL 3.125 MG TABLET. PO SCH ×2 (08:45→17:22)
--- NOTE | 2020-04-04 10:43 | PDOC ---
PROGRESS NOTES Date of Service DATE: 04/04/20 TIME: 10:39 Assessment Problems Medical Problems: (1) Altered mental status Status: Acute (2) Lactic acidosis Status: Acute (3) Syncope Status: Acute Acute intraparenchymal hemorrhages posterior lateral right frontal lobe and medial left cerebellum. Acute infarct within the right superolateral frontal lobe cortex and adjacent white matter and right centrum semiovale. Status-post alteplase on 03/27 Superimposed microhemorrhage. Consider amyloid angiopathy Suspected late subacute infarct within the left centrum semiovale. 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 Extensive scattered microhemorrhages, consider amyloid angiopathy. 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 Hypertension, hypocalcemia, hypophosphatemia, hypochloremia, lactic acidosis Passed repeat swallow evaluation Fungemia, possible artifact Plan Repeat head CT tomorrow Blood pressure less than 160/90 Cardiology consulted for embolic work-up, report of echocardiogram noted Hold aspirin, aiming to start it tomorrow Continue statin Telemetry Aim for discharge to rehab/SNU next few days SCSs Subjective No complaints, denies headache Objective Vital Signs Date Time Temp Pulse Resp B/P (MAP) Pulse Ox O2 Delivery O2 Flow Rate FiO2 04/04/20 08:45 68 145/73 04/04/20 07:00 98.3 19 95 Room Air 98.3 Intake and Output 04/04/20 07:00 Intake Total 685 ml Output Total 650 ml Balance 35 ml Intake Oral 685 ml Output Urine Total 650 ml PHYSICAL EXAM Alert. Oriented to person. Blind in both eyes CN: no focal findings, minimal left facial weakness. Muscle tone: normal. Muscle strength: 4/5 DTR: 2+ Plantar reflex: Flexor Gait: not examined in bed. Sensory exam: no abnormal findings. No cerebellar signs elicited, hard to test with blindness. Review of Relevant I have reviewed the following items alicia (where applicable) has been applied. Labs Laboratory Tests Test 04/03/20 07:27 White Blood Count 6.4 x10^3/uL (4.0-11.0) Red Blood Count 4.33 x10^6/uL (3.50-5.40) Hemoglobin 13.2 g/dL (12.0-15.5) Hematocrit 38.9 % (36.0-47.0) Mean Corpuscular Volume 90 fL (79-100) Mean Corpuscular Hemoglobin 31 pg (25-35) Mean Corpuscular Hemoglobin Concent 34 g/dL (31-37) Red Cell Distribution Width 13.3 % (11.5-14.5) Platelet Count 239 x10^3/uL (140-400) Neutrophils (%) (Auto) 71 % (31-73) Lymphocytes (%) (Auto) 18 % (24-48) Monocytes (%) (Auto) 8 % (0-9) Eosinophils (%) (Auto) 2 % (0-3) Basophils (%) (Auto) 1 % (0-3) Neutrophils # (Auto) 4.5 x10^3/uL (1.8-7.7) Lymphocytes # (Auto) 1.2 x10^3/uL (1.0-4.8) Monocytes # (Auto) 0.5 x10^3/uL (0.0-1.1) Eosinophils # (Auto) 0.1 x10^3/uL (0.0-0.7) Basophils # (Auto) 0.0 x10^3/uL (0.0-0.2) Sodium Level 142 mmol/L (136-145) Potassium Level 3.0 mmol/L (3.5-5.1) Chloride Level 105 mmol/L (98-107) Carbon Dioxide Level 29 mmol/L (21-32) Anion Gap 8 (6-14) Blood Urea Nitrogen 17 mg/dL (7-20) Creatinine 0.8 mg/dL (0.6-1.0) Estimated GFR (Cockcroft-Gault) 84.2 Glucose Level 82 mg/dL (70-99) Calcium Level 8.6 mg/dL (8.5-10.1) Microbiology 03/28/20 Blood Culture - Final, Complete NO GROWTH AFTER 5 DAYS Medications Current Medications Sodium Chloride 1,000 ml @ 1,000 mls/hr 1X ONCE IV Last administered on 03/25/20at 19:48; Start 03/25/20 at 18:15; Stop 03/25/20 at 19:14; Status DC Aspirin (Aspirin Rectal Supp) 300 mg 1X ONCE GA Last administered on 03/25/20at 19:48; Start 03/25/20 at 19:30; Stop 03/25/20 at 19:33; Status DC Ondansetron HCl (Zofran) 4 mg PRN Q8HRS PRN IV NAUSEA/VOMITING; Start 03/25/20 at 20:30; Stop 03/26/20 at 20:29; Status DC Sodium Chloride 1,000 ml @ 75 mls/hr 1X ONCE IV Last administered on 03/25/20at 20:30; Start 03/25/20 at 20:30; Stop 03/26/20 at 00:18; Status DC Atorvastatin Calcium (Lipitor) 40 mg QHS PO Last administered on 04/03/20at 21:14; Start 03/25/20 at 21:00 Sennosides (Senna) 17.2 mg PRN BID PRN PO CONSTIPATION 1ST CHOICE; Start 03/25/20 at 21:00 Docusate Sodium (Colace) 100 mg PRN DAILY PRN PO HARD STOOLS; Start 03/25/20 at 21:00 Ondansetron HCl (Zofran) 4 mg PRN Q6HRS PRN IVP NAUSEA/VOMITING 1ST CHOICE Last administered on 03/28/20at 03:35; Start 03/25/20 at 21:00 Aspirin (Ecotrin) 81 mg DAILYWBKFT PO Last administered on 03/30/20at 08:19; Start 03/26/20 at 08:00; Stop 03/30/20 at 10:30; Status DC Dextrose (Dextrose 50%-Water Syringe) 12.5 gm PRN Q15MIN PRN IV SEE COMMENTS; Start 03/25/20 at 21:00 Sodium Chloride 1,000 ml @ 100 mls/hr Q10H IV Last administered on 03/30/20at 17:03; Start 03/25/20 at 21:00; Stop 03/31/20 at 07:45; Status DC Labetalol HCl (Normodyne Iv Push) 10 mg PRN Q2HRS PRN IVP HYPERTENSION Last administered on 03/31/20at 06:30; Start 03/26/20 at 09:00; Stop 04/02/20 at 15:00; Status DC Famotidine (Pepcid) 20 mg DAILY PO Last administered on 04/04/20at 08:44; Start 03/26/20 at 15:00 Acetaminophen/ Hydrocodone Bitart (Lortab 5/325) 1 tab BID PO ; Start 03/26/20 at 15:00; Stop 03/26/20 at 15:04; Status DC Methotrexate (Rheumatrex) 17.5 mg WEEKLY PO Last administered on 04/02/20at 10:07; Start 03/26/20 at 15:00 Oxybutynin Chloride (Ditropan) 5 mg BID PO Last administered on 04/04/20at 08:44; Start 03/26/20 at 15:00 Prednisone (Prednisone) 10 mg DAILY PO Last administered on 04/02/20at 09:48; Start 03/26/20 at 15:00; Stop 04/02/20 at 15:01; Status DC Celecoxib (CeleBREX) 200 mg DAILY PO Last administered on 03/30/20at 08:19; Start 03/26/20 at 15:00; Stop 03/30/20 at 14:46; Status DC Folic Acid (Folic Acid) 1 mg DAILY PO Last administered on 04/04/20at 08:44; Start 03/26/20 at 15:00 Losartan Potassium (Cozaar) 50 mg DAILY PO Last administered on 04/01/20at 08:33; Start 03/26/20 at 15:00; Stop 04/01/20 at 13:47; Status DC Acetaminophen/ Hydrocodone Bitart (Lortab 5/325) 1 tab PRN BID PRN PO MODERATE PAIN, SEVERE PAIN; Start 03/26/20 at 15:15 Dopamine HCl/ Dextrose 0 ml @ As Directed STK-MED ONCE IV ; Start 03/27/20 at 16:26; Stop 03/27/20 at 16:26; Status DC Alteplase, Recombinant 4.3 ml @ 258 mls/hr 1X ONCE IV Last administered on 03/27/20at 17:36; Start 03/27/20 at 17:15; Stop 03/27/20 at 17:17; Status DC Alteplase, Recombinant 38.6 ml @ 38.6 mls/hr Q1H IV Last administered on 03/27/20at 17:34; Start 03/27/20 at 17:15; Stop 03/27/20 at 18:14; Status DC Sodium Chloride 50 ml @ 200 mls/hr 1X ONCE IV Last administered on 03/27/20at 18:05; Start 03/27/20 at 17:15; Stop 03/27/20 at 17:29; Status DC Alteplase, Recombinant 0 ml @ 0 mls/hr Q1M ONCE IV ; Start 03/27/20 at 17:15; Stop 03/27/20 at 17:16; Status UNV Alteplase, Recombinant 0 ml @ 0 mls/hr Q1H IV ; Start 03/27/20 at 17:15; Status UNV Sodium Chloride 50 ml @ 50 mls/hr Q1H ONCE IV ; Start 03/27/20 at 17:15; Stop 03/27/20 at 18:14; Status UNV Labetalol HCl (Normodyne Iv Push) 10 mg PRN Q10MIN PRN IVP HYPERTENSION Last administered on 04/03/20at 02:53; Start 03/27/20 at 17:15 Nicardipine HCl 50 mg/Sodium Chloride 250 ml @ 25 mls/hr CONT PRN PRN IV HYPERTENSION Last administered on 04/01/20at 05:09; Start 03/27/20 at 17:15 Labetalol HCl (Normodyne Iv Push) 10 mg PRN Q10MIN PRN IVP HYPERTENSION; Start 03/27/20 at 17:30; Stop 03/27/20 at 17:34; Status DC Nicardipine HCl 50 mg/Sodium Chloride 250 ml @ 25 mls/hr CONT PRN PRN IV HYPERTENSION; Start 03/27/20 at 17:30; Status UNV Acetaminophen (Tylenol) 650 mg PRN Q6HRS PRN PO MILD PAIN / TEMP > 100.3'F; Start 03/27/20 at 17:30 Acetaminophen (Tylenol Supp) 650 mg PRN Q6HRS PRN GA MILD PAIN / TEMP > 100.3'F; Start 03/27/20 at 17:30 Ondansetron HCl (Zofran) 4 mg PRN Q6HRS PRN IVP NAUSEA/VOMITING; Start 03/27/20 at 17:30; Stop 03/29/20 at 10:36; Status DC Iohexol (Omnipaque 300 Mg/ml) 75 ml 1X ONCE IV Last administered on 03/28/20at 07:00; Start 03/28/20 at 07:00; Stop 03/28/20 at 07:05; Status DC Info (CONTRAST GIVEN -- Rx MONITORING) 1 each PRN DAILY PRN MC SEE COMMENTS; Start 03/28/20 at 07:15; Stop 03/30/20 at 07:14; Status DC Dopamine HCl/ Dextrose (DOPamine 400MG/ 250ML PREMIX) 400 mg STK-MED ONCE IV ; Start 03/27/20 at 17:00; Stop 03/28/20 at 08:41; Status DC Micafungin Sodium 100 mg/Dextrose 100 ml @ 100 mls/hr DAILY IV Last administered on 04/04/20at 08:45; Start 03/28/20 at 09:15 Hydralazine HCl (Apresoline Inj) 10 mg Q6HRS IVP Last administered on 03/30/20at 06:23; Start 03/29/20 at 11:00; Stop 03/30/20 at 11:05; Status DC Amlodipine Besylate (Norvasc) 5 mg DAILY PO Last administered on 04/01/20at 08:34; Start 03/30/20 at 09:00; Stop 04/01/20 at 13:47; Status DC Atorvastatin Calcium (Lipitor) 20 mg QHS PO ; Start 03/29/20 at 21:00; Stop 03/29/20 at 16:25; Status DC Amino Acids/ Glycerin/ Electrolytes 1,000 ml @ 80 mls/hr [id number] IV Last administered on 04/01/20at 05:09; Start 03/31/20 at 04:15; Stop 04/01/20 at 14:03; Status DC Barium Sulfate (Varibar Thin Liquid Apple) 148 gm 1X ONCE PO Last administered on 03/31/20at 10:15; Start 03/31/20 at 10:15; Stop 03/31/20 at 10:17; Status DC Carvedilol (Coreg) 3.125 mg BIDWMEALS PO Last administered on 04/04/20at 08:45; Start 04/01/20 at 12:00 Amlodipine Besylate (Norvasc) 10 mg DAILY PO Last administered on 04/04/20at 08:44; Start 04/02/20 at 09:00 Losartan Potassium (Cozaar) 100 mg DAILY PO Last administered on 04/04/20at 08:44; Start 04/02/20 at 09:00 Losartan Potassium (Cozaar) 50 mg 1X ONCE PO Last administered on 04/01/20at 14:50; Start 04/01/20 at 14:00; Stop 04/01/20 at 14:01; Status DC Amlodipine Besylate (Norvasc) 5 mg 1X ONCE PO Last administered on 04/01/20at 14:51; Start 04/01/20 at 14:00; Stop 04/01/20 at 14:01; Status DC Prednisone (Prednisone) 10 mg DAILY PO Last administered on 04/04/20at 08:44; Start 04/03/20 at 09:00 Hydralazine HCl (Apresoline Inj) 10 mg PRN Q4HRS PRN IVP ELEVATED BP, SEE COMMENTS; Start 04/03/20 at 16:15 Potassium Chloride (Klor-Con) 40 meq 1X ONCE PO Last administered on 04/04/20at 08:44; Start 04/04/20 at 08:00; Stop 04/04/20 at 08:01; Status DC Potassium Chloride (Klor-Con) 40 meq 1X ONCE PO ; Start 04/04/20 at 12:00; Stop 04/04/20 at 12:01 Active Scripts Active Reported Oxybutynin Chloride 5 Mg Tablet 1 Tab PO BID Methotrexate (Methotrexate Sodium) 2.5 Mg Tablet 7 Tab PO WEEKLY [place] 5-325 Tablet (Acetaminophen/Hydrocodone Bitart) 1 Each Tablet 1 Tab PO BID Folic Acid 0.8 Mg Capsule 1 Mg PO DAILY Famotidine 20 Mg Tablet 20 Mg PO BID Prednisone 20 Mg Tablet 10 Mg PO DAILY Celebrex (Celecoxib) 200 Mg Capsule 1 Cap PO DAILY Atorvastatin Calcium 10 Mg Tablet 10 Mg PO HS Valsartan 80 Mg Tablet 80 Mg PO DAILY Vitals/I & O Vital Sign - Last 24 Hours 04/03/20 04/03/20 04/03/20 04/03/20 11:00 15:00 18:22 19:10 Temp 99.6 99.1 99.6 99.1 Pulse 66 68 68 Resp 18 18 B/P (MAP) 138/60 (86) 130/56 (80) 130/56 Pulse Ox 95 95 O2 Delivery Room Air Room Air Room Air 04/03/20 04/03/20 04/04/20 04/04/20 19:25 22:35 03:56 07:00 Temp 99.5 98.1 99.1 98.3 99.5 98.1 99.1 98.3 Pulse 72 66 70 68 Resp 16 16 16 19 B/P (MAP) 129/93 (105) 136/83 (100) 143/77 (99) 145/73 (97) Pulse Ox 95 97 96 95 O2 Delivery Room Air Room Air Room Air Room Air 04/04/20 04/04/20 04/04/20 08:44 08:44 08:45 Pulse 68 68 68 B/P (MAP) 145/73 145/73 145/73 Intake and Output 04/03/20 04/03/20 04/04/20 15:00 23:00 07:00 Intake Total 460 ml 225 ml 0 ml Output Total 650 ml Balance 460 ml 225 ml -650 ml Justicifation of Admission Dx: Justifications for Admission: Justification of Admission Dx: Yes Stroke - Ischemic: Stroke-Ischemic CORNELIUS MARSH MD Apr 04, 2020 10:43
[2020-04-04 11:00] VITALS: BP 108/67
--- NOTE | 2020-04-04 11:16 | SNU/HH DC ---
DISCHARGE WITH HOME HEALTH DISCHARGE INFORMATION: Final Diagnosis: Problems Medical Problems: (1) Altered mental status Status: Acute (2) Lactic acidosis Status: Acute (3) Syncope Status: Acute Condition on Discharge: Stable CODE STATUS: Code Status: Full HOME HEALTH: Face to Face: I certify this patient is under my care and that I, or a nurse practitioner or physician's commercial lending assistant working with me, had a face to face encounter that meets the physician face to face encounter requirements with this patient on []. Medical Complications: Other (Recent syncope debility) Snf For: Assess & Educate Safety RN For Eval/Treatment: Yes Physical Therapy For: Evalulation/Treatment Occupational Therapy For: Evaluation/Treatment Home Health Aide For: Self-care SAMPLE WASHER For: Community Resources Pt Meets Homebound Status: Poor coordination w/ amb. POST DISCHARGE ORDERS: DIET AFTER DISCHARGE: Cardiac CERTIFICATION STATEMENT: Certification Statement: Certification Statement: Based on the above finding, I certify that this patient is confined to the home and needs intermittent longterm care, physical therapy and/or speech therapy, or continues to need occupational therapy.~ This patient is under my care, and I have initiated the establishment of the plan of care.~ This patient will be followed by myself or a community physician who will periodically review the plan of care. Home Meds Reported Medications Oxybutynin Chloride (OXYBUTYNIN CHLORIDE) 5 Mg Tablet, 1 TAB PO BID for Urinary retention, #60 TAB 11 Refills 03/26/20 Methotrexate Sodium (METHOTREXATE) 2.5 Mg Tablet, 7 TAB PO WEEKLY for Lupus, #24 TAB 1 Refill 03/26/20 Hydrocodone/Apap 5-325 (NORCO 5-325 TABLET) 1 Each Tablet, 1 TAB PO BID for Pain, #60 TAB 03/26/20 Folic Acid (Folic Acid) 0.8 Mg Capsule, 1 MG PO DAILY for Supplement, CAP 03/26/20 Famotidine (FAMOTIDINE) 20 Mg Tablet, 20 MG PO BID for Ulcer, TAB 03/26/20 Prednisone (PREDNISONE) 20 Mg Tablet, 10 MG PO DAILY for Lupus, TAB 03/26/20 Celecoxib (CELEBREX) 200 Mg Capsule, 1 CAP PO DAILY for Arthritis, #30 CAP 03/26/20 Atorvastatin Calcium (ATORVASTATIN CALCIUM) 10 Mg Tablet, 10 MG PO HS for FOR CHOLESTEROL, #30 TAB 0 Refills 1/2/21 Valsartan (Valsartan) 80 Mg Tablet, 80 MG PO DAILY for HTN, TAB 03/26/20 JAMAICA KLEIN III DO Apr 04, 2020 11:16
--- NOTE | 2020-04-04 11:22 | PDOC ---
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 Status-post alteplase on 03/27 Superimposed microhemorrhage. Consider amyloid angiopathy Suspected late subacute infarct within the left centrum semiovale. 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 Extensive scattered microhemorrhages, consider amyloid angiopathy. 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 Patient is alert awake oriented x3. 79 year old female presents via EMS with report of syncopal episode while she was eating dinner with her family. EMS reports patient became suddenly unresponsive. EMS reports patient's GCS initially 5 then improved to 10 during transport. Patient did vomit x1. Upon arrival patient with interval improvement. Denies fever or chills. 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 History of present illness limited secondary to altered mental status 04/03: Patient seen and evaluated bedside. No complaints today, states she wants to go home. Discussed with RN, no acute vents overnight. 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 Repeat blood cultures showed no growth after 5 days. [facility], pending insurance authorization. 04/02: Patient evaluated bedside. She is on micafungin for Olga fungemia. He has been accepted to a [facility], pending insurance auth. 04/01: Patient seen and evaluated with family at bedside. Repeat CT head shows no significant change in acute intraparenchymal hemorrhage. She is off nicardipine drip, and on oral blood pressure medications. Afebrile, without complaints today. Family is wanting acute rehab instead of hospice. 03/31: Patient seen and evaluated with granddaughter at bedside. Chest x-ray yesterday showed no acute pulmonary finding. She remains on nicardipine drip to control blood pressure. She is to have repeat CT head tomorrow. Discussed with granddaughter, who was primary care provider for patient, who agrees she would benefit from full-time nursing care. She may also be agreeable to hospice fa cilities given patient's poor prognosis. Repeat CT head tomorrow may provide further information for patient's family and making this decision. 03/30: Patient seen and evaluated. She is febrile today. Some concern for aspiration. Make patient n.p.o., and obtain chest x-ray. Repeat CT head showed acute intraparenchymal hemorrhage measuring approximately 1.5 cm within the central aspect of the region of acute or subacute infarction within the posterior lateral right frontal lobe, and acute intraparenchymal hemorrhage measuring approximately 1.3 cm within the medial left cerebellum. Will place patient on nicardipine drip to keep systolic blood pressure <140 mmHg. Discussed with RN. 03/29: Patient seen in ICU. No acute events overnight. Patient with no comp laints. She had MRI yesterday that showed acute infarct within the right superolateral frontal lobe cortex, concern for superimposed microhemorrhage. Short-term follow-up with a noncontrast head CT is recommended to exclude evolving hemorrhagic transformation. Discussed with RN. 03/28: Patient seen in ICU, s/p TPA. She has no complaints or concerns, pleasantly demented. Afebrile. MRI pending. PT recommending SNU. Discussed with RN and social media community manager. Vitals/I&O Vitals/I&O: Vital Signs Date Time Temp Pulse Resp B/P (MAP) Pulse Ox O2 Delivery O2 Flow Rate FiO2 04/04/20 08:45 68 145/73 04/04/20 08:00 Room Air 04/04/20 07:00 98.3 19 95 98.3 I & O 04/03/20 04/03/20 04/04/20 15:00 23:00 07:00 Intake Total 460 ml 225 ml 0 ml Output Total 650 ml Balance 460 ml 225 ml -650 ml Physical Exam Physical Exam: GENERAL: Awake female, not in distress.- pleasant HEENT: Both pupils are round and reacting. No conjunctival lesion, no lesion in the mouth. edentulous -dry NECK: Supple, no JVP, no lymphadenopathy. LUNGS: Clear. HEART: S1, S2 regular. ABDOMEN: Soft, nontender, no organomegaly. Herrera EXTREMITIES: No edema, cyanosis. SKIN: Unremarkable. NEUROLOGIC:moves ext General: Alert, Cooperative, No acute distress Heart: Regular rate (SR no ectopies), Other (2/6 systolic murmur to LLS border) Abdomen: Soft, No tenderness Extremities: No cyanosis, No edema Skin: No breakdown, No significant lesion Assessment and Plan Assessmemt and Plan Problems Medical Problems: (1) Altered mental status Status: Acute (2) Lactic acidosis Status: Acute (3) Syncope Status: Acute Acute intraparenchymal hemorrhages posterior lateral right frontal lobe and medial left cerebellum. Acute infarct within the right superolateral frontal lobe cortex and adjacent white matter and right centrum semiovale. Status-post alteplase on 03/27 Superimposed microhemorrhage. Consider amyloid angiopathy Suspected late subacute infarct within the left centrum semiovale. 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 Extensive scattered microhemorrhages, consider amyloid angiopathy. 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 Hypertension, hypocalcemia, hypophosphatemia, hypochloremia, lactic acidosis Passed repeat swallow evaluation Fungemia, possible artifact Plan Cardiac monitoring Appreciate subspecialist input Home meds except for aspirin DVT prophylaxis Full code Per neurology please see the following; Repeat head CT tomorrow Blood pressure less than 160/90 Cardiology consulted for embolic work-up, report of echocardiogram noted Hold aspirin, aiming to start it tomorrow Continue statin Telemetry Aim for discharge to rehab/SNU next few days SCSs Comment Review of Relevant I have reviewed the following items alicia (where applicable) has been applied. Medications: Current Medications Medications (Trade) Dose Ordered Sig/Susan Route PRN Reason Start Time Stop Time Status Last Admin Dose Admin Potassium Chloride (Klor-Con) 40 meq 1X ONCE PO 04/04/20 08:00 04/04/20 08:01 DC 04/04/20 08:44 Justifications for Admission Syncope Indications Altered Mental Status?: Yes Justification for admission: Patient's severe/persistent Altered Mental Status as indicated by lethargy/confusional state that has persisted after initial hours of intervention is concerning, needs inpatient level of care for further evaluation and management. Is patient dehydrated?: Yes Justification for admission: There is concern that patient may be severely dehydrated accounting for the syncope. Patient needs inpatient level of care for further evaluation and management. Other Justification JAMAICA KLEIN III DO Apr 04, 2020 11:22
--- NOTE | 2020-04-04 12:41 | NUR ---
SS following up with discharge planning. SS reviewed pt chart and discussed with pt RN. Pt is currently on room air. COVID19 negative. Pt on IV Micafungin. Pt accepted at [facility], ; fax [phone], pending insurance authorization. SS phoned and faxed clinical updates to [facility]. SS will continue to follow for discharge planning.
--- NOTE | 2020-04-04 14:05 | NUR ---
SS following up with discharge planning. SS received notification from [facility] that they are on admission hold at this time due to COVID19. They reported that they are only accepting COVID positive pt's at this time. SS contacted pt's family and discussed discharge planning. Pt's family requesting referral to [facility], ; fax [phone]. SS phoned and faxed referral to [facility]. SS will await acceptance decision and insurance authorization and will proceed accordingly with discharge planning.
[2020-04-04 15:00] VITALS: BP 154/78
[2020-04-04 19:00] VITALS: BP 143/60
[2020-04-04] MEDS: ATORVASTATIN CALCIUM 40 MG TABLET. PO SCH (20:26)
[2020-04-04 22:48] VITALS: BP 111/56
[2020-04-05 02:59] VITALS: BP 196/100
[2020-04-05 07:00] VITALS: BP 131/69
[2020-04-05] MEDS: CARVEDILOL 3.125 MG TABLET. PO SCH ×2 (08:58→18:16)
[2020-04-05] MEDS: FAMOTIDINE 20 MG TABLET. PO SCH (08:59)
[2020-04-05] MEDS: OXYBUTYNIN CHLORIDE 5 MG TABLET PO SCH ×2 (08:59→20:23)
[2020-04-05] MEDS: LOSARTAN POTASSIUM 50 MG TABLET. PO SCH (08:59)
[2020-04-05] MEDS: predniSONE 10 MG TABLET PO SCH (08:59)
[2020-04-05] MEDS: FOLIC ACID 1 MG TABLET. PO SCH (08:59)
[2020-04-05] MEDS: SENNOSIDES 8.6 MG TABLET PO PRN (09:00)
--- NOTE | 2020-04-05 09:09 | PDOC ---
Infectious Disease Note Subjective: Subjective Patient says feeling well No F/C/S/N/V/D/SOA/rash eager to go home Vital Signs: Vital Signs Vital Signs Date Time Temp Pulse Resp B/P (MAP) Pulse Ox O2 Delivery O2 Flow Rate FiO2 04/05/20 08:59 83 131/69 04/05/20 07:00 98.6 20 95 Room Air 98.6 Physical Exam: PHYSICAL EXAM GENERAL: Awake female, not in distress.- pleasant HEENT: Both pupils are round and reacting. No conjunctival lesion, no lesion in the mouth. edentulous -dry NECK: Supple, no JVP, no lymphadenopathy. LUNGS: Clear. HEART: S1, S2 regular. ABDOMEN: Soft, nontender, no organomegaly. Herrera EXTREMITIES: No edema, cyanosis. SKIN: Unremarkable. NEUROLOGIC:moves ext Medications: Inpatient Meds: Current Medications Medications (Trade) Dose Ordered Sig/Susan Start Time Stop Time Status Last Admin Dose Admin Acetaminophen (Tylenol Supp) 650 mg PRN Q6HRS PRN 03/27/20 17:30 Acetaminophen (Tylenol) 650 mg PRN Q6HRS PRN 03/27/20 17:30 Acetaminophen/ Hydrocodone Bitart (Lortab 5/325) 1 tab PRN BID PRN 03/26/20 15:15 Alteplase, Recombinant 0 ml @ 0 mls/hr Q1H 03/27/20 17:15 UNV Amino Acids/ Glycerin/ Electrolytes 1,000 ml @ 80 mls/hr [id number] 03/31/20 04:15 04/01/20 14:03 DC 04/01/20 05:09 80 MLS/HR Amlodipine Besylate (Norvasc) 5 mg 1X ONCE 04/01/20 14:00 04/01/20 14:01 DC 04/01/20 14:51 5 MG Aspirin (Aspirin Rectal Supp) 300 mg 1X ONCE 03/25/20 19:30 03/25/20 19:33 DC 03/25/20 19:48 300 MG Aspirin (Ecotrin) 81 mg [id number] 03/26/20 08:00 03/30/20 10:30 DC 03/30/20 08:19 81 MG Atorvastatin Calcium (Lipitor) 20 mg QHS 03/29/20 21:00 03/29/20 16:25 DC Barium Sulfate (Varibar Thin Liquid Apple) 148 gm 1X ONCE 03/31/20 10:15 03/31/20 10:17 DC 03/31/20 10:15 148 GM Carvedilol (Coreg) 3.125 mg BIDWMEALS 04/01/20 12:00 04/05/20 08:58 3.125 MG Celecoxib (CeleBREX) 200 mg DAILY 03/26/20 15:00 03/30/20 14:46 DC 03/30/20 08:19 200 MG Dextrose (Dextrose 50%-Water Syringe) 12.5 gm PRN Q15MIN PRN 03/25/20 21:00 Docusate Sodium (Colace) 100 mg PRN DAILY PRN 03/25/20 21:00 Dopamine HCl/ Dextrose (DOPamine 400MG/ 250ML PREMIX) 400 mg STK-MED ONCE 03/27/20 17:00 03/28/20 08:41 DC Famotidine (Pepcid) 20 mg DAILY 03/26/20 15:00 04/05/20 08:59 20 MG Folic Acid (Folic Acid) 1 mg DAILY 03/26/20 15:00 04/05/20 08:59 1 MG Hydralazine HCl (Apresoline Inj) 10 mg PRN Q4HRS PRN 04/03/20 16:15 04/05/20 02:31 10 MG Info (CONTRAST GIVEN -- Rx MONITORING) 1 each PRN DAILY PRN 03/28/20 07:15 03/30/20 07:14 DC Iohexol (Omnipaque 300 Mg/ml) 75 ml 1X ONCE 03/28/20 07:00 03/28/20 07:05 DC 03/28/20 07:00 75 ML Labetalol HCl (Normodyne Iv Push) 10 mg PRN Q10MIN PRN 03/27/20 17:30 03/27/20 17:34 DC Losartan Potassium (Cozaar) 50 mg 1X ONCE 04/01/20 14:00 04/01/20 14:01 DC 04/01/20 14:50 50 MG Methotrexate (Rheumatrex) 17.5 mg WEEKLY 03/26/20 15:00 04/02/20 10:07 17.5 MG Micafungin Sodium 100 mg/Dextrose 100 ml @ 100 mls/hr DAILY 03/28/20 09:15 04/04/20 08:45 100 MLS/HR Nicardipine HCl 50 mg/Sodium Chloride 250 ml @ 25 mls/hr CONT PRN PRN 03/27/20 17:30 UNV Ondansetron HCl (Zofran) 4 mg PRN Q6HRS PRN 03/27/20 17:30 03/29/20 10:36 DC Oxybutynin Chloride (Ditropan) 5 mg BID 03/26/20 15:00 04/05/20 08:59 5 MG Potassium Chloride (Klor-Con) 40 meq 1X ONCE 04/04/20 12:00 04/04/20 12:01 DC 04/04/20 12:18 40 MEQ Prednisone (Prednisone) 10 mg DAILY 04/03/20 09:00 04/05/20 08:59 10 MG Sennosides (Senna) 17.2 mg PRN BID PRN 03/25/20 21:00 04/05/20 09:00 17.2 MG Sodium Chloride 50 ml @ 50 mls/hr Q1H ONCE 03/27/20 17:15 03/27/20 18:14 UNV Labs: Micro RUN DATE: 03/30/20 [facility] LAB *LIVE* PAGE 1 RUN TIME: 1140 Specimen Inquiry PATIENT: SONY CULP ACCT: [id number] LOC: [address] [place] [address] U: [id number] AGE/SX: 79/F ROOM: 210 RE03/25/[address]: MANSI GUTIERREZ MD : 1940 BED: 1 DIS: STATUS: ADM IN TLOC: --------- --- SPEC #: [id number] JAYDE: 03/25/20 STATUS: COMP REQ #: [id number] RECD: 03/25/[address]: LORELEI PANG DO SOURCE: BLOOD ENTR: 03/28/[address] [facility] DR: KIRK ROBERT MD SPDC: ORDERED: NABEEL MUNIZ - LC Procedure Result BLOOD CULTURE LC Final Final YEAST FINAL ID= [OLGA GLABRATA] OLGA GLABRATA Unless otherwise specified, Testing Performed by: [address] [address] For Inquires, the Physician may contact the Microbiology department at [phone] Objective: Assessment: 1. 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 Cerebrovascular accident/code stroke. 3. Syncopal episode. 4. History of cerebrovascular accident. Intracranial hemorrhage 5. Hypertension. 6. Tobaccoism. 7. Glaucoma. On prednisone Plan: Plan of Care CXR neg for infiltrate Continue micafungin through Apr 10 2020 repeat BC neg from 03/28 Supportive care Ophthalmology consultation, can be done as outpt PIV to complete tx, if not an option ,will need midline and then dc after last dose of micafungin D/w nursing JASPREET HARLEY MD Apr 05, 2020 09:09
--- NOTE | 2020-04-05 09:33 | PDOC ---
PROGRESS NOTES Date of Service DATE: 04/05/20 TIME: 09:31 Assessment Problems Medical Problems: (1) Altered mental status Status: Acute (2) Lactic acidosis Status: Acute (3) Syncope Status: Acute Acute intraparenchymal hemorrhages posterior lateral right frontal lobe and medial left cerebellum. Acute infarct within the right superolateral frontal lobe cortex and adjacent white matter and right centrum semiovale. Status-post alteplase on 03/27 Superimposed microhemorrhage. Consider amyloid angiopathy Suspected late subacute infarct within the left centrum semiovale. 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 Extensive scattered microhemorrhages, consider amyloid angiopathy. 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 Hypertension, hypocalcemia, hypophosphatemia, hypochloremia, lactic acidosis Passed repeat swallow evaluation Fungemia, possible artifact Plan Repeat head CT today Aiming to resume aspirin Blood pressure less than 160/90 Cardiology consulted for embolic work-up, report of echocardiogram noted Continue statin Telemetry Aim for discharge to rehab/SNU next few days SCDs Subjective No complaints Objective Vital Signs Date Time Temp Pulse Resp B/P (MAP) Pulse Ox O2 Delivery O2 Flow Rate FiO2 04/05/20 08:59 83 131/69 04/05/20 07:00 98.6 20 95 Room Air 98.6 Intake and Output 04/05/20 07:00 Intake Total 1025 ml Output Total 601 ml Balance 424 ml Intake Oral 1025 ml Output Urine Total 600 ml Stool Total 1 ml # Voids 1 PHYSICAL EXAM Alert. Oriented to person. Blind in both eyes CN: no focal findings, minimal left facial weakness. Muscle tone: normal. Muscle strength: 4/5 DTR: 2+ Plantar reflex: Flexor Gait: not examined in bed. Sensory exam: no abnormal findings. No cerebellar signs elicited, hard to test with blindness. Review of Relevant I have reviewed the following items alicia (where applicable) has been applied. Labs Microbiology 03/28/20 Blood Culture - Final, Complete NO GROWTH AFTER 5 DAYS Medications Current Medications Sodium Chloride 1,000 ml @ 1,000 mls/hr 1X ONCE IV Last administered on 03/25/20at 19:48; Start 03/25/20 at 18:15; Stop 03/25/20 at 19:14; Status DC Aspirin (Aspirin Rectal Supp) 300 mg 1X ONCE GA Last administered on 03/25/20at 19:48; Start 03/25/20 at 19:30; Stop 03/25/20 at 19:33; Status DC Ondansetron HCl (Zofran) 4 mg PRN Q8HRS PRN IV NAUSEA/VOMITING; Start 03/25/20 at 20:30; Stop 03/26/20 at 20:29; Status DC Sodium Chloride 1,000 ml @ 75 mls/hr 1X ONCE IV Last administered on 03/25/20at 20:30; Start 03/25/20 at 20:30; Stop 03/26/20 at 00:18; Status DC Atorvastatin Calcium (Lipitor) 40 mg QHS PO Last administered on 04/04/20at 20:26; Start 03/25/20 at 21:00 Sennosides (Senna) 17.2 mg PRN BID PRN PO CONSTIPATION 1ST CHOICE Last administered on 04/05/20at 09:00; Start 03/25/20 at 21:00 Docusate Sodium (Colace) 100 mg PRN DAILY PRN PO HARD STOOLS; Start 03/25/20 at 21:00 Ondansetron HCl (Zofran) 4 mg PRN Q6HRS PRN IVP NAUSEA/VOMITING 1ST CHOICE Last administered on 03/28/20at 03:35; Start 03/25/20 at 21:00 Aspirin (Ecotrin) 81 mg DAILYWBKFT PO Last administered on 03/30/20at 08:19; Start 03/26/20 at 08:00; Stop 03/30/20 at 10:30; Status DC Dextrose (Dextrose 50%-Water Syringe) 12.5 gm PRN Q15MIN PRN IV SEE COMMENTS; Start 03/25/20 at 21:00 Sodium Chloride 1,000 ml @ 100 mls/hr Q10H IV Last administered on 03/30/20at 17:03; Start 03/25/20 at 21:00; Stop 03/31/20 at 07:45; Status DC Labetalol HCl (Normodyne Iv Push) 10 mg PRN Q2HRS PRN IVP HYPERTENSION Last administered on 03/31/20at 06:30; Start 03/26/20 at 09:00; Stop 04/02/20 at 15:00; Status DC Famotidine (Pepcid) 20 mg DAILY PO Last administered on 04/05/20at 08:59; Start 03/26/20 at 15:00 Acetaminophen/ Hydrocodone Bitart (Lortab 5/325) 1 tab BID PO ; Start 03/26/20 at 15:00; Stop 03/26/20 at 15:04; Status DC Methotrexate (Rheumatrex) 17.5 mg WEEKLY PO Last administered on 04/02/20at 10:07; Start 03/26/20 at 15:00 Oxybutynin Chloride (Ditropan) 5 mg BID PO Last administered on 04/05/20at 08:59; Start 03/26/20 at 15:00 Prednisone (Prednisone) 10 mg DAILY PO Last administered on 04/02/20at 09:48; Start 03/26/20 at 15:00; Stop 04/02/20 at 15:01; Status DC Celecoxib (CeleBREX) 200 mg DAILY PO Last administered on 03/30/20at 08:19; Start 03/26/20 at 15:00; Stop 03/30/20 at 14:46; Status DC Folic Acid (Folic Acid) 1 mg DAILY PO Last administered on 04/05/20at 08:59; Start 03/26/20 at 15:00 Losartan Potassium (Cozaar) 50 mg DAILY PO Last administered on 04/01/20at 08:33; Start 03/26/20 at 15:00; Stop 04/01/20 at 13:47; Status DC Acetaminophen/ Hydrocodone Bitart (Lortab 5/325) 1 tab PRN BID PRN PO MODERATE PAIN, SEVERE PAIN; Start 03/26/20 at 15:15 Dopamine HCl/ Dextrose 0 ml @ As Directed STK-MED ONCE IV ; Start 03/27/20 at 16:26; Stop 03/27/20 at 16:26; Status DC Alteplase, Recombinant 4.3 ml @ 258 mls/hr 1X ONCE IV Last administered on 03/27/20at 17:36; Start 03/27/20 at 17:15; Stop 03/27/20 at 17:17; Status DC Alteplase, Recombinant 38.6 ml @ 38.6 mls/hr Q1H IV Last administered on 03/27/20at 17:34; Start 03/27/20 at 17:15; Stop 03/27/20 at 18:14; Status DC Sodium Chloride 50 ml @ 200 mls/hr 1X ONCE IV Last administered on 03/27/20at 18:05; Start 03/27/20 at 17:15; Stop 03/27/20 at 17:29; Status DC Alteplase, Recombinant 0 ml @ 0 mls/hr Q1M ONCE IV ; Start 03/27/20 at 17:15; Stop 03/27/20 at 17:16; Status UNV Alteplase, Recombinant 0 ml @ 0 mls/hr Q1H IV ; Start 03/27/20 at 17:15; Status UNV Sodium Chloride 50 ml @ 50 mls/hr Q1H ONCE IV ; Start 03/27/20 at 17:15; Stop 03/27/20 at 18:14; Status UNV Labetalol HCl (Normodyne Iv Push) 10 mg PRN Q10MIN PRN IVP HYPERTENSION Last administered on 04/03/20at 02:53; Start 03/27/20 at 17:15 Nicardipine HCl 50 mg/Sodium Chloride 250 ml @ 25 mls/hr CONT PRN PRN IV HYPERTENSION Last administered on 04/01/20at 05:09; Start 03/27/20 at 17:15 Labetalol HCl (Normodyne Iv Push) 10 mg PRN Q10MIN PRN IVP HYPERTENSION; Start 03/27/20 at 17:30; Stop 03/27/20 at 17:34; Status DC Nicardipine HCl 50 mg/Sodium Chloride 250 ml @ 25 mls/hr CONT PRN PRN IV HYPERTENSION; Start 03/27/20 at 17:30; Status UNV Acetaminophen (Tylenol) 650 mg PRN Q6HRS PRN PO MILD PAIN / TEMP > 100.3'F; Start 03/27/20 at 17:30 Acetaminophen (Tylenol Supp) 650 mg PRN Q6HRS PRN GA MILD PAIN / TEMP > 100.3'F; Start 03/27/20 at 17:30 Ondansetron HCl (Zofran) 4 mg PRN Q6HRS PRN IVP NAUSEA/VOMITING; Start 03/27/20 at 17:30; Stop 03/29/20 at 10:36; Status DC Iohexol (Omnipaque 300 Mg/ml) 75 ml 1X ONCE IV Last administered on 03/28/20at 07:00; Start 03/28/20 at 07:00; Stop 03/28/20 at 07:05; Status DC Info (CONTRAST GIVEN -- Rx MONITORING) 1 each PRN DAILY PRN MC SEE COMMENTS; Start 03/28/20 at 07:15; Stop 03/30/20 at 07:14; Status DC Dopamine HCl/ Dextrose (DOPamine 400MG/ 250ML PREMIX) 400 mg STK-MED ONCE IV ; Start 03/27/20 at 17:00; Stop 03/28/20 at 08:41; Status DC Micafungin Sodium 100 mg/Dextrose 100 ml @ 100 mls/hr DAILY IV Last administered on 04/04/20at 08:45; Start 03/28/20 at 09:15 Hydralazine HCl (Apresoline Inj) 10 mg Q6HRS IVP Last administered on 03/30/20at 06:23; Start 03/29/20 at 11:00; Stop 03/30/20 at 11:05; Status DC Amlodipine Besylate (Norvasc) 5 mg DAILY PO Last administered on 04/01/20at 08:34; Start 03/30/20 at 09:00; Stop 04/01/20 at 13:47; Status DC Atorvastatin Calcium (Lipitor) 20 mg QHS PO ; Start 03/29/20 at 21:00; Stop 03/29/20 at 16:25; Status DC Amino Acids/ Glycerin/ Electrolytes 1,000 ml @ 80 mls/hr [id number] IV Last administered on 04/01/20at 05:09; Start 03/31/20 at 04:15; Stop 04/01/20 at 14:03; Status DC Barium Sulfate (Varibar Thin Liquid Apple) 148 gm 1X ONCE PO Last administered on 03/31/20at 10:15; Start 03/31/20 at 10:15; Stop 03/31/20 at 10:17; Status DC Carvedilol (Coreg) 3.125 mg BIDWMEALS PO Last administered on 04/05/20at 08:58; Start 04/01/20 at 12:00 Amlodipine Besylate (Norvasc) 10 mg DAILY PO Last administered on 04/05/20at 08:59; Start 04/02/20 at 09:00 Losartan Potassium (Cozaar) 100 mg DAILY PO Last administered on 04/05/20at 08:59; Start 04/02/20 at 09:00 Losartan Potassium (Cozaar) 50 mg 1X ONCE PO Last administered on 04/01/20at 14:50; Start 04/01/20 at 14:00; Stop 04/01/20 at 14:01; Status DC Amlodipine Besylate (Norvasc) 5 mg 1X ONCE PO Last administered on 04/01/20at 14:51; Start 04/01/20 at 14:00; Stop 04/01/20 at 14:01; Status DC Prednisone (Prednisone) 10 mg DAILY PO Last administered on 04/05/20at 08:59; Start 04/03/20 at 09:00 Hydralazine HCl (Apresoline Inj) 10 mg PRN Q4HRS PRN IVP ELEVATED BP, SEE COMMENTS Last administered on 04/05/20at 02:31; Start 04/03/20 at 16:15 Potassium Chloride (Klor-Con) 40 meq 1X ONCE PO Last administered on 04/04/20at 08:44; Start 04/04/20 at 08:00; Stop 04/04/20 at 08:01; Status DC Potassium Chloride (Klor-Con) 40 meq 1X ONCE PO Last administered on 04/04/20at 12:18; Start 04/04/20 at 12:00; Stop 04/04/20 at 12:01; Status DC Active Scripts Active Reported Oxybutynin Chloride 5 Mg Tablet 1 Tab PO BID Methotrexate (Methotrexate Sodium) 2.5 Mg Tablet 7 Tab PO WEEKLY [place] 5-325 Tablet (Acetaminophen/Hydrocodone Bitart) 1 Each Tablet 1 Tab PO BID Folic Acid 0.8 Mg Capsule 1 Mg PO DAILY Famotidine 20 Mg Tablet 20 Mg PO BID Prednisone 20 Mg Tablet 10 Mg PO DAILY Celebrex (Celecoxib) 200 Mg Capsule 1 Cap PO DAILY Atorvastatin Calcium 10 Mg Tablet 10 Mg PO HS Valsartan 80 Mg Tablet 80 Mg PO DAILY Vitals/I & O Vital Sign - Last 24 Hours 04/04/20 04/04/20 04/04/20 04/04/20 11:00 15:00 17:22 19:00 Temp 98.9 98.5 99.0 98.9 98.5 99.0 Pulse 71 80 80 69 Resp 16 18 18 B/P (MAP) 108/67 (81) 154/78 (103) 154/78 143/60 (87) Pulse Ox 96 94 94 O2 Delivery Room Air Room Air Room Air 04/04/20 04/04/20 04/05/20 04/05/20 19:36 22:48 02:31 02:59 Temp 98.6 98.1 98.6 98.1 Pulse 62 67 70 Resp 18 20 B/P (MAP) 111/56 (74) 196/100 196/100 (132) Pulse Ox 95 97 O2 Delivery Room Air Room Air Room Air 04/05/20 04/05/20 04/05/20 04/05/20 07:00 08:58 08:59 08:59 Temp 98.6 98.6 Pulse 83 83 83 83 Resp 20 B/P (MAP) 131/69 (89) 131/69 131/69 131/69 Pulse Ox 95 O2 Delivery Room Air Intake and Output 04/04/20 04/04/20 04/05/20 15:00 23:00 07:00 Intake Total 725 ml 300 ml 0 ml Output Total 1 ml 600 ml Balance 724 ml -300 ml 0 ml Justicifation of Admission Dx: Justifications for Admission: Justification of Admission Dx: Yes Stroke - Ischemic: Stroke-Ischemic CORNELIUS MARSH MD Apr 05, 2020 09:33
--- NOTE | 2020-04-05 10:29 | PDOC ---
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 Status-post alteplase on 03/27 Superimposed microhemorrhage. Consider amyloid angiopathy Suspected late subacute infarct within the left centrum semiovale. 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 Extensive scattered microhemorrhages, consider amyloid angiopathy. 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 Patient is alert awake oriented x3. 79 year old female presents via EMS with report of syncopal episode while she was eating dinner with her family. EMS reports patient became suddenly unresponsive. EMS reports patient's GCS initially 5 then improved to 10 during transport. Patient did vomit x1. Upon arrival patient with interval improvement. Denies fever or chills. 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 History of present illness limited secondary to altered mental status 04/03: Patient seen and evaluated bedside. No complaints today, states she wants to go home. Discussed with RN, no acute vents overnight. 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 Repeat blood cultures showed no growth after 5 days. [facility] authorization. 04/02: Patient evaluated bedside. She is on micafungin for Olga fungemia. He has been accepted to a [facility], pending insurance auth. 04/01: Patient seen and evaluated with family at bedside. Repeat CT head shows no significant change in acute intraparenchymal hemorrhage. She is off nicardipine drip, and on oral blood pressure medications. Afebrile, without complaints today. Family is wanting acute rehab instead of hospice. 03/31: Patient seen and evaluated with granddaughter at bedside. Chest x-ray yesterday showed no acute pulmonary finding. She remains on nicardipine drip to control blood pressure. She is to have repeat CT head tomorrow. Discussed with granddaughter, who was primary care provider for patient, who agrees she would benefit from full-time nursing care. She may also be agreeable to hospice facilities given patient's poor prognosis. Repeat CT head tomorrow may provide further information for patient's family and making this decision. 03/30: Patient seen and evaluated. She is febrile today. Some concern for aspiration. Make patient n.p.o., and obtain chest x-ray. Repeat CT head showed acute intraparenchymal hemorrhage measuring approximately 1.5 cm within the cent ral aspect of the region of acute or subacute infarction within the posterior lateral right frontal lobe, and acute intraparenchymal hemorrhage measuring approximately 1.3 cm within the medial left cerebellum. Will place patient on nicardipine drip to keep systolic blood pressure <140 mmHg. Discussed with RN. 03/29: Patient seen in ICU. No acute events overnight. Patient with no complaints. She had MRI yesterday that showed acute infarct within the right superolateral frontal lobe cortex, concern for superimposed microhemorrhage. Short-term follow-up with a noncontrast head CT is recommended to exclude evolving hemorrhagic transformation. Discussed with RN. 03/28: Patient seen in ICU, s/p TPA. She has no complaints or concerns, pleasantly demented. Afebrile. MRI pending. PT recommending SNU. Discussed with RN and social work therapist. Vitals/I&O Vitals/I&O: Vital Signs Date Time Temp Pulse Resp B/P (MAP) Pulse Ox O2 Delivery O2 Flow Rate FiO2 04/05/20 08:59 83 131/69 04/05/20 08:00 Room Air 04/05/20 07:00 98.6 20 95 98.6 I & O 1/11/21 1/11/21 1/12/21 15:00 23:00 07:00 Intake Total 725 ml 300 ml 0 ml Output Total 1 ml 600 ml Balance 724 ml -300 ml 0 ml Physical Exam Physical Exam: GENERAL: Awake female, not in distress.- pleasant HEENT: Both pupils are round and reacting. No conjunctival lesion, no lesion in the mouth. edentulous -dry NECK: Supple, no JVP, no lymphadenopathy. LUNGS: Clear. HEART: S1, S2 regular. ABDOMEN: Soft, nontender, no organomegaly. Herrera EXTREMITIES: No edema, cyanosis. SKIN: Unremarkable. NEUROLOGIC:moves ext General: Alert, Cooperative, No acute distress Heart: Regular rate (SR no ectopies), Other (2/6 systolic murmur to LLS border) Abdomen: Soft, No tenderness Extremities: No cyanosis, No edema Skin: No breakdown, No significant lesion Assessment and Plan Assessmemt and Plan Problems Medical Problems: (1) Altered mental status Status: Acute (2) Lactic acidosis Status: Acute (3) Syncope Status: Acute Discharge to half-way Comment Review of Relevant I have reviewed the following items alicia (where applicable) has been applied. Medications: Current Medications Medications (Trade) Dose Ordered Sig/Susan Route PRN Reason Start Time Stop Time Status Last Admin Dose Admin Potassium Chloride (Klor-Con) 40 meq 1X ONCE PO 04/04/20 12:00 04/04/20 12:01 DC 04/04/20 12:18 Justifications for Admission Syncope Indications Altered Mental Status?: Yes Justification for admission: Patient's severe/persistent Altered Mental Status as indicated by lethargy/confusional state that has persisted after initial hours of intervention is concerning, needs inpatient level of care for further evaluation and management. Is patient dehydrated?: Yes Justification for admission: There is concern that patient may be severely dehydrated accounting for the syncope. Patient needs inpatient level of care for further evaluation and management. Other Justification JAMAICA KLEIN III DO Apr 05, 2020 10:29
--- NOTE | 2020-04-05 10:31 | SNU/HH DC ---
DISCHARGE ORDERS DISCHARGE INFORMATION: FINAL DIAGNOSIS Problems Medical Problems: (1) Altered mental status Status: Acute (2) Lactic acidosis Status: Acute (3) Syncope Status: Acute CONDITION ON DISCHARGE: Stable CODE STATUS: Code Status: Full SNF: SNF STAY <30 DAYS: Yes HOSPICE: HOSPICE: No HOSPICE EVAL & TREAT: No POST DISCHARGE ORDERS: DIET AFTER DISCHARGE: Cardiac TREATMENT/EQUIPMENT ORDERS: Physical Therapy For: Evalulation/Treatment Occupational Therapy For: Evaluation/Treatment DISCHARGE MEDICATIONS: Home Meds Reported Medications Oxybutynin Chloride (OXYBUTYNIN CHLORIDE) 5 Mg Tablet, 1 TAB PO BID for Urinary retention, #60 TAB 11 Refills 03/26/20 Methotrexate Sodium (METHOTREXATE) 2.5 Mg Tablet, 7 TAB PO WEEKLY for Lupus, #24 TAB 1 Refill 03/26/20 Hydrocodone/Apap 5-325 (NORCO 5-325 TABLET) 1 Each Tablet, 1 TAB PO BID for Pain, #60 TAB 03/26/20 Folic Acid (Folic Acid) 0.8 Mg Capsule, 1 MG PO DAILY for Supplement, CAP 03/26/20 Famotidine (FAMOTIDINE) 20 Mg Tablet, 20 MG PO BID for Ulcer, TAB 03/26/20 Prednisone (PREDNISONE) 20 Mg Tablet, 10 MG PO DAILY for Lupus, TAB 03/26/20 Celecoxib (CELEBREX) 200 Mg Capsule, 1 CAP PO DAILY for Arthritis, #30 CAP 03/26/20 Atorvastatin Calcium (ATORVASTATIN CALCIUM) 10 Mg Tablet, 10 MG PO HS for FOR CHOLESTEROL, #30 TAB 0 Refills 03/26/20 Valsartan (Valsartan) 80 Mg Tablet, 80 MG PO DAILY for HTN, TAB 03/26/20 JAMAICA KLEIN III DO Apr 05, 2020 10:30
[2020-04-05 10:32] VITALS: BP 174/82
[2020-04-05] MEDS: MICAFUNGIN 100 MG in IV DEXTROSE 5% 100ML 100 ML IV SCH (10:32)
[2020-04-05 12:08] LABS: CALCIUM 8.9 mg/dL (8.5-10.1); CREATININE 0.8 mg/dL (0.6-1.0); GFR 84.2
--- NOTE | 2020-04-05 12:51 | NUR ---
SS following up with discharge planning. SS reviewed pt chart and discussed with pt RN. Pt is currently on room air. Pt on IV Micafungin. Per ID, pt needing IV Micafungin QD through 04/10/2020. COVID19 negative. Pt accepted at [facility], ; fax [phone], pending insurance authorization. SS notified [facility] of need for IV antibiotics. SS will continue to follow for discharge planning.
[2020-04-05 14:20] VITALS: BP 135/85
--- NOTE | 2020-04-05 15:24 | RAD ---
EXAM: CT Head without IV contrast INDICATION: Reason: F/U ICH / Spl. Instructions: / History: TECHNIQUE: Multi-detector row CT images were obtained of the head without the use of IV contrast. All CT scans performed at this facility utilize dose optimization techniques as appropriate to the exam, including the following: Automated exposure control and adjustment of the mA and/or KV according to patient size (this includes techniques or standardized protocols for targeted exams where dose is ind ication/reason for exam). COMPARISON: Noncontrast head CT of 01 April 2020 FINDINGS: BRAIN PARENCHYMA: Intraparenchymal hematomas in the right frontal and inferior left cerebellum are le ss conspicuous in the interval. No new hemorrhage. No new infarct. White matter low density compatibl e with chronic ischemic microvascular change is redemonstrated. Chronic inferior left cerebellar and bilateral basal ganglia infarcts also unchanged. VENTRICLES & EXTRA-AXIAL SPACES: Ventricles are within normal limits. Basilar cisterns are patent. N o pathologic extra-axial fluid collection or mass. ORBITS: Orbital contents are unremarkable. SINUSES: Visualized paranasal sinuses and mastoid air cells are clear. OSSEOUS & SOFT TISSUES: Calvarium and skull base are intact. IMPRESSION: Evolving hemorrhage in the inferior left cerebellum and hemorrhagic transformation of right MCA raymon tory infarct in the right frontal lobe with no new hemorrhage or worsening mass effect. Electronically signed by: Willie Harris MD (04/05/2020 3:22 PM) [id number]
--- NOTE | 2020-04-05 19:20 | NUR ---
Pt in bed assessment completed vss poc explained pt reoriented to surroundings pt denied pain will resume care and continue to monitor pt. call light in reach bed alarm set.
[2020-04-05 19:31] VITALS: BP 138/60
[2020-04-05] MEDS: ATORVASTATIN CALCIUM 40 MG TABLET. PO SCH (20:23)
--- NOTE | 2020-04-05 22:40 | NUR ---
Transfer of care note: Report given to Jayna Ortega pt resting comfortable bed alarm set.
[2020-04-05 22:47] VITALS: BP 146/86
[2020-04-06 02:56] VITALS: BP 146/78
[2020-04-06 07:27] VITALS: BP 141/79
--- NOTE | 2020-04-06 07:43 | PDOC ---
Infectious Disease Note Subjective: Subjective Patient says feeling well No complaints Temperature 100.3 this a.m. Vital Signs: Vital Signs Vital Signs Date Time Temp Pulse Resp B/P (MAP) Pulse Ox O2 Delivery O2 Flow Rate FiO2 04/06/20 07:27 100.3 75 16 141/79 (99) 95 Room Air 100.3 Physical Exam: PHYSICAL EXAM GENERAL: Awake female, not in distress.- pleasant HEENT: Both pupils are round and reacting. No conjunctival lesion, no lesion in the mouth. edentulous -dry NECK: Supple, no JVP, no lymphadenopathy. LUNGS: Clear. HEART: S1, S2 regular. ABDOMEN: Soft, nontender, no organomegaly. Herrera EXTREMITIES: No edema, cyanosis. SKIN: Unremarkable. NEUROLOGIC:moves ext Medications: Inpatient Meds: Current Medications Medications (Trade) Dose Ordered Sig/Susan Start Time Stop Time Status Last Admin Dose Admin Acetaminophen (Tylenol Supp) 650 mg PRN Q6HRS PRN 03/27/20 17:30 Acetaminophen (Tylenol) 650 mg PRN Q6HRS PRN 03/27/20 17:30 Acetaminophen/ Hydrocodone Bitart (Lortab 5/325) 1 tab PRN BID PRN 03/26/20 15:15 Alteplase, Recombinant 0 ml @ 0 mls/hr Q1H 03/27/20 17:15 UNV Amino Acids/ Glycerin/ Electrolytes 1,000 ml @ 80 mls/hr [id number] 03/31/20 04:15 04/01/20 14:03 DC 04/01/20 05:09 80 MLS/HR Amlodipine Besylate (Norvasc) 5 mg 1X ONCE 04/01/20 14:00 04/01/20 14:01 DC 04/01/20 14:51 5 MG Aspirin (Aspirin Rectal Supp) 300 mg 1X ONCE 03/25/20 19:30 03/25/20 19:33 DC 03/25/20 19:48 300 MG Aspirin (Ecotrin) 81 mg [id number] 03/26/20 08:00 03/30/20 10:30 DC 03/30/20 08:19 81 MG Atorvastatin Calcium (Lipitor) 20 mg QHS 03/29/20 21:00 03/29/20 16:25 DC Barium Sulfate (Varibar Thin Liquid Apple) 148 gm 1X ONCE 03/31/20 10:15 03/31/20 10:17 DC 03/31/20 10:15 148 GM Carvedilol (Coreg) 3.125 mg BIDWMEALS 04/01/20 12:00 04/05/20 18:16 3.125 MG Celecoxib (CeleBREX) 200 mg DAILY 03/26/20 15:00 03/30/20 14:46 DC 03/30/20 08:19 200 MG Dextrose (Dextrose 50%-Water Syringe) 12.5 gm PRN Q15MIN PRN 03/25/20 21:00 Docusate Sodium (Colace) 100 mg PRN DAILY PRN 03/25/20 21:00 Dopamine HCl/ Dextrose (DOPamine 400MG/ 250ML PREMIX) 400 mg STK-MED ONCE 03/27/20 17:00 03/28/20 08:41 DC Famotidine (Pepcid) 20 mg DAILY 03/26/20 15:00 04/05/20 08:59 20 MG Folic Acid (Folic Acid) 1 mg DAILY 03/26/20 15:00 04/05/20 08:59 1 MG Hydralazine HCl (Apresoline Inj) 10 mg PRN Q4HRS PRN 04/03/20 16:15 04/05/20 02:31 10 MG Info (CONTRAST GIVEN -- Rx MONITORING) 1 each PRN DAILY PRN 03/28/20 07:15 03/30/20 07:14 DC Iohexol (Omnipaque 300 Mg/ml) 75 ml 1X ONCE 03/28/20 07:00 03/28/20 07:05 DC 03/28/20 07:00 75 ML Labetalol HCl (Normodyne Iv Push) 10 mg PRN Q10MIN PRN 03/27/20 17:30 03/27/20 17:34 DC Losartan Potassium (Cozaar) 50 mg 1X ONCE 04/01/20 14:00 04/01/20 14:01 DC 04/01/20 14:50 50 MG Methotrexate (Rheumatrex) 17.5 mg WEEKLY 03/26/20 15:00 04/02/20 10:07 17.5 MG Micafungin Sodium 100 mg/Dextrose 100 ml @ 100 mls/hr DAILY 03/28/20 09:15 04/05/20 10:32 100 MLS/HR Nicardipine HCl 50 mg/Sodium Chloride 250 ml @ 25 mls/hr CONT PRN PRN 03/27/20 17:30 UNV Ondansetron HCl (Zofran) 4 mg PRN Q6HRS PRN 03/27/20 17:30 03/29/20 10:36 DC Oxybutynin Chloride (Ditropan) 5 mg BID 03/26/20 15:00 04/05/20 20:23 5 MG Potassium Chloride (Klor-Con) 40 meq 1X ONCE 04/04/20 12:00 04/04/20 12:01 DC 04/04/20 12:18 40 MEQ Prednisone (Prednisone) 10 mg DAILY 04/03/20 09:00 04/05/20 08:59 10 MG Sennosides (Senna) 17.2 mg PRN BID PRN 03/25/20 21:00 04/05/20 09:00 17.2 MG Sodium Chloride 50 ml @ 50 mls/hr Q1H ONCE 03/27/20 17:15 03/27/20 18:14 UNV Labs: Lab Laboratory Tests Test 04/05/20 11:45 Sodium Level 144 mmol/L (136-145) Potassium Level 4.0 mmol/L (3.5-5.1) Chloride Level 107 mmol/L (98-107) Carbon Dioxide Level 28 mmol/L (21-32) Anion Gap 9 (6-14) Blood Urea Nitrogen 15 mg/dL (7-20) Creatinine 0.8 mg/dL (0.6-1.0) Estimated GFR (Cockcroft-Gault) 84.2 Glucose Level 118 mg/dL (70-99) Calcium Level 8.9 mg/dL (8.5-10.1) Micro RUN DATE: 03/30/20 [facility] LAB *LIVE* PAGE 1 RUN TIME: 1140 Specimen Inquiry PATIENT: SONY CULP ACCT: [id number] LOC: 2 [place] U: [id number] AGE/SX: 79/F ROOM: 210 RE03/25/[address]: MANSI GUTIERREZ MD : 1940 BED: 1 DIS: STATUS: ADM IN TLOC: SPEC #: [id number] JAYDE: 03/25/20 STATUS: COMP REQ #: [id number] RECD: 03/25/[address]: LORELEI PANG DO SOURCE: BLOOD ENTR: 03/28/[address]: KIRK ROBERT MD SPDESC: ORDERED: NABEEL MUNIZ - LC Procedure Result --- --------- BLOOD CULTURE LC Final Final YEAST FINAL ID= [OLGA GLABRATA] OLGA GLABRATA Unless otherwise specified, Testing Performed by: [address] [address] For Inquires, the Physician may contact the Microbiology department at [phone] Objective: Assessment: 1. 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 Cerebrovascular accident/code stroke. 3. Syncopal episode. 4. History of cerebrovascular accident. Intracranial hemorrhage 5. Hypertension. 6. Tobaccoism. 7. Glaucoma. On prednisone Plan: Plan of Care repeat BC neg from 03/28 Continue micafungin through Apr 10 2020 Supportive care Ophthalmology consultation, can be done as outpt Monitor temperature trend D/w nursing JASPREET HARLEY MD Apr 06, 2020 07:42
--- NOTE | 2020-04-06 08:22 | PDOC ---
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 Status-post alteplase on 03/27 Superimposed microhemorrhage. Consider amyloid angiopathy Suspected late subacute infarct within the left centrum semiovale. 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 Extensive scattered microhemorrhages, consider amyloid angiopathy. 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 Patient is alert awake oriented x3. 79 year old female presents via EMS with report of syncopal episode while she was eating dinner with her family. EMS reports patient became suddenly unresponsive. EMS reports patient's GCS initially 5 then improved to 10 during transport. Patient did vomit x1. Upon arrival patient with interval improvement. Denies fever or chills. 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 History of present illness limited secondary to altered mental status 04/03: Patient seen and evaluated bedside. No complaints today, states she wants to go home. Discussed with RN, no acute vents overnight. 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 Repeat blood cultures showed no growth after 5 days. [facility]. 04/02: Patient evaluated bedside. She is on micafungin for Olga fungemia. He has been accepted to a [facility], pending insurance auth. 04/01: Patient seen and evaluated with family at bedside. Repeat CT head shows no significant change in acute intraparenchymal hemorrhage. She is off nicardipine drip, and on oral blood pressure medications. Afebrile, without complaints today. Family is wanting acute rehab instead of hospice. 03/31: Patient seen and evaluated with granddaughter at bedside. Chest x-ray yest erday showed no acute pulmonary finding. She remains on nicardipine drip to control blood pressure. She is to have repeat CT head tomorrow. Discussed with granddaughter, who was primary care provider for patient, who agrees she would benefit from full-time nursing care. She may also be agreeable to hospice facilities given patient's poor prognosis. Repeat CT head tomorrow may provide further information for patient's family and making this decision. 03/30: Patient seen and evaluated. She is febrile today. Some concern for aspiration. Make patient n.p.o., and obtain chest x-ray. Repeat CT head showed acute intraparenchymal hemorrhage measuring approximately 1.5 cm within the central aspect of the region of acute or subacute infarction within the mastic man ior lateral right frontal lobe, and acute intraparenchymal hemorrhage measuring approximately 1.3 cm within the medial left cerebellum. Will place patient on nicardipine drip to keep systolic blood pressure <140 mmHg. Discussed with RN. 03/29: Patient seen in ICU. No acute events overnight. Patient with no complaints. She had MRI yesterday that showed acute infarct within the right superolateral frontal lobe cortex, concern for superimposed microhemorrhage. Short-term follow-up with a noncontrast head CT is recommended to exclude evolving hemorrhagic transformation. Discussed with RN. 03/28: Patient seen in ICU, s/p TPA. She has no complaints or concerns, pleasantly demented. Afebrile. MRI pending. PT recommending SNU. Discussed with RN and social work nurse. Vitals/I&O Vitals/I&O: Vital Signs Date Time Temp Pulse Resp B/P (MAP) Pulse Ox O2 Delivery O2 Flow Rate FiO2 04/06/20 07:27 100.3 75 16 141/79 (99) 95 Room Air 100.3 I & O 04/05/20 04/05/20 04/06/20 15:00 23:00 07:00 Intake Total 260 ml 60 ml Balance 260 ml 60 ml Physical Exam Physical Exam: GENERAL: Awake female, not in distress.- pleasant HEENT: Both pupils are round and reacting. No conjunctival lesion, no lesion in the mouth. edentulous -dry NECK: Supple, no JVP, no lymphadenopathy. LUNGS: Clear. HEART: S1, S2 regular. ABDOMEN: Soft, nontender, no organomegaly. Herrera EXTREMITIES: No edema, cyanosis. SKIN: Unremarkable. NEUROLOGIC:moves ext General: Alert, Cooperative, No acute distress Heart: Regular rate (SR no ectopies), Other (2/6 systolic murmur to LLS border) Abdomen: Soft, No tenderness Extremities: No cyanosis, No edema Skin: No breakdown, No significant lesion Labs Labs: Laboratory Tests Test 04/05/20 11:45 Sodium Level 144 mmol/L (136-145) Potassium Level 4.0 mmol/L (3.5-5.1) Chloride Level 107 mmol/L (98-107) Carbon Dioxide Level 28 mmol/L (21-32) Anion Gap 9 (6-14) Blood Urea Nitrogen 15 mg/dL (7-20) Creatinine 0.8 mg/dL (0.6-1.0) Estimated GFR (Cockcroft-Gault) 84.2 Glucose Level 118 mg/dL (70-99) Calcium Level 8.9 mg/dL (8.5-10.1) Review of Systems Review of Systems: Denies N/V, no edema Assessment and Plan Assessmemt and Plan Problems Medical Problems: (1) Altered mental status Status: Acute (2) Lactic acidosis Status: Acute (3) Syncope Status: Acute P: -Home meds -Full code -PT/OT -DVT prophylaxis -Probable d/c to snf facility Comment Review of Relevant I have reviewed the following items alicia (where applicable) has been applied. Justifications for Admission Syncope Indications Altered Mental Status?: Yes Justification for admission: Patient's severe/persistent Altered Mental Status as indicated by lethargy/confusional state that has persisted after initial hours of intervention is concerning, needs inpatient level of care for further evaluation and management. Is patient dehydrated?: Yes Justification for admission: There is concern that patient may be severely dehydrated accounting for the syncope. Patient needs inpatient level of care for further evaluation and management. Other Justification JAMAICA KLEIN III DO Apr 06, 2020 08:22
[2020-04-06] MEDS: MICAFUNGIN 100 MG in IV DEXTROSE 5% 100ML 100 ML IV SCH (08:43)
[2020-04-06] MEDS: SENNOSIDES 8.6 MG TABLET PO PRN (08:45)
[2020-04-06] MEDS: predniSONE 10 MG TABLET PO SCH (08:45)
[2020-04-06] MEDS: LOSARTAN POTASSIUM 50 MG TABLET. PO SCH (08:45)
[2020-04-06] MEDS: FAMOTIDINE 20 MG TABLET. PO SCH (08:45)
[2020-04-06] MEDS: OXYBUTYNIN CHLORIDE 5 MG TABLET PO SCH ×2 (08:46→21:26)
[2020-04-06] MEDS: CARVEDILOL 3.125 MG TABLET. PO SCH ×2 (08:46→17:30)
[2020-04-06] MEDS: FOLIC ACID 1 MG TABLET. PO SCH (08:46)
[2020-04-06 11:00] VITALS: BP 137/64
--- NOTE | 2020-04-06 11:00 | PDOC ---
PROGRESS NOTES Date of Service DATE: 04/06/20 TIME: 10:58 Assessment Problems Medical Problems: (1) Altered mental status Status: Acute (2) Lactic acidosis Status: Acute (3) Syncope Status: Acute Acute intraparenchymal hemorrhages posterior lateral right frontal lobe and medial left cerebellum. Acute infarct within the right superolateral frontal lobe cortex and adjacent white matter and right centrum semiovale. Status-post alteplase on 03/27 Superimposed microhemorrhage. Consider amyloid angiopathy Suspected late subacute infarct within the left centrum semiovale. 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 Extensive scattered microhemorrhages, consider amyloid angiopathy. 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 Hypertension, hypocalcemia, hypophosphatemia, hypochloremia, lactic acidosis Passed repeat swallow evaluation Fungemia, possible artifact Plan Resume aspirin Blood pressure less than 160/90 Cardiology consulted for embolic work-up, report of echocardiogram noted Continue statin Telemetry Discharge to rehab/[facility] next few days SCDs Repeat head CT as clinically indicated Follow-up with me in 6-weeks Subjective No complaints, wants to go home Objective Vital Signs Date Time Temp Pulse Resp B/P (MAP) Pulse Ox O2 Delivery O2 Flow Rate FiO2 04/06/20 08:46 87 141/79 04/06/20 07:27 100.3 16 95 Room Air 100.3 Intake and Output 04/06/20 07:00 Intake Total 320 ml Balance 320 ml Intake Oral 320 ml # Voids 8 PHYSICAL EXAM Alert. Oriented to person. Blind in both eyes CN: no focal findings, minimal left facial weakness. Muscle tone: normal. Muscle strength: 4/5 DTR: 2+ Plantar reflex: Flexor Gait: not examined in bed. Sensory exam: no abnormal findings. No cerebellar signs elicited, hard to test with blindness. Review of Relevant I have reviewed the following items alicia (where applicable) has been applied. Labs Laboratory Tests Test 04/05/20 11:45 Sodium Level 144 mmol/L (136-145) Potassium Level 4.0 mmol/L (3.5-5.1) Chloride Level 107 mmol/L (98-107) Carbon Dioxide Level 28 mmol/L (21-32) Anion Gap 9 (6-14) Blood Urea Nitrogen 15 mg/dL (7-20) Creatinine 0.8 mg/dL (0.6-1.0) Estimated GFR (Cockcroft-Gault) 84.2 Glucose Level 118 mg/dL (70-99) Calcium Level 8.9 mg/dL (8.5-10.1) Laboratory Tests Test 04/05/20 11:45 Sodium Level 144 mmol/L (136-145) Potassium Level 4.0 mmol/L (3.5-5.1) Chloride Level 107 mmol/L (98-107) Carbon Dioxide Level 28 mmol/L (21-32) Anion Gap 9 (6-14) Blood Urea Nitrogen 15 mg/dL (7-20) Creatinine 0.8 mg/dL (0.6-1.0) Estimated GFR (Cockcroft-Gault) 84.2 Glucose Level 118 mg/dL (70-99) Calcium Level 8.9 mg/dL (8.5-10.1) Microbiology 03/28/20 Blood Culture - Final, Complete NO GROWTH AFTER 5 DAYS Medications Current Medications Sodium Chloride 1,000 ml @ 1,000 mls/hr 1X ONCE IV Last administered on 03/25/20at 19:48; Start 03/25/20 at 18:15; Stop 03/25/20 at 19:14; Status DC Aspirin (Aspirin Rectal Supp) 300 mg 1X ONCE IN Last administered on 03/25/20at 19:48; Start 03/25/20 at 19:30; Stop 03/25/20 at 19:33; Status DC Ondansetron HCl (Zofran) 4 mg PRN Q8HRS PRN IV NAUSEA/VOMITING; Start 03/25/20 at 20:30; Stop 03/26/20 at 20:29; Status DC Sodium Chloride 1,000 ml @ 75 mls/hr 1X ONCE IV Last administered on 03/25/20at 20:30; Start 03/25/20 at 20:30; Stop 03/26/20 at 00:18; Status DC Atorvastatin Calcium (Lipitor) 40 mg QHS PO Last administered on 04/05/20at 20:23; Start 03/25/20 at 21:00 Sennosides (Senna) 17.2 mg PRN BID PRN PO CONSTIPATION 1ST CHOICE Last administered on 04/06/20at 08:45; Start 03/25/20 at 21:00 Docusate Sodium (Colace) 100 mg PRN DAILY PRN PO HARD STOOLS; Start 03/25/20 at 21:00 Ondansetron HCl (Zofran) 4 mg PRN Q6HRS PRN IVP NAUSEA/VOMITING 1ST CHOICE Last administered on 03/28/20at 03:35; Start 03/25/20 at 21:00 Aspirin (Ecotrin) 81 mg DAILYWBKFT PO Last administered on 03/30/20at 08:19; Start 03/26/20 at 08:00; Stop 03/30/20 at 10:30; Status DC Dextrose (Dextrose 50%-Water Syringe) 12.5 gm PRN Q15MIN PRN IV SEE COMMENTS; Start 03/25/20 at 21:00 Sodium Chloride 1,000 ml @ 100 mls/hr Q10H IV Last administered on 03/30/20at 17:03; Start 03/25/20 at 21:00; Stop 03/31/20 at 07:45; Status DC Labetalol HCl (Normodyne Iv Push) 10 mg PRN Q2HRS PRN IVP HYPERTENSION Last administered on 03/31/20at 06:30; Start 03/26/20 at 09:00; Stop 04/02/20 at 15:00; Status DC Famotidine (Pepcid) 20 mg DAILY PO Last administered on 04/06/20at 08:45; Start 03/26/20 at 15:00 Acetaminophen/ Hydrocodone Bitart (Lortab 5/325) 1 tab BID PO ; Start 03/26/20 at 15:00; Stop 03/26/20 at 15:04; Status DC Methotrexate (Rheumatrex) 17.5 mg WEEKLY PO Last administered on 04/02/20at 10:07; Start 03/26/20 at 15:00 Oxybutynin Chloride (Ditropan) 5 mg BID PO Last administered on 04/06/20at 08:46; Start 03/26/20 at 15:00 Prednisone (Prednisone) 10 mg DAILY PO Last administered on 04/02/20at 09:48; Start 03/26/20 at 15:00; Stop 04/02/20 at 15:01; Status DC Celecoxib (CeleBREX) 200 mg DAILY PO Last administered on 03/30/20at 08:19; Start 03/26/20 at 15:00; Stop 03/30/20 at 14:46; Status DC Folic Acid (Folic Acid) 1 mg DAILY PO Last administered on 04/06/20at 08:46; Start 03/26/20 at 15:00 Losartan Potassium (Cozaar) 50 mg DAILY PO Last administered on 04/01/20at 08:33; Start 03/26/20 at 15:00; Stop 04/01/20 at 13:47; Status DC Acetaminophen/ Hydrocodone Bitart (Lortab 5/325) 1 tab PRN BID PRN PO MODERATE PAIN, SEVERE PAIN; Start 03/26/20 at 15:15 Dopamine HCl/ Dextrose 0 ml @ As Directed STK-MED ONCE IV ; Start 03/27/20 at 16:26; Stop 03/27/20 at 16:26; Status DC Alteplase, Recombinant 4.3 ml @ 258 mls/hr 1X ONCE IV Last administered on 03/27/20at 17:36; Start 03/27/20 at 17:15; Stop 03/27/20 at 17:17; Status DC Alteplase, Recombinant 38.6 ml @ 38.6 mls/hr Q1H IV Last administered on 03/27/20at 17:34; Start 03/27/20 at 17:15; Stop 03/27/20 at 18:14; Status DC Sodium Chloride 50 ml @ 200 mls/hr 1X ONCE IV Last administered on 03/27/20at 18:05; Start 03/27/20 at 17:15; Stop 03/27/20 at 17:29; Status DC Alteplase, Recombinant 0 ml @ 0 mls/hr Q1M ONCE IV ; Start 03/27/20 at 17:15; Stop 03/27/20 at 17:16; Status UNV Alteplase, Recombinant 0 ml @ 0 mls/hr Q1H IV ; Start 03/27/20 at 17:15; Status UNV Sodium Chloride 50 ml @ 50 mls/hr Q1H ONCE IV ; Start 03/27/20 at 17:15; Stop 03/27/20 at 18:14; Status UNV Labetalol HCl (Normodyne Iv Push) 10 mg PRN Q10MIN PRN IVP HYPERTENSION Last administered on 04/03/20at 02:53; Start 03/27/20 at 17:15 Nicardipine HCl 50 mg/Sodium Chloride 250 ml @ 25 mls/hr CONT PRN PRN IV HYPERTENSION Last administered on 04/01/20at 05:09; Start 03/27/20 at 17:15 Labetalol HCl (Normodyne Iv Push) 10 mg PRN Q10MIN PRN IVP HYPERTENSION; Start 03/27/20 at 17:30; Stop 03/27/20 at 17:34; Status DC Nicardipine HCl 50 mg/Sodium Chloride 250 ml @ 25 mls/hr CONT PRN PRN IV HYPERTENSION; Start 03/27/20 at 17:30; Status UNV Acetaminophen (Tylenol) 650 mg PRN Q6HRS PRN PO MILD PAIN / TEMP > 100.3'F; Start 03/27/20 at 17:30 Acetaminophen (Tylenol Supp) 650 mg PRN Q6HRS PRN IN MILD PAIN / TEMP > 100.3'F; Start 03/27/20 at 17:30 Ondansetron HCl (Zofran) 4 mg PRN Q6HRS PRN IVP NAUSEA/VOMITING; Start 03/27/20 at 17:30; Stop 03/29/20 at 10:36; Status DC Iohexol (Omnipaque 300 Mg/ml) 75 ml 1X ONCE IV Last administered on 03/28/20at 07:00; Start 03/28/20 at 07:00; Stop 03/28/20 at 07:05; Status DC Info (CONTRAST GIVEN -- Rx MONITORING) 1 each PRN DAILY PRN MC SEE COMMENTS; Start 03/28/20 at 07:15; Stop 03/30/20 at 07:14; Status DC Dopamine HCl/ Dextrose (DOPamine 400MG/ 250ML PREMIX) 400 mg STK-MED ONCE IV ; Start 03/27/20 at 17:00; Stop 03/28/20 at 08:41; Status DC Micafungin Sodium 100 mg/Dextrose 100 ml @ 100 mls/hr DAILY IV Last administered on 04/06/20at 08:43; Start 03/28/20 at 09:15 Hydralazine HCl (Apresoline Inj) 10 mg Q6HRS IVP Last administered on 03/30/20at 06:23; Start 03/29/20 at 11:00; Stop 03/30/20 at 11:05; Status DC Amlodipine Besylate (Norvasc) 5 mg DAILY PO Last administered on 04/01/20at 08:34; Start 03/30/20 at 09:00; Stop 04/01/20 at 13:47; Status DC Atorvastatin Calcium (Lipitor) 20 mg QHS PO ; Start 03/29/20 at 21:00; Stop 03/29/20 at 16:25; Status DC Amino Acids/ Glycerin/ Electrolytes 1,000 ml @ 80 mls/hr [id number] IV Last administered on 04/01/20at 05:09; Start 03/31/20 at 04:15; Stop 04/01/20 at 14:03; Status DC Barium Sulfate (Varibar Thin Liquid Apple) 148 gm 1X ONCE PO Last administered on 03/31/20at 10:15; Start 03/31/20 at 10:15; Stop 03/31/20 at 10:17; Status DC Carvedilol (Coreg) 3.125 mg BIDWMEALS PO Last administered on 04/06/20at 08:46; Start 04/01/20 at 12:00 Amlodipine Besylate (Norvasc) 10 mg DAILY PO Last administered on 04/06/20at 08:46; Start 04/02/20 at 09:00 Losartan Potassium (Cozaar) 100 mg DAILY PO Last administered on 04/06/20at 08:45; Start 04/02/20 at 09:00 Losartan Potassium (Cozaar) 50 mg 1X ONCE PO Last administered on 04/01/20at 14:50; Start 04/01/20 at 14:00; Stop 04/01/20 at 14:01; Status DC Amlodipine Besylate (Norvasc) 5 mg 1X ONCE PO Last administered on 04/01/20at 14:51; Start 04/01/20 at 14:00; Stop 04/01/20 at 14:01; Status DC Prednisone (Prednisone) 10 mg DAILY PO Last administered on 04/06/20at 08:45; Start 04/03/20 at 09:00 Hydralazine HCl (Apresoline Inj) 10 mg PRN Q4HRS PRN IVP ELEVATED BP, SEE COMMENTS Last administered on 04/05/20at 02:31; Start 04/03/20 at 16:15 Potassium Chloride (Klor-Con) 40 meq 1X ONCE PO Last administered on 04/04/20at 08:44; Start 04/04/20 at 08:00; Stop 04/04/20 at 08:01; Status DC Potassium Chloride (Klor-Con) 40 meq 1X ONCE PO Last administered on 04/04/20at 12:18; Start 04/04/20 at 12:00; Stop 04/04/20 at 12:01; Status DC Active Scripts Active Reported Oxybutynin Chloride 5 Mg Tablet 1 Tab PO BID Methotrexate (Methotrexate Sodium) 2.5 Mg Tablet 7 Tab PO WEEKLY [place] 5-325 Tablet (Acetaminophen/Hydrocodone Bitart) 1 Each Tablet 1 Tab PO BID Folic Acid 0.8 Mg Capsule 1 Mg PO DAILY Famotidine 20 Mg Tablet 20 Mg PO BID Prednisone 20 Mg Tablet 10 Mg PO DAILY Celebrex (Celecoxib) 200 Mg Capsule 1 Cap PO DAILY Atorvastatin Calcium 10 Mg Tablet 10 Mg PO HS Valsartan 80 Mg Tablet 80 Mg PO DAILY Vitals/I & O Vital Sign - Last 24 Hours 04/05/20 04/05/20 04/05/20 04/05/20 14:20 18:16 19:20 19:31 Temp 97.7 98.5 97.7 98.5 Pulse 78 78 77 Resp 20 19 B/P (MAP) 135/85 (102) 135/85 138/60 (86) Pulse Ox 96 93 O2 Delivery Room Air Room Air Room Air 04/05/20 04/06/20 04/06/20 04/06/20 22:47 02:56 07:27 08:45 Temp 98.9 97.8 100.3 98.9 97.8 100.3 Pulse 64 63 75 87 Resp 18 18 16 B/P (MAP) 146/86 (106) 146/78 (100) 141/79 (99) 141/79 Pulse Ox 96 97 95 O2 Delivery Room Air Room Air Room Air 04/06/20 04/06/20 08:46 08:46 Pulse 87 87 B/P (MAP) 141/79 141/79 Intake and Output 04/05/20 04/05/20 04/06/20 15:00 23:00 07:00 Intake Total 260 ml 60 ml Balance 260 ml [address] Head without IV contrast, 04/05 INDICATION: Reason: F/U ICH / Spl. Instructions: / History: TECHNIQUE: Multi-detector row CT images were obtained of the head without the use of IV contrast. All CT scans performed at this facility utilize dose opti mization techniques as appropriate to the exam, including the following: Automated exposure control and adjustment of the mA and/or KV according to patient size (this includes techniques or standardized protocols for targeted exams where dose is indication/reason for exam). COMPARISON: Noncontrast head CT of 01 April 2020 FINDINGS: BRAIN PARENCHYMA: Intraparenchymal hematomas in the right frontal and inferior left cerebellum are less conspicuous in the interval. No new hemorrhage. No new infarct. White matter low density compatible with chronic ischemic microvascular change is redemonstrated. Chronic inferior left cerebellar and bilateral basal ganglia infarcts also unchanged. VENTRICLES & EXTRA-AXIAL SPACES: Ventricles are within normal limits. Basilar cisterns are patent. No pathologic extra-axial fluid collection or mass. ORBITS: Orbital contents are unremarkable. SINUSES: Visualized paranasal sinuses and mastoid air cells are clear. OSSEOUS & SOFT TISSUES: Calvarium and skull base are intact. IMPRESSION: Evolving hemorrhage in the inferior left cerebellum and hemorrhagic transformation of right MCA territory infarct in the right frontal lobe with no new hemorrhage or worsening mass effect. Justicifation of Admission Dx: Justifications for Admission: Justification of Admission Dx: Yes Stroke - Ischemic: Stroke-Ischemic CORNELIUS MARSH MD Apr 06, 2020 11:00
--- NOTE | 2020-04-06 11:28 | NUR ---
SS following up with discharge planning. SS reviewed pt chart and discussed with pt RN. Pt is currently on room air. COVID19 negative. PT/OT recommended nursing home unit. Pt accepted at [facility], ; fax [phone]. [facility] notified SS that they received insurance authorization late last night and just need new COVID19 test since last test is more than a week old. [facility] and they can provide the IV Micafungin through the 10 of April provided that they had a script with a stop date. Script received and mid line ordered. Pt swabbed for COVID19 this morning. SS phoned and faxed script to [facility]. Plan for discharge tomorrow to [facility] once COVID19 test has resulted. Pt's family notified. SS will continue to follow for discharge planning.
[2020-04-06 14:36] VITALS: BP 115/62
[2020-04-06 19:25] VITALS: BP 123/64
[2020-04-06] MEDS: ATORVASTATIN CALCIUM 40 MG TABLET. PO SCH (21:26)
[2020-04-06 22:40] VITALS: BP 115/58
[2020-04-07 03:15] VITALS: BP 118/63
[2020-04-07 07:00] VITALS: BP 142/65
--- NOTE | 2020-04-07 08:01 | PDOC ---
Infectious Disease Note Subjective: Subjective Patient says feeling well No complaints Temperature pattern improved Temperature max 100.3 Vital Signs: Vital Signs Vital Signs Date Time Temp Pulse Resp B/P (MAP) Pulse Ox O2 Delivery O2 Flow Rate FiO2 04/07/20 03:15 98.3 70 18 118/63 (81) 96 Room Air 98.3 Physical Exam: PHYSICAL EXAM GENERAL: Awake female, not in distress.- pleasant HEENT: Both pupils are round and reacting. No conjunctival lesion, no lesion in the mouth. edentulous -dry NECK: Supple, no JVP, no lymphadenopathy. LUNGS: Clear. HEART: S1, S2 regular. ABDOMEN: Soft, nontender, no organomegaly. Herrera EXTREMITIES: No edema, cyanosis. SKIN: Unremarkable. NEUROLOGIC:moves ext Medications: Inpatient Meds: Current Medications Medications (Trade) Dose Ordered Sig/Susan Start Time Stop Time Status Last Admin Dose Admin Acetaminophen (Tylenol Supp) 650 mg PRN Q6HRS PRN 03/27/20 17:30 Acetaminophen (Tylenol) 650 mg PRN Q6HRS PRN 03/27/20 17:30 Acetaminophen/ Hydrocodone Bitart (Lortab 5/325) 1 tab PRN BID PRN 03/26/20 15:15 Alteplase, Recombinant 0 ml @ 0 mls/hr Q1H 03/27/20 17:15 UNV Amino Acids/ Glycerin/ Electrolytes 1,000 ml @ 80 mls/hr [id number] 03/31/20 04:15 04/01/20 14:03 DC 04/01/20 05:09 80 MLS/HR Amlodipine Besylate (Norvasc) 5 mg 1X ONCE 04/01/20 14:00 04/01/20 14:01 DC 04/01/20 14:51 5 MG Aspirin (Aspirin Rectal Supp) 300 mg 1X ONCE 03/25/20 19:30 03/25/20 19:33 DC 03/25/20 19:48 300 MG Aspirin (Ecotrin) 81 mg [id number] 03/26/20 08:00 03/30/20 10:30 DC 03/30/20 08:19 81 MG Atorvastatin Calcium (Lipitor) 20 mg QHS 03/29/20 21:00 03/29/20 16:25 DC Barium Sulfate (Varibar Thin Liquid Apple) 148 gm 1X ONCE 03/31/20 10:15 1/7/21 10:17 DC 03/31/20 10:15 148 GM Carvedilol (Coreg) 3.125 mg BIDWMEALS 04/01/20 12:00 04/06/20 17:30 3.125 MG Celecoxib (CeleBREX) 200 mg DAILY 03/26/20 15:00 03/30/20 14:46 DC 03/30/20 08:19 200 MG Dextrose (Dextrose 50%-Water Syringe) 12.5 gm PRN Q15MIN PRN 03/25/20 21:00 Docusate Sodium (Colace) 100 mg PRN DAILY PRN 03/25/20 21:00 Dopamine HCl/ Dextrose (DOPamine 400MG/ 250ML PREMIX) 400 mg STK-MED ONCE 03/27/20 17:00 03/28/20 08:41 DC Famotidine (Pepcid) 20 mg DAILY 03/26/20 15:00 04/06/20 08:45 20 MG Folic Acid (Folic Acid) 1 mg DAILY 03/26/20 15:00 04/06/20 08:46 1 MG Hydralazine HCl (Apresoline Inj) 10 mg PRN Q4HRS PRN 04/03/20 16:15 04/05/20 02:31 10 MG Info (CONTRAST GIVEN -- Rx MONITORING) 1 each PRN DAILY PRN 03/28/20 07:15 03/30/20 07:14 DC Iohexol (Omnipaque 300 Mg/ml) 75 ml 1X ONCE 03/28/20 07:00 03/28/20 07:05 DC 03/28/20 07:00 75 ML Labetalol HCl (Normodyne Iv Push) 10 mg PRN Q10MIN PRN 03/27/20 17:30 03/27/20 17:34 DC Losartan Potassium (Cozaar) 50 mg 1X ONCE 04/01/20 14:00 04/01/20 14:01 DC 04/01/20 14:50 50 MG Methotrexate (Rheumatrex) 17.5 mg WEEKLY 03/26/20 15:00 04/02/20 10:07 17.5 MG Micafungin Sodium 100 mg/Dextrose 100 ml @ 100 mls/hr DAILY 03/28/20 09:15 04/06/20 08:43 100 MLS/HR Nicardipine HCl 50 mg/Sodium Chloride 250 ml @ 25 mls/hr CONT PRN PRN 03/27/20 17:30 UNV Ondansetron HCl (Zofran) 4 mg PRN Q6HRS PRN 03/27/20 17:30 03/29/20 10:36 DC Oxybutynin Chloride (Ditropan) 5 mg BID 03/26/20 15:00 04/06/20 21:26 5 MG Potassium Chloride (Klor-Con) 40 meq 1X ONCE 04/04/20 12:00 04/04/20 12:01 DC 04/04/20 12:18 40 MEQ Prednisone (Prednisone) 10 mg DAILY 04/03/20 09:00 04/06/20 08:45 10 MG Sennosides (Senna) 17.2 mg PRN BID PRN 03/25/20 21:00 04/06/20 08:45 17.2 MG Sodium Chloride 50 ml @ 50 mls/hr Q1H ONCE 03/27/20 17:15 03/27/20 18:14 UNV Labs: Micro RUN DATE: 03/30/20 [facility] *LIVE* PAGE 1 RUN TIME: 1140 Specimen Inquiry PATIENT: SONY CULP ACCT: [id number] LOC: [address] [place] [address] U: [id number] AGE/SX: 79/F ROOM: 210 RE03/25/[address]: MANSI GUTIERREZ MD : 1940 BED: 1 DIS: STATUS: ADM IN TLOC: ---- -------- SPEC #: [id number] JAYDE: 03/25/20 STATUS: COMP REQ #: [id number] RECD: 03/25/[address]: LORELEI PANG DO SOURCE: BLOOD ENTR: 03/28/[address] [facility] [address]: KIRK ROBERT MD [facility]: ORDERED: BLD CULT - LC Procedure Result BLOOD CULTURE LC Final Final YEAST FINAL ID= [OLGA GLABRATA] OLGA GLABRATA Unless otherwise specified, Testing Performed by: [address] [address] For Inquires, the Physician may contact the Microbiology department at [phone] Objective: Assessment: 1. 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 Cerebrovascular accident/code stroke. 3. Syncopal episode. 4. History of cerebrovascular accident. Intracranial hemorrhage 5. Hypertension. 6. Tobaccoism. 7. Glaucoma. with h/o legal blindness On prednisone Plan: Plan of Care repeat BC neg from 03/28 Continue micafungin through Apr 10 2020 Prescription in chart Supportive care Will need ophthalmology consultation for fungal eye involvement, can be done as outpt D/w nursing JASPREET HARLEY MD Apr 07, 2020 08:01
[2020-04-07] MEDS: FOLIC ACID 1 MG TABLET. PO SCH (08:14)
[2020-04-07] MEDS: FAMOTIDINE 20 MG TABLET. PO SCH (08:14)
[2020-04-07] MEDS: OXYBUTYNIN CHLORIDE 5 MG TABLET PO SCH (08:14)
[2020-04-07] MEDS: predniSONE 10 MG TABLET PO SCH (08:14)
[2020-04-07] MEDS: LOSARTAN POTASSIUM 50 MG TABLET. PO SCH (08:16)
[2020-04-07] MEDS: MICAFUNGIN 100 MG in IV DEXTROSE 5% 100ML 100 ML IV SCH (08:17)
[2020-04-07] MEDS: CARVEDILOL 3.125 MG TABLET. PO SCH (08:17)
--- NOTE | 2020-04-07 10:39 | PDOC ---
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 Status-post alteplase on 03/27 Superimposed microhemorrhage. Consider amyloid angiopathy Suspected late subacute infarct within the left centrum semiovale. 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 Extensive scattered microhemorrhages, consider amyloid angiopathy. 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 Hypertension, hypocalcemia, hypophosphatemia, hypochloremia, lactic acidosis Passed repeat swallow evaluation Fungemia, possible artifact History of Present Illness History of Present Illness 04/07/2020 Patient seen and examined, is pleasantly demented Chart reviewed DW RN, SRIDEVI assistant case manager 04/06/2020 Patient seen and examined, is pleasantly demented SRIDEVI RN, SRIDEVI assistant case manager Chart reviewed 04/05/2020 Patient seen and examined Discussed with RN Discussed with case management 04/04/2020 Patient seen and examined [place] discussed with RN Discussed with case management Chart reviewed History obtained from chart review and discussion with the patient. Patient is alert awake oriented x3. 79 year old female presents via EMS with report of syncopal episode while she was eating dinner with her family. EMS reports patient became suddenly unresponsive. EMS reports patient's GCS initially 5 then improved to 10 during transport. Patient did vomit x1. Upon arrival patient with interval improvement. Denies fever or chills. 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 History of present illness limited secondary to altered mental status 04/03: Patient seen and evaluated bedside. No complaints today, states she wants to go home. Discussed with RN, no acute vents overnight. 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 Repeat blood cultures showed no growth after 5 days. [facility], pending insurance authorization. 04/02: Patient evaluated bedside. She is on micafungin for Ogla fungemia. He has been accepted to a [facility], pending insurance auth. 04/01: Patient seen and evaluated with family at bedside. Repeat CT head shows no significant change in acute intraparenchymal hemorrhage. She is off nicardipine drip, and on oral blood pressure medications. Afebrile, without complaints today. Family is wanting acute rehab instead of hospice. 03/31: Patient seen and evaluated with granddaughter at bedside. Chest x-ray yesterday showed no acute pulmonary finding. She remains on nicardipine drip to control blood pressure. She is to have repeat CT head tomorrow. Discussed with granddaughter, who was primary care provider for patient, who agrees she would benefit from full-time nursing care. She may also be agreeable to hospice facilities given patient's poor prognosis. Repeat CT head tomorrow may provide further information for patient's family and making this decision. 03/30: Patient seen and evaluated. She is febrile today. Some concern for aspiration. Make patient n.p.o., and obtain chest x-ray. Repeat CT head showed acute intraparenchymal hemorrhage measuring approximately 1.5 cm within the central aspect of the region of acute or subacute infarction within the posterior lateral right frontal lobe, and acute intraparenchymal hemorrhage measuring approximately 1.3 cm within the medial left cerebellum. Will place patient on nicardipine drip to keep systolic blood pressure <140 mmHg. Discussed with RN. 03/29: Patient seen in ICU. No acute events overnight. Patient with no complaints. She had MRI yesterday that showed acute infarct within the right superolateral frontal lobe cortex, concern for superimposed microhemorrhage. Short-term follow-up with a noncontrast head CT is recommended to exclude ev olving hemorrhagic transformation. Discussed with RN. 03/28: Patient seen in ICU, s/p TPA. She has no complaints or concerns, pl easantly demented. Afebrile. MRI pending. PT recommending SNU. Discussed with RN and social services technician. Vitals/I&O Vitals/I&O: Vital Signs Date Time Temp Pulse Resp B/P (MAP) Pulse Ox O2 Delivery O2 Flow Rate FiO2 04/07/20 08:17 71 142/65 04/07/20 07:35 Room Air 04/07/20 07:00 98.5 16 94 98.5 I & O 04/06/20 04/06/20 04/07/20 15:00 23:00 07:00 Intake Total 340 ml 220 ml 100 ml Balance 340 ml 220 ml 100 ml Physical Exam Physical Exam: GENERAL: Awake female, not in distress.- pleasant HEENT: Both pupils are round and reacting. No conjunctival lesion, no lesion in the mouth. edentulous -dry NECK: Supple, no JVP, no lymphadenopathy. LUNGS: Clear. HEART: S1, S2 regular. ABDOMEN: Soft, nontender, no organomegaly. Herrera EXTREMITIES: No edema, cyanosis. SKIN: Unremarkable. NEUROLOGIC:moves ext General: Alert, Cooperative, No acute distress Heart: Regular rate (SR no ectopies), No murmurs, Other (2/6 systolic murmur to LLS border) Lungs: Clear Abdomen: Soft, No tenderness Extremities: No cyanosis, No edema Skin: No breakdown, No significant lesion Review of Systems Review of Systems: 07/04 No N/V, no edema Assessment and Plan Assessmemt and Plan Problems Medical Problems: (1) Altered mental status Status: Acute (2) Lactic acidosis Status: Acute (3) Syncope Status: Acute P: -Home meds -DVT prophylaxis -OT/PT -Encourage PO -Probably d/c to long term unit today Comment Review of Relevant I have reviewed the following items alicia (where applicable) has been applied. Justifications for Admission Syncope Indications Altered Mental Status?: Yes Justification for admission: Patient's severe/persistent Altered Mental Status as indicated by lethargy/confusional state that has persisted after initial hours of intervention is concerning, needs inpatient level of care for further evaluation and management. Is patient dehydrated?: Yes Justification for admission: There is concern that patient may be severely dehydrated accounting for the syncope. Patient needs inpatient level of care for further evaluation and management. Other Justification JAMAICA KLEIN III DO Apr 07, 2020 10:39
[2020-04-07 11:00] VITALS: BP 106/52
--- NOTE | 2020-04-07 11:12 | NUR ---
SS following up with discharge planning. SS reviewed pt chart and discussed with pt RN. Pt is currently on room air. Pt on IV Micafungin. Pt accepted at [facility], ; fax [phone]. Insurance authorization received. Pt has PICC line in right upper arm. Currently awaiting second COVID19 test result for placement. Anticipate discharge today if COVID19 test is resulted. SS will continue to follow for discharge planning.
--- NOTE | 2020-04-07 12:00 | SNU/HH DC ---
DISCHARGE ORDERS DISCHARGE INFORMATION: FINAL DIAGNOSIS Problems Medical Problems: (1) Altered mental status Status: Acute (2) Lactic acidosis Status: Acute (3) Syncope Status: Acute CONDITION ON DISCHARGE: Stable CODE STATUS: Code Status: Full RESIDENTIAL: SNF STAY <30 DAYS: Yes HOSPICE: HOSPICE: No HOSPICE EVAL & TREAT: No LTAC: ADMIT TO LTAC: No POST DISCHARGE ORDERS: DIET AFTER DISCHARGE: Cardiac TREATMENT/EQUIPMENT ORDERS: Physical Therapy For: Evalulation/Treatment Occupational Therapy For: Evaluation/Treatment DISCHARGE MEDICATIONS: Home Meds Reported Medications Oxybutynin Chloride (OXYBUTYNIN CHLORIDE) 5 Mg Tablet, 1 TAB PO BID for Urinary retention, #60 TAB 11 Refills 03/26/20 Methotrexate Sodium (METHOTREXATE) 2.5 Mg Tablet, 7 TAB PO WEEKLY for Lupus, #24 TAB 1 Refill 03/26/20 Hydrocodone/Apap 5-325 (NORCO 5-325 TABLET) 1 Each Tablet, 1 TAB PO BID for Pain, #60 TAB 03/26/20 Folic Acid (Folic Acid) 0.8 Mg Capsule, 1 MG PO DAILY for Supplement, CAP 03/26/20 Famotidine (FAMOTIDINE) 20 Mg Tablet, 20 MG PO BID for Ulcer, TAB 03/26/20 Prednisone (PREDNISONE) 20 Mg Tablet, 10 MG PO DAILY for Lupus, TAB 03/26/20 Celecoxib (CELEBREX) 200 Mg Capsule, 1 CAP PO DAILY for Arthritis, #30 CAP 03/26/20 Atorvastatin Calcium (ATORVASTATIN CALCIUM) 10 Mg Tablet, 10 MG PO HS for FOR CHOLESTEROL, #30 TAB 0 Refills 03/26/20 Valsartan (Valsartan) 80 Mg Tablet, 80 MG PO DAILY for HTN, TAB 03/26/20 JAMAICA KLEIN III DO Apr 07, 2020 11:59
[2020-04-07] MEDS ORDERED: PRED-220 PO (13:00)
[2020-04-07] MEDS ORDERED: LOSA-73 PO (13:00)
[2020-04-07] MEDS ORDERED: CARV3.1210 PO (13:00)
[2020-04-07] MEDS ORDERED: ATOR40TA59 PO (13:00)
[2020-04-07] MEDS ORDERED: AMLO-187 PO (13:00)
--- NOTE | 2020-04-07 13:04 | SNU/HH DC ---
DISCHARGE ORDERS DISCHARGE INFORMATION: DISCHARGE DATE: Apr 07, 2020 FINAL DIAGNOSIS Problems Medical Problems: (1) Altered mental status Status: Acute (2) Lactic acidosis Status: Acute (3) Syncope Status: Acute CONDITION ON DISCHARGE: Stable CODE STATUS: Code Status: Full RESIDENTIAL: SNF STAY <30 DAYS: Yes POST DISCHARGE ORDERS: DIET AFTER DISCHARGE: Dysphagia 1 with thin liquids OTHER ORDERS: crush pills in puree, straws ok TREATMENT/EQUIPMENT ORDERS: Physical Therapy For: Evalulation/Treatment Occupational Therapy For: Evaluation/Treatment DISCHARGE MEDICATIONS: Home Meds Active Scripts Prednisone (PREDNISONE ) 10 Mg Tablet, 10 MG PO DAILY for arthritis for 30 Days, #30 TAB Prov:CASTLE,NIAL K III DO 04/07/20 Carvedilol (CARVEDILOL ) 3.125 Mg Tablet, 3.125 MG PO BIDWMEALS for Blood Pressure for 30 Days, #60 TAB Prov:CASTLE,NIAL K III DO 04/07/20 Amlodipine Besylate (AMLODIPINE BESYLATE) 10 Mg Tablet, 10 MG PO DAILY for Blood Pressure for 30 Days, #30 TAB Prov:CASTLE,NIAL K III DO 04/07/20 Losartan Potassium (COZAAR ) 50 Mg Tablet, 100 MG PO DAILY for Blood pressure for 30 Days, #60 TAB Prov:CASTLE,NIAL K III DO 04/07/20 Atorvastatin Calcium (ATORVASTATIN CALCIUM) 40 Mg Tablet, 40 MG PO QHS for cholesterol for 30 Days, #30 TAB Prov:CASTLE,NIAL K III DO 04/07/20 Reported Medications Oxybutynin Chloride (OXYBUTYNIN CHLORIDE) 5 Mg Tablet, 1 TAB PO BID for Urinary retention, #60 TAB 11 Refills 03/26/20 Methotrexate Sodium (METHOTREXATE) 2.5 Mg Tablet, 7 TAB PO WEEKLY for Lupus, #24 TAB 1 Refill 03/26/20 Hydrocodone/Apap 5-325 (NORCO 5-325 TABLET) 1 Each Tablet, 1 TAB PO BID for Pain, #60 TAB 03/26/20 Folic Acid (Folic Acid) 0.8 Mg Capsule, 1 MG PO DAILY for Supplement, CAP 03/26/20 Famotidine (FAMOTIDINE) 20 Mg Tablet, 20 MG PO BID for Ulcer, TAB 03/26/20 Celecoxib (CELEBREX) 200 Mg Capsule, 1 CAP PO DAILY for Arthritis, #30 CAP 03/26/20 Atorvastatin Calcium (ATORVASTATIN CALCIUM) 10 Mg Tablet, 10 MG PO HS for FOR CHOLESTEROL, #30 TAB 0 Refills 03/26/20 Valsartan (Valsartan) 80 Mg Tablet, 80 MG PO DAILY for HTN, TAB 03/26/20 Discontinued Reported Medications Prednisone (PREDNISONE) 20 Mg Tablet, 10 MG PO DAILY for Lupus, TAB 03/26/20 JAMAICA KLEIN III DO Apr 07, 2020 13:04
--- NOTE | 2020-04-07 13:18 | PDOC ---
PROGRESS NOTES Date of Service DATE: 04/07/20 TIME: 13:18 Assessment Problems Medical Problems: (1) Altered mental status Status: Acute (2) Lactic acidosis Status: Acute (3) Syncope Status: Acute Acute intraparenchymal hemorrhages posterior lateral right frontal lobe and medial left cerebellum. Acute infarct within the right superolateral frontal lobe cortex and adjacent white matter and right centrum semiovale. Status-post alteplase on 03/27 Superimposed microhemorrhage. Consider amyloid angiopathy Suspected late subacute infarct within the left centrum semiovale. 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 Extensive scattered microhemorrhages, consider amyloid angiopathy. 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 Hypertension, hypocalcemia, hypophosphatemia, hypochloremia, lactic acidosis Passed repeat swallow evaluation Fungemia, possible artifact Plan Resumed aspirin Blood pressure less than 160/90 Cardiology consulted for embolic work-up, report of echocardiogram noted Continue statin Telemetry Discharge to rehab/SNU next few days SCDs Repeat head CT as clinically indicated Follow-up with me in 6-weeks Subjective No complaints Objective Vital Signs Date Time Temp Pulse Resp B/P (MAP) Pulse Ox O2 Delivery O2 Flow Rate FiO2 04/07/20 11:00 98.6 72 16 106/52 (70) 65 Nasal Cannula 98.6 Intake and Output 04/07/20 07:00 Intake Total 660 ml Balance 660 ml Intake Oral 560 ml IV Total 100 ml # Voids 6 # Bowel Movements 2 PHYSICAL EXAM Alert. Oriented to person. Blind in both eyes CN: no focal findings, minimal left facial weakness. Muscle tone: normal. Muscle strength: 4/5 DTR: 2+ Plantar reflex: Flexor Gait: not examined in bed. Sensory exam: no abnormal findings. No cerebellar signs elicited, hard to test with blindness. Review of Relevant I have reviewed the following items alicia (where applicable) has been applied. Labs Laboratory Tests Test 04/06/20 09:35 Coronavirus (PCR) Not detected (Not Detected) Microbiology 03/28/20 Blood Culture - Final, Complete NO GROWTH AFTER 5 DAYS Medications Current Medications Sodium Chloride 1,000 ml @ 1,000 mls/hr 1X ONCE IV Last administered on 03/25/20at 19:48; Start 03/25/20 at 18:15; Stop 03/25/20 at 19:14; Status DC Aspirin (Aspirin Rectal Supp) 300 mg 1X ONCE NH Last administered on 03/25/20at 19:48; Start 03/25/20 at 19:30; Stop 03/25/20 at 19:33; Status DC Ondansetron HCl (Zofran) 4 mg PRN Q8HRS PRN IV NAUSEA/VOMITING; Start 03/25/20 at 20:30; Stop 03/26/20 at 20:29; Status DC Sodium Chloride 1,000 ml @ 75 mls/hr 1X ONCE IV Last administered on 03/25/20at 20:30; Start 03/25/20 at 20:30; Stop 03/26/20 at 00:18; Status DC Atorvastatin Calcium (Lipitor) 40 mg QHS PO Last administered on 04/06/20at 21:26; Start 03/25/20 at 21:00 Sennosides (Senna) 17.2 mg PRN BID PRN PO CONSTIPATION 1ST CHOICE Last administered on 04/06/20at 08:45; Start 03/25/20 at 21:00 Docusate Sodium (Colace) 100 mg PRN DAILY PRN PO HARD STOOLS; Start 03/25/20 at 21:00 Ondansetron HCl (Zofran) 4 mg PRN Q6HRS PRN IVP NAUSEA/VOMITING 1ST CHOICE Last administered on 03/28/20at 03:35; Start 03/25/20 at 21:00 Aspirin (Ecotrin) 81 mg DAILYWBKFT PO Last administered on 03/30/20at 08:19; Start 03/26/20 at 08:00; Stop 03/30/20 at 10:30; Status DC Dextrose (Dextrose 50%-Water Syringe) 12.5 gm PRN Q15MIN PRN IV SEE COMMENTS; Start 03/25/20 at 21:00 Sodium Chloride 1,000 ml @ 100 mls/hr Q10H IV Last administered on 03/30/20at 17:03; Start 03/25/20 at 21:00; Stop 03/31/20 at 07:45; Status DC Labetalol HCl (Normodyne Iv Push) 10 mg PRN Q2HRS PRN IVP HYPERTENSION Last administered on 03/31/20at 06:30; Start 03/26/20 at 09:00; Stop 04/02/20 at 15:00; Status DC Famotidine (Pepcid) 20 mg DAILY PO Last administered on 04/07/20at 08:14; Start 03/26/20 at 15:00 Acetaminophen/ Hydrocodone Bitart (Lortab 5/325) 1 tab BID PO ; Start 03/26/20 at 15:00; Stop 03/26/20 at 15:04; Status DC Methotrexate (Rheumatrex) 17.5 mg WEEKLY PO Last administered on 04/02/20at 10:07; Start 03/26/20 at 15:00 Oxybutynin Chloride (Ditropan) 5 mg BID PO Last administered on 04/07/20at 08:14; Start 03/26/20 at 15:00 Prednisone (Prednisone) 10 mg DAILY PO Last administered on 04/02/20at 09:48; Start 03/26/20 at 15:00; Stop 04/02/20 at 15:01; Status DC Celecoxib (CeleBREX) 200 mg DAILY PO Last administered on 03/30/20at 08:19; Start 03/26/20 at 15:00; Stop 03/30/20 at 14:46; Status DC Folic Acid (Folic Acid) 1 mg DAILY PO Last administered on 04/07/20at 08:14; Start 03/26/20 at 15:00 Losartan Potassium (Cozaar) 50 mg DAILY PO Last administered on 04/01/20at 08:33; Start 03/26/20 at 15:00; Stop 04/01/20 at 13:47; Status DC Acetaminophen/ Hydrocodone Bitart (Lortab 5/325) 1 tab PRN BID PRN PO MODERATE PAIN, SEVERE PAIN; Start 03/26/20 at 15:15 Dopamine HCl/ Dextrose 0 ml @ As Directed STK-MED ONCE IV ; Start 03/27/20 at 16:26; Stop 03/27/20 at 16:26; Status DC Alteplase, Recombinant 4.3 ml @ 258 mls/hr 1X ONCE IV Last administered on 03/27/20at 17:36; Start 03/27/20 at 17:15; Stop 03/27/20 at 17:17; Status DC Alteplase, Recombinant 38.6 ml @ 38.6 mls/hr Q1H IV Last administered on 03/27/20at 17:34; Start 03/27/20 at 17:15; Stop 03/27/20 at 18:14; Status DC Sodium Chloride 50 ml @ 200 mls/hr 1X ONCE IV Last administered on 03/27/20at 18:05; Start 03/27/20 at 17:15; Stop 03/27/20 at 17:29; Status DC Alteplase, Recombinant 0 ml @ 0 mls/hr Q1M ONCE IV ; Start 03/27/20 at 17:15; Stop 03/27/20 at 17:16; Status UNV Alteplase, Recombinant 0 ml @ 0 mls/hr Q1H IV ; Start 03/27/20 at 17:15; Status UNV Sodium Chloride 50 ml @ 50 mls/hr Q1H ONCE IV ; Start 03/27/20 at 17:15; Stop 03/27/20 at 18:14; Status UNV Labetalol HCl (Normodyne Iv Push) 10 mg PRN Q10MIN PRN IVP HYPERTENSION Last administered on 04/03/20at 02:53; Start 03/27/20 at 17:15 Nicardipine HCl 50 mg/Sodium Chloride 250 ml @ 25 mls/hr CONT PRN PRN IV HYPERTENSION Last administered on 04/01/20at 05:09; Start 03/27/20 at 17:15 Labetalol HCl (Normodyne Iv Push) 10 mg PRN Q10MIN PRN IVP HYPERTENSION; Start 03/27/20 at 17:30; Stop 03/27/20 at 17:34; Status DC Nicardipine HCl 50 mg/Sodium Chloride 250 ml @ 25 mls/hr CONT PRN PRN IV H YPERTENSION; Start 03/27/20 at 17:30; Status UNV Acetaminophen (Tylenol) 650 mg PRN Q6HRS PRN PO MILD PAIN / TEMP > 100.3'F; S tart 03/27/20 at 17:30 Acetaminophen (Tylenol Supp) 650 mg PRN Q6HRS PRN NH MILD PAIN / TEMP > 100.3'F; Start 03/27/20 at 17:30 Ondansetron HCl (Zofran) 4 mg PRN Q6HRS PRN IVP NAUSEA/VOMITING; Start 03/27/20 at 17:30; Stop 03/29/20 at 10:36; Status DC Iohexol (Omnipaque 300 Mg/ml) 75 ml 1X ONCE IV Last administered on 03/28/20at 07:00; Start 03/28/20 at 07:00; Stop 03/28/20 at 07:05; Status DC Info (CONTRAST GIVEN -- Rx MONITORING) 1 each PRN DAILY PRN MC SEE COMMENTS; Start 03/28/20 at 07:15; Stop 03/30/20 at 07:14; Status DC Dopamine HCl/ Dextrose (DOPamine 400MG/ 250ML PREMIX) 400 mg STK-MED ONCE IV ; Start 03/27/20 at 17:00; Stop 03/28/20 at 08:41; Status DC Micafungin Sodium 100 mg/Dextrose 100 ml @ 100 mls/hr DAILY IV Last administered on 04/07/20at 08:17; Start 03/28/20 at 09:15 Hydralazine HCl (Apresoline Inj) 10 mg Q6HRS IVP Last administered on 03/30/20at 06:23; Start 03/29/20 at 11:00; Stop 03/30/20 at 11:05; Status DC Amlodipine Besylate (Norvasc) 5 mg DAILY PO Last administered on 04/01/20at 08:34; Start 03/30/20 at 09:00; Stop 04/01/20 at 13:47; Status DC Atorvastatin Calcium (Lipitor) 20 mg QHS PO ; Start 03/29/20 at 21:00; Stop 03/29/20 at 16:25; Status DC Amino Acids/ Glycerin/ Electrolytes 1,000 ml @ 80 mls/hr [id number] IV Last administered on 04/01/20at 05:09; Start 03/31/20 at 04:15; Stop 04/01/20 at 14:03; Status DC Barium Sulfate (Varibar Thin Liquid Apple) 148 gm 1X ONCE PO Last administered on 03/31/20at 10:15; Start 03/31/20 at 10:15; Stop 03/31/20 at 10:17; Status DC Carvedilol (Coreg) 3.125 mg BIDWMEALS PO Last administered on 04/07/20at 08:17; Start 04/01/20 at 12:00 Amlodipine Besylate (Norvasc) 10 mg DAILY PO Last administered on 04/07/20at 08:16; Start 04/02/20 at 09:00 Losartan Potassium (Cozaar) 100 mg DAILY PO Last administered on 04/07/20at 0 8:16; Start 04/02/20 at 09:00 Losartan Potassium (Cozaar) 50 mg 1X ONCE PO Last administered on 04/01/20at 14:50; Start 04/01/20 at 14:00; Stop 04/01/20 at 14:01; Status DC Amlodipine Besylate (Norvasc) 5 mg 1X ONCE PO Last administered on 04/01/20at 14:51; Start 04/01/20 at 14:00; Stop 04/01/20 at 14:01; Status DC Prednisone (Prednisone) 10 mg DAILY PO Last administered on 04/07/20at 08:14; Start 04/03/20 at 09:00 Hydralazine HCl (Apresoline Inj) 10 mg PRN Q4HRS PRN IVP ELEVATED BP, SEE COMMENTS Last administered on 04/05/20at 02:31; Start 04/03/20 at 16:15 Potassium Chloride (Klor-Con) 40 meq 1X ONCE PO Last administered on 04/04/20at 08:44; Start 04/04/20 at 08:00; Stop 04/04/20 at 08:01; Status DC Potassium Chloride (Klor-Con) 40 meq 1X ONCE PO Last administered on 04/04/20at 12:18; Start 04/04/20 at 12:00; Stop 04/04/20 at 12:01; Status DC Active Scripts Active Prednisone (Prednisone) 10 Mg Tablet 10 Mg PO DAILY 30 Days Carvedilol (Carvedilol) 3.125 Mg Tablet 3.125 Mg PO BIDWMEALS 30 Days Amlodipine Besylate 10 Mg Tablet 10 Mg PO DAILY 30 Days Cozaar (Losartan Potassium) 50 Mg Tablet 100 Mg PO DAILY 30 Days Atorvastatin Calcium 40 Mg Tablet 40 Mg PO QHS 30 Days Reported Oxybutynin Chloride 5 Mg Tablet 1 Tab PO BID Methotrexate (Methotrexate Sodium) 2.5 Mg Tablet 7 Tab PO WEEKLY [place] 5-325 Tablet (Acetaminophen/Hydrocodone Bitart) 1 Each Tablet 1 Tab PO BID Folic Acid 0.8 Mg Capsule 1 Mg PO DAILY Famotidine 20 Mg Tablet 20 Mg PO BID Celebrex (Celecoxib) 200 Mg Capsule 1 Cap PO DAILY Atorvastatin Calcium 10 Mg Tablet 10 Mg PO HS Valsartan 80 Mg Tablet 80 Mg PO DAILY Vitals/I & O Vital Sign - Last 24 Hours 04/06/20 04/06/20 04/06/20 04/06/20 14:36 17:30 19:25 20:02 Temp 100.2 98.9 100.2 98.9 Pulse 67 67 63 Resp 16 18 B/P (MAP) 115/62 (79) 115/62 123/64 (83) Pulse Ox 98 96 O2 Delivery Room Air Room Air Room Air 04/06/20 04/06/20 04/07/20 04/07/20 21:28 22:40 03:15 07:00 Temp 98.7 98.3 98.5 98.7 98.3 98.5 Pulse 65 70 71 Resp 18 18 16 B/P (MAP) 115/58 (77) 118/63 (81) 142/65 (90) Pulse Ox 96 96 94 O2 Delivery Room Air Room Air Room Air Room Air 04/07/20 04/07/20 04/07/20 04/07/20 07:35 08:16 08:16 08:17 Pulse 71 71 71 B/P (MAP) 142/65 142/65 142/65 O2 Delivery Room Air 04/07/20 11:00 Temp 98.6 98.6 Pulse 72 Resp 16 B/P (MAP) 106/52 (70) Pulse Ox 65 O2 Delivery Nasal Cannula Intake and Output 04/06/20 04/06/20 04/07/20 15:00 23:00 07:00 Intake Total 340 ml 220 ml 100 ml Balance 340 ml 220 ml 100 ml Justicifation of Admission Dx: Justifications for Admission: Justification of Admission Dx: Yes Stroke - Ischemic: Stroke-Ischemic CORNELIUS MARSH MD Apr 07, 2020 13:18
--- NOTE | 2020-04-07 13:25 | NUR ---
SS following up with discharge planning. Discharge orders received for [facility]. SS phoned and faxed discharge orders and negative COVID19 test to [facility], ; fax [phone]. [facility] discharge today [facility] 1500 and 1515[facility] to [facility]. Pt, pt's RN, and pt's granddaughter notified.
--- NOTE | 2020-04-07 15:15 | NUR ---
Discharge Note: SONY CULP Discharge instructions and discharge home medications reviewed with Patient and a copy given. All questions have been answered and understanding verbalized. The following instructions and handouts were given: medication script, follow up, transition of care, and medication instructions. Discontinued lines and drains: peripheral IV discontinued. Patient discharged to intermediate facility via wheelchair accompanied by family and transportation.
--- NOTE | 2020-04-21 14:06 | DS ---
DATE OF DISCHARGE: 04/07/2020 ADMISSION DIAGNOSES: Syncope, possible transient ischemic attack, electrolyte disturbance. DISCHARGE DIAGNOSES: 1. Acute intraparenchymal hemorrhage, posterior lateral right frontal lobe, resolving electrolyte disturbance, blindness due to strokes and glaucoma, neuropathy, malnutrition. 2. Status post well TPA on 03/27/2020. 3. Chronic central nervous system infarcts. CONSULTS: Dr. Persaud, Dr. Rashel Richards and Dr. Finnegan. PROCEDURES: None. HOSPITAL COURSE: The patient is a pleasant middle-aged female who presented with mental status, syncope and TIA symptoms. She was initially admitted on 03/25/2020, but by 03/27/2020, her symptoms are worsened, she received TPA. We did post TPA. We did physical therapy, occupational therapy, speech therapy and the above consults were obtained. Basically, she did reasonably well, but was still debilitated. We discharged to a residential on 04/07/2020. DISPOSITION: group home. ACTIVITY: As tolerated. DIET: Low sodium. MEDICATIONS: Please see the MRAD. TOTAL TIME: 35 minutes. [place] KLEIN DO DR: AYE/prem JOB#: [id number] / [id number]
== END 2020-04-07 15:13 | DRG 61 ==
LOC: ER 18:12 → ED HOLD 21:32 → 2 SOUTH 03-26 07:05 → 1 WEST ICU 03-27 18:20 → 2 NORTH 03-29 15:06
PROVIDERS: ADMIT Internal Medicine; ATTEND Internal Medicine
DX: I63.511 Cerebral infarction due to unspecified occlusion or stenosis of right middle cerebral artery (principal); I61.9 Nontraumatic intracerebral hemorrhage, unspecified; N17.0 Acute kidney failure with tubular necrosis; B49 Unspecified mycosis; E87.2 Acidosis; E85.4 Organ-limited amyloidosis; E44.0 Moderate protein-calorie malnutrition; J98.11 Atelectasis; Z68.1 Body mass index [BMI] 19.9 or less, adult; M19.90 Unspecified osteoarthritis, unspecified site; E78.00 Pure hypercholesterolemia, unspecified; I10 Essential (primary) hypertension; E78.5 Hyperlipidemia, unspecified; E83.39 Other disorders of phosphorus metabolism; E83.51 Hypocalcemia; E86.0 Dehydration; F03.90 Unspecified dementia, unspecified severity, without behavioral disturbance, psychotic disturbance, mood disturbance, and anxiety; F17.210 Nicotine dependence, cigarettes, uncomplicated; H40.9 Unspecified glaucoma; I16.0 Hypertensive urgency; I68.0 Cerebral amyloid angiopathy; K31.89 Other diseases of stomach and duodenum; I73.9 Peripheral vascular disease, unspecified; E87.8 Other disorders of electrolyte and fluid balance, not elsewhere classified; E04.2 Nontoxic multinodular goiter; J43.9 Emphysema, unspecified; M06.9 Rheumatoid arthritis, unspecified; M81.0 Age-related osteoporosis without current pathological fracture; R29.810 Facial weakness; Z79.82 Long term (current) use of aspirin; Z79.899 Other long term (current) drug therapy; Z87.11 Personal history of peptic ulcer disease
CPT/HCPCS: 36415; 36569; 70450; 70496; 70498; 70551; 71045; 74230; 80048; 80053; 80061; 81001; 82140; 82553; 82962; 83036; 83605; 83735; 83880; 84100; 84484; 85025; 85610; 85730; 87040; 87106; 87205; 93306; 96361; 96374; 99285; J0360; J1265; J2248; J2405; J2997; J3490; J7030; J7050; J7060; J7512; J8610; Q9967; U0003; 92526-GN; 92610-GN; 92611-GN; 97116-GP; 97530-GO; 97530-GP; 97535-GO; G0378

== ENCOUNTER 2021-02-01 13:31 | Inpatient (IN) | payer MEDICARE, OTHER ==
[~2021-02-01] VITALS: Ht 157.5 cm; Wt 35.1 kg
[~2021-02-01 13:31] MED LIST changes: +AMLO-187 PO; +ATOR10TA60 PO; +ATOR40TA59 PO; +CARV3.1210 PO; +CELE200C PO; +FAMO20TA5 PO; +FOLI0.8C PO; +HYDR-3164 PO; +LOSA-73 PO; +METH2.5T PO; +OXYB5TAB10 PO; +PRED-220 PO; +PRED20TA PO; +VALS80TA28 PO
[2021-02-01] MEDS ORDERED: ACETAMINOPHEN 500 MG TABLET PO ONE (14:00)
--- NOTE | 2021-02-01 14:17 | PHYS DOC ---
Past Medical History Past Medical History: CVA, High Cholesterol, Hypertension Additional Past Medical Histor: blind Past Surgical History: Other Smoking Status: Former Smoker Alcohol Use: None Drug Use: None General Adult EDM: Chief Complaint: MECHANICAL FALL HPI: HPI: Patient is a 80 year old female who presents with was in her wheelchair and when to go backward and there were stairs behind her. There were 7 carpeted stairs that she fell down. She did have a blanket wrapped around her at the time to. Patient's caregiver which is her granddaughter states that her is a firer low pressure and he checked her out and they did not bring her to the hospital. They state there was no LOC. Patient however is complaining of left femur and knee pain but the swelling of the knee the granddaughter states is normal for her, right shoulder and humerus pain. She is also complaining of chest pain today that goes all the way across her chest. This pain cannot be reproduced upon palpation. Patient does not take blood thinners. Patient is wheelchair-bound due to a CVA and she is also blind and very contracted. Patient also has a history of hypertension, high cholesterol and smoking formerly. Patient's granddaughter states that the patient's mental status and orientation is normal for her. Review of Systems: Review of Systems: Constitutional: Denies fever or chills. [] Eyes: Denies change in visual acuity. [] HENT: Denies nasal congestion or sore throat. [] Respiratory: Denies cough or shortness of breath. [] Cardiovascular: + chest pain or denies edema. [] GI: Denies abdominal pain, nausea, vomiting, bloody stools or diarrhea. [] : Denies dysuria. [] Musculoskeletal: Denies back pain or + left knee joint pain. + Right shoulder, + left femur, + right humerus Integument: Denies rash. [] Neurologic: Denies headache, focal weakness or sensory changes. [] Endocrine: Denies polyuria or polydipsia. [] Lymphatic: Denies swollen glands. [] Psychiatric: Denies depression or anxiety. [] Heart Score: C/O Chest Pain: Yes HEART Score for Chest Pain: HEART Score for Chest Pain Response (Comments) Value History Slighlty/Non-Suspicious 0 ECG Nonspecific Repolarizatio 1 Age > 65 2 Risk Factors 1 or 2 Risk Factors 1 Troponin < Normal Limit 0 Total 4 Risk Factors: Risk Factors: DM, Current or recent (<one month) smoker, HTN, HLP, family history of CAD, obesity. Risk Scores: Score 0 - 3: 2.5% MACE over next 6 weeks - Discharge Home Score 4 - 6: 20.3% MACE over next 6 weeks - Admit for Clinical Observation Score 7 - 10: 72.7% MACE over next 6 weeks - Early Invasive Strategies Allergies: Allergies: Allergies Coded Allergies Type Severity Reaction Last Updated Verified No Known Drug Allergies 06/16/19 No Physical Exam: PE: Constitutional: Well developed, well nourished, no acute distress, non-toxic appearance. [] HENT: Normocephalic, atraumatic, bilateral external ears normal, oropharynx moist, no oral exudates, nose normal. [] Eyes: PERRLA, EOMI, conjunctiva normal, no discharge. [] Neck: Normal range of motion, no tenderness, supple, no stridor. [] Cardiovascular:Heart rate regular rhythm, no murmur [] Lungs & Thorax: Bilateral breath sounds clear to auscultation [] Abdomen: Bowel sounds normal, soft, no tenderness, no masses, no pulsatile masses. [] Skin: Warm, dry, no erythema, no rash. [] Back: No tenderness, no CVA tenderness. [] Extremities: Left knee tenderness, no cyanosis, no clubbing, ROM not intact due to contractions and swelling, 1+ edema. [] Neurologic: Alert and oriented X 3, normal motor function, normal sensory fun ction, no focal deficits noted. [] Psychologic: Affect normal, judgement normal, mood normal. [] EKG: EK and read by Dr. Taylor is a sinus rhythm with no obvious other abnormalities. No STEMI. Radiology/Procedures: Radiology/Procedures: [] Impression: [facility] [address] [place], [place] [id number] IMAGING REPORT Signed PATIENT: SONY CULP ACCOUNT: [id number] : 1940 LOCATION: ER AGE: 80 SEX: F EXAM STATUS: PRE ER ORD. PHYSICIAN: SASKIA HUMMEL APRN REASON: FALL DOWN 7 STAIRS, PAIN PROCEDURE: CT THORACIC SPINE WO CONTRAST STUDY: 1. CT head without contrast 2. CT cervical spine without contrast 3. CT thoracic spine without contrast 4. CT lumbar spine without contrast INDICATION: Fall down stairs. COMPARISON: CT head 04/05/2020 CT neck 03/28/2020 TECHNIQUE: Axial CT imaging of the head, cervical, thoracic and lumbar spine performed without the use of contrast. Coronal and sagittal reformats were obtained. One or more of the following individualized dose reduction techniques were utilized for this examination: 1. Automated exposure control 2. Adjustment of the mA and/or kV according to patient size 3. Use of iterative reconstruction technique. FINDINGS: Head: No acute intracranial hemorrhage. No localized mass effect, midline shift or hydrocephalus. Evolutionary changes of a right middle cerebral artery territory infarct from the comparison. Again noted is a chronic left cerebellar hemisphere infarct. Background white matter findings typical of chronic microvascular ischemic change. Several knifeman infarcts are seen along the right more so than left deep friedman nuclei which all appear to have been present previously. Parenchymal volume loss. Intracranial calcific atherosclerosis. Symmetric positioning of the globes. No retrobulbar hematoma. No depressed calvarial fracture. Adequately aerated mastoid air cells and paranasal sinuses. Cervical spine: No acute fracture or traumatic malalignment. Defect or degenerative changes without evidence for severe central canal stenosis. Osseous neural foraminal narrowing is mostly mild at a few levels. Degenerative remodeling at the atlantodental interface. Degenerative changes at the left more so than right C1-C2 lateral mass articulations. No paraspinous hematoma or prevertebral effusion is identified to suggest occult osseous injury. Heterogeneity of the thyroid without a discrete nodule that would warrant dedicated follow-up. Scattered calcific atherosclerosis. Emphysema with biapical scarring. No newly seen lung nodule at the lung apices. Thoracic spine: Mild superior endplate height loss eccentric to the left at T6 with faint sclerosis paralleling the superior endplate such as on image 36 series 9. This is age indeterminant. No definitively acute fracture seen throughout the thoracic spine considering osteopenia. No traumatic listhesis or facet malalignment. Multifactorial degenerative changes to varying extent with facet arthrosis most pronounced at the lower thoracic spine. No evidence for significant central canal stenosis. Osseous neural foraminal narrowing greatest bilaterally at T9- T10. Calcific atherosclerosis with coronary artery involvement. No aortic aneurysm. Edema with scattered pleuroparenchymal scarring. Bandlike opacity partially imaged at the right lung base favored most likely atelectasis/scarring. No suspicious nodule is identified that would meet size criteria for short-term follow-up. Lumbar spine: Mild ventral wedging at L1 without acute features. No concerning height loss from L2 through L5. No discrete fracture of the partially imaged sacrum or iliac bones. No large paraspinous hematoma to suggest occult osseous injury. Multilevel, multifactorial spondylosis without evidence for severe central canal stenosis. Osseous neural foraminal narrowing ranges from mild to moderate. Extensive calcific atherosclerosis. The abdominal and pelvic contents included in the [id number] are not well evaluated. There is likely a degree of constipation. IMPRESSION: Head: 1. No acute intracranial hemorrhage or depressed calvarial fracture. 2. Several chronic infarcts and white matter findings typical of advanced chronic microvascular ischemic change. Cervical spine: 1. No acute fracture or traumatic malalignment. 2. Chronic findings described above. Thoracic spine: 1. Mild superior endplate height loss eccentric to the left at T6 with faint sclerosis paralleling the superior endplate but similar mild height loss was present on the CT neck from 03/28/2020. This is favored chronic but recommend correlation for pinpoint tenderness. Noting osteopenia no definitively acute fracture throughout the thoracic spine. 2. Chronic findings to include multilevel spondylosis, emphysema and calcific coronary artery disease. Lumbar spine: 1. Mild ventral wedging at L1 appears chronic. Again noting osteopenia no acute fracture seen throughout the lumbar spine or the partially imaged sacrum. 2. Multilevel degenerative changes without severe central canal stenosis. Electronically signed by: JOANA SALCIDO MD (02/01/2021 3:19 PM) [facility] DICTATED and SIGNED BY: JOANA SALCIDO MD DATE: 02/01/21 [id number] [facility] [address] [place] [address] IMAGING REPORT Signed PATIENT: SONY CULP ACCOUNT: [id number] : 1940 LOCATION: ER AGE: 80 SEX: F EXAM STATUS: REG ER ORD. PHYSICIAN: SASKIA HUMMEL APRN REASON: FALL DOWN 7 STAIRS, PAIN, PATIENT CONTRACTED, HELD FOR ALL XRAYS PROCEDURE: TIBIA FIBULA LEFT Study: 1. XR LT TIBIA + FIBULA 2. XR FEMUR_LEFT 3. XR HIP (WITH OR WITHOUT PELVIS) 1 VIEW 4. XR KNEE _3 VIEWS_LT Indication: Fall down stairs. Comparison: None. Findings: Pelvis/hips: Osteopenia limits evaluation for nondisplaced fractures. Irregular appearance of the left femoral head/neck junction on the AP images including this region however without a definitive fracture or dislocation on the left hip frog-leg view. No fractures identified at the right hip. No definitive obturator ring fracture. Nondiagnostic evaluation of the sacrum due to a combination of osteopenia and overlying bowel gas. Degenerative changes at the lower lumbar spine. Moderate arthrosis of both hips slightly greater on the right. Vascular calcifications. At least mild constipation. Left femur: The femoral shaft is intact. Left knee: Limited evaluation due to flexion across the knee. No displaced fracture or gross malalignment. Arthrosis with osteophyte formation such is seen at the patella and medial joint line. Hindered assessment for a knee joint effusion due to flexion on the lateral view. Left tibia/fibula: The tibia and fibula shafts are intact. No acute fracture or malalignment appreciated at the partially assessed left ankle. Impression: Pelvis/hips: 1. An AP views of the left hip there appears to be shortening at the femoral head/neck junction but this region is without a discrete fracture on the frog- leg view. This is favored projectional but correlate for pain localizing to this region. Cross-sectional imaging could be performed if deemed necessary noting that MRI would be more sensitive given diffuse osteopenia. Left femur: 1. The left femoral shaft down to the condyles is intact. Left knee: 1. Limited evaluation due to flexion of the knee. No definitive fracture or traumatic malalignment. Left tibia/fibula: 1. No acute fracture. Electronically signed by: JOANA SALCIDO MD (02/01/2021 3:36 PM) [facility] DICTATED and SIGNED BY: JOANA SALCIDO MD DATE: 02/01/21 [id number] [facility] [address] [place] [address] IMAGING REPORT Signed PATIENT: SONY CULP ACCOUNT: [id number] : 1940 LOCATION: ER AGE: 80 SEX: F EXAM STATUS: REG ER ORD. PHYSICIAN: SASKIA HUMMEL APRN REASON: concern for left hip fracture PROCEDURE: CT PELVIS WO CONTRAST Exam: CT pelvis without contrast INDICATION: Concern for left hip fracture TECHNIQUE: Sequential axial images through the pelvis obtained without IV contrast. Sagittal and coronal reformatted images were reconstructed from the axial data and reviewed. Exposure: One or more of the following in the visualized dose reduction mary ann hniques were utilized for this examination: 1. Automated exposure control 2. Adjustment of the MA and/or KV according to patient size 3. Use of iterative of reconstructive technique Comparisons: Radiographs earlier today FINDINGS: Large amount stool is noted in the sigmoid colon. No abnormal adnexal mass identified. There is diffuse osteopenia. No displaced fractures are identified. There is moderate osteoarthritic change at the hip joints bilaterally. Pubic symphysis and sacroiliac joints are well-maintained. Soft tissues of the bilateral lower extremities are unremarkable. IMPRESSION: 1. No displaced fracture identified. If the patient is acutely unable to bear weight MRI to rule out occult hip fracture is recommended. 2. Large amount stool noted in the colon, correlate for constipation. Electronically signed by: Aaron Ling MD (02/01/2021 4:30 PM) [facility] DICTATED and SIGNED BY: AARON LING MD DATE: 02/01/21 [id number] 0 Course & Med Decision Making: Course & Med Decision Making Pertinent Labs and Imaging studies reviewed. (See chart for details) See HPI. Alert and oriented x3. Very hard of hearing. Speaks in short sentences. No respiratory distress. No focal bony spinal tenderness. When palpating over the ribs there is no crepitus or subcutaneous emphysema. She is very frail and very thin. Patient is very contracted. Range of motion cannot be easily assessed due to contractures. The chest pain cannot be reproduced over the chest with palpation. Her lungs are clear all station all lobes. There is no deformity, bruising, abrasion, laceration or signs of trauma to the patient's body as a whole. No pain in the hips with pelvic rock. Pedal pulses are strong present. Radial pulses are strong and present. No joint laxities are seen. No pain over the shoulder or humerus or the right arm at all with palpation. She does have range of motion of this extremity the best of her ability. Refills less than 2 seconds in all extremities. Due to the patient not being a very good historian, the fall down the stairs backward in a wheelchair, her age and frailty I will nieves scan her. All patient CT scans have come back without acute abnormalities. Patient will be admitted for chest pain observation. Patient is having pain in that left hip/leg. The CT of the pelvis does not state that there is a fracture in the hip. [] Dragon Disclaimer: Dragon Disclaimer: This electronic medical record was generated, in whole or in part, using a voice recognition dictation system. Departure Departure Impression: Primary Impression: Chest pain Qualified Codes: R07.9 - Chest pain, unspecified Additional Impressions: Fall Qualified Codes: W19.XXXA - Unspecified fall, initial encounter Left leg pain Disposition: ADMITTED INPATIENT Admitting Physician: KENDALL Condition: STABLE Referrals: KIRK ROBERT MD (PCP) SASKIA HUMMEL RESTORATIVE CARE TECHNICIAN Feb 01, 2021 14:17
[2021-02-01] MEDS ORDERED: fentaNYL PF VIAL 100 MCG/2 ML VIAL IVP ONE (14:30)
[2021-02-01 14:36] LABS: BASO % 0 % (0-3); EOS % 1 % (0-3); HEMATOCRIT 38.2 % (36.0-47.0); HEMOGLOBIN 12.8 g/dL (12.0-15.5); LYMPH # 1.1 x10^3/uL (1.0-4.8); LYMPH % 18 % (24-48); MEAN CORPUSCULAR HEMOGLOBIN 32 pg (25-35); MEAN CORPUSCULAR HGB CONC 34 g/dL (31-37); MEAN CORPUSCULAR VOLUME 94 fL (79-100); MONO # 0.5 x10^3/uL (0.0-1.1); MONO % 9 % (0-9); NEUT # 4.3 x10^3/uL (1.8-7.7); NEUT % 73 % (31-73); PLATELET COUNT 342 x10^3/uL (140-400); RED BLOOD COUNT 4.04 x10^6/uL (3.50-5.40); RED CELL DISTRIBUTION WIDTH 15.2 % (11.5-14.5)
[2021-02-01 14:51] LABS: CREATININE 0.6 mg/dL (0.6-1.0); POTASSIUM 4.1 mmol/L (3.5-5.1)
[2021-02-01 14:56] LABS: ALBUMIN 2.7 g/dL (3.4-5.0); ALBUMIN/GLOBULIN RATIO 0.6 (1.0-1.7); TOTAL BILIRUBIN 0.3 mg/dL (0.2-1.0); TOTAL PROTEIN 7.4 g/dL (6.4-8.2)
--- NOTE | 2021-02-01 15:22 | RAD ---
STUDY: 1. CT head without contrast 2. CT cervical spine without contrast 3. CT thoracic spine without contrast 4. CT lumbar spine without contrast INDICATION: Fall down stairs. COMPARISON: CT head 04/05/2020 CT neck 03/28/2020 TECHNIQUE: Axial CT imaging of the head, cervical, thoracic and lumbar spine performed without the us e of contrast. Coronal and sagittal reformats were obtained. One or more of the following individualized dose reduction techniques were utilized for this examinat ion: 1. Automated exposure control 2. Adjustment of the mA and/or kV according to patient size 3. Use of iterative reconstruction technique. FINDINGS: Head: No acute intracranial hemorrhage. No localized mass effect, midline shift or hydrocephalus. Evolutionary changes of a right middle cerebral artery territory infarct from the comparison. Again n oted is a chronic left cerebellar hemisphere infarct. Background white matter findings typical of chr onic microvascular ischemic change. Several line erector apprentice infarcts are seen along the right more so than left deep friedman nuclei which all appear to have been present previously. Parenchymal volume loss. Int racranial calcific atherosclerosis. Symmetric positioning of the globes. No retrobulbar hematoma. No depressed calvarial fracture. Adequa tely aerated mastoid air cells and paranasal sinuses. Cervical spine: No acute fracture or traumatic malalignment. Defect or degenerative changes without evidence for severe central canal stenosis. Osseous neural for aminal narrowing is mostly mild at a few levels. Degenerative remodeling at the atlantodental interfa ce. Degenerative changes at the left more so than right C1-C2 lateral mass articulations. No paraspinous hematoma or prevertebral effusion is identified to suggest occult osseous injury. Hete rogeneity of the thyroid without a discrete nodule that would warrant dedicated follow-up. Scattered calcific atherosclerosis. Emphysema with biapical scarring. No newly seen lung nodule at the lung api norma. Thoracic spine: Mild superior endplate height loss eccentric to the left at T6 with faint sclerosis paralleling the s uperior endplate such as on image 36 series 9. This is age indeterminant. No definitively acute fract ure seen throughout the thoracic spine considering osteopenia. No traumatic listhesis or facet malali gnment. Multifactorial degenerative changes to varying extent with facet arthrosis most pronounced at the low er thoracic spine. No evidence for significant central canal stenosis. Osseous neural foraminal narro wing greatest bilaterally at T9-T10. Calcific atherosclerosis with coronary artery involvement. No aortic aneurysm. Edema with scattered p leuroparenchymal scarring. Bandlike opacity partially imaged at the right lung base favored most like ly atelectasis/scarring. No suspicious nodule is identified that would meet size criteria for short-t erm follow-up. Lumbar spine: Mild ventral wedging at L1 without acute features. No concerning height loss from L2 through L5. No d iscrete fracture of the partially imaged sacrum or iliac bones. No large paraspinous hematoma to sugg est occult osseous injury. Multilevel, multifactorial spondylosis without evidence for severe central canal stenosis. Osseous ne ural foraminal narrowing ranges from mild to moderate. Extensive calcific atherosclerosis. The abdominal and pelvic contents included in the [id number] a re not well evaluated. There is likely a degree of constipation. IMPRESSION: Head: 1. No acute intracranial hemorrhage or depressed calvarial fracture. 2. Several chronic infarcts and white matter findings typical of advanced chronic microvascular ische berna change. Cervical spine: 1. No acute fracture or traumatic malalignment. 2. Chronic findings described above. Thoracic spine: 1. Mild superior endplate height loss eccentric to the left at T6 with faint sclerosis paralleling t he superior endplate but similar mild height loss was present on the CT neck from 03/28/2020. This is f avored chronic but recommend correlation for pinpoint tenderness. Noting osteopenia no definitively a cute fracture throughout the thoracic spine. 2. Chronic findings to include multilevel spondylosis, emphysema and calcific coronary artery diseas e. Lumbar spine: 1. Mild ventral wedging at L1 appears chronic. Again noting osteopenia no acute fracture seen through out the lumbar spine or the partially imaged sacrum. 2. Multilevel degenerative changes without severe central canal stenosis. Electronically signed by: JOANA SALCIDO MD (02/01/2021 3:19 PM) [facility]
--- NOTE | 2021-02-01 15:39 | RAD ---
Study: 1. XR LT TIBIA + FIBULA 2. XR FEMUR_LEFT 3. XR HIP (WITH OR WITHOUT PELVIS) 1 VIEW 4. XR KNEE _3 VIEWS_LT Indication: Fall down stairs. Comparison: None. Findings: Pelvis/hips: Osteopenia limits evaluation for nondisplaced fractures. Irregular appearance of the left femoral hea d/neck junction on the AP images including this region however without a definitive fracture or dislo cation on the left hip frog-leg view. No fractures identified at the right hip. No definitive obturat or ring fracture. Nondiagnostic evaluation of the sacrum due to a combination of osteopenia and overl milvia bowel gas. Degenerative changes at the lower lumbar spine. Moderate arthrosis of both hips sligh tly greater on the right. Vascular calcifications. At least mild constipation. Left femur: The femoral shaft is intact. Left knee: Limited evaluation due to flexion across the knee. No displaced fracture or gross malalignment. Arthr osis with osteophyte formation such is seen at the patella and medial joint line. Hindered assessment for a knee joint effusion due to flexion on the lateral view. Left tibia/fibula: The tibia and fibula shafts are intact. No acute fracture or malalignment appreciated at the partiall y assessed left ankle. Impression: Pelvis/hips: 1. An AP views of the left hip there appears to be shortening at the femoral head/neck junction but t his region is without a discrete fracture on the frog-leg view. This is favored projectional but pedro elate for pain localizing to this region. Cross-sectional imaging could be performed if deemed necess erum noting that MRI would be more sensitive given diffuse osteopenia. Left femur: 1. The left femoral shaft down to the condyles is intact. Left knee: 1. Limited evaluation due to flexion of the knee. No definitive fracture or traumatic malalignment. Left tibia/fibula: 1. No acute fracture. Electronically signed by: JOANA SALCIDO MD (02/01/2021 3:36 PM) [facility]
--- NOTE | 2021-02-01 15:40 | RAD ---
Study: 1. XR SHOULDER_RIGHT 2+ VIEWS 2. XR HUMERUS_RT 2 VIEWS Indication: Fall down stairs. Comparison: None. Findings: Right shoulder: Taking into consideration osteopenia, no acute fracture. No traumatic malalignment across the glenohu meral or acromioclavicular joints. Advanced arthrosis at the before meals and glenohumeral joints and there is a keel-type subacromial spur impinging upon the acromiohumeral interval. Right humerus: Humeral shaft is intact. Limited assessment of the elbow without gross malalignment. Impression: Right shoulder and right humerus: 1. No displaced fracture or traumatic malalignment. 2. Advanced shoulder girdle arthrosis. Osteopenia. Electronically signed by: JOANA SALCIDO MD (02/01/2021 3:38 PM) [facility]
--- NOTE | 2021-02-01 15:43 | RAD ---
Study: XR RIBS AND CHEST 4+VIEWS Indication: Fall down stairs. Comparison: None. Findings: No pneumothorax or pleural effusion. Emphysematous changes of the lungs. The cardiomediastinal silhou ette is within normal limits for size. No displaced rib fracture identified on the right or left. Impression: No displaced rib fracture seen on either the right or left. No pneumothorax or pleural effusion. Electronically signed by: JOANA SALCIDO MD (02/01/2021 3:40 PM) [facility]
--- NOTE | 2021-02-01 16:33 | RAD ---
Exam: CT pelvis without contrast INDICATION: Concern for left hip fracture TECHNIQUE: Sequential axial images through the pelvis obtained without IV contrast. Sagittal and bre nal reformatted images were reconstructed from the axial data and reviewed. Exposure: One or more of the following in the visualized dose reduction techniques were utilized for this examination: 1. Automated exposure control 2. Adjustment of the MA and/or KV according to patient size 3. Use of iterative of reconstructive technique Comparisons: Radiographs earlier today FINDINGS: Large amount stool is noted in the sigmoid colon. No abnormal adnexal mass identified. There is diffuse osteopenia. No displaced fractures are identified. There is moderate osteoarthritic change at the hip joints bilaterally. Pubic symphysis and sacroiliac joints are well-maintained. Soft tissues of the bilateral lower extremities are unremarkable. IMPRESSION: 1. No displaced fracture identified. If the patient is acutely unable to bear weight MRI to rule out occult hip fracture is recommended. 2. Large amount stool noted in the colon, correlate for constipation. Electronically signed by: Aaron Gaviria MD (02/01/2021 4:30 PM) SUSANNE
--- NOTE | 2021-02-01 16:34 | EKG ---
[facility] [address] [place] [address] Test Date: 2021-02-01 Test Time: 14:08:47 Pat Name: SONY CULP Department: Room: Gender: F Oyster Opener: : 1940 Requested By: SASKIA HUMMEL Order Number: [id number] Reading MD: Virgilio Kee MD Measurements Intervals [place] Rate: 74 P: 56 NV: 132 QRS: 78 QRSD: 78 T: 42 QT: 380 QTc: 422 Interpretive Statements SINUS RHYTHM NON-SPECIFIC ST/T CHANGES Electronically Signed On 02-05-2021 14:02:48 DUMPSTER OPERATOR by Virgilio Kee MD
[2021-02-01 18:25] VITALS: BP 145/79
--- NOTE | 2021-02-01 21:04 | HP ---
DATE OF SERVICE: 02/01/2021 ADMIT DATE: 02/01/2021 CHIEF COMPLAINT: Fall. HISTORY OF PRESENT ILLNESS: The patient is a pleasant disabled, pleasantly confused, contracted 80-year-old female who apparently is wheelchair bound. Per the record, she apparently fell down the stairs in her wheelchair. There was about 7 stairs. She had a blanket wrapped around her at the time. Apparently, her who is a rim fire priming tool setter checked her, but did not felt like she should go to the hospital. There was no loss of consciousness; however, she is complaining of some left femur and knee pain. We did some imaging including a CAT scan, which really does not show any fractures, but the patient is extremely debilitated and has a lot of pain. I discussed the case with the ER physician. We are going to admit the patient and we will give her some pain meds and physical therapy and occupational therapy. She also has some associated chest pain. PAST MEDICAL HISTORY: Severe debility. I think she is wheelchair bound, stroke, hypertension, hyperlipidemia blind, previous tobacco abuse. ALLERGIES: None. FAMILY HISTORY: Diabetes. SOCIAL HISTORY: She quit smoking. No drink or drugs. I think she lives at home with her daughter and . MEDICATIONS: Reviewed. Please refer to the MRAD. REVIEW OF SYSTEMS: Unable to obtain. She is too confused and frail and weak. PHYSICAL EXAMINATION: VITALS: Within normal limits and are stable. GENERAL: She is contracted. HEENT: Normal cephalic atraumatic, external auditory canals are patent EYES: Extraocular muscles are intact, pupils are equally round and reactive to light and accommodation MUSCULOSKELETAL: Well developed, well nourished, good range of motion ENDOCRINE: No thyromegaly was palpated LYMPHATICS: No cervical chain or axillary nodes were noted HEMATOPOIETIC: No bruising NECK: Supple, no JVD, no thyromegaly was noted. LUNGS: Clear to auscultation in all lung jo without rhonchi or wheezing. HEART: RRR, S1, S2 present. Peripheral pulses intact, no obvious murmurs were noted. ABDOMEN: Soft, nontender. Positive bowel sounds no organomegaly, normal bowel sounds. EXTREMITIES: Without any cyanosis, clubbing, or edema. Pedal pulses intact, Homans sign is negative. NEUROLOGIC: She is confused, frail and weak. PSYCHIATRIC: She is confused, frail and weak. SKIN: No ulcerations or rashes, good skin turgor, no jaundice. VASCULAR: Good capillary refill, neurovascular bundle appears to be intact. White count 6, hemoglobin 12, platelets 342. Electrolytes are normal. Pelvis CT showed no fractures, but did show some constipation. Tib-fib films were negative for acute fractures. Head, cervical spine, thoracic spine films were negative other than the thoracic region showed some mild superior endplate height loss at T6. The lumbar film showed mild ventral wedging at L1, which was chronic. ASSESSMENT AND PLAN: Severe debility and a recent fall in an elderly female with intractable pain. The patient has been admitted. We will see if physical therapy and occupational therapy to work with her. We will consult Cardiology regarding the chest pain. Consult Orthopedics. Home meds. Deep venous thrombosis prophylaxis. Full code. managed services sales consultant consult for possible long-term care placement. Prognosis long-term very guarded. MARIETTA DR: iRcardo TID: [id number]
[2021-02-01 21:12] LABS: PROTHROMBIN TIME PATIENT 14.1 SEC (11.7-14.0)
[2021-02-01 22:51] VITALS: BP 98/51
[2021-02-02 02:55] VITALS: BP 142/78
[2021-02-02 07:00] VITALS: BP 150/71
--- NOTE | 2021-02-02 09:43 | PDOC2 ---
CARDIAC CONSULT DATE OF CONSULT Date of Consult DATE: 02/02/21 TIME: 09:26 REASON FOR CONSULT Reason for Consult: Chest pain REFERRING PHYSICIAN Referring Physician: Ольга Ulloa APRN SOURCE Source: Chart review, Patient HISTORY OF PRESENT ILLNESS HISTORY OF PRESENT ILLNESS This is a 80 yo female who presented secondary to chest pain, left femur and knee pain, and right shoulder after fall down the stairs from her wheelchair. Patient reports she feel backwards our of wheelchair and went down 6 [address]ed stairs. Reports hitting her head, but no loss of consciousness. Reports having aching pain across her chest and also pain in her hips and knees, some of which is chronic due to contractures. Chest pain not worse with deep breathing. Chest not tender upon palpation. Reports no further pain overnight. PAST MEDICAL HISTORY Past Medical History Cardiovascular: HTN, Hyperlipidemia CENTRAL NERVOUS SYSTEM: CVA GI: Hemorrhoids Musculoskeletal: Osteoarthritis Rheumatologic: Rheumatoid arthritis ENT: Other (blind OU; glaucoma) Renal/: Urinary Incontinence Endocrine: Osteoporosis PAST SURGICAL HISTORY Past Surgical History No pertinent history FAMILY HISTORY Family History: Family History Unknown SOCIAL HISTORY Social History Smoke: quit ALCOHOL: none Drugs: None Lives: with Family CURRENT MEDICATIONS CURRENT MEDICATIONS Current Medications Medications (Trade) Dose Ordered Sig/Susan Route PRN Reason Start Time Stop Time Status Last Admin Dose Admin Acetaminophen (Tylenol) 1,000 mg 1X ONCE PO 02/01/21 14:00 02/01/21 14:08 DC 02/01/21 16:03 Fentanyl Citrate (Fentanyl 2ml Vial) 25 mcg 1X ONCE IVP 02/01/21 14:30 02/01/21 14:31 DC 02/01/21 16:08 ALLERGIES ALLERGIES: Coded Allergies: No Known Drug Allergies (Unverified , 06/16/19) ROS Review of System 14 point ROS conducted with pertinent positives noted above in HPI PHYSICAL EXAM PHYSICAL EXAM General: Alert, Oriented X3, Cooperative, No acute distress HEENT: Atraumatic, Mucous membr. moist/pink, Other (blind OU) Lungs: CTA Heart: Regular rate (SR no ectopies), Other (2/6 systolic murmur to LLS border) Abdomen: Soft, No tenderness Extremities: No cyanosis, No edema, contractures Skin: No breakdown, No significant lesion Neuro: Normal speech, Sensation intact Psych/Mental Status: Mental status NL, Mood NL MUSCULOSKELETAL: Osteoarthritic changes both hands VITALS/I&O VITALS/I&O: Vital Signs Date Time Temp Pulse Resp B/P (MAP) Pulse Ox O2 Delivery O2 Flow Rate FiO2 02/02/21 09:00 Room Air 02/02/21 07:00 98.6 81 18 150/71 (97) 99 98.6 I & O 02/01/21 02/01/21 02/02/21 15:00 23:00 07:00 Intake Total 0 ml Balance 0 ml LABS Lab: Laboratory Tests Test 02/01/21 14:15 02/01/21 18:00 02/01/21 20:55 White Blood Count 6.0 x10^3/uL (4.0-11.0) Red Blood Count 4.04 x10^6/uL (3.50-5.40) Hemoglobin 12.8 g/dL (12.0-15.5) Hematocrit 38.2 % (36.0-47.0) Mean Corpuscular Volume 94 fL (79-100) Mean Corpuscular Hemoglobin 32 pg (25-35) Mean Corpuscular Hemoglobin Concent 34 g/dL (31-37) Red Cell Distribution Width 15.2 % (11.5-14.5) H Platelet Count 342 x10^3/uL (140-400) Neutrophils (%) (Auto) 73 % (31-73) Lymphocytes (%) (Auto) 18 % (24-48) L Monocytes (%) (Auto) 9 % (0-9) Eosinophils (%) (Auto) 1 % (0-3) Basophils (%) (Auto) 0 % (0-3) Neutrophils # (Auto) 4.3 x10^3/uL (1.8-7.7) Lymphocytes # (Auto) 1.1 x10^3/uL (1.0-4.8) Monocytes # (Auto) 0.5 x10^3/uL (0.0-1.1) Eosinophils # (Auto) 0.0 x10^3/uL (0.0-0.7) Basophils # (Auto) 0.0 x10^3/uL (0.0-0.2) Sodium Level 140 mmol/L (136-145) Potassium Level 4.1 mmol/L (3.5-5.1) Chloride Level 103 mmol/L (98-107) Carbon Dioxide Level 31 mmol/L (21-32) Anion Gap 6 (6-14) Blood Urea Nitrogen 16 mg/dL (7-20) Creatinine 0.6 mg/dL (0.6-1.0) Estimated GFR (Cockcroft-Gault) 117.0 BUN/Creatinine Ratio 27 (6-20) H Glucose Level 104 mg/dL (70-99) H Calcium Level 9.0 mg/dL (8.5-10.1) Total Bilirubin 0.3 mg/dL (0.2-1.0) Aspartate Amino Transferase (AST) 18 U/L (15-37) Alanine Aminotransferase (ALT) 22 U/L (14-59) Alkaline Phosphatase 88 U/L (46-116) Troponin I High Sensitivity 4 ng/L (4-50) 6 ng/L (4-50) 6 ng/L (4-50) WH-Jhg-S-Type Natriuretic Peptide 144 pg/mL (0-449) Total Protein 7.4 g/dL (6.4-8.2) Albumin 2.7 g/dL (3.4-5.0) L Albumin/Globulin Ratio 0.6 (1.0-1.7) L Lipase 97 U/L (73-393) Prothrombin Time 14.1 SEC (11.7-14.0) H Prothrombin Time INR 1.1 (0.8-1.1) Laboratory Tests 02/01/21 14:15 Laboratory Tests 02/01/21 14:15 ECHOCARDIOGRAM ECHOCARDIOGRAM <Conclusion> The left ventricle is normal size. The left ventricle is hyperdynamic. The Ejection Fraction is 65-70%. There is mild concentric left ventricular hypertrophy. The interatrial septum is intact with no evidence for an atrial septal defect or patent foramen ovale as noted on 2-D or Doppler imaging. Injection of bubbles documented no interatrial shunt. Doppler and Color Flow revealed no significant aortic regurgitation. There is no significant aortic valvular stenosis. Doppler and Color Flow revealed trace mitral valve regurgitation. Doppler and Color Flow revealed trace to mild tricuspid regurgitation. The PA pressure was estimated at 46 mmHg. DATE: 03/29/20 [id number] ASSESSMENT/PLAN ASSESSMENT/PLAN 1. Mechanical fall; No LOC 2. Chest pain; atypical. AMI ruled out. Will check echo to assess LV systolic function, presence of WMA 3. H/o CVA 4. Hypertension; controlled 5. Asymptomatic SB when asleep lowest in the 40s. 6. Blind 7. RA: on methotrexate 8. Cachexia ZEB ALEJANDRO APRN Feb 02, 2021 09:43
[2021-02-02] MEDS ORDERED: DOCU100C28 PO (09:49)
[2021-02-02] MEDS ORDERED: ASPI-630 PO (09:49)
[2021-02-02 11:00] VITALS: BP 120/59
--- NOTE | 2021-02-02 11:41 | NUR ---
SS following for discharge planning. SS reviewed pt chart and discussed with pt RN. Pt is from home with family and is currently on room air. Ortho and Cardiology consulted. PT/OT ordered. Pt has been vaccinated for COVID19. Pt's family reported to SS that pt has walker and wheelchair at home. They reported that if recommended they would like pt to go to longterm unit in [place], [place]. Pt's family to contact SS with names of facilities. COVID19 test requested for potential placement. SS will continue to follow for discharge planning.
[2021-02-02] MEDS: ASPIRIN CHEWABLE 81 MG TABLET. PO SCH (12:58)
[2021-02-02] MEDS: FOLIC ACID 1 MG TABLET. PO SCH (12:58)
[2021-02-02] MEDS: LOSARTAN POTASSIUM 50 MG TABLET. PO SCH (12:58)
[2021-02-02] MEDS: DOCUSATE SODIUM 100 MG CAPSULE. PO SCH (12:58)
--- NOTE | 2021-02-02 13:36 | SNU/HH DC ---
DISCHARGE WITH HOME HEALTH DISCHARGE INFORMATION: Discharge Date: Feb 02, 2021 Final Diagnosis: 1. Mechanical fall; No LOC 2. Chest pain; atypical. AMI ruled out. 3. H/o CVA 4. Hypertension; controlled 5. Asymptomatic SB when asleep lowest in the 40s. 6. Blindness 6. Rheumatoid Arthritis : on methotrexate Problems Medical Problems: (1) Chest pain Status: Acute (2) Fall Status: Acute (3) Left leg pain Status: Acute Condition on Discharge: Stable CODE STATUS: Code Status: Full HOME HEALTH: Face to Face: I certify this patient is under my care and that I, had a face to face encounter that meets the physician face to face encounter requirements with this patient on 02/02 Medical Complications: Falls, Other (fall) Care Home For: Assess/Skilled Observatio, Medication Management RN For Eval/Treatment: Yes Physical Therapy For: Evalulation/Treatment Occupational Therapy For: Evaluation/Treatment Pt Meets Homebound Status: Frequent falls w/ injury POST DISCHARGE ORDERS: Activity Instructions for Disc: Activity as tolerated DIET AFTER DISCHARGE: Dysphagia 1 with thin liquids Wound/Incision Care: Ice to area for comfort DC TO SNF OTHER: crush pills in puree, straws ok CHECKS AFTER DISCHARGE: Checks after discharge: Check blood press - daily, Check your Temp as needed TREATMENT/EQUIPMENT ORDERS: Adaptive Equipment Issued: Wheelchair CERTIFICATION STATEMENT: Certification Statement: Certification Statement: Based on the above finding, I certify that this patient is confined to the home and needs intermittent chcf care, physical therapy and/or speech therapy, or continues to need occupational therapy.~ This patient is under my care, and I have initiated the establishment of the plan of care.~ This patient will be followed by myself or a community physician who will periodically review the plan of care. Home Meds Active Scripts Amlodipine Besylate (AMLODIPINE BESYLATE) 10 Mg Tablet, 10 MG PO DAILY for Blood Pressure for 30 Days, #30 TAB Prov:CASTLE,NIAL K III DO 04/07/20 Atorvastatin Calcium (ATORVASTATIN CALCIUM) 40 Mg Tablet, 40 MG PO QHS for cholesterol for 30 Days, #30 TAB Prov:CASTLE,NIAL K III DO 04/07/20 Reported Medications Docusate Sodium (DOCUSATE SODIUM) 100 Mg Capsule, 100 MG PO BID for constipation, CAP 02/02/21 Aspirin (ASPIRIN) 81 Mg Tab.chew, 81 MG PO DAILY for Stroke pevention, TAB.CHEW 02/02/21 Oxybutynin Chloride (OXYBUTYNIN CHLORIDE) 5 Mg Tablet, 1 TAB PO BID for Urinary retention, #60 TAB 11 Refills 03/26/20 Methotrexate Sodium (METHOTREXATE) 2.5 Mg Tablet, 7 TAB PO WEEKLY for Lupus, #24 TAB 1 Refill 03/26/20 Folic Acid (Folic Acid) 0.8 Mg Capsule, 1 MG PO DAILY for Supplement, CAP 03/26/20 Famotidine (FAMOTIDINE) 20 Mg Tablet, 40 MG PO BID for Ulcer, TAB 03/26/20 Valsartan (Valsartan) 80 Mg Tablet, 80 MG PO DAILY for HTN, TAB 03/26/20 BOBBY FORMAN MD Feb 02, 2021 13:36
--- NOTE | 2021-02-02 13:39 | PDOC3 ---
Discharge Summary Visit Information Date of Admission: Feb 01, 2021 Date of Discharge: Feb 02, 2021 Final Diagnosis 1. Mechanical fall; No LOC 2. Chest pain; atypical. AMI ruled out. 3. H/o CVA 4. Hypertension; controlled 5. Asymptomatic SB when asleep lowest in the 40s. 6. Blindness 6. Rheumatoid Arthritis : on methotrexate Problems Medical Problems: (1) Chest pain Status: Acute (2) Fall Status: Acute (3) Left leg pain Status: Acute Brief Hospital Course Allergies Allergies Coded Allergies Type Severity Reaction Last Updated Verified No Known Drug Allergies 06/16/19 No Vital Signs Vital Signs Date Time Temp Pulse Resp B/P (MAP) Pulse Ox O2 Delivery O2 Flow Rate FiO2 02/02/21 12:58 81 150/71 02/02/21 09:00 Room Air 02/02/21 07:00 98.6 18 99 98.6 Lab Results Laboratory Tests Test 02/01/21 14:15 02/01/21 18:00 02/01/21 20:55 White Blood Count 6.0 x10^3/uL (4.0-11.0) Red Blood Count 4.04 x10^6/uL (3.50-5.40) Hemoglobin 12.8 g/dL (12.0-15.5) Hematocrit 38.2 % (36.0-47.0) Mean Corpuscular Volume 94 fL (79-100) Mean Corpuscular Hemoglobin 32 pg (25-35) Mean Corpuscular Hemoglobin Concent 34 g/dL (31-37) Red Cell Distribution Width 15.2 % (11.5-14.5) Platelet Count 342 x10^3/uL (140-400) Neutrophils (%) (Auto) 73 % (31-73) Lymphocytes (%) (Auto) 18 % (24-48) Monocytes (%) (Auto) 9 % (0-9) Eosinophils (%) (Auto) 1 % (0-3) Basophils (%) (Auto) 0 % (0-3) Neutrophils # (Auto) 4.3 x10^3/uL (1.8-7.7) Lymphocytes # (Auto) 1.1 x10^3/uL (1.0-4.8) Monocytes # (Auto) 0.5 x10^3/uL (0.0-1.1) Eosinophils # (Auto) 0.0 x10^3/uL (0.0-0.7) Basophils # (Auto) 0.0 x10^3/uL (0.0-0.2) Sodium Level 140 mmol/L (136-145) Potassium Level 4.1 mmol/L (3.5-5.1) Chloride Level 103 mmol/L (98-107) Carbon Dioxide Level 31 mmol/L (21-32) Anion Gap 6 (6-14) Blood Urea Nitrogen 16 mg/dL (7-20) Creatinine 0.6 mg/dL (0.6-1.0) Estimated GFR (Cockcroft-Gault) 117.0 BUN/Creatinine Ratio 27 (6-20) Glucose Level 104 mg/dL (70-99) Calcium Level 9.0 mg/dL (8.5-10.1) Total Bilirubin 0.3 mg/dL (0.2-1.0) Aspartate Amino Transf (AST/SGOT) 18 U/L (15-37) Alanine Aminotransferase (ALT/SGPT) 22 U/L (14-59) Alkaline Phosphatase 88 U/L (46-116) Troponin I High Sensitivity 4 ng/L (4-50) 6 ng/L (4-50) 6 ng/L (4-50) YS-Poa-M-Type Natriuretic Peptide 144 pg/mL (0-449) Total Protein 7.4 g/dL (6.4-8.2) Albumin 2.7 g/dL (3.4-5.0) Albumin/Globulin Ratio 0.6 (1.0-1.7) Lipase 97 U/L (73-393) Prothrombin Time 14.1 SEC (11.7-14.0) Prothromb Time International Ratio 1.1 (0.8-1.1) Laboratory Tests Test 02/01/21 14:15 02/01/21 18:00 02/01/21 20:55 White Blood Count 6.0 x10^3/uL (4.0-11.0) Red Blood Count 4.04 x10^6/uL (3.50-5.40) Hemoglobin 12.8 g/dL (12.0-15.5) Hematocrit 38.2 % (36.0-47.0) Mean Corpuscular Volume 94 fL (79-100) Mean Corpuscular Hemoglobin 32 pg (25-35) Mean Corpuscular Hemoglobin Concent 34 g/dL (31-37) Red Cell Distribution Width 15.2 % (11.5-14.5) Platelet Count 342 x10^3/uL (140-400) Neutrophils (%) (Auto) 73 % (31-73) Lymphocytes (%) (Auto) 18 % (24-48) Monocytes (%) (Auto) 9 % (0-9) Eosinophils (%) (Auto) 1 % (0-3) Basophils (%) (Auto) 0 % (0-3) Neutrophils # (Auto) 4.3 x10^3/uL (1.8-7.7) Lymphocytes # (Auto) 1.1 x10^3/uL (1.0-4.8) Monocytes # (Auto) 0.5 x10^3/uL (0.0-1.1) Eosinophils # (Auto) 0.0 x10^3/uL (0.0-0.7) Basophils # (Auto) 0.0 x10^3/uL (0.0-0.2) Sodium Level 140 mmol/L (136-145) Potassium Level 4.1 mmol/L (3.5-5.1) Chloride Level 103 mmol/L (98-107) Carbon Dioxide Level 31 mmol/L (21-32) Anion Gap 6 (6-14) Blood Urea Nitrogen 16 mg/dL (7-20) Creatinine 0.6 mg/dL (0.6-1.0) Estimated GFR (Cockcroft-Gault) 117.0 BUN/Creatinine Ratio 27 (6-20) Glucose Level 104 mg/dL (70-99) Calcium Level 9.0 mg/dL (8.5-10.1) Total Bilirubin 0.3 mg/dL (0.2-1.0) Aspartate Amino Transf (AST/SGOT) 18 U/L (15-37) Alanine Aminotransferase (ALT/SGPT) 22 U/L (14-59) Alkaline Phosphatase 88 U/L (46-116) Troponin I High Sensitivity 4 ng/L (4-50) 6 ng/L (4-50) 6 ng/L (4-50) YO-Klb-J-Type Natriuretic Peptide 144 pg/mL (0-449) Total Protein 7.4 g/dL (6.4-8.2) Albumin 2.7 g/dL (3.4-5.0) Albumin/Globulin Ratio 0.6 (1.0-1.7) Lipase 97 U/L (73-393) Prothrombin Time 14.1 SEC (11.7-14.0) Prothromb Time International Ratio 1.1 (0.8-1.1) Brief Hospital Course Ms. Paiz is a 80 old female who cliff after falling out of her wheelchair down [address]. no LOC, some chest pain, AMI ruled out, CV consult diastolic CHF, EF 70% Patient also has a history of hypertension, high cholesterol and smoking formerly Discharge Information Condition at Discharge: Improved Follow Up: Weeks Disposition/Orders: D/C to Home w/ HH Scheduled Amlodipine Besylate (Amlodipine Besylate) 10 Mg Tablet, 10 MG PO DAILY for Blood Pressure for 30 Days, #30 Prescribed by: JAMAICA KLEIN on 04/07/20 1300 Last Action: Continued on 02/02/211221 by MAX BARNETT RN Aspirin (Aspirin) 81 Mg Tab.chew, 81 MG PO DAILY for Stroke pevention, (Reported) Entered as Reported by: MAX BARNETT RN on 02/02/21 09 Last Action: Continued on 02/02/211221 by MAX BARNETT RN Atorvastatin Calcium (Atorvastatin Calcium) 40 Mg Tablet, 40 MG PO QHS for cholesterol for 30 Days, #30 Prescribed by: JAMAICA KLEIN on 04/07/20 1300 Last Action: Continued on 02/02/211221 by MAX BARNETT RN Docusate Sodium (Docusate Sodium) 100 Mg Capsule, 100 MG PO BID for constipation, (Reported) Entered as Reported by: MAX BARNETT RN on 02/02/21 0949 Last Action: Continued on 02/02/211221 by MAX BARNETT RN Famotidine (Famotidine) 20 Mg Tablet, 40 MG PO BID for Ulcer, (Reported) Entered as Reported by: MAX BARNETT RN on 03/26/20 1355 Last Action: Continued on 02/02/211221 by MAX BARNETT RN Folic Acid (Folic Acid) 0.8 Mg Capsule, 1 MG PO DAILY for Supplement, (Reported) Entered as Reported by: MAX BARNETT RN on 03/26/20 1355 Last Action: Converted on 02/02/211221 by MAX BARNETT RN Methotrexate Sodium (Methotrexate) 2.5 Mg Tablet, 7 TAB PO WEEKLY for Lupus, #24 Ref 1 (Reported) Entered as Reported by: MAX BARNETT RN on 03/26/20 1355 Last Action: Continued on 02/02/211221 by MAX BARNETT RN Oxybutynin Chloride (Oxybutynin Chloride) 5 Mg Tablet, 1 TAB PO BID for Urinary retention, #60 Ref 11 (Reported) Entered as Reported by: MAX BARNETT RN on 03/26/20 1356 Last Action: Continued on 02/02/211221 by MAX BARNETT RN Valsartan (Valsartan) 80 Mg Tablet, 80 MG PO DAILY for HTN, (Reported) Entered as Reported by: MAX BARNETT RN on 03/26/20 1021 Last Action: Converted on 02/02/211221 by MAX BARNETT RN Patient Instructions Patient Instructions > 30 min face to face, she requests DC home Justicifation of Admission Dx: Justifications for Admission: Justification of Admission Dx: Yes Stroke - Ischemic: Stroke-Ischemic BOBBY FORMAN MD Feb 02, 2021 13:39
[2021-02-02 15:00] VITALS: BP 140/74
[2021-02-02 19:38] VITALS: BP 105/61
[2021-02-02 23:01] VITALS: BP 140/76
[2021-02-03] MEDS: FAMOTIDINE 20 MG TABLET. PO SCH ×2 (00:33→21:33)
[2021-02-03] MEDS: DOCUSATE SODIUM 100 MG CAPSULE. PO SCH ×3 (00:34→21:33)
[2021-02-03] MEDS: ATORVASTATIN CALCIUM 40 MG TABLET. PO SCH ×2 (00:34→21:33)
[2021-02-03] MEDS: OXYBUTYNIN CHLORIDE 5 MG TABLET PO SCH ×3 (00:34→21:33)
[2021-02-03] MEDS: HYDROcodone/APAP 5/325MG 1 TAB TABLET PO PRN (00:35)
[2021-02-03 03:28] VITALS: BP 101/49
[2021-02-03 06:11] VITALS: BP 131/72
[2021-02-03] MEDS: LOSARTAN POTASSIUM 50 MG TABLET. PO SCH (10:09)
[2021-02-03] MEDS: FOLIC ACID 1 MG TABLET. PO SCH (10:09)
[2021-02-03] MEDS: ASPIRIN CHEWABLE 81 MG TABLET. PO SCH (10:09)
[2021-02-03 11:00] VITALS: BP 107/61
--- NOTE | 2021-02-03 12:49 | CARD ---
MR#: [id number] Date of Study: 02/02/2021 Ordering Physician: ZEB ALEJANDRO, Referring Physician: ZEB ALEJANDRO, Tech: Lucy Madera, [facility] APPROVED REPORT EXAM: Two-dimensional and M-mode echocardiogram with Doppler and color Doppler. Other Information Quality : FairHR: 92bpm INDICATION Dyspnea 2D DIMENSIONS Left Atrium(2D)1.9 (1.6-4.0cm)IVSd0.9 (0.7-1.1cm) Aortic Root(2D)2.8 (2.0-3.7cm)LVDd3.4 (3.9-5.9cm) LVOT Diameter2.0 (1.8-2.4cm)PWd0.7 (0.7-1.1cm) LVDs2.4 (2.5-4.0cm)FS (%) 27.9 % SV25.8 ml Aortic Valve AoV Peak Cezar.113.0cm/sAoV VTI25.1cm AO Peak GR.5.1mmHgLVOT VTI 17.28cm AO Mean GR.4mmHg Mitral Valve MV E Wpjgeuwa30.1cm/sMV E Peak Gr.4mmHg MV DECEL [id number] A Vppxstgx70.9cm/s MV E Mean Gr.1mmHgE/A Ratio0.7 TDI Lateral E' P. V5.34cm/sMedial E' P. V4.57cm/s E/Lateral E'12.2E/Medial E'14.2 Tricuspid Valve TR P. Ygumgruy940wr/sRAP OIUEPCVC8eaEp TR Peak Gr.66dnUsTSOD95rjSj LEFT VENTRICLE The left ventricle is normal size. There is mild to moderate concentric left ventricular hypertrophy. The left ventricular systolic function is normal and the ejection fraction is within normal range. T he Ejection Fraction is 60-65%. There is normal LV segmental wall motion. Transmitral Doppler flow pa ttern is Grade I-abnormal relaxation pattern. RIGHT VENTRICLE The right ventricle is normal size. There is normal right ventricular wall thickness. The right ventr icular systolic function is normal. ATRIA The left atrium size is normal. The right atrium size is normal. The interatrial septum is intact wit h no evidence for an atrial septal defect or patent foramen ovale as noted on 2-D or Doppler imaging. AORTIC VALVE The aortic valve is mildly thickened but opens well. Doppler and Color Flow revealed trace aortic reg urgitation. There is no significant aortic valvular stenosis. Calculated aortic valve area is 2.06 cm 2 with maximum pressure gradient of 9 mmHg and mean pressure gradient of 4 mmHg. MITRAL VALVE The mitral valve is normal in structure and function. There is no evidence of mitral valve prolapse. There is no mitral valve stenosis. Doppler and Color-flow revealed trace to mild mitral regurgitation . TRICUSPID VALVE The tricuspid valve is normal in structure and function. Doppler and Color Flow revealed mild to mode rate tricuspid regurgitation with an estimated PAP of 42 mmHg. There is no tricuspid valve stenosis. PULMONIC VALVE The pulmonic valve is not well visualized. Doppler and Color Flow revealed trace pulmonic valvular re gurgitation. GREAT VESSELS The aortic root is normal in size. The IVC is normal in size and collapses >50% with inspiration. PERICARDIAL EFFUSION There is no evidence of significant pericardial effusion. Critical Notification Critical Value: No <Conclusion> The left ventricle is normal size. The left ventricular systolic function is normal and the ejection fraction is within normal range. The Ejection Fraction is 60-65%. There is mild to moderate concentric left ventricular hypertrophy. Doppler and Color Flow revealed trace aortic regurgitation. There is no significant aortic valvular stenosis. Doppler and Color-flow revealed trace to mild mitral regurgitation. Doppler and Color Flow revealed mild to moderate tricuspid regurgitation with an estimated PAP of 42 mmHg. Signed by : Barrett Walsh MD Electronically Approved : 02/03/2021 12:48:50
--- NOTE | 2021-02-03 14:09 | NUR ---
SS following up with discharge planning. SS reviewed pt chart and discussed with pt RN. Pt is currently on room air. COVID19 negative. PT/OT ordered. PT recommended [facility]. SS contacted pt's granddaughter and discussed discharge planning and penitentiary unit. Pt's granddaughter agreeable and requesting that SS phone and fax referral to [facility], ; fax [phone]. Referral phoned and faxed as requested. Currently awaiting OT evaluation at this time. SS will continue to follow for discharge planning.
[2021-02-03 15:00] VITALS: BP 98/53
--- NOTE | 2021-02-03 16:34 | PDOC ---
[facility] [facility] PROGRESS NOTE Date of Service DOS: DATE: 02/03/21 TIME: 16:33 Chief Complaint Chief Complaint LATE entry, tried to DC on 02/02, family wnats skilled 1. Mechanical fall; No LOC 2. Chest pain; atypical. AMI ruled out. 3. H/o CVA 4. Hypertension; controlled 5. Asymptomatic SB when asleep lowest in the 40s. 6. Blindness 6. Rheumatoid Arthritis : on methotrexate History of Present Illness History of Present Illness waekness, Vitals/I&O Vitals/I&O: Vital Signs Date Time Temp Pulse Resp B/P (MAP) Pulse Ox O2 Delivery O2 Flow Rate FiO2 02/03/21 15:00 97.6 64 16 98/53 (68) 97 Room Air 97.6 I & O 02/02/21 02/02/21 02/03/21 15:00 23:00 07:00 Intake Total 180 ml 230 ml 50 ml Balance 180 ml 230 ml 50 ml Physical Exam General: Alert, Cooperative, No acute distress Heart: Other (irreg, ireerg, no murmur) Lungs: Clear Extremities: Other (+ edema, 2) Skin: No breakdown, No significant lesion Review of Systems Review of Systems: calm Assessment and Plan Assessmemt and Plan Problems Medical Problems: (1) Chest pain Status: Acute (2) Fall Status: Acute (3) Left leg pain Status: Acute Comment Review of Relevant I have reviewed the following items alicia (where applicable) has been applied. Medications: Current Medications Medications (Trade) Dose Ordered Sig/Susan Route PRN Reason Start Time Stop Time Status Last Admin Dose Admin Atorvastatin Calcium (Lipitor) 40 mg QHS PO 02/02/21 21:00 02/03/21 00:34 Famotidine (Pepcid) 40 mg QHS PO 02/02/21 21:00 02/03/21 00:33 Oxybutynin Chloride (Ditropan) 5 mg BID PO 02/02/21 21:00 02/03/21 10:08 Justifications for Admission Other Justification BOBBY FORMAN MD Feb 03, 2021 16:34
--- NOTE | 2021-02-03 17:41 | PDOC ---
[facility] [facility] PROGRESS NOTE Date of Service DOS: DATE: 02/03/21 TIME: 17:41 Chief Complaint Chief Complaint 1. Mechanical fall; No LOC 2. Chest pain; atypical. AMI ruled out. 3. H/o CVA 4. Hypertension; controlled 5. Asymptomatic SB when asleep lowest in the 40s. 6. Blindness 7. Rheumatoid Arthritis : on methotrexate 8. severe malnutrition, BMI 13.5 History of Present Illness History of Present Illness more alert pt and ot eval to [facility] Vitals/I&O Vitals/I&O: Vital Signs Date Time Temp Pulse Resp B/P (MAP) Pulse Ox O2 Delivery O2 Flow Rate FiO2 02/03/21 15:00 97.6 64 16 98/53 (68) 97 Room Air 97.6 I & O 02/02/21 02/02/21 02/03/21 15:00 23:00 07:00 Intake Total 180 ml 230 ml 50 ml Balance 180 ml 230 ml 50 ml Physical Exam General: Alert, Cooperative, No acute distress Heart: Other (irreg, ireerg, no murmur) Lungs: Clear Extremities: Other (+ edema, 2) Skin: No breakdown, No significant lesion Assessment and Plan Assessmemt and Plan Problems Medical Problems: (1) Chest pain Status: Acute (2) Fall Status: Acute (3) Left leg pain Status: Acute Comment Review of Relevant I have reviewed the following items alicia (where applicable) has been applied. Medications: Current Medications Medications (Trade) Dose Ordered Sig/Susan Route PRN Reason Start Time Stop Time Status Last Admin Dose Admin Atorvastatin Calcium (Lipitor) 40 mg QHS PO 02/02/21 21:00 02/03/21 00:34 Famotidine (Pepcid) 40 mg QHS PO 02/02/21 21:00 02/03/21 00:33 Oxybutynin Chloride (Ditropan) 5 mg BID PO 02/02/21 21:00 02/03/21 10:08 Justifications for Admission Other Justification BOBBY FORMAN MD Feb 03, 2021 17:41
[2021-02-03 19:00] VITALS: BP 99/58
[2021-02-03 23:00] VITALS: BP 93/49
[2021-02-04 03:25] VITALS: BP 109/62
[2021-02-04 07:00] VITALS: BP 113/44
[2021-02-04] MEDS: OXYBUTYNIN CHLORIDE 5 MG TABLET PO SCH ×2 (08:54→20:28)
[2021-02-04] MEDS: DOCUSATE SODIUM 100 MG CAPSULE. PO SCH ×2 (08:54→20:28)
[2021-02-04] MEDS: LOSARTAN POTASSIUM 50 MG TABLET. PO SCH (08:55)
[2021-02-04] MEDS: FOLIC ACID 1 MG TABLET. PO SCH (08:55)
[2021-02-04] MEDS: ASPIRIN CHEWABLE 81 MG TABLET. PO SCH (09:00)
[2021-02-04 11:00] VITALS: BP 107/75
--- NOTE | 2021-02-04 13:09 | PDOC ---
[facility] [facility] PROGRESS NOTE Date of Service DOS: DATE: 02/04/21 TIME: 13:08 Chief Complaint Chief Complaint 1. Mechanical fall; No LOC 2. Chest pain; atypical. AMI ruled out. 3. H/o CVA 4. Hypertension; controlled 5. Asymptomatic SB when asleep lowest in the 40s. 6. Blindness 7. Rheumatoid Arthritis : on methotrexate 8. severe malnutrition, BMI 13.5 History of Present Illness History of Present Illness more alert about the same overall, family has hopes for improvemwnt, pt and ot, plan skilled Vitals/I&O Vitals/I&O: Vital Signs Date Time Temp Pulse Resp B/P (MAP) Pulse Ox O2 Delivery O2 Flow Rate FiO2 02/04/21 11:00 98.1 77 20 107/75 (86) 94 Room Air 98.1 I & O 02/03/21 02/03/21 02/04/21 15:00 23:00 07:00 Intake Total 50 ml 200 ml 0 ml Balance 50 ml 200 ml 0 ml Physical Exam General: Alert, Cooperative, No acute distress Heart: Other (irreg, ireerg, no murmur) Lungs: Clear Abdomen: Normal bowel sounds, No tenderness Extremities: No clubbing, Other (+ edema, 2) Skin: No breakdown, No significant lesion Assessment and Plan Assessmemt and Plan Problems Medical Problems: (1) Chest pain Status: Acute (2) Fall Status: Acute (3) Left leg pain Status: Acute Comment Review of Relevant I have reviewed the following items alicia (where applicable) has been applied. Justifications for Admission Other Justification BOBBY FORMAN MD Feb 04, 2021 13:09
[2021-02-04 14:29] VITALS: BP 95/39
--- NOTE | 2021-02-04 14:51 | PDOC ---
PROGRESS NOTES Date of Service DATE: 02/04/21 TIME: 14:49 Subjective Subjective Patient seen and examined Objective Objective Vital Signs Date Time Temp Pulse Resp B/P (MAP) Pulse Ox O2 Delivery O2 Flow Rate FiO2 02/04/21 14:29 98.2 77 95/39 (57) 94 Room Air 98.2 02/04/21 11:00 20 Intake and Output 02/04/21 07:00 Intake Total 250 ml Balance 250 ml Intake Oral 250 ml # Voids 2 Physical Exam Abdomen: Normal bowel sounds Heart: Regular rate General: mild distress Lungs: Other (Slightly decreased breath sounds) Assessment Assessment Problems Medical Problems: (1) Chest pain Status: Acute (2) Fall Status: Acute (3) Left leg pain Status: Acute Mechanical fall; No LOC. Continuing baseline treatment. Chest pain; atypical. AMI ruled out. Echo shows normal LV systolic function with an ejection fraction of 60 to 65%, mild to moderate left ventricular hypertrophy, mild mitral regurgitation and mild tricuspid regurgitation with a pulmonary artery pressure of 42 mmHg. Will continue present treatment. H/o CVA Hypertension; controlled Asymptomatic SB when asleep lowest in the 40s. Blindness. RA: on methotrexate Cachexia Comment Review of Relevant I have reviewed the following items alicia (where applicable) has been applied. Medications Current Medications Acetaminophen (Tylenol) 1,000 mg 1X ONCE PO Last administered on 02/01/21at 16:03; Start 02/01/21 at 14:00; Stop 02/01/21 at 14:08; Status DC Fentanyl Citrate (Fentanyl 2ml Vial) 25 mcg 1X ONCE IVP Last administered on 02/01/21at 16:08; Start 02/01/21 at 14:30; Stop 02/01/21 at 14:31; Status DC Acetaminophen/ Hydrocodone Bitart (Lortab 5/325) 1 tab PRN BID PRN PO PAIN Last administered on 02/03/21at 00:35; Start 02/02/21 at 06:45 Amlodipine Besylate (Norvasc) 10 mg DAILY PO Last administered on 02/04/21at 08:54; Start 02/02/21 at 13:00 Aspirin (Aspirin Chewable) 81 mg DAILY PO Last administered on 02/04/21at 09:00; Start 02/02/21 at 13:00 Atorvastatin Calcium (Lipitor) 40 mg QHS PO Last administered on 02/03/21at 21:33; Start 02/02/21 at 21:00 Docusate Sodium (Colace) 100 mg BID PO Last administered on 02/04/21at 08:54; Start 02/02/21 at 13:00 Famotidine (Pepcid) 40 mg QHS PO Last administered on 02/03/21at 21:33; Start 02/02/21 at 21:00 Methotrexate (Rheumatrex) 17.5 mg WEEKLY PO ; Start 02/09/21 at 09:00 Oxybutynin Chloride (Ditropan) 5 mg BID PO Last administered on 02/04/21at 08:54; Start 02/02/21 at 21:00 Folic Acid (Folic Acid) 1 mg DAILY PO Last administered on 02/04/21at 08:55; Start 02/02/21 at 13:00 Losartan Potassium (Cozaar) 50 mg DAILY PO Last administered on 02/04/21at 08:55; Start 02/02/21 at 13:00 Active Scripts Active Amlodipine Besylate 10 Mg Tablet 10 Mg PO DAILY 30 Days Atorvastatin Calcium 40 Mg Tablet 40 Mg PO QHS 30 Days Reported Docusate Sodium 100 Mg Capsule 100 Mg PO BID Aspirin 81 Mg Tab.chew 81 Mg PO DAILY Oxybutynin Chloride 5 Mg Tablet 1 Tab PO BID Methotrexate (Methotrexate Sodium) 2.5 Mg Tablet 7 Tab PO WEEKLY Folic Acid 0.8 Mg Capsule 1 Mg PO DAILY Famotidine 20 Mg Tablet 40 Mg PO BID Valsartan 80 Mg Tablet 80 Mg PO DAILY Vitals/I & O Vital Sign - Last 24 Hours 02/03/21 02/03/21 02/03/21 02/03/21 15:00 19:00 20:00 23:00 Temp 97.6 98.3 97.3 97.6 98.3 97.3 Pulse 64 77 70 Resp 16 16 16 B/P (MAP) 98/53 (68) 99/58 (72) 93/49 (64) Pulse Ox 97 98 97 O2 Delivery Room Air Room Air Room Air Room Air 02/04/21 02/04/21 02/04/21 02/04/21 03:25 07:00 08:00 08:54 Temp 98.1 98.0 98.1 98.0 Pulse 75 78 78 Resp 16 20 B/P (MAP) 109/62 (78) 113/44 (67) 113/44 Pulse Ox 100 92 O2 Delivery Room Air Room Air Room Air 02/04/21 02/04/21 02/04/21 08:55 11:00 14:29 Temp 98.1 98.2 98.1 98.2 Pulse 78 77 77 Resp 20 B/P (MAP) 113/44 107/75 (86) 95/39 (57) Pulse Ox 94 94 O2 Delivery Room Air Room Air Intake and Output 02/03/21 02/03/21 02/04/21 15:00 23:00 07:00 Intake Total 50 ml 200 ml 0 ml Balance 50 ml 200 ml 0 ml Justifications for Admission Other Justification ABRIL DECKER MD Feb 04, 2021 14:51
[2021-02-04 19:54] VITALS: BP 98/53
[2021-02-04] MEDS: ATORVASTATIN CALCIUM 40 MG TABLET. PO SCH (20:28)
[2021-02-04] MEDS: FAMOTIDINE 20 MG TABLET. PO SCH (20:28)
[2021-02-04 22:22] VITALS: BP 105/47
[2021-02-05 03:06] VITALS: BP 96/58
[2021-02-05 06:17] VITALS: BP 104/54
[2021-02-05] MEDS: DOCUSATE SODIUM 100 MG CAPSULE. PO SCH ×2 (08:59→20:21)
[2021-02-05] MEDS: HYDROcodone/APAP 5/325MG 1 TAB TABLET PO PRN (08:59)
[2021-02-05] MEDS: ASPIRIN CHEWABLE 81 MG TABLET. PO SCH (08:59)
[2021-02-05] MEDS: FOLIC ACID 1 MG TABLET. PO SCH (08:59)
[2021-02-05] MEDS: LOSARTAN POTASSIUM 50 MG TABLET. PO SCH (09:00)
[2021-02-05] MEDS: OXYBUTYNIN CHLORIDE 5 MG TABLET PO SCH ×2 (09:00→20:21)
[2021-02-05 11:00] VITALS: BP 92/51
--- NOTE | 2021-02-05 14:09 | PDOC ---
PROGRESS NOTES Date of Service DATE: 02/05/21 TIME: 14:08 Subjective Subjective Patient seen and examined Objective Objective Vital Signs Date Time Temp Pulse Resp B/P (MAP) Pulse Ox O2 Delivery O2 Flow Rate FiO2 02/05/21 09:00 75 104/54 02/05/21 08:59 93 Room Air 02/05/21 06:17 98.8 16 98.8 Intake and Output 02/05/21 07:00 Intake Total 400 ml Balance 400 ml Intake Oral 400 ml # Voids 7 Physical Exam Abdomen: Normal bowel sounds Heart: Regular rate General: No acute distress Lungs: Other (Minimally decreased breath sounds) Assessment Assessment Problems Medical Problems: (1) Chest pain Status: Acute (2) Fall Status: Acute (3) Left leg pain Status: Acute Mechanical fall; No LOC. Continuing baseline treatment. Chest pain; atypical. AMI ruled out. Pain resolved. Echo shows normal LV systolic function with an ejection fraction of 60 to 65%, mild to moderate left ventricular hypertrophy, mild mitral regurgitation and mild tricuspid regurgitation with a pulmonary artery pressure of 42 mmHg. Will continue present treatment. H/o CVA Hypertension; controlled. Continue present treatment. Asymptomatic SB when asleep lowest in the 40s. Blindness. RA: on methotrexate Cachexia Comment Review of Relevant I have reviewed the following items alicia (where applicable) has been applied. Medications Current Medications Acetaminophen (Tylenol) 1,000 mg 1X ONCE PO Last administered on 02/01/21at 16:03; Start 02/01/21 at 14:00; Stop 02/01/21 at 14:08; Status DC Fentanyl Citrate (Fentanyl 2ml Vial) 25 mcg 1X ONCE IVP Last administered on 02/01/21at 16:08; Start 02/01/21 at 14:30; Stop 02/01/21 at 14:31; Status DC Acetaminophen/ Hydrocodone Bitart (Lortab 5/325) 1 tab PRN BID PRN PO PAIN Last administered on 02/05/21at 08:59; Start 02/02/21 at 06:45 Amlodipine Besylate (Norvasc) 10 mg DAILY PO Last administered on 02/05/21at 08:59; Start 02/02/21 at 13:00 Aspirin (Aspirin Chewable) 81 mg DAILY PO Last administered on 02/05/21at 08:59; Start 02/02/21 at 13:00 Atorvastatin Calcium (Lipitor) 40 mg QHS PO Last administered on 02/04/21at 20:28; Start 02/02/21 at 21:00 Docusate Sodium (Colace) 100 mg BID PO Last administered on 02/05/21at 08:59; Start 02/02/21 at 13:00 Famotidine (Pepcid) 40 mg QHS PO Last administered on 02/04/21at 20:28; Start 02/02/21 at 21:00 Methotrexate (Rheumatrex) 17.5 mg WEEKLY PO ; Start 02/09/21 at 09:00 Oxybutynin Chloride (Ditropan) 5 mg BID PO Last administered on 02/05/21at 09:00; Start 02/02/21 at 21:00 Folic Acid (Folic Acid) 1 mg DAILY PO Last administered on 02/05/21at 08:59; Start 02/02/21 at 13:00 Losartan Potassium (Cozaar) 50 mg DAILY PO Last administered on 02/05/21at 09:00; Start 02/02/21 at 13:00 Active Scripts Active Amlodipine Besylate 10 Mg Tablet 10 Mg PO DAILY 30 Days Atorvastatin Calcium 40 Mg Tablet 40 Mg PO QHS 30 Days Reported Docusate Sodium 100 Mg Capsule 100 Mg PO BID Aspirin 81 Mg Tab.chew 81 Mg PO DAILY Oxybutynin Chloride 5 Mg Tablet 1 Tab PO BID Methotrexate (Methotrexate Sodium) 2.5 Mg Tablet 7 Tab PO WEEKLY Folic Acid 0.8 Mg Capsule 1 Mg PO DAILY Famotidine 20 Mg Tablet 40 Mg PO BID Valsartan 80 Mg Tablet 80 Mg PO DAILY Vitals/I & O Vital Sign - Last 24 Hours 02/04/21 02/04/21 02/04/21 02/04/21 14:29 19:54 20:00 22:22 Temp 98.2 98.6 98.6 98.2 98.6 98.6 Pulse 77 70 64 Resp 16 16 B/P (MAP) 95/39 (57) 98/53 (68) 105/47 (66) Pulse Ox 94 96 96 O2 Delivery Room Air Room Air Room Air Room Air 02/05/21 02/05/21 02/05/21 02/05/21 03:06 06:17 08:00 08:59 Temp 98.4 98.8 98.4 98.8 Pulse 77 75 Resp 18 16 B/P (MAP) 96/58 (71) 104/54 (71) Pulse Ox 93 93 93 O2 Delivery Room Air Room Air Room Air Room Air 02/05/21 02/05/21 08:59 09:00 Pulse 75 75 B/P (MAP) 104/54 104/54 Intake and Output 02/04/21 02/04/21 02/05/21 15:00 23:00 07:00 Intake Total 400 ml Balance 400 ml Justifications for Admission Other Justification ABRIL DECKER MD Feb 05, 2021 14:09
--- NOTE | 2021-02-05 14:31 | PDOC ---
[facility] [facility] PROGRESS NOTE Date of Service DOS: DATE: 02/05/21 TIME: 14:30 Chief Complaint Chief Complaint 1. Mechanical fall; No LOC 2. Chest pain; atypical. AMI ruled out. 3. H/o CVA 4. Hypertension; controlled 5. Asymptomatic SB when asleep lowest in the 40s. 6. Blindness 7. Rheumatoid Arthritis : on methotrexate 8. severe malnutrition, BMI 13.5 History of Present Illness History of Present Illness I talked with her granddaughter by phone and arranged a call with patient while I was in [facility] room. Patient would like to DC home, needs skilled, too weak at home, plan as before more alert about the same overall, pt and ot, plan skilled Vitals/I&O Vitals/I&O: Vital Signs Date Time Temp Pulse Resp B/P (MAP) Pulse Ox O2 Delivery O2 Flow Rate FiO2 02/05/21 09:00 75 104/54 02/05/21 08:59 93 Room Air 02/05/21 06:17 98.8 16 98.8 I & O 02/04/21 02/04/21 02/05/21 15:00 23:00 07:00 Intake Total 400 ml Balance 400 ml Physical Exam General: No acute distress Heart: Regular rate Lungs: Clear Abdomen: Normal bowel sounds Extremities: No clubbing, Other (+ edema, 2) Skin: No breakdown, No significant lesion Assessment and Plan Assessmemt and Plan Problems Medical Problems: (1) Chest pain Status: Acute (2) Fall Status: Acute (3) Left leg pain Status: Acute Comment Review of Relevant I have reviewed the following items alicia (where applicable) has been applied. Justifications for Admission Other Justification BOBBY FORMAN MD Feb 05, 2021 14:31
[2021-02-05 15:00] VITALS: BP 102/62
[2021-02-05 19:17] VITALS: BP 105/50
[2021-02-05] MEDS: FAMOTIDINE 20 MG TABLET. PO SCH (20:21)
[2021-02-05] MEDS: ATORVASTATIN CALCIUM 40 MG TABLET. PO SCH (20:21)
[2021-02-05 22:37] VITALS: BP 111/53
[2021-02-06 03:00] VITALS: BP 97/51
[2021-02-06 07:00] VITALS: BP 119/63
[2021-02-06] MEDS: ASPIRIN CHEWABLE 81 MG TABLET. PO SCH (08:47)
[2021-02-06] MEDS: FOLIC ACID 1 MG TABLET. PO SCH (08:47)
[2021-02-06] MEDS: DOCUSATE SODIUM 100 MG CAPSULE. PO SCH ×2 (08:47→20:54)
[2021-02-06] MEDS: LOSARTAN POTASSIUM 50 MG TABLET. PO SCH (08:47)
[2021-02-06] MEDS: OXYBUTYNIN CHLORIDE 5 MG TABLET PO SCH ×2 (08:47→20:53)
--- NOTE | 2021-02-06 10:17 | PDOC ---
JAVONZEB MARQUES PAULINE 02/06/21 1017: CARDIO Progress Notes Date and Time Date of Service 02/06/21 Time of Evaluation 1015 Subjective Subjective: No Chest Pain, No shortness of breath, No Palpitations Vitals Vitals Vital Signs Date Time Temp Pulse Resp B/P (MAP) Pulse Ox O2 Delivery O2 Flow Rate FiO2 02/06/21 08:47 77 97/51 02/06/21 07:00 98.1 16 96 Room Air 98.1 Weight Weight [ ] Input and Output Intake and Output Intake and Output 02/06/21 07:00 Intake Total 337 ml Output Total 0 ml Balance 337 ml Intake Oral 337 ml Output Urine Total 0 ml # Voids 3 Physical Exam HEENT: Neck Supple W Full Motion Chest: Symmetric LUNGS: Clear to Auscultation, Other (diminished bases ) Heart: RRR Abdomen: Soft N/T Extremities: Other (cachexia, contractures ) Neurology: alert, follow commands Assessment Assessment 1. Mechanical fall; No LOC. No arrhythmias on tele 2. Chest pain; atypical. AMI ruled out. Echo with preserved LV systolic function. Supportive care from a CV standpoint. No further inpatient testing warranted at this time. 3. H/o CVA 4. Hypertension; controlled 5. Asymptomatic SB when asleep lowest in the 40s. 6. Blind 7. RA: on methotrexate 8. Cachexia, contractures Justicifation of Admission Dx: Justifications for Admission: Justification of Admission Dx: Yes Stroke - Ischemic: Stroke-Ischemic ABRIL DECKER MD 02/06/21 1551: CARDIO Progress Notes Assessment Assessment Patient seen and examined I agree with our nurse practitioners assessment and plan. Mechanical fall; No LOC. No arrhythmias on tele Chest pain; atypical. AMI ruled out. Echo with preserved LV systolic function. Supportive care from a CV standpoint. No further inpatient testing warranted at this time. H/o CVA Hypertension; controlled Asymptomatic SB when asleep lowest in the 40s. Blind RA: on methotrexate Cachexia, contractures ZEB ALEJANDRO PAULINE Feb 06, 2021 10:17 ABRIL DECKER MD Feb 06, 2021 15:51
[2021-02-06 11:13] VITALS: BP 104/53
--- NOTE | 2021-02-06 13:18 | PDOC ---
[facility] [facility] PROGRESS NOTE Date of Service DOS: DATE: 02/06/21 TIME: 13:16 Chief Complaint Chief Complaint 1. Mechanical fall; No LOC 2. Chest pain; atypical. AMI ruled out. 3. H/o CVA 4. Hypertension; controlled 5. Asymptomatic SB when asleep lowest in the 40s. 6. Blindness 7. Rheumatoid Arthritis : on methotrexate 8. severe malnutrition, BMI 13.5 9. Autonomic imbalance 10. GERD History of Present Illness History of Present Illness 02/06/2021 Patient seen and examined Discussed with RN Discussed with case management Chart reviewed I talked with her granddaughter by phone and arranged a call with patient while I was in [facility] room. Patient would like to DC home, needs skilled, too weak at home, plan as before more alert about the same overall, pt and ot, plan skilled Vitals/I&O Vitals/I&O: Vital Signs Date Time Temp Pulse Resp B/P (MAP) Pulse Ox O2 Delivery O2 Flow Rate FiO2 02/06/21 11:13 98.2 83 16 104/53 (70) 95 Room Air 98.2 I & O 02/05/21 02/05/21 02/06/21 15:00 23:00 07:00 Intake Total 237 ml 100 ml 0 ml Output Total 0 ml Balance 237 ml 100 ml 0 ml Physical Exam General: No acute distress Heart: Regular rate Lungs: Clear Abdomen: Normal bowel sounds Extremities: No clubbing, Other (+ edema, 2) Skin: No breakdown, No significant lesion Assessment and Plan Assessmemt and Plan Problems Medical Problems: (1) Chest pain Status: Acute (2) Fall Status: Acute (3) Left leg pain Status: Acute 1. Mechanical fall; No LOC 2. Chest pain; atypical. AMI ruled out. 3. H/o CVA 4. Hypertension; controlled 5. Asymptomatic SB when asleep lowest in the 40s. 6. Blindness 7. Rheumatoid Arthritis : on methotrexate 8. severe malnutrition, BMI 13.5 9. Autonomic imbalance 10. GERD Plan Cardiac monitoring Home meds PT OT DVT prophylaxis Full code Probably need skilled nurse Appreciate subspecialist input Comment Review of Relevant I have reviewed the following items alicia (where applicable) has been applied. Justifications for Admission Other Justification JAMAICA KLEIN III DO Feb 06, 2021 13:18
[2021-02-06 14:15] VITALS: BP 111/54
[2021-02-06 19:38] VITALS: BP 106/79
[2021-02-06] MEDS: ATORVASTATIN CALCIUM 40 MG TABLET. PO SCH (20:53)
[2021-02-06] MEDS: FAMOTIDINE 20 MG TABLET. PO SCH (20:54)
[2021-02-06] MEDS: HYDROcodone/APAP 5/325MG 1 TAB TABLET PO PRN (22:25)
[2021-02-06 23:12] VITALS: BP 100/59
[2021-02-07 03:40] VITALS: BP 95/42
[2021-02-07 07:35] VITALS: BP 153/83
--- NOTE | 2021-02-07 09:00 | PDOC ---
CARDIO Progress Notes Date and Time Date of Service 02/07/21 Time of Evaluation 1114 Subjective Subjective: No Chest Pain, No shortness of breath, No Palpitations Vitals Vitals Vital Signs Date Time Temp Pulse Resp B/P (MAP) Pulse Ox O2 Delivery O2 Flow Rate FiO2 02/07/21 07:35 99.0 75 18 153/83 (106) 91 Room Air 99.0 Weight Weight [ ] Input and Output Intake and Output Intake and Output 02/07/21 07:00 Intake Total 650 ml Balance 650 ml Intake Oral 650 ml # Voids 5 Physical Exam HEENT: Neck Supple W Full Motion Chest: Symmetric LUNGS: Clear to Auscultation, Other (diminished bases ) Heart: RRR Abdomen: Soft N/T Extremities: Other (cachexia, contractures ) Neurology: alert, follow commands Assessment Assessment 1. Mechanical fall; No LOC. No arrhythmias on tele 2. Chest pain; atypical. AMI ruled out. Echo with preserved LV systolic function. Supportive care from a CV standpoint. No further inpatient testing warranted at this time. 3. H/o CVA 4. Hypertension; controlled 5. Asymptomatic SB when asleep lowest in the 40s. 6. Blind 7. RA: on methotrexate 8. Cachexia, contractures Justicifation of Admission Dx: Justifications for Admission: Justification of Admission Dx: Yes Stroke - Ischemic: Stroke-Ischemic ZEB ALEJANDRO APRN Feb 07, 2021 09:00
[2021-02-07 10:27] VITALS: BP 110/82
--- NOTE | 2021-02-07 10:33 | EKG ---
[facility] [address] [place] [address] Test Date: 2021-02-07 Test Time: 07:41:34 Pat Name: SONY CULP Department: Room: [facility] Gender: F Media Sales Executive: SHANE : 1940 Requested By: JAMAICA KLEIN Order Number: [id number] Reading MD: Caleb Persaud Measurements Intervals Ola Rate: 92 P: 66 ND: 130 QRS: 71 QRSD: 70 T: 64 QT: 348 QTc: 435 Interpretive Statements SINUS RHYTHM NORMAL ECG RI6.02 Compared to ECG 02/01/2021 14:08:47 No significant changes Electronically Signed On 02-07-2021 14:15:39 LABORATORY AIDE by Caleb Persaud
--- NOTE | 2021-02-07 12:14 | SNU/HH DC ---
DISCHARGE ORDERS DISCHARGE INFORMATION: DISCHARGE DATE: Feb 02, 2021 FINAL DIAGNOSIS Problems Medical Problems: (1) Chest pain Status: Acute (2) Fall Status: Acute (3) Left leg pain Status: Acute CONDITION ON DISCHARGE: Stable CODE STATUS: Code Status: Full SNF: SNF STAY <30 DAYS: Yes HOSPICE: HOSPICE: No HOSPICE EVAL & TREAT: No LTAC: ADMIT TO LTAC: No POST DISCHARGE ORDERS: ACTIVITY ORDERS: Activity as tolerated DIET AFTER DISCHARGE: Cardiac WOUND/INCISION CARE: Ice to area for comfort OTHER ORDERS: crush pills in puree, straws ok CHECKS AFTER DISCHARGE: CHECKS AFTER DISCHARGE: Check blood press - daily, Check your Temp as needed TREATMENT/EQUIPMENT ORDERS: ADAPTIVE EQUIPMENT NEEDED: Wheelchair Physical Therapy For: Evalulation/Treatment Occupational Therapy For: Evaluation/Treatment DISCHARGE MEDICATIONS: Home Meds Active Scripts Amlodipine Besylate (AMLODIPINE BESYLATE) 10 Mg Tablet, 10 MG PO DAILY for Blood Pressure for 30 Days, #30 TAB Prov:CASTLE,NIAL K III DO 04/07/20 Atorvastatin Calcium (ATORVASTATIN CALCIUM) 40 Mg Tablet, 40 MG PO QHS for cholesterol for 30 Days, #30 TAB Prov:CASTLE,NIAL K III DO 04/07/20 Reported Medications Docusate Sodium (DOCUSATE SODIUM) 100 Mg Capsule, 100 MG PO BID for constipation, CAP 02/02/21 Aspirin (ASPIRIN) 81 Mg Tab.chew, 81 MG PO DAILY for Stroke pevention, TAB.CHEW 02/02/21 Oxybutynin Chloride (OXYBUTYNIN CHLORIDE) 5 Mg Tablet, 1 TAB PO BID for Urinary retention, #60 TAB 11 Refills 03/26/20 Methotrexate Sodium (METHOTREXATE) 2.5 Mg Tablet, 7 TAB PO WEEKLY for Lupus, #24 TAB 1 Refill 03/26/20 Folic Acid (Folic Acid) 0.8 Mg Capsule, 1 MG PO DAILY for Supplement, CAP 03/26/20 Famotidine (FAMOTIDINE) 20 Mg Tablet, 40 MG PO BID for Ulcer, TAB 03/26/20 Valsartan (Valsartan) 80 Mg Tablet, 80 MG PO DAILY for HTN, TAB 03/26/20 CASTLE,NIAL K III DO Feb 07, 2021 12:14
[2021-02-07 12:26] LABS: CALCIUM 8.3 mg/dL (8.5-10.1); CREATININE 0.6 mg/dL (0.6-1.0); POTASSIUM 4.4 mmol/L (3.5-5.1)
--- NOTE | 2021-02-07 12:27 | DS ---
DATE OF DISCHARGE: 02/07/2021 ADMISSION DIAGNOSIS: Chest pain. DISCHARGE DIAGNOSES: Resolving atypical chest pain, mechanical fall, history of stroke, hypertension, blindness, rheumatoid arthritis. CONSULTS: Cardiology. PROCEDURES: None. HOSPITAL COURSE: The patient is a pleasant, middle-aged female who presented with fall and chest discomfort. She was admitted. We did physical therapy and occupational therapy. We did serial enzymes, serial EKGs, cardiac monitoring. Consulted Cardiology. Basically, today she is back to her baseline. [facility]. DISPOSITION: [facility]. ACTIVITY: As tolerated. DIET: Low sodium. MEDICATIONS: Please see the MRAD. Amlodipine 10 a day, aspirin 81 a day, atorvastatin 40 a day, docusate 100 b.i.d., Pepcid 40 b.i.d., folic acid 1 mg a day; methotrexate 2.5 mg, take 7 tablets weekly; oxybutynin 5 b.i.d. and valsartan 80 daily. Total time [address]: Ricardo TID: [id number]
[2021-02-07] MEDS: LOSARTAN POTASSIUM 50 MG TABLET. PO SCH (12:31)
[2021-02-07] MEDS: FOLIC ACID 1 MG TABLET. PO SCH (12:31)
[2021-02-07] MEDS: OXYBUTYNIN CHLORIDE 5 MG TABLET PO SCH ×2 (12:31→22:08)
[2021-02-07] MEDS: DOCUSATE SODIUM 100 MG CAPSULE. PO SCH ×2 (12:31→22:08)
[2021-02-07] MEDS: ASPIRIN CHEWABLE 81 MG TABLET. PO SCH (12:31)
--- NOTE | 2021-02-07 12:37 | NUR ---
SS following up with discharge planning. SS reviewed pt chart and discussed with pt RN. Pt is currently on room air. PT/OT recommended detention unit. COVID19 negative. urban and regional planner met with pt and spoke with family yesterday and pt's family was agreeable to referral to [facility], ; fax [phone]. Pt accepted at [facility] pending insurance authorization. Discharge orders received and phoned and faxed to [facility]. SS will await insurance determination and will proceed accordingly with discharge planning.
[2021-02-07 14:36] VITALS: BP 108/64
[2021-02-07 19:00] VITALS: BP 101/50
--- NOTE | 2021-02-07 19:10 | NUR ---
Pt in bed assessment completed vss poc explained pt reoriented to surroundings and call light placed in reach will resume care and continue to monitor pt.
[2021-02-07] MEDS: ATORVASTATIN CALCIUM 40 MG TABLET. PO SCH (22:08)
[2021-02-07] MEDS: FAMOTIDINE 20 MG TABLET. PO SCH (22:08)
[2021-02-07 23:00] VITALS: BP 106/61
[2021-02-08 03:00] VITALS: BP 122/56
[2021-02-08] MEDS: HYDROcodone/APAP 5/325MG 1 TAB TABLET PO PRN (03:03)
[2021-02-08 07:51] VITALS: BP 101/58
--- NOTE | 2021-02-08 08:11 | PDOC ---
[employer] PROGRESS NOTE Date of Service DOS: DATE: 02/08/21 TIME: 08:10 Chief Complaint Chief Complaint 1. Mechanical fall; No LOC 2. Chest pain; atypical. AMI ruled out. 3. H/o CVA 4. Hypertension; controlled 5. Asymptomatic SB when asleep lowest in the 40s. 6. Blindness 7. Rheumatoid Arthritis : on methotrexate 8. severe malnutrition, BMI 13.5 9. Autonomic imbalance 10. GERD History of Present Illness History of Present Illness 02/08/2021 Patient seen and examined Resting with no apparent Discussed with RN Chart reviewed We will probably discharge this afternoon 02/06/2021 Patient seen and examined Discussed with RN Discussed with case management Chart reviewed I talked with her granddaughter by phone and arranged a call with patient while I was in [facility] room. Patient would like to DC home, needs skilled, too weak at home, plan as before more alert about the same overall, pt and ot, plan skilled Vitals/I&O Vitals/I&O: Vital Signs Date Time Temp Pulse Resp B/P (MAP) Pulse Ox O2 Delivery O2 Flow Rate FiO2 02/08/21 07:51 98.2 82 18 101/58 (72) 94 Room Air 98.2 02/08/21 03:33 3.0 I & O 02/07/21 02/07/21 02/08/21 15:00 23:00 07:00 Intake Total 0 ml 0 ml Balance 0 ml 0 ml Physical Exam General: No acute distress Heart: Regular rate Lungs: Clear Abdomen: Normal bowel sounds Extremities: No clubbing, Other (+ edema, 2) Skin: No breakdown, No significant lesion Labs Labs: Laboratory Tests Test 02/07/21 10:16 02/07/21 10:49 SARS-CoV-2 Antigen (Rapid) Negative (NEGATIVE) Sodium Level 140 mmol/L (136-145) Potassium Level 4.4 mmol/L (3.5-5.1) Chloride Level 105 mmol/L (98-107) Carbon Dioxide Level 30 mmol/L (21-32) Anion Gap 5 (6-14) Blood Urea Nitrogen 16 mg/dL (7-20) Creatinine 0.6 mg/dL (0.6-1.0) Estimated GFR (Cockcroft-Gault) 117.0 Glucose Level 93 mg/dL (70-99) Calcium Level 8.3 mg/dL (8.5-10.1) Assessment and Plan Assessmemt and Plan Problems Medical Problems: (1) Chest pain Status: Acute (2) Fall Status: Acute (3) Left leg pain Status: Acute 1. Mechanical fall; No LOC 2. Chest pain; atypical. AMI ruled out. 3. H/o CVA 4. Hypertension; controlled 5. Asymptomatic SB when asleep lowest in the 40s. 6. Blindness 7. Rheumatoid Arthritis : on methotrexate 8. severe malnutrition, BMI 13.5 9. Autonomic imbalance 10. GERD Plan Hope to discharge this afternoon with home health For now continue the following; Cardiac monitoring Home meds PT OT DVT prophylaxis Full code Probably need skilled nurse but family refuses she would like to get her home with home health (her niece Jorge) Appreciate subspecialist input Comment Review of Relevant I have reviewed the following items alicia (where applicable) has been applied. Justifications for Admission Other Justification JAMAICA KLEIN III, DO Feb 08, 2021 08:11
--- NOTE | 2021-02-08 08:12 | SNU/HH DC ---
DISCHARGE WITH HOME HEALTH DISCHARGE INFORMATION: Discharge Date: Feb 02, 2021 Final Diagnosis: Problems Medical Problems: (1) Chest pain Status: Acute (2) Fall Status: Acute (3) Left leg pain Status: Acute Condition on Discharge: Stable CODE STATUS: Code Status: Full HOME HEALTH: Face to Face: I certify this patient is under my care and that I, or a nurse practitioner or physician's customer service assistant working with me, had a face to face encounter that meets the physician face to face encounter requirements with this patient on []. Medical Complications: Other (Debility) Mcc For: Assess & Educate Safety RN For Eval/Treatment: Yes Physical Therapy For: Evalulation/Treatment Occupational Therapy For: Evaluation/Treatment Home Health Aide For: Self-care SAND TESTER For: Community Resources Pt Meets Homebound Status: Poor coordination w/ amb. POST DISCHARGE ORDERS: Activity Instructions for Disc: Activity as tolerated DIET AFTER DISCHARGE: Cardiac Wound/Incision Care: Ice to area for comfort DC TO SNF OTHER: crush pills in puree, straws ok CHECKS AFTER DISCHARGE: Checks after discharge: Check blood press - daily, Check your Temp as needed TREATMENT/EQUIPMENT ORDERS: Adaptive Equipment Issued: Wheelchair CERTIFICATION STATEMENT: Certification Statement: Certification Statement: Based on the above finding, I certify that this patient is confined to the home and needs intermittent shelter care, physical therapy and/or speech therapy, or continues to need occupational therapy.~ This patient is under my care, and I have initiated the establishment of the plan of care.~ This patient will be followed by myself or a community physician who will periodically review the plan of care. Home Meds Active Scripts Amlodipine Besylate (AMLODIPINE BESYLATE) 10 Mg Tablet, 10 MG PO DAILY for Blood Pressure for 30 Days, #30 TAB Prov:CASTLE,NIAL K III DO 04/07/20 Atorvastatin Calcium (ATORVASTATIN CALCIUM) 40 Mg Tablet, 40 MG PO QHS for cholesterol for 30 Days, #30 TAB Prov:CASTLE,NIAL K III DO 04/07/20 Reported Medications Docusate Sodium (DOCUSATE SODIUM) 100 Mg Capsule, 100 MG PO BID for constipation, CAP 02/02/21 Aspirin (ASPIRIN) 81 Mg Tab.chew, 81 MG PO DAILY for Stroke pevention, TAB.CHEW 02/02/21 Oxybutynin Chloride (OXYBUTYNIN CHLORIDE) 5 Mg Tablet, 1 TAB PO BID for Urinary retention, #60 TAB 11 Refills 03/26/20 Methotrexate Sodium (METHOTREXATE) 2.5 Mg Tablet, 7 TAB PO WEEKLY for Lupus, #24 TAB 1 Refill 03/26/20 Folic Acid (Folic Acid) 0.8 Mg Capsule, 1 MG PO DAILY for Supplement, CAP 03/26/20 Famotidine (FAMOTIDINE) 20 Mg Tablet, 40 MG PO BID for Ulcer, TAB 03/26/20 Valsartan (Valsartan) 80 Mg Tablet, 80 MG PO DAILY for HTN, TAB 03/26/20 JAMAICA KLEIN III DO Feb 08, 2021 08:12
[2021-02-08] MEDS: LOSARTAN POTASSIUM 50 MG TABLET. PO SCH (09:00)
[2021-02-08] MEDS: ASPIRIN CHEWABLE 81 MG TABLET. PO SCH (09:31)
[2021-02-08] MEDS: FOLIC ACID 1 MG TABLET. PO SCH (09:32)
[2021-02-08] MEDS: OXYBUTYNIN CHLORIDE 5 MG TABLET PO SCH ×2 (09:32→22:32)
[2021-02-08] MEDS: DOCUSATE SODIUM 100 MG CAPSULE. PO SCH ×2 (09:32→22:32)
[2021-02-08 09:50] LABS: BASO # 0.1 x10^3/uL (0.0-0.2); BASO % 1 % (0-3); EOS # 0.1 x10^3/uL (0.0-0.7); EOS % 1 % (0-3); HEMATOCRIT 34.8 % (36.0-47.0); HEMOGLOBIN 11.8 g/dL (12.0-15.5); LYMPH # 1.2 x10^3/uL (1.0-4.8); LYMPH % 14 % (24-48); MEAN CORPUSCULAR HEMOGLOBIN 32 pg (25-35); MEAN CORPUSCULAR HGB CONC 34 g/dL (31-37); MEAN CORPUSCULAR VOLUME 94 fL (79-100); MONO # 0.5 x10^3/uL (0.0-1.1); MONO % 6 % (0-9); NEUT # 6.6 x10^3/uL (1.8-7.7); NEUT % 79 % (31-73); PLATELET COUNT 316 x10^3/uL (140-400); RED CELL DISTRIBUTION WIDTH 14.9 % (11.5-14.5); WHITE BLOOD COUNT 8.4 x10^3/uL (4.0-11.0)
[2021-02-08 10:03] VITALS: BP 110/58
[2021-02-08 14:32] VITALS: BP 102/62
--- NOTE | 2021-02-08 14:34 | NUR ---
SS following up with discharge planning. SS reviewed pt chart and discussed with pt RN. Pt is currently on room air. COVID19 negative. PT/OT recommended halfway unit. Pt accepted at [facility], ; fax [phone], pending insurance authorization. SS followed up with Kya in admissions and was notified that insurance authorization is still pending at this time. Discharge orders received and have been phoned and faxed to [facility] with updated PT/OT notes. Currently awaiting insurance approval. SS will continue to follow for discharge planning,
[2021-02-08] MEDS: ATORVASTATIN CALCIUM 40 MG TABLET. PO SCH (22:32)
[2021-02-08] MEDS: FAMOTIDINE 20 MG TABLET. PO SCH (22:35)
[2021-02-08 23:00] VITALS: BP 153/80
[2021-02-09] MEDS: HYDROcodone/APAP 5/325MG 1 TAB TABLET PO PRN (01:07)
[2021-02-09 03:00] VITALS: BP 108/60
[2021-02-09 06:04] LABS: BASO % 1 % (0-3); EOS % 0 % (0-3); HEMATOCRIT 32.1 % (36.0-47.0); LYMPH # 0.8 x10^3/uL (1.0-4.8); LYMPH % 10 % (24-48); MEAN CORPUSCULAR HEMOGLOBIN 32 pg (25-35); MEAN CORPUSCULAR HGB CONC 34 g/dL (31-37); MEAN CORPUSCULAR VOLUME 93 fL (79-100); MONO # 0.6 x10^3/uL (0.0-1.1); MONO % 7 % (0-9); NEUT # 6.5 x10^3/uL (1.8-7.7); NEUT % 82 % (31-73); PLATELET COUNT 314 x10^3/uL (140-400); RED BLOOD COUNT 3.46 x10^6/uL (3.50-5.40); RED CELL DISTRIBUTION WIDTH 14.6 % (11.5-14.5)
[2021-02-09 07:00] VITALS: BP 116/63
[2021-02-09] MEDS ORDERED: METHOTREXATE SODIUM 2.5 MG TABLET PO SCH (09:00)
[2021-02-09 11:00] VITALS: BP 121/67
--- NOTE | 2021-02-09 11:11 | NUR ---
SS following up with discharge planning. SS reviewed pt chart and discussed with pt RN. Pt is currently on room air. COVID19 negative. PT/OT recommended fdc unit. Pt accepted at [facility], ; fax [phone]. Insurance denied pt for SNU. SS contacted pt's granddaughter and discussed. Pt's granddaughter agreeable to home healthcare at this time and requested referral be phoned and faxed to [facility], ; fax [phone]. Discharge orders received. SS phoned and faxed discharge orders and referral to [facility]. Pt's granddaughter reported that she will transport pt to home at 1500 today. Pt's RN notified.
[2021-02-09] MEDS: ASPIRIN CHEWABLE 81 MG TABLET. PO SCH (11:28)
[2021-02-09] MEDS: FOLIC ACID 1 MG TABLET. PO SCH (11:29)
[2021-02-09] MEDS: LOSARTAN POTASSIUM 50 MG TABLET. PO SCH (11:29)
[2021-02-09] MEDS: OXYBUTYNIN CHLORIDE 5 MG TABLET PO SCH (11:29)
[2021-02-09] MEDS: DOCUSATE SODIUM 100 MG CAPSULE. PO SCH (11:30)
[2021-02-09 11:50] VITALS: BP 121/67
--- NOTE | 2021-02-09 12:06 | PDOC ---
[employer] PROGRESS NOTE Date of Service DOS: DATE: 02/09/21 TIME: 12:05 Chief Complaint Chief Complaint 1. Mechanical fall; No LOC 2. Chest pain; atypical. AMI ruled out. 3. H/o CVA 4. Hypertension; controlled 5. Asymptomatic SB when asleep lowest in the 40s. 6. Blindness 7. Rheumatoid Arthritis : on methotrexate 8. severe malnutrition, BMI 13.5 9. Autonomic imbalance 10. GERD History of Present Illness History of Present Illness 02/10/2020 Patient seen exam She is at her baseline We will redischarge to home with home health 02/08/2021 Patient seen and examined Resting with no apparent Discussed with RN Chart reviewed We will probably discharge this afternoon 02/06/2021 Patient seen and examined Discussed with RN Discussed with case management Chart reviewed I talked with her granddaughter by phone and arranged a call with patient while I was in [facility] room. Patient would like to DC home, needs skilled, too weak at home, plan as before more alert about the same overall, pt and ot, plan skilled Vitals/I&O Vitals/I&O: Vital Signs Date Time Temp Pulse Resp B/P (MAP) Pulse Ox O2 Delivery O2 Flow Rate FiO2 02/09/21 11:50 97 121/67 02/09/21 07:00 98.4 18 94 Room Air 98.4 02/08/21 20:00 3.0 I & O 02/08/21 02/08/21 02/09/21 15:00 23:00 07:00 Intake Total 120 ml Balance 120 ml Physical Exam General: No acute distress Heart: Regular rate Lungs: Clear Abdomen: Normal bowel sounds Extremities: No clubbing, Other (+ edema, 2) Skin: No breakdown, No significant lesion Labs Labs: Laboratory Tests Test 02/09/21 04:05 White Blood Count 8.0 x10^3/uL (4.0-11.0) Red Blood Count 3.46 x10^6/uL (3.50-5.40) Hemoglobin 11.0 g/dL (12.0-15.5) Hematocrit 32.1 % (36.0-47.0) Mean Corpuscular Volume 93 fL (79-100) Mean Corpuscular Hemoglobin 32 pg (25-35) Mean Corpuscular Hemoglobin Concent 34 g/dL (31-37) Red Cell Distribution Width 14.6 % (11.5-14.5) Platelet Count 314 x10^3/uL (140-400) Neutrophils (%) (Auto) 82 % (31-73) Lymphocytes (%) (Auto) 10 % (24-48) Monocytes (%) (Auto) 7 % (0-9) Eosinophils (%) (Auto) 0 % (0-3) Basophils (%) (Auto) 1 % (0-3) Neutrophils # (Auto) 6.5 x10^3/uL (1.8-7.7) Lymphocytes # (Auto) 0.8 x10^3/uL (1.0-4.8) Monocytes # (Auto) 0.6 x10^3/uL (0.0-1.1) Eosinophils # (Auto) 0.0 x10^3/uL (0.0-0.7) Basophils # (Auto) 0.0 x10^3/uL (0.0-0.2) Assessment and Plan Assessmemt and Plan Problems Medical Problems: (1) Chest pain Status: Acute (2) Fall Status: Acute (3) Left leg pain Status: Acute Redischarge to home with home Comment Review of Relevant I have reviewed the following items alicia (where applicable) has been applied. Justifications for Admission Other Justification JAMAICA KLEIN III, DO Feb 09, 2021 12:06
--- NOTE | 2021-02-09 16:55 | NUR ---
Pt's family here to take pt home. Discharge info reviewed. Pt transferred to wheelchair and taken to main entrance. Home per private vehicle with daughter and granddaughter. Belongings with pt.
--- NOTE | 2021-03-07 13:27 | DS ---
DATE OF DISCHARGE: 02/09/2021 ADMITTING DIAGNOSIS: Chest pain. DISCHARGE DIAGNOSES: Resolving atypical chest pain, mechanical fall, history of stroke, hypertension, diabetes and rheumatoid arthritis. CONSULTS: Cardiology. PROCEDURES: None. HOSPITAL COURSE: The patient is a pleasant elderly female who presented with chest pain. She was admitted. We did serial enzymes, serial EKGs. We consulted Cardiology. Over the next few days, she returned to baseline. It was felt that her chest pain was most likely atypical. We discharged to home. DISPOSITION: Home. ACTIVITY: As tolerated. DIET: Low sodium. DISCHARGE MEDICATIONS: Please see the MRAD. Amlodipine 10 a day, aspirin 81 a day, atorvastatin 40 a day, docusate 100 b.i.d., Pepcid 40 b.i.d., folic acid, methotrexate 2.5 mg, takes 7 tablets weekly, oxybutynin 5 b.i.d. and valsartan 80 a day. TOTAL TIME: 32 minutes. AYE/JASMYN DR: Ricardo TID: [id number]
== END 2021-02-09 16:55 | disposition home health service (06) | DRG 73 ==
LOC: ER 13:31 → 6 SOUTH 16:06 → OBSVTOIN 02-03 15:05
PROVIDERS: ADMIT Internal Medicine; ATTEND Internal Medicine
DX: G90.8 Other disorders of autonomic nervous system (principal); E43 Unspecified severe protein-calorie malnutrition; Z68.1 Body mass index [BMI] 19.9 or less, adult; K21.9 Gastro-esophageal reflux disease without esophagitis; E78.00 Pure hypercholesterolemia, unspecified; E78.5 Hyperlipidemia, unspecified; H54.3 Unqualified visual loss, both eyes; I11.9 Hypertensive heart disease without heart failure; I25.10 Atherosclerotic heart disease of native coronary artery without angina pectoris; J43.9 Emphysema, unspecified; M06.9 Rheumatoid arthritis, unspecified; M47.9 Spondylosis, unspecified; M81.0 Age-related osteoporosis without current pathological fracture; Z79.899 Other long term (current) drug therapy; Z83.3 Family history of diabetes mellitus; Z86.73 Personal history of transient ischemic attack (TIA), and cerebral infarction without residual deficits; Z87.891 Personal history of nicotine dependence; Z99.3 Dependence on wheelchair; M19.90 Unspecified osteoarthritis, unspecified site; W18.39XA Other fall on same level, initial encounter; Y93.89 Activity, other specified; Y92.89 Other specified places as the place of occurrence of the external cause; Y99.8 Other external cause status
CPT/HCPCS: 36415; 70450; 71111; 72125; 72128; 72131; 72192; 73030; 73060; 73521; 73552; 73562; 73590; 80048; 80053; 83690; 83880; 84484; 85025; 85610; 87426; 93005; 93306; G0378; G0379; J3010; U0003; U0005; 97110-GO; 97110-GP; 97530-GO; 97530-GP; 99285-25